=== PATIENT | female | born 1945 | race Caucasian/White ===

== ENCOUNTER → 2018-05-15 17:47 | Outpatient (CLI) | payer MEDICARE, SELFPAY | PROVIDERS: Family Provider Family Medicine; PCP Family Medicine; Visit Provider Obstetrics & Gynecology | DX: R31.9 Hematuria, unspecified (principal) | CPT/HCPCS: 87086; 87088 ==

== ENCOUNTER → 2018-06-18 08:23 | Outpatient (CLI) | payer MEDICARE, SELFPAY ==
--- NOTE | 2018-06-18 08:26 | BI_ITS ---
MAMMOGRAPHY - BILATERAL SCREENING REASON FOR EXAM: Female, 73 years old. Routine annual screening examination. PERTINENT HISTORY: Non-contributory. Left breast pain along its lateral aspect. TECHNIQUE: Digital bilateral breast shekhar (3D mammographic acquisition) in the CC and MLO projections. 2-D mediolateral oblique (MLO) and craniocaudad (CC) views of both breasts were obtained. CAD: Full Field Digital Mammography with Computer Added Detection was performed. COMPARISON: Comparison is made with prior examination dated May 21, 2017 and prior ultrasound of the left breast dated May 24, 2017. FINDINGS: Breast Composition: The breasts are heterogeneously dense, which may obscure small masses. There are multiple well-defined nodular densities in the central and inferior portions of the left breast. These most likely represent cysts. These appear to have increased in size as compared to prior study. Correlation with ultrasound is recommended. Stable scattered bilateral calcifications. A tissue clip marker is once again seen in the upper medial portion of the left breast. No other significant abnormalities are identified. BI/SCREENING MAMM (CAD), BILAT IMPRESSION: Increase in size of the nodular densities in the left breast as described. Correlation with ultrasound is recommended. ASSESSMENT CATEGORY: BIRADS Category 0: Incomplete. Need additional imaging evaluation. A letter regarding these results will be sent to the patient by the facility within 30 days. Approximately 10% of breast cancers are not detected by mammography. A normal mammogram should not delay biopsy of a clinically suspicious abnormality. [id number] Electronically Signed: Ulisses Lewis MD at 10:44 EDT Tel [phone], Service support ,
== END ==
PROVIDERS: Family Provider Family Medicine; PCP Family Medicine; Visit Provider Obstetrics & Gynecology
DX: Z12.31 Encounter for screening mammogram for malignant neoplasm of breast (principal)
CPT/HCPCS: 77063; 77067

== ENCOUNTER → 2018-06-20 14:56 | Outpatient (CLI) | payer MEDICARE, SELFPAY ==
--- NOTE | 2018-06-20 14:59 | US_ITS ---
STUDY: ULTRASOUND BREAST - LEFT REASON FOR EXAM: Female, 73 years old. Abnormal screening mammogram. TECHNIQUE: Axial and longitudinal images of the LEFT breast were performed with a high resolution ultrasound transducer. COMPARISON: Comparison is made with prior mammogram dated June 18, 2018 and prior ultrasound of the left breast dated May 24, 2017. FINDINGS: LEFT Breast: Once again, multiple cysts are seen in the inner quadrant of the left breast. The largest measures 1.6 times by 1.6 cm x 1.4 cm. This has increased in size. This is at the 9:00 position breast for sinus from the nipple. A 1.6 cm x 1.4 cm x 1.4 cm cyst is also seen at the 7:00 position of the breast at 3 cm from the nipple. This has increased in size as well. US/Breast Limited Unilateral IMPRESSION: Increase in size of the breast cysts. Routine mammographic follow-up is recommended. ASSESSMENT CATEGORY: BIRADS Category 2: Benign. A letter regarding these results will be sent to the patient by the facility within 30 days. Electronically Signed: Ulisses Lewis MD at 15:52 EDT Tel [phone], Service support ,
== END ==
PROVIDERS: Family Provider Family Medicine; PCP Family Medicine; Visit Provider Obstetrics & Gynecology
DX: R92.8 Other abnormal and inconclusive findings on diagnostic imaging of breast (principal)
CPT/HCPCS: 76642

== ENCOUNTER → 2018-10-03 15:22 | Outpatient (CLI) | payer MEDICARE, SELFPAY ==
[2018-10-03 17:41] LABS: Absolute Lymphocyte Count 3.22 X10^3/ul (0.83-4.51); Absolute Neutrophil Count 6.6 X10^3/uL (2.0-7.7); Basophil# 0.02 X10^3/uL; Basophil% 0.2 % (0-1); Eosinophil# 0.22 X10^3/uL; Eosinophils% 2.1 % (0-5); Hematocrit 40.2 % (37-47); Hemoglobin 12.9 g/dl (12.0-15.0); Lymphocyte # 3.22 X10^3/ul (4.0); Lymphocyte % 30.2 % (19-41); Mean Corp Hgb Conc 32.1 g/gl (32-36); Mean Corpuscular Volume 84.1 fL (81-99); Mean Platelet Vol. 9.1 fl (6.2-12.0); Monocyte# 0.57 X10^3/uL; Monocyte% 5.3 % (0-10); Neutrophil % 61.9 % (47-70); Platelet Count 251 K/mm3 (150-450); RBC Distribution Width CV 13.4 % (11.6-14.6); RBC Distribution Width SD 40.7 fl (35.1-43.9); Red Blood Count 4.78 M/mm3 (4.2-5.4); White Blood Count 10.7 K/mm3 (4.4-11.0)
[2018-10-03 17:42] LABS: POSITIVE COUNT NO; POSITIVE DIFFERENTIAL NO; POSITIVE MORPHOLOGY NO
[2018-10-03 18:05] LABS: ALB/GLOB Ratio 1.3 RATIO (0.9-2.4); AST(SGOT) 17 U/L (15-37); Alanine Aminotransfer ALT/SGPT 31 U/L (13-56); Albumin, Serum 4.1 g/dL (3.2-5.0); Alkaline Phosphatase 74 U/L (45-117); Anion Gap 10 (5-15); BUN 19 mg/dL (7-18); BUN/Creat Ratio 23.9 RATIO (10-20); Calcium,Total 8.9 mg/dL (8.5-10.1); Chloride 103 mmol/L (98-107); Cholesterol 169 mg/dL (200); EST Glomerular Filtration Rate 75 mL/min (>60); Est Glom Filt Rate - Afr Amer 91 mL/min (>60); Globulin 3.2 g/dL (2.2-4.2); Glucose 93 mg/dL (74-106); High Density Lipoprotein 44 mg/dL; Potassium 4.7 mmol/L (3.5-5.1); Protein, Total 7.3 g/dL (6.4-8.2); Sodium Level 139 mmol/L (136-145); T4 Free Direct 0.76 ng/dL (0.76-1.46); Thyroid Stim Hormone (TSH) 0.34 uIU/mL (0.358-3.74); Triglycerides 196 mg/dL; Very Low Density Lipoprotein 39 mg/dL (5-40)
[2018-10-03 18:35] LABS: Hemoglobin A1c 6.9 % (4.2-6.3)
[2018-10-03 19:11] LABS: Vitamin B12 558 pg/mL (211-911)
[2018-10-09 12:08] LABS: Thyroid Stim Immunoglob <0.10 IU/L (0.00-0.55)
[2018-10-09 14:06] LABS: Anti-Thyroglobulin AB < 1.0 IU/mL (0.0-0.9); Thyroglobulin, Serum Qt. 117.9 ng/mL (1.5-38.5); Thyroid Peroxidase AB < 6 IU/mL (0-34); Vitamin B1, Thiamine 134.7 nmol/L (66.5-200.0)
== END ==
PROVIDERS: Family Provider Family Medicine; PCP Family Medicine; Visit Provider Family Medicine
DX: R79.89 Other specified abnormal findings of blood chemistry (principal); E53.9 Vitamin B deficiency, unspecified; R00.2 Palpitations; R73.02 Impaired glucose tolerance (oral); E78.5 Hyperlipidemia, unspecified
CPT/HCPCS: 36415; 80053; 80061; 82607; 83036; 83735; 84425; 84432; 84439; 84443; 84445; 85025; 86376; 86800

== ENCOUNTER → 2018-10-08 15:47 | Outpatient (CLI) | payer MEDICARE, SELFPAY ==
[2018-06-25 15:05] VITALS: BMI 34.7
[2018-10-08 19:02] LABS: Microalbumin,Random Urine 8.5 mg/L (NO RANGE EST.); Microalbumin:Creatinine Ratio 4.4 mg/g CRE (<30 mg/g CRE)
== END ==
PROVIDERS: Family Provider Family Medicine; PCP Family Medicine; Visit Provider Family Medicine
DX: E11.9 Type 2 diabetes mellitus without complications (principal)
CPT/HCPCS: 82043; 82570

== ENCOUNTER → 2018-11-08 07:39 | Outpatient (CLI) | payer MEDICARE, SELFPAY ==
--- NOTE | 2018-11-08 07:42 | US_ITS ---
STUDY: THYROID ULTRASOUND REASON FOR EXAM: Female, 73 years old. Thyroid nodule. TECHNIQUE: Ultrasound evaluation of the thyroid was performed with real-time and static schroeder-scale imaging. COMPARISON: None. FINDINGS: RIGHT LOBE: The right lobe of the thyroid gland measures 4.8 cm x 2.5 cm x 1.5 cm. There is a homogeneous echotexture. There are 3 hypoechoic solid nodules in the right lobe of the thyroid in the upper and lower poles. The largest measures 1.4 cm x 1.5 cm x 1.5 cm. LEFT LOBE: The left lobe of the thyroid gland is slightly enlarged and measures 5.5 cm x 2.1 cm x 2.7 cm. There is a homogeneous echotexture. There are 3 solid hypoechoic nodules in the left lobe. The largest measures 2.7 cm x 2.7 cm x 2.0 cm. A biopsy is recommended. ISTHMUS: The isthmus measures 5.0 mm. The regional lymph nodes are normal. US/Thyroid IMPRESSION: Bilateral thyroid nodules. Dominant nodule measuring 2.7 cm x 2.7 cm x 2 cm and the left lobe in the lower pole. A biopsy is recommended. Electronically Signed: Ulisses Lewis MD at 9:21 EST , Service support ,
== END ==
PROVIDERS: Family Provider Family Medicine; PCP Family Medicine; Referring Provider Family Medicine; Visit Provider Family Medicine
DX: E04.1 Nontoxic single thyroid nodule (principal)
CPT/HCPCS: 76536

== ENCOUNTER → 2018-12-07 10:45 | Outpatient (CLI) | payer MEDICARE, SELFPAY ==
--- NOTE | 2018-12-07 10:45 | ASPS_PTH ---
PATIENT: BHARATH BEARD LOC: [facility] U#:[id number] AGE/SX: 80/F ROOM: RE12/07/[address]: Dr. Mateo Lamb MD : 1945 BED: DIS: SPEC #: [id number] RECD: 12/09/18 07:13 STATUS: RANJITH MIRANDA #: [id number] DINESH: 12/07/18 10:[address]: Mateo Lamb DEPT: CYTOLOGY RECD BY: Billy Ribera ENTERED: 12/09/18 10:53 SP TYPE: ASPIRATION OTHR DR: Dr. Sheng Escalante MD Tissues: A - Thyroid gland, NOS B - Thyroid gland, NOS Procedures: Special Stain Group II Cytology Other HEADER OPERATION: Thyroid FNA PRE-OP DIAGNOSIS: Thyroid nodules TISSUE SUBMITTED: A. Right thyroid slides x6 - mid thyroid, B. Left thyroid slides x6 - inferior thyroid DIAGNOSIS CYTOLOGY A. Fine needle aspiration, right mid thyroid (smears): Adequate for evaluation. Negative, consistent with benign colloid/follicular nodule. B. Fine needle aspiration, left inferior thyroid (smears): Adequate for evaluation. Negative, consistent with benign colloid/follicular nodule and chronic inflammation. AM:thanh 12/10/18 COMMENT Immediate cytologic evaluation to determine adequacy is not applicable. CYTOLOGY STUDY Slides are reviewed. CYTOLOGY GROSS A. Received are 6 smears labeled with the patient's name and designated per the requisition as right thyroid. Submitted for staining. B. Received are 6 smears labeled with the patient's name and designated per the requisition as left thyroid. Submitted for staining. / CC:cc 12/09/18 TC:5 CPT: 85509 x2
[2018-12-07 11:43] VITALS: BMI 34.7
== END ==
PROVIDERS: Family Provider Family Medicine; PCP Family Medicine; Referring Provider Surgery; Visit Provider Surgery
DX: E04.2 Nontoxic multinodular goiter (principal)
CPT/HCPCS: 88161; 88313

== ENCOUNTER → 2019-02-04 09:56 | Outpatient (CLI) | payer MEDICARE, SELFPAY ==
[2018-12-13 14:51] VITALS: BMI 34.7
[2019-02-04 14:14] LABS: Hemoglobin A1c 5.6 % (4.2-6.3)
[2019-02-04 14:29] LABS: ALB/GLOB Ratio 1.1 RATIO (0.9-2.4); AST(SGOT) 11 U/L (15-37); Alanine Aminotransfer ALT/SGPT 21 U/L (13-56); Albumin, Serum 3.6 g/dL (3.2-5.0); Alkaline Phosphatase 62 U/L (45-117); Anion Gap 9 (5-15); BUN 16 mg/dL (7-18); BUN/Creat Ratio 19.9 RATIO (10-20); Calcium,Total 8.7 mg/dL (8.5-10.1); Chloride 105 mmol/L (98-107); Cholesterol 134 mg/dL (200); Creatinine, Serum 0.81 mg/dL (0.55-1.02); EST Glomerular Filtration Rate 74 mL/min (>60); Est Glom Filt Rate - Afr Amer 90 mL/min (>60); Globulin 3.3 g/dL (2.2-4.2); Glucose 96 mg/dL (74-106); High Density Lipoprotein 45 mg/dL; Potassium 4.2 mmol/L (3.5-5.1); Protein, Total 6.9 g/dL (6.4-8.2); Sodium Level 142 mmol/L (136-145); T4 Free Direct 0.76 ng/dL (0.76-1.46); Thyroid Stim Hormone (TSH) 0.37 uIU/mL (0.358-3.74); Triglycerides 177 mg/dL; Very Low Density Lipoprotein 35 mg/dL (5-40)
== END ==
PROVIDERS: Family Provider Family Medicine; PCP Family Medicine; Visit Provider Family Medicine
DX: E78.5 Hyperlipidemia, unspecified (principal); E11.9 Type 2 diabetes mellitus without complications; E05.90 Thyrotoxicosis, unspecified without thyrotoxic crisis or storm
CPT/HCPCS: 36415; 80053; 80061; 83036; 84439; 84443

== ENCOUNTER → 2019-06-10 13:42 | Outpatient (CLI) | payer MEDICARE, SELFPAY ==
[2019-05-20 14:04] VITALS: BMI 34.7
[2019-06-10 15:26] LABS: Absolute Neutrophil Count 5.2 X10^3/uL (2.0-7.7); Basophil# 0.03 X10^3/uL; Basophil% 0.3 % (0-1); Eosinophil# 0.22 X10^3/uL; Eosinophils% 2.5 % (0-5); Hematocrit 36.8 % (37-47); Lymphocyte % 31.1 % (19-41); Mean Corp Hgb Conc 32.6 g/dL (32-36); Mean Corpuscular Hgb 27.8 pg (27.0-32.0); Mean Corpuscular Volume 85.4 fL (81-99); Mean Platelet Vol. 9.3 fl (6.2-12.0); Monocyte# 0.53 X10^3/uL; Monocyte% 6.1 % (0-10); NRBC Flagged by Analyzer 0 % (0-5); Neutrophil # 5.16 X10^3/uL (2.7-7.7); Neutrophil % 59.7 % (47-70); Platelet Count 289 K/mm3 (150-450); RBC Distribution Width CV 13.2 % (11.6-14.6); RBC Distribution Width SD 40.8 fl (35.1-43.9); Red Blood Count 4.31 M/mm3 (4.2-5.4); White Blood Count 8.7 K/mm3 (4.4-11.0)
[2019-06-10 15:45] LABS: Magnesium 1.8 mg/dL (1.6-2.6)
== END ==
PROVIDERS: Family Provider Family Medicine; PCP Family Medicine; Referring Provider Family Medicine; Visit Provider Family Medicine
DX: R00.2 Palpitations (principal); K21.9 Gastro-esophageal reflux disease without esophagitis
CPT/HCPCS: 36415; 83735; 85025

== ENCOUNTER → 2019-07-17 10:23 | Outpatient (CLI) | payer MEDICARE, SELFPAY ==
[2019-05-20 14:04] VITALS: BMI 34.7
[2019-07-17 13:27] LABS: Vitamin B12 352 pg/mL (211-911)
== END ==
PROVIDERS: Family Provider Family Medicine; PCP Family Medicine; Referring Provider Family Medicine; Visit Provider Family Medicine
DX: R41.3 Other amnesia (principal)
CPT/HCPCS: 36415; 82607; 84443

== ENCOUNTER → 2019-07-31 12:33 | Outpatient (CLI) | payer MEDICARE, SELFPAY ==
[2019-05-20 14:04] VITALS: BMI 34.7
--- NOTE | 2019-07-31 12:35 | BI_ITS ---
MAMMOGRAPHY - BILATERAL SCREENING REASON FOR EXAM: Female, 74 years old. Routine annual screening examination. PERTINENT HISTORY: Non-contributory. Remote left stereotactic breast biopsy. TECHNIQUE: Digital bilateral breast christina (3D mammographic acquisition) in the CC and MLO projections. 2-D mediolateral oblique (MLO) and craniocaudad (CC) views of both breasts were obtained. CAD: Full Field Digital Mammography with Computer Added Detection was performed. COMPARISON: Comparison is made with prior examination dated June 18, 2018 and May 21, 2017. FINDINGS: Breast Composition: The breasts are heterogeneously dense, which may obscure small masses. Once again, small well-defined nodules are seen in the inferior medial aspect of the left breast. The dominant nodule in the inferior central portion of the left breast has decreased slightly in size. It presently measures 1.2 cm. Prior ultrasound of the left breast demonstrated these to be cysts. Stable benign-appearing bilateral axillary lymph nodes. No other significant abnormalities are identified. There has been no significant change since the prior study. BI/SCREEN MAMM (CAD) W/CHRISTINA BILAT IMPRESSION: Stable bilateral screening mammogram. Yearly follow-up mammogram recommended. (A) ASSESSMENT CATEGORY: BIRADS Category 2: Benign. A letter regarding these results will be sent to the patient by the facility within 30 days. Approximately 10% of breast cancers are not detected by mammography. A normal mammogram should not delay biopsy of a clinically suspicious abnormality. [id number] Electronically Signed: Ulisses Lewis, at 13:56 EST , Service support ,
== END ==
PROVIDERS: Family Provider Family Medicine; PCP Family Medicine; Referring Provider Obstetrics & Gynecology; Visit Provider Obstetrics & Gynecology
DX: Z12.31 Encounter for screening mammogram for malignant neoplasm of breast (principal)
CPT/HCPCS: 77063; 77067

== ENCOUNTER → 2019-11-26 12:03 | Outpatient (CLI) | payer MEDICARE, SELFPAY ==
[2019-10-24 14:53] VITALS: BMI 34.7
[2019-11-26 15:54] LABS: Absolute Lymphocyte Count 2.54 X10^3/uL (0.83-4.51); Absolute Neutrophil Count 5.6 X10^3/uL (2.0-7.7); Basophil# 0.02 X10^3/uL; Basophil% 0.2 % (0-1); Eosinophil# 0.17 X10^3/uL; Eosinophils% 1.9 % (0-5); Hematocrit 38.8 % (37-47); Hemoglobin 12.3 g/dL (12.0-15.0); Lymphocyte # 2.54 X10^3/ul (4.0); Lymphocyte % 28.5 % (19-41); Mean Corp Hgb Conc 31.7 g/dL (32-36); Mean Corpuscular Hgb 26.7 pg (27.0-32.0); Mean Corpuscular Volume 84.2 fL (81-99); Mean Platelet Vol. 9.4 fl (6.2-12.0); Monocyte# 0.51 X10^3/uL; Monocyte% 5.7 % (0-10); NRBC Flagged by Analyzer 0 % (0-5); Neutrophil # 5.63 X10^3/uL (2.7-7.7); Neutrophil % 63.4 % (47-70); Platelet Count 283 K/mm3 (150-450); RBC Distribution Width CV 13.4 % (11.6-14.6); RBC Distribution Width SD 41.1 fl (35.1-43.9); Red Blood Count 4.61 M/mm3 (4.2-5.4); White Blood Count 8.9 K/mm3 (4.4-11.0)
[2019-11-26 16:52] LABS: ALB/GLOB Ratio 1.1 RATIO (0.9-2.4); AST(SGOT) 14 U/L (15-37); Alanine Aminotransfer ALT/SGPT 21 U/L (13-56); Albumin, Serum 3.9 g/dL (3.2-5.0); Alkaline Phosphatase 63 U/L (45-117); Anion Gap 7 (5-15); BUN 16 mg/dL (7-18); BUN/Creat Ratio 17.6 RATIO (10-20); Chloride 105 mmol/L (98-107); Cholesterol 145 mg/dL (200); Creatinine, Serum 0.91 mg/dL (0.55-1.02); EST Glomerular Filtration Rate 64 mL/min (>60); Est Glom Filt Rate - Afr Amer 78 mL/min (>60); Globulin 3.7 g/dL (2.2-4.2); Glucose 118 mg/dL (74-106); High Density Lipoprotein 54 mg/dL; Magnesium 1.9 mg/dL (1.6-2.6); Potassium 3.9 mmol/L (3.5-5.1); Protein, Total 7.6 g/dL (6.4-8.2); Sodium Level 139 mmol/L (136-145); T4 Free Direct 0.79 ng/dL (0.76-1.46); Thyroid Stim Hormone (TSH) 0.19 uIU/mL (0.358-3.74); Triglycerides 159 mg/dL; Very Low Density Lipoprotein 32 mg/dL (5-40)
[2019-11-26 16:53] LABS: Hemoglobin A1c 5.8 % (4.2-6.3)
== END ==
PROVIDERS: PCP Family Medicine; Referring Provider Family Medicine; Visit Provider Family Medicine
DX: R00.2 Palpitations (principal); E78.5 Hyperlipidemia, unspecified; E11.9 Type 2 diabetes mellitus without complications; R79.89 Other specified abnormal findings of blood chemistry
CPT/HCPCS: 36415; 80053; 80061; 83036; 83735; 84439; 84443; 85025

== ENCOUNTER → 2019-12-01 10:17 | Outpatient (CLI) | payer MEDICARE, SELFPAY ==
[2019-05-20 14:04] VITALS: BMI 34.7
[2019-10-24 14:53] VITALS: BMI 34.7
--- NOTE | 2019-12-01 10:18 | US_ITS ---
STUDY: THYROID ULTRASOUND REASON FOR EXAM: Female, 74 years old. NODULES TECHNIQUE: Ultrasound evaluation of the thyroid was performed with real-time and static schroeder-scale imaging. COMPARISON: 11/08/2018 FINDINGS: RIGHT LOBE: The right lobe of the thyroid gland measures 5.1 x 1.9 x 2.0 cm. There is a heterogeneous echotexture. Slight increase in the size of the hypoechoic nodule with increased transmission in the anterior aspect of the right lobe from 1.0 cm #1.2 cm in diameter consistent with an enlarging colloid cyst. No change in the 0.7 cm oval hypoechoic nodule anteriorly in the right lobe likely consistent with an adenoma. No change in the adjacent 0.6 cm hypoechoic nodule anteriorly in the right lobe likely consistent with an adenoma. Interval decrease in the size of the dominant solid nodule posteriorly in the right lobe from 1.5 cm diameter 1.3 cm in diameter likely consistent with improving adenoma. LEFT LOBE: The left lobe of the thyroid gland measures 5.5 x 2.4 x 2.6 cm. There is a heterogeneous echotexture. There is no change in a 0.7 cm hypoechoic solid nodule superiorly in the left lobe which contains punctate echogenicities worrisome for microcalcifications. Biopsy is nodule is recommended if never performed. No change in the 2.8 cm hypoechoic solid nodule posteriorly in the left lobe which also should be biopsied if never performed. ISTHMUS: The isthmus measures 6 cm thick. . The regional lymph nodes are normal. US/Thyroid IMPRESSION: 1. Thyroiditis with multiple nodules most of which are unchanged with slight enlargement of the right-sided colloid cyst. 2. No change is 0.7 cm hypoechoic solid nodule superiorly in the left lobe with possible microcalcifications. Biopsy of this nodule is recommended if never performed. 3. No change in 2.8 cm dominant solid nodule in the left lobe. Biopsy of this nodule is recommended if never performed. Electronically Signed: Teodoro Jennings MD at 11:28 EDT Tel , Service support ,
== END ==
PROVIDERS: Family Provider Family Medicine; PCP Family Medicine; Referring Provider Physician Assistant; Visit Provider Physician Assistant
DX: E04.2 Nontoxic multinodular goiter (principal)
CPT/HCPCS: 76536

== ENCOUNTER → 2019-12-10 10:45 | Outpatient (CLI) | payer MEDICARE, SELFPAY ==
[2019-12-09 11:06] VITALS: BMI 31.7
[2019-12-10 12:56] LABS: AST(SGOT) 11 U/L (15-37); Alanine Aminotransfer ALT/SGPT 20 U/L (13-56); Albumin, Serum 3.9 g/dL (3.2-5.0); Alkaline Phosphatase 69 U/L (45-117); Bilirubin, Direct 0.31 mg/dL (0.00-0.30); Cholesterol 164 mg/dL (200); High Density Lipoprotein 49 mg/dL; Protein, Total 7.9 g/dL (6.4-8.2); T4 Total, Thyroxin 7.3 ug/dL (4.8-13.9); Triglycerides 218 mg/dL; Very Low Density Lipoprotein 44 mg/dL (5-40)
== END ==
PROVIDERS: PCP Family Medicine; Referring Provider Family Medicine; Visit Provider Internal Medicine Cardiovascular Disease
DX: E78.5 Hyperlipidemia, unspecified (principal); E03.9 Hypothyroidism, unspecified
CPT/HCPCS: 36415; 80061; 80076; 84436; 84443

== ENCOUNTER → 2019-12-11 11:27 | Outpatient (CLI) | payer MEDICARE, SELFPAY ==
[2019-12-09 11:06] VITALS: BMI 31.7
[2019-12-15 14:07] LABS: Thyroid Stim Immunoglob <0.10 IU/L (0.00-0.55)
[2019-12-15 15:41] LABS: Anti-Thyroglobulin AB < 1.0 IU/mL (0.0-0.9); Thyroglobulin, Serum Qt. 133.3 ng/mL (1.5-38.5); Thyroid Peroxidase AB < 9 IU/mL (0-34)
== END ==
PROVIDERS: PCP Family Medicine; Referring Provider Family Medicine; Visit Provider Family Medicine
DX: R79.89 Other specified abnormal findings of blood chemistry (principal)
CPT/HCPCS: 36415; 84432; 84445; 86376; 86800

== ENCOUNTER → 2019-12-18 12:59 | Outpatient (CLI) | payer MEDICARE, SELFPAY ==
[2019-12-09 11:06] VITALS: BMI 31.7
--- NOTE | 2019-12-18 12:59 | ECHOD_ITS ---
Reason For Study: PVCs Procedure This was a 2D Doppler, Color Flow transthoracic echocardiogram. Exam performed in department. Left Ventricle Moderate concentric left ventricular hypertrophy. The estimated ejection fraction is 65 %. Stage 1 diastolic dysfunction. No regional wall motion abnormalities noted. Right Ventricle Normal size and thickness. Normal systolic function. Atria Normal left atrium. Normal right atrium. Normal atrial septum. Mitral Valve The mitral valve is structurally normal. No prolapse or stenosis seen. Mild (1+) eccentric mitral valve insufficiency. Tricuspid Valve Normal tricuspid valve. Mild (1+) tricuspid valve insufficiency. Right ventricular systolic pressure estimated to be 40 mmHg. Mild pulmonary hypertension. Aortic Valve Normal aortic valve. Trisinus/trileaflet aortic valve. Pulmonic Valve Normal pulmonic valve. Great Vessels Normal aortic root. Normal arch. Normal inferior vena cava. Inferior vena cava collapse with sniff. Pericardium/Pleural No pericardial effusion. MMode/2D Measurements & Calculations LVIDd: 5.1 cm IVSd: 1.4 cm Ao root diam: 2.8 cm LVIDs: 3.2 cm LVPWd: 1.5 cm RVDd: 3.3 cm FS: 37.3 % LAV(MOD-bp): 42.2 ml LVAd ap4: 24.7 cm2 SV(MOD-sp4): 45.2 ml LAV(MOD-bp) Indexed: 22.6 ml/m2 EDV(MOD-sp4): 73.4 ml LAV(MOD-sp2): 54.3 ml EDV(sp4-el): 75.8 ml LAV(MOD-sp4): 30.9 ml LVAs ap4: 14.1 cm2 ESV(MOD-sp4): 28.2 ml ESV(sp4-el): 28.7 ml EF(MOD-sp4): 61.6 % EF(sp4-el): 62.1 % SV(sp4-el): 47.1 ml LA A4 area: 13.8 cm2 LA dimension(2D): 3.3 cm RA A4 area: 13.0 cm2 Doppler Measurements & Calculations MV E max cristofer: 81.6 cm/sec Lat Peak E' Cristofer: 6.1 cm/sec Med Peak E' Cristofer: 6.3 cm/sec MV A max cristofer: 90.9 cm/sec E/E' lat: 13.3 E/E' med: 13.0 MV E/A: 0.90 Ao V2 max: 138.5 cm/sec LV V1 max: 121.7 cm/sec PA V2 max: 98.8 cm/sec Ao max P.7 mmHg LV V1 max P.9 mmHg Ao V2 mean: 99.1 cm/sec Ao mean P.3 mmHg Ao V2 VTI: 32.0 cm TR max cristofer: 294.2 cm/sec TR max P.6 mmHg Interpretation Summary Moderate concentric left ventricular hypertrophy. The estimated ejection fraction is 65 %. Stage 1 diastolic dysfunction. Mild (1+) eccentric mitral valve insufficiency. Mild (1+) tricuspid valve insufficiency. Right ventricular systolic pressure estimated to be 40 mmHg. Mild pulmonary hypertension. There is no comparison study available. Ordering Physician: Abundio Ames Referring Physician: Sheng Escalante Performed By: Becky Godinez, [place], RVT
== END ==
PROVIDERS: PCP Family Medicine; Referring Provider Internal Medicine Cardiovascular Disease; Visit Provider Internal Medicine Cardiovascular Disease
DX: I49.3 Ventricular premature depolarization (principal); I10 Essential (primary) hypertension; E11.9 Type 2 diabetes mellitus without complications; E03.9 Hypothyroidism, unspecified; E78.5 Hyperlipidemia, unspecified
CPT/HCPCS: 93306

== ENCOUNTER → 2020-01-09 12:27 | Outpatient (CLI) | payer MEDICARE, SELFPAY ==
[2019-12-09 11:06] VITALS: BMI 31.7
--- NOTE | 2020-01-09 | ASPS_PTH ---
PATIENT: BHARATH BEARD LOC: [facility] U#:[id number] AGE/SX: 80/F ROOM: RE01/09/[address]: Dr. Mateo Lamb MD : 1945 BED: DIS: SPEC #: [id number] RECD: 01/09/20 12:24 STATUS: RANJITH MIRANDA #: [id number] DINESH: 01/09/20 00:[address]: Mateo Lamb DEPT: CYTOLOGY RECD BY: Julio Shipman ENTERED: 01/12/20 10:04 SP TYPE: ASPIRATION OTHR DR: Dr. Sheng Escalante MD Tissues: A - Thyroid gland, NOS B - Thyroid gland, NOS Procedures: Special Stain Group II Cytology Other HEADER OPERATION: Left thyroid FNA x2 PRE-OP DIAGNOSIS: Multiple thyroid nodules TISSUE SUBMITTED: A - Left superior thyroid slides x8, B - Left inferior thyroid slides x6 DIAGNOSIS CYTOLOGY A. Fine needle aspiration, left superior thyroid (smears): Adequate for evaluation. Consistent with benign follicular nodule. B. Fine needle aspiration, left inferior thyroid (smears): Adequate for evaluation. Consistent with benign follicular nodule with focal reactive changes and minimal chronic inflammation. AM:thanh 01/13/20 COMMENT Reference is made to the patient's previous fine needle aspiration ([id number]) in which findings consistent with benign colloid/follicular nodule were identified. Case has been reviewed in consultation with Dr. Mcleod who concurs with the above diagnosis. IDC:SJ CYTOLOGY STUDY Slides are reviewed. CYTOLOGY GROSS A - Received are eight smears labeled with the patient's name and designated per the requisition as left superior thyroid. Submitted for staining. B - Received are six smears labeled with the patient's name and designated per the requisition as left inferior thyroid. Submitted for staining. / thanh 01/12/20 TC:5 CPT: 31676 x2
== END ==
PROVIDERS: PCP Family Medicine; Referring Provider Surgery; Visit Provider Surgery
DX: E04.2 Nontoxic multinodular goiter (principal)
CPT/HCPCS: 88161; 88313

== ENCOUNTER → 2020-04-09 09:37 | Outpatient (CLI) | payer MEDICARE, SELFPAY ==
[2019-12-09 11:06] VITALS: BMI 31.7
[2020-04-09 12:12] LABS: Absolute Lymphocyte Count 2.69 X10^3/uL (0.83-4.51); Absolute Neutrophil Count 4.4 X10^3/uL (2.0-7.7); Basophil# 0.03 X10^3/uL; Basophil% 0.4 % (0-1); Eosinophil# 0.23 X10^3/uL; Hematocrit 39.8 % (37-47); Hemoglobin 12.7 g/dL (12.0-15.0); Lymphocyte # 2.69 X10^3/ul (4.0); Lymphocyte % 34.7 % (19-41); Mean Corp Hgb Conc 31.9 g/dL (32-36); Mean Corpuscular Hgb 27.7 pg (27.0-32.0); Mean Corpuscular Volume 86.7 fL (81-99); Mean Platelet Vol. 9.6 fl (6.2-12.0); Monocyte# 0.39 X10^3/uL; NRBC Flagged by Analyzer 0 % (0-5); Neutrophil # 4.39 X10^3/uL (2.7-7.7); Neutrophil % 56.6 % (47-70); Platelet Count 282 K/mm3 (150-450); RBC Distribution Width CV 13.2 % (11.6-14.6); RBC Distribution Width SD 41.1 fl (35.1-43.9); Red Blood Count 4.59 M/mm3 (4.2-5.4); White Blood Count 7.8 K/mm3 (4.4-11.0)
[2020-04-09 12:41] LABS: ALB/GLOB Ratio 1.1 RATIO (0.9-2.4); AST(SGOT) 13 U/L (15-37); Alanine Aminotransfer ALT/SGPT 22 U/L (13-56); Albumin, Serum 3.9 g/dL (3.2-5.0); Alkaline Phosphatase 62 U/L (45-117); Anion Gap 6 (5-15); BUN 18 mg/dL (7-18); BUN/Creat Ratio 22.3 RATIO (10-20); Calcium,Total 8.9 mg/dL (8.5-10.1); Chloride 106 mmol/L (98-107); Cholesterol 173 mg/dL (200); Creatinine, Serum 0.81 mg/dL (0.55-1.02); EST Glomerular Filtration Rate 74 mL/min (>60); Est Glom Filt Rate - Afr Amer 89 mL/min (>60); Globulin 3.5 g/dL (2.2-4.2); Glucose 99 mg/dL (74-106); High Density Lipoprotein 44 mg/dL; Magnesium 2.1 mg/dL (1.6-2.6); Potassium 4.2 mmol/L (3.5-5.1); Protein, Total 7.4 g/dL (6.4-8.2); Sodium Level 139 mmol/L (136-145); T4 Free Direct 0.78 ng/dL (0.76-1.46); Thyroid Stim Hormone (TSH) 0.34 uIU/mL (0.358-3.74); Triglycerides 211 mg/dL; Very Low Density Lipoprotein 42 mg/dL (5-40)
[2020-04-09 13:47] LABS: Hemoglobin A1c 5.7 % (3.8-5.6)
[2020-04-09 15:44] LABS: Microalbumin,Random Urine 11.1 mg/L (NO RANGE EST.); Microalbumin:Creatinine Ratio 10.1 mg/g CRE (<30 mg/g CRE)
== END ==
PROVIDERS: PCP Family Medicine; Visit Provider Family Medicine
DX: R79.89 Other specified abnormal findings of blood chemistry (principal); R00.2 Palpitations; E78.5 Hyperlipidemia, unspecified; E11.9 Type 2 diabetes mellitus without complications
CPT/HCPCS: 36415; 80053; 80061; 82043; 82570; 83036; 83735; 84439; 84443; 85025

== ENCOUNTER → 2020-08-02 09:49 | Outpatient (CLI) | payer MEDICARE, SELFPAY ==
[2020-07-21 14:00] VITALS: BMI 32.8
[2020-08-02 12:21] LABS: Absolute Lymphocyte Count 2.69 X10^3/uL (0.83-4.51); Absolute Neutrophil Count 3.8 X10^3/uL (2.0-7.7); Basophil# 0.02 X10^3/uL; Basophil% 0.3 % (0-1); Eosinophil# 0.19 X10^3/uL; Eosinophils% 2.7 % (0-5); Hematocrit 38.7 % (37-47); Hemoglobin 12.4 g/dL (12.0-15.0); Lymphocyte # 2.69 X10^3/ul (4.0); Mean Corpuscular Hgb 27.5 pg (27.0-32.0); Mean Corpuscular Volume 85.8 fL (81-99); Mean Platelet Vol. 9.2 fl (6.2-12.0); Monocyte# 0.38 X10^3/uL; Monocyte% 5.4 % (0-10); NRBC Flagged by Analyzer 0 % (0-5); Neutrophil # 3.78 X10^3/uL (2.7-7.7); Neutrophil % 53.3 % (47-70); Platelet Count 252 K/mm3 (150-450); RBC Distribution Width SD 40.2 fl (35.1-43.9); Red Blood Count 4.51 M/mm3 (4.2-5.4); White Blood Count 7.1 K/mm3 (4.4-11.0)
[2020-08-02 12:42] LABS: AST(SGOT) 12 U/L (15-37); Alanine Aminotransfer ALT/SGPT 18 U/L (13-56); Albumin, Serum 3.6 g/dL (3.2-5.0); Alkaline Phosphatase 70 U/L (45-117); Anion Gap 7 (5-15); BUN 19 mg/dL (7-18); BUN/Creat Ratio 20.6 RATIO (10-20); Calcium,Total 9.1 mg/dL (8.5-10.1); Chloride 107 mmol/L (98-107); Cholesterol 149 mg/dL (200); Creatinine, Serum 0.92 mg/dL (0.55-1.02); EST Glomerular Filtration Rate 63 mL/min (>60); Est Glom Filt Rate - Afr Amer 76 mL/min (>60); Globulin 3.7 g/dL (2.2-4.2); Glucose 98 mg/dL (74-106); High Density Lipoprotein 48 mg/dL; Potassium 4.1 mmol/L (3.5-5.1); Protein, Total 7.3 g/dL (6.4-8.2); Sodium Level 140 mmol/L (136-145); T4 Free Direct 0.82 ng/dL (0.76-1.46); Triglycerides 169 mg/dL; Very Low Density Lipoprotein 34 mg/dL (5-40)
[2020-08-02 12:50] LABS: Hemoglobin A1c 5.7 % (3.8-5.6)
[2020-08-02 14:28] LABS: Microalbumin,Random Urine < 5.0 mg/L (NO RANGE EST.)
== END ==
PROVIDERS: PCP Family Medicine; Referring Provider Family Medicine; Visit Provider Family Medicine
DX: R79.89 Other specified abnormal findings of blood chemistry (principal); K21.9 Gastro-esophageal reflux disease without esophagitis; E78.5 Hyperlipidemia, unspecified; E11.9 Type 2 diabetes mellitus without complications
CPT/HCPCS: 36415; 80053; 80061; 82043; 82570; 83036; 84439; 84443; 85025

== ENCOUNTER → 2020-08-24 12:57 | Outpatient (CLI) | payer MEDICARE, SELFPAY ==
[2020-07-21 14:00] VITALS: BMI 32.8
--- NOTE | 2020-08-24 13:00 | BI_ITS ---
MAMMOGRAPHY - BILATERAL SCREENING REASON FOR EXAM: Female, 75 years old. Routine annual screening examination. PERTINENT HISTORY: Non-contributory. TECHNIQUE: Digital bilateral breast christina (3D mammographic acquisition) in the CC and MLO projections. 2-D mediolateral oblique (MLO) and craniocaudad (CC) views of both breasts were obtained. CAD: Full Field Digital Mammography with Computer Added Detection was performed. COMPARISON: Comparison is made with prior study dated 07/31/2019 and 06/18/2018. FINDINGS: Breast Composition: The breasts are heterogeneously dense, which may obscure small masses. There are no dominant masses or suspicious calcifications. Since prior examination, there has been further decrease in size of the well-defined nodule in the deep inferior central nodule seen in the left breast. The remainder of the examination is unchanged. Stable benign-appearing bilateral axillary lymph nodes. No other significant abnormalities are identified. BI/SCREEN MAMM (CAD) W/CHRISTINA BILAT IMPRESSION: Stable bilateral screening mammogram. Interval decrease in size of the previously seen well-defined nodule in the inferior deep central aspect of the left breast. Yearly follow-up mammogram recommended. (A) ASSESSMENT CATEGORY: BIRADS Category 2: Benign. A letter regarding these results will be sent to the patient by the facility within 30 days. Approximately 10% of breast cancers are not detected by mammography. A normal mammogram should not delay biopsy of a clinically suspicious abnormality. [id number] Electronically Signed: Ulisses Lewis, at 14:17 EST , Service support ,
== END ==
PROVIDERS: PCP Family Medicine; Referring Provider Obstetrics & Gynecology; Visit Provider Obstetrics & Gynecology
DX: Z12.31 Encounter for screening mammogram for malignant neoplasm of breast (principal)
CPT/HCPCS: 77063; 77067

== ENCOUNTER → 2020-09-28 10:57 | Outpatient (CLI) | payer MEDICARE, SELFPAY ==
[2020-07-21 14:00] VITALS: BMI 32.8
--- NOTE | 2020-09-28 11:00 | BD_ITS ---
STUDY: DUAL ENERGY X-RAY ABSORPTIOMETRY / DXA REASON FOR EXAM: Female, 75 years old. 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 COMPARISON: None. FINDINGS: Lumbar Spine (L1-L4): g/cm2 (1.467) / T-score (2.5) / Z-score (4.2) Findings are suggestive of normal bone density with a low fracture risk. Left Femur Total: g/cm2 (1.146) / T-score (1.1) / Z-score (2.8) Left Femoral Neck: g/cm2 (1.072) / T-score (0.2) / Z-score (2.2) Right Femur Total: g/cm2 (1.103) / T-score (0.8) / Z-score (2.5) Right Femoral Neck: g/cm2 (1.043) / T-score (0.0) / Z-score (2.0) BD/Dexa Bone Density Study IMPRESSION: The patient is considered normal as outlined below according to World Aram Organization (WHO) criteria with a low fracture risk. Reference Information: The T-score is the number of standard deviations above or below the standard which is normal for young adults at their peak bone mineral density. The World Health Organization (WHO) interprets the T-scores as follows: Above -1 Normal bone density Between -1 and -2.5 Osteopenia Equal to / or below -2.5 Osteoporosis As a practical clinical guideline, osteopenia may be graded as follows: Mild -1 through -1.5 Moderate -1.6 through -2.0 Severe -2.1 through -2.4 The Z-score is the number of standard deviations above or below age-matched controls. A Z-score of less than -1.5 would be considered abnormal. References: 1. NIH Osteoporosis and Related Bone Diseases www osteo.org 2. International Society for Clinical Densitometry www iscd.org 3. National Osteoporosis Foundation www nof.org Electronically Signed: Ulisses Lewis, at 15:03 EST , Service support ,
== END ==
PROVIDERS: PCP Family Medicine; Referring Provider Family Medicine; Visit Provider Family Medicine
DX: Z78.0 Asymptomatic menopausal state (principal)
CPT/HCPCS: 77080

== ENCOUNTER → 2020-12-13 09:09 | Outpatient (CLI) | payer MEDICARE, SELFPAY ==
[2020-12-06 15:03] VITALS: BMI 35.4
[2020-12-13 10:42] LABS: Hemoglobin A1c 5.7 % (3.8-5.6)
[2020-12-13 11:06] LABS: Microalbumin,Random Urine 6.4 mg/L (NO RANGE EST.); Microalbumin:Creatinine Ratio 6.1 mg/g CRE (<30 mg/g CRE)
[2020-12-13 11:07] LABS: ALB/GLOB Ratio 0.9 RATIO (0.9-2.4); AST(SGOT) 17 U/L (15-37); Alanine Aminotransfer ALT/SGPT 22 U/L (13-56); Albumin, Serum 3.8 g/dL (3.2-5.0); Alkaline Phosphatase 79 U/L (45-117); BUN 18 mg/dL (7-18); BUN/Creat Ratio 22.7 RATIO (10-20); Calcium,Total 8.8 mg/dL (8.5-10.1); Chloride 103 mmol/L (98-107); Cholesterol 246 mg/dL (200); Creatinine, Serum 0.79 mg/dL (0.55-1.02); EST Glomerular Filtration Rate 75 mL/min (>60); Est Glom Filt Rate - Afr Amer 91 mL/min (>60); Globulin 4.1 g/dL (2.2-4.2); Glucose 112 mg/dL (74-106); Magnesium 2.2 mg/dL (1.6-2.6); Potassium 4.1 mmol/L (3.5-5.1); Protein, Total 7.9 g/dL (6.4-8.2); Sodium Level 139 mmol/L (136-145); Triglycerides 213 mg/dL
[2020-12-13 11:08] LABS: Anion Gap 7 (5-15); High Density Lipoprotein 50 mg/dL; T4 Free Direct 0.72 ng/dL (0.76-1.46); Thyroid Stim Hormone (TSH) 0.36 uIU/mL (0.358-3.74); Very Low Density Lipoprotein 43 mg/dL (5-40)
[2020-12-15 20:07] LABS: Thyroid Stim Immunoglob <0.10 IU/L (0.00-0.55)
[2020-12-16 14:14] LABS: Anti-Thyroglobulin AB < 1.0 IU/mL (0.0-0.9); Thyroglobulin, Serum Qt. 148.2 ng/mL (1.5-38.5); Thyroid Peroxidase AB < 9 IU/mL (0-34)
== END ==
PROVIDERS: PCP Family Medicine; Visit Provider Family Medicine
DX: E11.9 Type 2 diabetes mellitus without complications (principal); E78.5 Hyperlipidemia, unspecified; R79.89 Other specified abnormal findings of blood chemistry; R00.2 Palpitations
CPT/HCPCS: 36415; 80053; 80061; 82043; 82570; 83036; 83735; 84432; 84439; 84443; 84445; 86376; 86800

== ENCOUNTER → 2020-12-14 09:55 | Outpatient (CLI) | payer MEDICARE, SELFPAY ==
--- NOTE | 2020-12-14 09:58 | RAD_ITS ---
STUDY: X-RAY - LUMBAR SPINE REASON FOR EXAM: Female, 75 years old. FACET ARTHROPATHY TECHNIQUE: 3 view(s) of the lumbar spine were obtained. COMPARISON: None FINDINGS: Normal lumbar lordosis. There is no substantial scoliosis. There is a normal alignment of the vertebrae. There is multilevel endplate spondylosis of the lumbar vertebrae. There is multi-level degenerative disc disease with multi-level disc space narrowing. There is mild atherosclerotic calcification of the abdominal aorta without a demonstrated aneurysm. RAD/Lumbar Spine 2 or 3 Views IMPRESSION: Degenerative changes of the spine, as detailed above. Electronically Signed: Ulisses Lewis MD at 10:35 EDT , Service support ,
== END ==
PROVIDERS: PCP Family Medicine; Referring Provider Family Medicine; Visit Provider Family Medicine
DX: M47.819 Spondylosis without myelopathy or radiculopathy, site unspecified (principal)
CPT/HCPCS: 72100

== ENCOUNTER → 2020-12-20 13:10 | Outpatient (CLI) | payer MEDICARE, SELFPAY ==
[2020-12-06 15:03] VITALS: BMI 35.4
--- NOTE | 2020-12-20 13:13 | US_ITS ---
STUDY: THYROID ULTRASOUND REASON FOR EXAM: Female, 75 years old. MULTIPLE THYROID NODuLES TECHNIQUE: Ultrasound evaluation of the thyroid was performed with real-time and static schroeder-scale imaging. COMPARISON: Comparison is made with prior examination dated 12/01/2019. FINDINGS: RIGHT LOBE: The right lobe of the thyroid gland measures 4.9 cm x 1.9 cm x 1.8 cm. There is a heterogeneous echotexture. 3 hypoechoic solid nodules are once again seen. The largest is in the posterior aspect of the inferior pole of the right lobe of the thyroid. This measures 1.4 cm x 1.6 cm x 1.4 cm. Increased vascularity is seen. LEFT LOBE: The left lobe of the thyroid gland is slightly enlarged and measures 5.1 cm x 1.9 cm x 2.7 cm. There is a heterogeneous echotexture. Stable 2.8 cm x 3.1 cm x 2.1 cm hypoechoic solid nodule in the posterior aspect of the left lobe. Increased vascularity is seen. Stable 7 mm hypoechoic solid nodule in the superior left lobe. ISTHMUS: The isthmus measures 7 mm. The regional lymph nodes are normal. US/Thyroid IMPRESSION: Stable enlargement of the left lobe of the thyroid with stable bilateral thyroid nodules. Electronically Signed: Ulisses Lewis MD at 11:26 EDT , Service support ,
== END ==
PROVIDERS: PCP Family Medicine; Referring Provider Family Medicine; Visit Provider Family Medicine
DX: E04.2 Nontoxic multinodular goiter (principal)
CPT/HCPCS: 76536

== ENCOUNTER → 2021-03-12 11:13 | Outpatient (CLI) | payer MEDICARE, SELFPAY ==
[2021-01-19 13:28] VITALS: BMI 34.5
[2021-03-12 12:10] LABS: AST(SGOT) 11 U/L (15-37); Alanine Aminotransfer ALT/SGPT 22 U/L (13-56); Albumin, Serum 3.8 g/dL (3.2-5.0); Alkaline Phosphatase 70 U/L (45-117); Anion Gap 5 (5-15); BUN 16 mg/dL (7-18); BUN/Creat Ratio 19.9 RATIO (10-20); CPK Total, Creatine Kinase 103 U/L (26-192); Calcium,Total 8.6 mg/dL (8.5-10.1); Chloride 104 mmol/L (98-107); EST Glomerular Filtration Rate 74 mL/min (>60); Est Glom Filt Rate - Afr Amer 89 mL/min (>60); Ferritin 85 ng/mL (8-252); Globulin 3.7 g/dL (2.2-4.2); Glucose 127 mg/dL (74-106); Magnesium 1.8 mg/dL (1.6-2.6); Protein, Total 7.5 g/dL (6.4-8.2); Sodium Level 140 mmol/L (136-145)
== END ==
PROVIDERS: PCP Family Medicine; Referring Provider Family Medicine; Visit Provider Family Medicine
DX: R25.2 Cramp and spasm (principal)
CPT/HCPCS: 36415; 80053; 82550; 82728; 83735

== ENCOUNTER 2021-04-07 16:00 | Outpatient (RCR) | payer MEDICARE, SELFPAY ==
[2020-12-06 15:03] VITALS: BMI 35.4
--- NOTE | 2021-01-14 14:23 | HP.PTEVAL ---
Patient's Visit Information BHARATH BEARD is a 75 year old F referred to Physical Therapy by Dr. hSeng Escalante MD with a diagnosis of LB OA. Date of Evaluation: 01/14/21 Physical Therapist: Bry Ordonez DPT, OCS, CSCS - Visit Plan Frequency: 2x /Week Duration: 4-6 Weeks Plan: 2x/week for 3-6 weeks starting with aquatic therapy for hip and LE sterngth,stretch quads adn HS, core trength in NS, LB ROM emphasize flexion and ext, posture and body mechanics and progression of HEP - Subjective My back hurts. It has been hurting for long time on and off. Had pain R side of LB and had x ray which showed OA. Pain is posterior hip and LB. Gets some burning in her R leg intermittently. Pain is worse lately for unknown reason. Pain is 8/10 getting up from chair. Some days stays that way. Sometimes walks hunched over. Riding in car can hurt. Sitting in chair is pretty comfortable. Sleep is not interrupted. Activities are interrupted as it saps her of energy to go out and pull weeds. Fell 2x/last year tripping on garden hose and walking on incline with bum ankle. careful of how she walks. Needs railing on steps. Basic aDLs are OK. No reguar exercises or other treamtents from doctor. Ibuprofen sometimes helps. Ice helps. - Pain LBP Pain Intensity (Out of 10): 1 Pain Intensity Range: 0, 8 - Objective Walks with slight B trendelenberg but safe adn I. No antalgia or pain today. Trasnfers with UE I. Steps reciprocally with rail I. LB AROM et max limited and painful R LB, flexion mod limited adn tight centrally, SB min limited. HS adn quad mod tight. LE sensation WNL to gross lgiht touch. reflexes 2/3 patella adna chilles. Strength knees and ankles 4/5, hip abd and ext 3, flexion 3+. No myotomal abnormalities. Weakness in core notable with trasnfers 3/5. - slump and - SLR test, very little active movement of LB unless cued in her posture. - Goals Goal 1:: Get out of chair comfortably without pain or stiffness. Goal Time Frame: 4-6 Weeks Goal 2:: Pt feel pain is 1/10 at worst and 80% better Goal Time Frame: 4-6 Weeks Goal 3:: I anangement of condition with water or home or gym ex. Goal Time Frame: 4-6 Weeks Goal 4:: 5 or less oswestry score. Goal Time Frame: 4-6 Weeks - Rehabilitation Potential Physical Therapy Diagnosis: LB OA Rehabilitation Potential: Good - Anticipated Interventions Patient/Client Instruction: Educate patient on: Condition, Plan of Care For the Purpose of:: To decrease pain, To increase ROM, To improve muscle performance and motor function, To improve gait and locomotor functions Therapeutic Exercise to Include: Strength training, Flexibilty training, In an aquatic setting, Passive ROM, Active ROM, Dynamic Lumbar Stabilization For the Purpose of:: To decrease pain, To increase ROM, To improve muscle performance and motor function, To increase tolerance to activity/condition/position, To improve ability of physical actions for home/community/work/leisure Thank you for the opportunity to evaluate your patient. For Medicare and Medicare HMO plans, please review the plan of care and approve it. It will need to be FAXED BACK to us at [phone] for Medicare purposes. For Medicare only, by signing this I certify the plan of care. Please let me know if there are questions or concerns regarding this plan of care. Physician Signature: Date:
--- NOTE | 2021-02-10 13:26 | HP.PTREVAL ---
Dr. 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 Please see the progress note below for an update on the physical therapy plan of care! Subjective: [facility] Back is doing much better. I can move better. Took a vacation 1000miles and tolerated fairly well. Comfortable sitting in car. Used towel roll. Back pain this week to 9/10 2 days ago waking [employer]. Gone with ibuprofen. Doing pelvic tilts at home. Sleep is OK. Housework in taking care of parents stuff is hard on her. No f/u scheduled with Dr. escalante. Wants to continue in the pool Objective/Function: AROM L/S ext min limited and painful centrally, flexion min limited and stretching HS, gastroc. SB mod limited. Walking well and safe adn withotu pain today. 3 points improved oswestry. Objectively showing improvements consistent with subjective 50%. Appropriate to continue toward goals in the pool with fair prognosis Plan Plan: cotninue pool therapy 2x/week for 3-4 weeks, please progress to I with home ex to mimic pool ex of core strength in NS, HS and HC streetches and LB ROM. Goals Goal 1:: Get out of chair comfortably without pain or stiffness. Goal Time Frame: 4-6 Weeks Goal Progress: Goal Met Goal 2:: Pt feel pain is 1/10 at worst and 80% better Goal Time Frame: 4-6 Weeks Goal Progress: 50% Goal 3:: I anangement of condition with water or home or gym ex. Goal Time Frame: 4-6 Weeks Goal Progress: Progressing Goal 4:: 5 or less oswestry score. Goal Time Frame: 4-6 Weeks Anticipated Interventions Patient/Client Instruction: Educate patient on: Condition, Plan of Care For the Purpose of:: To decrease pain, To increase ROM, To improve muscle performance and motor function, To improve gait and locomotor functions Therapeutic Exercise to Include: Strength training, Flexibilty training, In an aquatic setting, Passive ROM, Active ROM, Dynamic Lumbar Stabilization For the Purpose of:: To decrease pain, To increase ROM, To improve muscle performance and motor function, To increase tolerance to activity/condition/position, To improve ability of physical actions for home/community/work/leisure Please do not hesitate to contact me at [phone] by phone or if you have questions or concerns regarding this new plan of care! Sincerely, Bry Ordonez, DPT, OCS, CSCS
--- NOTE | 2021-03-08 11:49 | HP.PTREVAL ---
Dr. Sheng Escalante MD, It has been my pleasure to treat BHARATH BEARD over the last 14 visits for LB OA. Please see the progress note below for an update on the physical therapy plan of care! Subjective: Has pain in R side buttock like a spear present since lots of sitting Sunday and twisting on Sunday Still bothers her if she moves wrong. Overall sees some improvement, standing better. Can reach stone on car easier. Pain prior to this weekend is up and down. Worse after sitting in chair. Back to doctor 2nd week in March. Doing Home exercises one time /day. Pelvic tilt, stretches for LE. Been weed eating and planting [place] at home. Objective/Function: LB AROM is mod limited in ext with central pain, mod limited B SB with R pain, flexion is min limited. Poor rotation. Overall exiting chair easily and feel like she moves well after she gets up. Exhibits poor posture in passive sitting and makes no motion to change when directed. Overall improving sujectively but minimally objectively. Wants to continue in pool vs on land until vacation in two weeks. Plan Plan: 2x/week for 5 visits to [facility] for restor[facility] care ex until vacation . Pleae progress her core strength adn give her some bugs to do at home to compliment current stretching adn positional ex.No f/u with therapist necessary after 5 visits as she will return to doctor if not doing good at that time OR continue pool ex if satisfied with progress. Fair prognosis. Goals Goal 1:: Get out of chair comfortably without pain or stiffness. Goal Time Frame: 4-6 Weeks Goal Progress: at times Goal 2:: Pt feel pain is 1/10 at worst and 80% better Goal Time Frame: 4-6 Weeks Goal Progress: 50%,a pprop Goal 3:: I anangement of condition with water or home or gym ex. Goal Time Frame: 4-6 Weeks Goal Progress: progressing, approp. Goal 4:: 5 or less oswestry score. Goal Time Frame: 4-6 Weeks Goal Progress: Progressing Anticipated Interventions Patient/Client Instruction: Educate patient on: Condition, Plan of Care For the Purpose of:: To decrease pain, To increase ROM, To improve muscle performance and motor function, To improve gait and locomotor functions Therapeutic Exercise to Include: Strength training, Flexibilty training, In an aquatic setting, Passive ROM, Active ROM, Dynamic Lumbar Stabilization For the Purpose of:: To decrease pain, To increase ROM, To improve muscle performance and motor function, To increase tolerance to activity/condition/position, To improve ability of physical actions for home/community/work/leisure Please do not hesitate to contact me at [phone] by phone or if you have questions or concerns regarding this new plan of care! Sincerely, Bry Ordonez, AYAHT, OCS, CSCS
--- NOTE | 2021-06-09 15:45 | HP.PT.NRP ---
BHARATH BEARD was seen in my office for initial evaluation on 01/14/21. The following Plan of Care was established for this patient: Initial Frequency: 2x /Week Initial Duration: 4-6 Weeks Patient/Client Instruction: Educate patient on: Condition, Plan of Care For the Purpose of:: To decrease pain, To increase ROM, To improve muscle performance and motor function, To improve gait and locomotor functions Therapeutic Exercise to Include: Strength training, Flexibilty training, In an aquatic setting, Passive ROM, Active ROM, Dynamic Lumbar Stabilization For the Purpose of:: To decrease pain, To increase ROM, To improve muscle performance and motor function, To increase tolerance to activity/condition/position, To improve ability of physical actions for home/community/work/leisure This patient was last seen in our office 04/07/21. Pertinent comments regarding their Physical therapy will appear below: Pt seen 19 visits of aquatic therapy adn was at least 50% better. Per our last plan of care, she had 5 visits leading up to her vacation and now will be disoontinued. At this point I will be discontinuing this patient from physical therapy. I would be happy to see this patient again in the future if found appropriate by the physician. Thank you! Bry Ordonez, DPT, OCS, CSCS Balance/Gait/Functional tests - Balance/Special Test Scores Oswestry Low Back Score: 14
== END 2021-04-07 19:00 | disposition home or self-care (01) ==
LOC: PT 16:00
PROVIDERS: PCP Family Medicine; Referring Provider Family Medicine; Visit Provider Family Medicine
DX: M47.9 Spondylosis, unspecified (principal)
CPT/HCPCS: 97110; 97113; 97162

== ENCOUNTER → 2021-04-13 11:33 | Outpatient (CLI) | payer MEDICARE, SELFPAY ==
[2021-01-19 13:28] VITALS: BMI 34.5
[2021-04-13 15:10] LABS: Absolute Neutrophil Count 4.7 X10^3/uL (2.0-7.7); Basophil# 0.02 X10^3/uL; Basophil% 0.3 % (0-1); Eosinophil# 0.18 X10^3/uL; Eosinophils% 2.4 % (0-5); Hematocrit 39.8 % (37-47); Hemoglobin 12.7 g/dL (12.0-15.0); Lymphocyte % 30.1 % (19-41); Mean Corp Hgb Conc 31.9 g/dL (32-36); Mean Corpuscular Hgb 26.6 pg (27.0-32.0); Mean Corpuscular Volume 83.4 fL (81-99); Monocyte# 0.45 X10^3/uL; Monocyte% 5.9 % (0-10); NRBC Flagged by Analyzer 0 % (0-5); Neutrophil # 4.65 X10^3/uL (2.7-7.7); Neutrophil % 60.9 % (47-70); Platelet Count 284 K/mm3 (150-450); RBC Distribution Width CV 12.5 % (11.6-14.6); RBC Distribution Width SD 37.9 fl (35.1-43.9); Red Blood Count 4.77 M/mm3 (4.2-5.4); White Blood Count 7.6 K/mm3 (4.4-11.0)
[2021-04-13 15:39] LABS: Hemoglobin A1c 5.8 % (3.8-5.6)
[2021-04-13 15:43] LABS: Microalbumin,Random Urine < 5.0 mg/L (NO RANGE EST.)
[2021-04-13 15:56] LABS: AST(SGOT) 14 U/L (15-37); Alanine Aminotransfer ALT/SGPT 23 U/L (13-56); Albumin, Serum 3.8 g/dL (3.2-5.0); Alkaline Phosphatase 74 U/L (45-117); Anion Gap 7 (5-15); BUN 14 mg/dL (7-18); BUN/Creat Ratio 18.6 RATIO (10-20); Calcium,Total 9.3 mg/dL (8.5-10.1); Chloride 105 mmol/L (98-107); Cholesterol 148 mg/dL (200); Creatinine, Serum 0.75 mg/dL (0.55-1.02); EST Glomerular Filtration Rate 80 mL/min (>60); Est Glom Filt Rate - Afr Amer 96 mL/min (>60); Globulin 3.8 g/dL (2.2-4.2); Glucose 116 mg/dL (74-106); High Density Lipoprotein 47 mg/dL; Potassium 4.3 mmol/L (3.5-5.1); Protein, Total 7.6 g/dL (6.4-8.2); Sodium Level 139 mmol/L (136-145); Thyroid Stim Hormone (TSH) 0.25 uIU/mL (0.358-3.74); Triglycerides 167 mg/dL; Very Low Density Lipoprotein 33 mg/dL (5-40)
== END ==
PROVIDERS: PCP Family Medicine; Visit Provider Family Medicine
DX: R79.89 Other specified abnormal findings of blood chemistry (principal); E11.9 Type 2 diabetes mellitus without complications; K21.9 Gastro-esophageal reflux disease without esophagitis
CPT/HCPCS: 36415; 80053; 80061; 82043; 82570; 83036; 84439; 84443; 85025

== ENCOUNTER → 2021-05-05 17:42 | Outpatient (CLI) | payer MEDICARE, SELFPAY ==
[2021-01-19 13:28] VITALS: BMI 34.5
[2021-05-05 20:06] LABS: Probe Check PASS; Specimen Processing Control PASS
== END ==
PROVIDERS: PCP Family Medicine; Visit Provider Family Medicine
DX: Z20.822 Contact with and (suspected) exposure to COVID-19 (principal)
CPT/HCPCS: 87635; U0005; U0003

== ENCOUNTER → 2021-06-14 08:16 | Outpatient (CLI) | payer MEDICARE, SELFPAY | PROVIDERS: Visit Provider Family Medicine | DX: U07.1 COVID-19 (principal) | CPT/HCPCS: 87635; U0005; U0003 ==

== ENCOUNTER 2021-06-17 14:46 | Outpatient (CLI) | payer MEDICARE, SELFPAY ==
[2021-06-17 15:05] VITALS: BP 123/60; PULSE 66; RESP 16; TEMP 36.7; O2SAT 95; BMI 34.9
[2021-06-17] MEDS: 0.9% Saline Lock 10 ML Syringe IV (15:12)
[2021-06-17 15:40] VITALS: BP 125/49; PULSE 67; RESP 16; TEMP 36.8; O2SAT 96
[2021-06-17 16:39] VITALS: BP 125/51; PULSE 70; RESP 16; TEMP 36.6; O2SAT 98
== END 2021-06-17 16:40 | disposition home or self-care (01) ==
LOC: ICUOUT 14:46 → MS3 14:47
PROVIDERS: Referring Provider Nurse Practitioner Adult Health; Visit Provider Nurse Practitioner Adult Health
DX: Z23 Encounter for immunization (principal); U07.1 COVID-19
CPT/HCPCS: J7050; M0245; A4216; Q0244

== ENCOUNTER → 2021-08-31 10:57 | Outpatient (CLI) | payer MEDICARE, SELFPAY ==
--- NOTE | 2021-08-31 11:00 | BI_ITS ---
MAMMOGRAPHY - BILATERAL SCREENING REASON FOR EXAM: Female, 76 years old. Routine annual screening examination. PERTINENT HISTORY: Non-contributory. Remote left stereotactic breast biopsy. TECHNIQUE: Digital bilateral breast christina (3D mammographic acquisition) in the CC and MLO projections. 2-D mediolateral oblique (MLO) and craniocaudad (CC) views of both breasts were obtained. CAD: Full Field Digital Mammography with Computer Added Detection was performed. COMPARISON: Comparison is made with prior examination dated 08/24/2020 and 07/31/2000. FINDINGS: Breast Composition: The breasts are heterogeneously dense, which may obscure small masses. There are no dominant masses or suspicious calcifications. Stable small bilateral axillary lymph nodes. Stable 1 cm well-defined nodule in the deep inferior central aspect of the left breast. A tissue clip marker is seen within the well-defined nodule in the anterior upper central aspect of the left breast. No other significant abnormalities are identified. There has been no significant change since the prior study. BI/SCRN MAMM (CAD)W/CHRISTINA BILAT IMPRESSION: Stable bilateral screening mammogram. Yearly follow-up mammogram recommended. (A) ASSESSMENT CATEGORY: BIRADS Category 2: Benign. A letter regarding these results will be sent to the patient by the facility within 30 days. Approximately 10% of breast cancers are not detected by mammography. A normal mammogram should not delay biopsy of a clinically suspicious abnormality. [id number] Electronically Signed: Ulisses Lewis MD at 12:38 EST , Service support ,
== END ==
PROVIDERS: PCP Family Medicine; Referring Provider Obstetrics & Gynecology; Visit Provider Obstetrics & Gynecology
DX: Z12.31 Encounter for screening mammogram for malignant neoplasm of breast (principal)
CPT/HCPCS: 77063; 77067

== ENCOUNTER 2021-09-26 10:00 | Outpatient (CLI) | payer MEDICARE, SELFPAY ==
[2021-09-26 12:21] LABS: Absolute Neutrophil Count 5.3 X10^3/uL (2.0-7.7); Basophil# 0.03 X10^3/uL; Basophil% 0.3 % (0-1); Eosinophil# 0.22 X10^3/uL; Eosinophils% 2.5 % (0-5); Hematocrit 40.2 % (37-47); Hemoglobin 13.2 g/dL (12.0-15.0); Lymphocyte % 31.8 % (19-41); Mean Corp Hgb Conc 32.8 g/dL (32-36); Mean Corpuscular Hgb 26.9 pg (27.0-32.0); Monocyte# 0.44 X10^3/uL; NRBC Flagged by Analyzer 0 % (0-5); Neutrophil # 5.27 X10^3/uL (2.7-7.7); Neutrophil % 59.9 % (47-70); Platelet Count 287 K/mm3 (150-450); RBC Distribution Width CV 13.2 % (11.6-14.6); RBC Distribution Width SD 39.4 fl (35.1-43.9); White Blood Count 8.8 K/mm3 (4.4-11.0)
[2021-09-26 12:37] LABS: ALB/GLOB Ratio 0.9 RATIO (0.9-2.4); AST(SGOT) 14 U/L (15-37); Alanine Aminotransfer ALT/SGPT 22 U/L (13-56); Albumin, Serum 3.6 g/dL (3.2-5.0); Alkaline Phosphatase 68 U/L (45-117); Anion Gap 8 (5-15); BUN 18 mg/dL (7-18); BUN/Creat Ratio 21.5 RATIO (10-20); Calcium,Total 9.2 mg/dL (8.5-10.1); Chloride 104 mmol/L (98-107); Cholesterol 148 mg/dL (200); Creatinine, Serum 0.84 mg/dL (0.55-1.02); EST Glomerular Filtration Rate 70 mL/min (>60); Est Glom Filt Rate - Afr Amer 85 mL/min (>60); Globulin 4.1 g/dL (2.2-4.2); Glucose 110 mg/dL (74-106); High Density Lipoprotein 48 mg/dL; Potassium 4.5 mmol/L (3.5-5.1); Protein, Total 7.7 g/dL (6.4-8.2); Sodium Level 138 mmol/L (136-145); T4 Free Direct 0.75 ng/dL (0.76-1.46); Thyroid Stim Hormone (TSH) 0.38 uIU/mL (0.358-3.74); Triglycerides 228 mg/dL; Very Low Density Lipoprotein 46 mg/dL (5-40)
[2021-09-26 12:42] LABS: Hemoglobin A1c 5.9 % (3.8-5.6)
[2021-09-26 13:19] LABS: Microalbumin,Random Urine 6.1 mg/L (NO RANGE EST.); Microalbumin:Creatinine Ratio 6.3 mg/g CRE (<30 mg/g CRE)
[2021-09-27 17:56] LABS: Thyroid Peroxidase AB < 8 IU/mL (0-34)
[2021-09-28 08:09] LABS: Thyroid Stim Immunoglob <0.10 IU/L (0.00-0.55)
[2021-09-28 10:07] LABS: Thyroglobulin Antibody < 1.0 IU/mL (0.0-0.9)
== END 2021-09-26 23:59 | disposition home or self-care (01) ==
PROVIDERS: PCP Family Medicine; Visit Provider Family Medicine
DX: E11.69 Type 2 diabetes mellitus with other specified complication (principal); R79.89 Other specified abnormal findings of blood chemistry
CPT/HCPCS: 36415; 80053; 80061; 82043; 82570; 83036; 84439; 84443; 84445; 85025; 86376; 86800

== ENCOUNTER 2021-09-27 11:54 | Outpatient (CLI) | payer MEDICARE, SELFPAY ==
[2021-09-27 18:34] LABS: Vitamin B12 360 pg/mL (211-911)
== END 2021-09-27 23:59 | disposition short-term general hospital (02) ==
PROVIDERS: PCP Family Medicine; Referring Provider Family Medicine; Visit Provider Family Medicine
DX: R41.3 Other amnesia (principal)
CPT/HCPCS: 36415; 82607

== ENCOUNTER 2021-11-15 11:03 | Outpatient (CLI) | payer MEDICARE, SELFPAY ==
--- NOTE | 2021-11-15 11:08 | RAD_ITS ---
STUDY: X-RAY - PELVIS AND BILATERAL HIPS REASON FOR EXAM: Female, 76 years old. HIP PAIN TECHNIQUE: AP view of the pelvis.? 2 views of the right hip, and 2 views of the left hip were obtained. COMPARISON: None. FINDINGS: There is a non-specific bowel gas pattern. Normal visualized soft tissue structures. No visualized acute fracture. No avascular necrosis is seen. Normal bilateral iliac wings, sacroiliac joints and visualized sacrum. Normal bilateral superior and inferior pubic rami. Normal pubic symphysis. Normal bilateral ischial tuberosities. Normal visualized right femoral head. Normal right acetabulum. Normal right hip joint. Normal visualized left femoral head. Normal left acetabulum. There is mild articular joint space narrowing of the left hip. RAD/Hips B/L min 2 views w/ Pelvis IMPRESSION: No acute process of the pelvis and bilateral hips. Electronically Signed: John Zamora MD at 20:13 EST ,
== END 2021-11-15 23:59 | disposition home or self-care (01) ==
LOC: MTRAD 11:05
PROVIDERS: PCP Family Medicine; Referring Provider Family Medicine; Visit Provider Family Medicine
DX: M25.552 Pain in left hip (principal); M25.551 Pain in right hip
CPT/HCPCS: 73521

== ENCOUNTER → 2022-04-26 | Outpatient (CLI) | payer MEDICARE, SELFPAY | END | disposition home or self-care (01) | PROVIDERS: PCP Family Medicine; Visit Provider Family Medicine | DX: U07.1 COVID-19 (principal) | CPT/HCPCS: 87635; U0003; U0005 ==

== ENCOUNTER 2022-06-27 06:46 | Day surgery (SDC) | payer MEDICARE, SELFPAY ==
--- NOTE | 2022-06-27 06:50 | HP.PCM_ITS ---
History and Physical Date of Admission: 06/27/22 Visit Reasons:?CSCOPE, DUE EVERY 3 YRS Chief Complaint: 5 year colonoscopy [employer] Required: No Is patient in pain?: No Allergies acetaminophen [From Percocet] Allergy (Mild, Verified 11/08/21 12:42) hivesadhesive tape Allergy (Mild, Verified 11/08/21 12:42) rednessoxycodone [From Percocet] Allergy (Mild, Verified 11/08/21 12:42) hives Medications aspirin 81 mg tablet,delayed release 81 mg PO DAILY 10/24/19 [History Confirmed 11/08/21] ascorbic acid (vitamin C) 500 mg tablet 500 mg PO DAILY 12/09/19 [History Confirmed 11/08/21] calcium carbonate 500 mg calcium (1,250 mg) tablet 500 mg PO DAILY 12/09/19 [History Confirmed 11/08/21] metoprolol succinate 50 mg tablet,extended release 24 hr 50 mg PO DAILY 12/09/19 [History Confirmed 11/08/21] vitamin E (dl, acetate) 180 mg (400 unit) capsule 400 unit PO DAILY 12/09/19 [History Confirmed 11/08/21] coenzyme Q10 200 mg capsule 200 mg PO DAILY 07/21/20 [History Confirmed 06/17/21] ibuprofen 200 mg tablet 200 mg PO Q6H PRN 07/21/20 [History Confirmed 11/08/21] lansoprazole 15 mg capsule,delayed release 15 mg PO Q OTHER DAY? cap 07/21/20 [History Confirmed 11/08/21] mupirocin 2 % topical ointment 1 applic TOPICAL BID PRN 07/21/20 [History Confirmed 11/08/21] triamcinolone acetonide 0.1 % topical cream 1 applic TOPICAL DAILY PRN 07/21/20 [History Confirmed 11/08/21] rosuvastatin 10 mg tablet 10 mg PO DAILY 01/19/21 [History Confirmed 11/08/21] white petrolatum-mineral oil [GenTeal PM] 1 applic EACH EYE DAILY 06/17/21 [History Confirmed 11/08/21] Is last menstrual period known: No Post menopausal: Yes Patient : No PFSH Medical History? Anemia Arthritis Bleeding disorder Bradycardia Cyst of breast, left, diffuse fibrocystic Diabetes mellitus type II, controlled GI problem Hyperlipidemia Hypertension Hypothyroid Hypothyroidism Multinodular thyroid Multiple thyroid nodules Premature ventricular complex Surgical History?(Updated 11/08/21 @ 12:41 by Анна Saez) H/O: hysterectomy History of appendectomy History of breast biopsy (~06/2018) History of colonoscopy (~2016) History of wisdom tooth extraction Status post biopsy of thyroid gland (~11/2018) Family History? Mother?? ,? Age 72, of [place] Myocardial infarction CAD (coronary artery disease) CVA (cerebral vascular accident) Hyperlipidemia HypertensionFather?? ,? Age 94 Heart disease Hyperlipidemia Thyroid disorder Prostate cancerBrother?? ,? of [place] Exposure Diabetes Hypertension Heart disease Hyperlipidemia CVA (cerebral vascular accident) Agent orange exposureBrother?? ,? of AIDS AIDSSister?? ,? in MVA MVA (motor vehicle accident)Son Abdominal aortic aneurysmGrandmother Diabetes Social History? Smoking Status:? Never smoker alcohol intake:? never substance use type:? does not use seatbelt use:? always do you feel safe at home:? Yes additional social history:? -Twin ? HPI HPI HPI: BHARATH BEARD, is a 76 F who presents to the office today for surgical consultation proceeding with surveillance colonoscopy.? She has a personal history of colon polyps.? Previous colonoscopy was 5 years ago.? She takes lansoprazole and has done so for many years.? At the time of her last colonoscopy 2016 we did an upper endoscopy demonstrating H. pylori negative gastritis.? The patient states that if she misses more than a day of the lansoprazole that she gets bloating of the abdomen and belching.? Because of the duration that she has been on the medication Dr Sheng Escalante is make an attempt to wean her off.? The patient states that she has not tried famotidine or Pepcid.? She also has concerns about a pigmented skin lesion right medial apical shoulder ROS General General: Yes fatigue; No weight change, appetite, colon cancer, breast cancer or weakness HEENT HEENT: Yes eye surgery; No difficulty swallowing, eye injury, swollen glands or hoarseness Endo Endocrine: Yes thyroid disease and diabetes mellitus; No thyroid cancer, Hair loss, heat intolerance or cold intolerance Musc Musculoskeletal: Yes back problems and arthritis; No rheumatoid arthritis, gout or joint pain Cardio Cardiovascular: Yes high blood pressure; No murmur, pacemaker, heart disease, atrial fibrillation, heart attack, heart stent, palpitations, shortness of breat with exertion or chest pain Psych Psychiatric: Yes depression; No anxiety or hearing voices Resp Respiratory: No shortness of breath, No sleep apnea, No cough, No COPD, No asthma, No emphysema and No wheezing Gastro Gastrointestinal: No abdominal pain, No nausea or vomiting, No diarrhea, Yes constipation, No blood in stool, No acid reflux, Yes hemorrhoids, No ulcers, No gallbladder problem and No black,tarry stools Avni Hematologic: No blood thinners, No blood disorders, No bleeding, No anemia and No blood clots Neuro Neurologic: No weakness Exam Const General: cooperative, healthy appearing and comfortable Nutritional Appearance: overweight Orientation: alert and awake HENMT Head: normal to inspection Eyes General: appearance normal, both eyes and all related structures Neck Neck: normal visual inspection Chest Other: 4 mm diameter uniform light brown skin lesionRight medial Resp Effort & Inspection: normal respiratory effort Auscultation: clear to auscultation bilaterally Cardio Rate: regular rate Rhythm: regular rhythm GI Palpation: soft Skin General: no rashes or lesions noted Neuro General: patient alert and patient awake Extrem General: no calf tenderness Psych Appearance: grossly normal Assessment and Plan Assessment and Plan (1) Personal history of colonic polyps: ?Status:?Acute ?Plan - Dr. Mateo Lamb MD: I think would be reasonable for the patient to try to further extend her lansoprazole from every other day to beyond that and I have invited her to try famotidine 20 mg twice daily on the days that she is not taking her lansoprazole.? It is of note that the symptoms were trying to avoid are upper abdominal bloating and belching.? She does not truly describe reflux or heartburn symptoms. Regarding the skin lesion right medial upper shoulder this appears to be consistent with seborrheic keratosis.? Does not currently appear to be inflamed.? I did offer the patient consideration for amputation cautery ablation.? She will consider. The patient is due for a colonoscopy based upon her personal history of colon po lyps seemingly detect on an every colonoscopy that she has.? She is aware of technique, benefit, risk, alternatives.? We will schedule and proceed at her discretion. She has previously had Covid-19.? Subsequent to that she has been vaccinated. I appreciate the ongoing opportunity of assisting with her surgical care Copy: Dr Sheng Lamb M.D., F.A.C.S Assessment & Plan Assessment/Plan (1) Personal history of colonic polyps: PLAN: Plan to proceed with a colonoscopy with possible biopsy or polypectomy as indicated. She presents via open access today. She has had an opportunity to ask and have questions answered. She has had a personal history of colon polyps. The patient was initially seen in the office back October 2021. She was scheduled and then she canceled. Apparently there actually were then several rescheduling this which all fell through. She apparently developed Covid-19. She now feels that she is recovered but states that over the past couple weeks she has had a nonproductive cough. She states that she is tested twice and is tested twice negative for COVID. She was able to tolerate her bowel prep. She states that her other presentation remained stable with no acute abdominal complaints. She is agreeable to proceeding with a colonoscopy with possible biopsy or polypectomy using monitored anesthesia care. Mateo Lamb M.D., F.A.C.S.
[2022-06-27 07:18] VITALS: BP 121/55; PULSE 66; RESP 18; TEMP 36.6; O2SAT 99; BMI 31.1
[2022-06-27] MEDS: Lactated Ringers 1,000 ML 15 ML IV (07:24)
--- NOTE | 2022-06-27 08:00 | COLBX_PTH ---
PATIENT: BHARATH BEARD LOC: EN U#:[id number] AGE/SX: 77/F ROOM: RE06/27/[address]: Dr. Mateo Lamb MD : 1945 BED: DIS: 06/27/2022 SPEC #: [id number] RECD: 06/27/22 10:17 STATUS: RANJITH MIRANDA #: [id number] DINESH: 06/27/22 08:[address]: Mateo Lamb DEPT: SURGICAL PATHOLOGY RECD BY: Merari Spann ENTERED: 06/27/22 12:25 SP TYPE: COLON BX OTHR DR: Dr. Sheng Escalante MD Tissues: A - Transverse colon B - Ascending colon C - COLON BIOPSY D - Transverse colon E - Transverse colon F - Sigmoid colon biopsy Procedures: Surgery Specimen Level IV HEADER OPERATION: Colonoscopy (MAC), polypectomy PRE-OP DIAGNOSIS: History of colonic polyps TISSUE SUBMITTED: A ? Mid transverse polyp, B ? Mid ascending polyp biopsy, C ? Hepatic flexure polyp biopsy, D ? Proximal transverse polyp, E - Proximal transverse polyp (x2), F ? Mid sigmoid polyp MICROSCOPIC DIAGNOSIS A. Mid transverse colon polyp, polypectomy: Tubular adenoma. B. Mid ascending colon polyp, biopsy: Tubular adenoma. C. Hepatic flexure polyp, biopsy: Tubular adenoma. D. Proximal transverse colon polyp, polypectomy: Tubular adenoma. E. Proximal transverse colon polyp x2, biopsy: Fragments of tubular adenoma. F. Mid sigmoid polyp, polypectomy: Fragments of tubulovillous adenoma. SJ:thanh 06/28/2022 MICROSCOPIC DESCRIPTION Slides are reviewed. GROSS DESCRIPTION A - Received in fixative is one container labeled with the patient's name and designated mid transverse polyp. The specimen consists of one irregular fragment of light phillips soft tissue that measures 0.5 x 0.4 x 0.1 cm. The specimen is totally submitted in one cassette. B - Received in fixative is one container labeled with the patient's name and designated mid ascending polyp biopsy. The specimen consists of one irregular fragment of light phillips soft tissue that measures 0.3 x 0.3 x 0.1 cm. The specimen is totally submitted in one cassette. C - Received in fixative is one container labeled with the patient's name and designated hepatic flexure polyp biopsy. The specimen consists of one irregular fragment of light phillips soft tissue that measures 0.2 x 0.2 x 0.1 cm. The specimen is totally submitted in one cassette. D - Received in fixative is one container labeled with the patient's name and designated proximal transverse polyp. The specimen consists of a phillips-pink polyp measuring 0.8 x 0.5 x 0.4 cm. The specimen is totally submitted in one cassette. E - Received in fixative is one container labeled with the patient's name and designated proximal transverse polyp x2. The specimen consists of multiple irregular fragments of light phillips soft tissue that in aggregate measure 0.6 x 0.3 x 0.1 cm. The specimen is totally submitted in one cassette. F - Received in fixative is one container labeled with the patient's name and designated mid sigmoid polyp. The specimen consists of two phillips-pink polyps measuring 0.7 x 0.5 x 0.5 cm and 1.5 x 1.5 x 1 cm. Both polyps are bisected. The entire specimen is submitted in one cassette. / SJ:rg 06/27/2022 TC:1 CPT: 69304 x6
[2022-06-27 08:25] LABS: Bedside Glucose 114 mg/dL (74-106)
[2022-06-27 09:21] VITALS: BP 118/48; BP 121/55; PULSE 76; RESP 18; TEMP 36.2; O2SAT 99
--- NOTE | 2022-06-27 09:24 | OP.COLON_ITS ---
Patient Name: Johanne Hunter Procedure Date: 06/27/2022 8:19 AM Date of : 1945 Age: 77 Procedure: Colonoscopy Indications: High risk colon cancer surveillance: Personal history of colonic polyps Providers: Mateo Lamb MD Referring MD: Mateo Lamb MD Medicines: See the Anesthesia note for documentation of the administered medications Patient Profile: Last Colonoscopy: 2016. Complications: No immediate complications. Procedure: Pre-Anesthesia Assessment: - Prior to the procedure, a History and Physical was performed, and patient medications and allergies were reviewed. The patient's tolerance of previous anesthesia was also reviewed. The risks and benefits of the procedure and the sedation options and risks were discussed with the patient. All questions were answered, and informed consent was obtained. Prior Anticoagulants: The patient has taken no previous anticoagulant or antiplatelet agents. ASA Grade Assessment: II - A patient with mild systemic disease. After reviewing the risks and benefits, the patient was deemed in satisfactory condition to undergo the procedure. After I obtained informed consent, the scope was passed under direct vision. Throughout the procedure, the patient's blood pressure, pulse, and oxygen saturations were monitored continuously. The colonoscope was introduced through the anus and advanced to the cecum, identified by appendiceal orifice and ileocecal valve. The colonoscopy was technically difficult and complex due to multiple polyps. The patient tolerated the procedure well. The quality of the bowel preparation was good. Scope In: 8:25:31 AM Scope Withdrawal Time 0 hours 38 minutes 33 seconds Scope Out: 9:13:20 AM Total Procedure Duration Time 0 hours 47 minutes 49 seconds Findings: Hemorrhoids were found on perianal exam. A 6 mm polyp was found in the mid transverse colon. The polyp was sessile. The polyp was removed with a hot snare. Resection and retrieval were complete. A 4 mm polyp was found in the mid ascending colon. The polyp was sessile. The polyp was removed with a cold biopsy forceps. Resection and retrieval were complete. A 3 mm polyp was found in the hepatic flexure. The polyp was sessile. The polyp was removed with a cold biopsy forceps. Resection and retrieval were complete. A 6 mm polyp was found in the proximal transverse colon. The polyp was sessile. The polyp was removed with a hot snare. Resection and retrieval were complete. A 5 mm polyp was found in the proximal transverse colon. The polyp was sessile. The polyp was removed with a hot snare. Resection and retrieval were complete. A 3 mm polyp was found in the proximal transverse colon. The polyp was sessile. The polyp was removed with a cold biopsy forceps. Resection and retrieval were complete. A 20 mm polyp was found in the mid sigmoid colon. The polyp was pedunculated. The polyp was removed with a piecemeal technique using a hot snare. Resection and retrieval were complete. To prevent bleeding post-intervention, two hemostatic clips were successfully placed. There was no bleeding at the end of the procedure. Scattered diverticula were found in the sigmoid colon and descending colon. Impression: - Hemorrhoids found on perianal exam. - One 6 mm polyp in the mid transverse colon, removed with a hot snare. Resected and retrieved. - One 4 mm polyp in the mid ascending colon, removed with a cold biopsy forceps. Resected and retrieved. - One 3 mm polyp at the hepatic flexure, removed with a cold biopsy forceps. Resected and retrieved. - One 6 mm polyp in the proximal transverse colon, removed with a hot snare. Resected and retrieved. - One 5 mm polyp in the proximal transverse colon, removed with a hot snare. Resected and retrieved. - One 3 mm polyp in the proximal transverse colon, removed with a cold biopsy forceps. Resected and retrieved. - One 20 mm polyp in the mid sigmoid colon, removed piecemeal using a hot snare. Resected and retrieved. Clips were placed. - Diverticulosis in the sigmoid colon and in the descending colon. Recommendation: - Discharge patient to home. - Resume previous diet. - Continue present medications. - Repeat colonoscopy in 1 year for surveillance based on pathology results. - Telephone my office for pathology results in 1 week. Procedure Code(s): --- Professional --- 04703, Colonoscopy, flexible; with removal of tumor(s), polyp(s), or other lesion(s) by snare technique 42443, 59, Colonoscopy, flexible; with biopsy, single or multiple Diagnosis Code(s): --- Professional --- Z86.010, Personal history of colonic polyps K64.9, Unspecified hemorrhoids D12.2, Benign neoplasm of ascending colon D12.3, Benign neoplasm of transverse colon (hepatic flexure or splenic flexure) D12.5, Benign neoplasm of sigmoid colon K57.30, Diverticulosis of large intestine without perforation or abscess without bleeding CPT copyright 2017 [employer]. All rights reserved. The codes documented in this report are preliminary and upon monument installer review may be revised to meet current compliance requirements. Mateo Lamb MD 06/27/2022 9:24:22 AM This report has been signed electronically. Number of Addenda: 0 Note Initiated On: 06/27/2022 8:19 AM
--- NOTE | 2022-06-27 09:25 | OP.CCLET_ITS ---
06/27/2022 Sheng Escalante [address] [place] [address] Re : Colonoscopy procedure for Johanne Hunter Dear Dr. Escalante This procedure was performed on Monday, June 27, 2022. My impressions and recommendations are as follows: Impressions : - Hemorrhoids found on perianal exam. - One 6 mm polyp in the mid transverse colon, removed with a hot snare. Resected and retrieved. - One 4 mm polyp in the mid ascending colon, removed with a cold biopsy forceps. Resected and retrieved. - One 3 mm polyp at the hepatic flexure, removed with a cold biopsy forceps. Resected and retrieved. - One 6 mm polyp in the proximal transverse colon, removed with a hot snare. Resected and retrieved. - One 5 mm polyp in the proximal transverse colon, removed with a hot snare. Resected and retrieved. - One 3 mm polyp in the proximal transverse colon, removed with a cold biopsy forceps. Resected and retrieved. - One 20 mm polyp in the mid sigmoid colon, removed piecemeal using a hot snare. Resected and retrieved. Clips were placed. - Diverticulosis in the sigmoid colon and in the descending colon. Recommendations : - Discharge patient to home. - Resume previous diet. - Continue present medications. - Repeat colonoscopy in 1 year for surveillance based on pathology results. - Telephone my office for pathology results in 1 week. My findings are described in the full procedure note, which is enclosed. If I can be of further assistance, please feel free to contact me at Doctor phone number(s): Work: . Sincerely, Mateo Lamb MD 06/27/2022 9:24:22 AM This report has been signed electronically.
[2022-06-27 09:30] VITALS: BP 121/55; BP 127/58; PULSE 72; RESP 18; O2SAT 97
[2022-06-27 09:35] VITALS: BP 121/55; BP 123/60; PULSE 71; RESP 18; O2SAT 98
[2022-06-27 09:40] VITALS: BP 121/55; BP 123/59; PULSE 69; RESP 18; TEMP 36.8; O2SAT 99
[2022-06-27 10:21] VITALS: BP 121/55; BP 124/60; PULSE 65; RESP 16; TEMP 36.7; O2SAT 96
== END 2022-06-27 10:24 | disposition home or self-care (01) ==
LOC: EN 06:46 → AC 06:47
PROVIDERS: PCP Family Medicine; Referring Provider Surgery; Visit Provider Surgery
PROC: 0DJD8ZZ Inspection of Lower Intestinal Tract, Via Natural or Artificial Opening Endoscopic (ICD-10-PCS; CPT 45378; principal; 2022-06-27 07:55)
DX: Z12.11 Encounter for screening for malignant neoplasm of colon (principal); E11.9 Type 2 diabetes mellitus without complications; R14.0 Abdominal distension (gaseous); I25.10 Atherosclerotic heart disease of native coronary artery without angina pectoris; K64.9 Unspecified hemorrhoids; R14.2 Eructation; I10 Essential (primary) hypertension; K57.30 Diverticulosis of large intestine without perforation or abscess without bleeding; E78.5 Hyperlipidemia, unspecified; Z86.010 Personal history of colon polyps; D12.2 Benign neoplasm of ascending colon; D12.5 Benign neoplasm of sigmoid colon; D12.3 Benign neoplasm of transverse colon; Z86.73 Personal history of transient ischemic attack (TIA), and cerebral infarction without residual deficits
CPT/HCPCS: 45385; 45380; 82962; 87426; 88305; C9803; J7120; J2405

== ENCOUNTER → 2022-06-28 | Outpatient (CLI) | payer MEDICARE, SELFPAY ==
[2022-06-28 10:19] LABS: Absolute Lymphocyte Count 2.74 X10^3/uL (0.83-4.51); Absolute Neutrophil Count 4.9 X10^3/uL (2.0-7.7); Basophil# 0.02 X10^3/uL; Basophil% 0.2 % (0-1); Eosinophil# 0.21 X10^3/uL; Eosinophils% 2.5 % (0-5); Hematocrit 39.8 % (37-47); Hemoglobin 12.8 g/dL (12.0-15.0); Lymphocyte # 2.74 X10^3/ul (0.83-4.51); Lymphocyte % 32.7 % (19-41); Mean Corp Hgb Conc 32.2 g/dL (32-36); Mean Corpuscular Hgb 27.1 pg (27.0-32.0); Mean Corpuscular Volume 84.1 fL (81-99); Mean Platelet Vol. 8.7 fl (6.2-12.0); Monocyte# 0.49 X10^3/uL; Monocyte% 5.8 % (0-10); NRBC Flagged by Analyzer 0 % (0-5); Neutrophil % 58.6 % (47-70); Platelet Count 288 K/mm3 (150-450); RBC Distribution Width CV 12.8 % (11.6-14.6); RBC Distribution Width SD 39.4 fl (35.1-43.9); Red Blood Count 4.73 M/mm3 (4.2-5.4); White Blood Count 8.4 K/mm3 (4.4-11.0)
[2022-06-28 10:44] LABS: ALB/GLOB Ratio 0.9 RATIO (0.9-2.4); AST(SGOT) 24 U/L (15-37); Alanine Aminotransfer ALT/SGPT 31 U/L (13-56); Albumin, Serum 3.7 g/dL (3.2-5.0); Alkaline Phosphatase 65 U/L (45-117); Anion Gap 8 (5-15); BUN 12 mg/dL (7-18); BUN/Creat Ratio 13.3 RATIO (10-20); Calcium,Total 9.1 mg/dL (8.5-10.1); Chloride 107 mmol/L (98-107); Cholesterol 103 mg/dL (200); EST Glomerular Filtration Rate 64 mL/min (>60); Est Glom Filt Rate - Afr Amer 78 mL/min (>60); Globulin 3.9 g/dL (2.2-4.2); Glucose 122 mg/dL (74-106); High Density Lipoprotein 45 mg/dL; Potassium 3.9 mmol/L (3.5-5.1); Protein, Total 7.6 g/dL (6.4-8.2); Sodium Level 140 mmol/L (136-145); Thyroid Stim Hormone (TSH) 0.09 uIU/mL (0.358-3.74); Triglycerides 121 mg/dL; Very Low Density Lipoprotein 24 mg/dL (5-40)
[2022-06-28 11:05] LABS: Hemoglobin A1c 5.7 % (3.8-5.6)
== END | disposition home or self-care (01) ==
LOC: MFPLAB 09:22
PROVIDERS: PCP Family Medicine; Referring Provider Family Medicine; Visit Provider Family Medicine
DX: R79.89 Other specified abnormal findings of blood chemistry (principal); E11.9 Type 2 diabetes mellitus without complications
CPT/HCPCS: 36415; 80053; 80061; 83036; 84439; 84443; 85025

== ENCOUNTER → 2022-06-29 | Outpatient (CLI) | payer MEDICARE, SELFPAY ==
[2022-06-29 15:55] LABS: AST(SGOT) 21 U/L (15-37); Alanine Aminotransfer ALT/SGPT 33 U/L (13-56); Albumin, Serum 3.8 g/dL (3.2-5.0); Alkaline Phosphatase 70 U/L (45-117); Bilirubin, Direct 0.23 mg/dL (0.00-0.30); Globulin 3.6 g/dL (2.2-4.2); Protein, Total 7.4 g/dL (6.4-8.2)
== END | disposition home or self-care (01) ==
LOC: MFPLAB 13:40
PROVIDERS: PCP Family Medicine; Referring Provider Family Medicine; Visit Provider Family Medicine
DX: R17 Unspecified jaundice (principal)
CPT/HCPCS: 36415; 80076

== ENCOUNTER → 2022-09-01 | Outpatient (CLI) | payer MEDICARE, SELFPAY ==
--- NOTE | 2022-09-01 14:10 | BI_ITS ---
MAMMOGRAPHY - BILATERAL SCREENING REASON FOR EXAM: Female, 77 years old. Routine annual screening examination. PERTINENT HISTORY: Non-contributory. Remote left stereotactic breast biopsy. TECHNIQUE: Digital bilateral breast christina (3D mammographic acquisition) in the CC and MLO projections. 2-D mediolateral oblique (MLO) and craniocaudad (CC) views of both breasts were obtained. CAD: Full Field Digital Mammography with Computer Added Detection was performed. COMPARISON: Comparison is made with prior study dated 08/31/2021 and 08/24/2020. FINDINGS: Breast Composition: The breasts are heterogeneously dense, which may obscure small masses. There are no dominant masses or suspicious calcifications. Stable 1 cm well-defined nodule in the deep inferior central aspect of the left breast. A tissue clip marker is once again seen in the anterior upper central aspect of the left breast. Stable small benign-appearing bilateral axillary lymph nodes. No other significant abnormalities are identified. There has been no significant change since the prior study. BI/SCRN MAMM (CAD)W/CHRISTINA BILAT IMPRESSION: Stable bilateral screening mammogram. Yearly follow-up mammogram recommended. (A) ASSESSMENT CATEGORY: BIRADS Category 2: Benign. A letter regarding these results will be sent to the patient by the facility within 30 days. Approximately 10% of breast cancers are not detected by mammography. A normal mammogram should not delay biopsy of a clinically suspicious abnormality. [id number] Electronically Signed: Ulisses Lewis MD at 15:10 EST ,
== END | disposition home or self-care (01) ==
LOC: OPBI 14:09
PROVIDERS: PCP Family Medicine; Visit Provider Obstetrics & Gynecology
DX: Z12.31 Encounter for screening mammogram for malignant neoplasm of breast (principal); N63.20 Unspecified lump in the left breast, unspecified quadrant
CPT/HCPCS: 77063; 77067

== ENCOUNTER → 2022-10-30 | Outpatient (CLI) | payer MEDICARE, SELFPAY ==
[2022-10-30 16:01] LABS: Bacteria 0 SEEN /hpf (None Seen); Mucous, Urine 0 SEEN /hpf (<or=2+); Red Blood Cells-Urine 0 SEEN /hpf (0-5); Squamous Epithelial Cells - UA 0 SEEN /hpf (5-10)
[2022-10-30 17:42] LABS: Absolute Lymphocyte Count 2.63 X10^3/uL (0.83-4.51); Absolute Neutrophil Count 4.6 X10^3/uL (2.0-7.7); Basophil# 0.02 X10^3/uL; Basophil% 0.3 % (0-1); Eosinophil# 0.14 X10^3/uL; Eosinophils% 1.8 % (0-5); Hematocrit 39.9 % (37-47); Hemoglobin 12.9 g/dL (12.0-15.0); Lymphocyte # 2.63 X10^3/ul (0.83-4.51); Lymphocyte % 32.9 % (19-41); Mean Corp Hgb Conc 32.3 g/dL (32-36); Mean Corpuscular Hgb 27.3 pg (27.0-32.0); Mean Corpuscular Volume 84.5 fL (81-99); Mean Platelet Vol. 8.8 fl (6.2-12.0); Monocyte# 0.56 X10^3/uL; NRBC Flagged by Analyzer 0 % (0-5); Neutrophil # 4.62 X10^3/uL (2.7-7.7); Neutrophil % 57.7 % (47-70); Platelet Count 243 K/mm3 (150-450); RBC Distribution Width CV 13.1 % (11.6-14.6); Red Blood Count 4.72 M/mm3 (4.2-5.4)
[2022-10-30 18:30] LABS: ALB/GLOB Ratio 1.1 RATIO (0.9-2.4); AST(SGOT) 12 U/L (15-37); Alanine Aminotransfer ALT/SGPT 27 U/L (13-56); Albumin, Serum 3.8 g/dL (3.2-5.0); Alkaline Phosphatase 64 U/L (45-117); Anion Gap 10 (5-15); BUN 29 mg/dL (7-18); Calcium,Total 9.1 mg/dL (8.5-10.1); Chloride 104 mmol/L (98-107); Cholesterol 125 mg/dL (200); EST Glomerular Filtration Rate 57 mL/min (>60); Est Glom Filt Rate - Afr Amer 69 mL/min (>60); Globulin 3.6 g/dL (2.2-4.2); Glucose 89 mg/dL (74-106); Glucose, Dipstick Normal (Normal); High Density Lipoprotein 52 mg/dL; Ketone-Dipstick Negative (Negative); Leukocyte Esterase-Dipstick 25 /ul (Negative); Nitrite-Dipstick Negative (Negative); Occult Blood-Urine Negative /ul (Negative); Potassium 3.8 mmol/L (3.5-5.1); Protein, Total 7.4 g/dL (6.4-8.2); Protein-Dipstick Negative (Negative); Sodium Level 141 mmol/L (136-145); Specific Gravity, Urine 1.025 (1.002-1.030); T4 Free Direct 0.74 ng/dL (0.76-1.46); Thyroid Stim Hormone (TSH) 0.31 uIU/mL (0.358-3.74); Triglycerides 247 mg/dL; Urine Bilirubin Dipstick Negative (Negative); Urine Urobilinogen 1 mg/dl (Normal); Very Low Density Lipoprotein 49 mg/dL (5-40)
[2022-10-30 19:00] LABS: Microalbumin,Random Urine 9.4 mg/L (NO RANGE EST.); Microalbumin:Creatinine Ratio 5.4 mg/g CRE (<30 mg/g CRE)
[2022-10-30 21:44] LABS: Color, Urine Yellow (Yellow); Urine Clarity Clear (Clear)
[2022-10-30 21:47] LABS: White Blood Cells 0-5 SEEN /hpf (0-5)
[2022-11-02 08:09] LABS: Thyroid Peroxidase AB < 9 IU/mL (0-34); Thyroid Stim Immunoglob 0.17 IU/L (0.00-0.55)
[2022-11-02 17:50] LABS: Thyroglobulin Antibody < 1.0 IU/mL (0.0-0.9)
== END | disposition home or self-care (01) ==
LOC: MFPLAB 15:53
PROVIDERS: PCP Family Medicine; Visit Provider Family Medicine
DX: R79.89 Other specified abnormal findings of blood chemistry (principal); E11.69 Type 2 diabetes mellitus with other specified complication; I10 Essential (primary) hypertension
CPT/HCPCS: 36415; 80053; 80061; 81001; 82043; 82570; 83036; 84439; 84443; 84445; 85025; 86376; 86800

== ENCOUNTER → 2023-02-16 | Outpatient (CLI) | payer MEDICARE, SELFPAY ==
[2023-02-16 18:09] LABS: Free T3 2.9 pg/mL (2.18-3.98); T4 Free Direct 0.71 ng/dL (0.76-1.46); Thyroid Stim Hormone (TSH) 0.32 uIU/mL (0.358-3.74)
== END | disposition home or self-care (01) ==
LOC: MFPLAB 12:35
PROVIDERS: PCP Family Medicine; Visit Provider Internal Medicine Endocrinology, Diabetes & Metabolism
DX: E05.20 Thyrotoxicosis with toxic multinodular goiter without thyrotoxic crisis or storm (principal); R00.1 Bradycardia, unspecified
CPT/HCPCS: 36415; 84439; 84443; 84481

== ENCOUNTER → 2023-03-16 | Outpatient (CLI) | payer MEDICARE, SELFPAY ==
[2023-03-16 11:05] LABS: T4 Free Direct 0.67 ng/dL (0.76-1.46); Thyroid Stim Hormone (TSH) 0.37 uIU/mL (0.358-3.74)
== END | disposition home or self-care (01) ==
LOC: MFPLAB 09:36
PROVIDERS: PCP Family Medicine; Visit Provider Internal Medicine Endocrinology, Diabetes & Metabolism
DX: E05.20 Thyrotoxicosis with toxic multinodular goiter without thyrotoxic crisis or storm (principal)
CPT/HCPCS: 36415; 84439; 84443; 84481

== ENCOUNTER → 2023-04-19 | Outpatient (CLI) | payer MEDICARE, SELFPAY ==
[2023-04-19 15:39] LABS: Absolute Lymphocyte Count 2.22 X10^3/uL (0.83-4.51); Absolute Neutrophil Count 4.9 X10^3/uL (2.0-7.7); Basophil# 0.03 X10^3/uL; Basophil% 0.4 % (0-1); Eosinophil# 0.16 X10^3/uL; Hematocrit 39.8 % (37-47); Hemoglobin 13.2 g/dL (12.0-15.0); Lymphocyte # 2.22 X10^3/ul (0.83-4.51); Lymphocyte % 28.4 % (19-41); Mean Corp Hgb Conc 33.2 g/dL (32-36); Mean Corpuscular Hgb 28.1 pg (27.0-32.0); Mean Corpuscular Volume 84.9 fL (81-99); Mean Platelet Vol. 8.7 fl (6.2-12.0); Monocyte# 0.43 X10^3/uL; Monocyte% 5.5 % (0-10); NRBC Flagged by Analyzer 0 % (0-5); Neutrophil # 4.94 X10^3/uL (2.7-7.7); Neutrophil % 63.2 % (47-70); Platelet Count 230 K/mm3 (150-450); RBC Distribution Width CV 13.3 % (11.6-14.6); RBC Distribution Width SD 40.6 fl (35.1-43.9); Red Blood Count 4.69 M/mm3 (4.2-5.4); White Blood Count 7.8 K/mm3 (4.4-11.0)
[2023-04-19 16:35] LABS: Hemoglobin A1c 5.9 % (3.8-5.6)
[2023-04-19 16:40] LABS: Microalbumin,Random Urine 5.3 mg/L (NO RANGE EST.)
[2023-04-19 16:42] LABS: ALB/GLOB Ratio 1.1 RATIO (0.9-2.4); AST(SGOT) 26 U/L (15-37); Alanine Aminotransfer ALT/SGPT 43 U/L (13-56); Albumin, Serum 3.8 g/dL (3.2-5.0); Alkaline Phosphatase 65 U/L (45-117); Anion Gap 6 (5-15); BUN 20 mg/dL (7-18); BUN/Creat Ratio 23.6 RATIO (10-20); Calcium,Total 9.4 mg/dL (8.5-10.1); Chloride 104 mmol/L (98-107); Cholesterol 131 mg/dL (200); Creatinine, Serum 0.85 mg/dL (0.55-1.02); EST Glomerular Filtration Rate 69 mL/min (>60); Est Glom Filt Rate - Afr Amer 83 mL/min (>60); Free T3 2.9 pg/mL (2.18-3.98); Globulin 3.6 g/dL (2.2-4.2); Glucose 125 mg/dL (74-106); High Density Lipoprotein 51 mg/dL; Magnesium 2.2 mg/dL (1.6-2.6); Potassium 4.6 mmol/L (3.5-5.1); Protein, Total 7.4 g/dL (6.4-8.2); Sodium Level 139 mmol/L (136-145); Thyroid Stim Hormone (TSH) 0.59 uIU/mL (0.358-3.74); Triglycerides 279 mg/dL; Very Low Density Lipoprotein 56 mg/dL (5-40)
[2023-04-19 16:57] LABS: Vitamin B12 798 pg/mL (211-911); Vitamin D,25 Hydroxy 19.1 ng/mL
== END | disposition home or self-care (01) ==
LOC: MTLAB 11:19
PROVIDERS: PCP Family Medicine; Visit Provider Family Medicine
DX: I49.3 Ventricular premature depolarization (principal); E11.8 Type 2 diabetes mellitus with unspecified complications; R53.83 Other fatigue; E05.20 Thyrotoxicosis with toxic multinodular goiter without thyrotoxic crisis or storm; E55.9 Vitamin D deficiency, unspecified
CPT/HCPCS: 36415; 80053; 80061; 82043; 82306; 82570; 82607; 83036; 83735; 84439; 84443; 84481; 85025

== ENCOUNTER → 2023-05-25 | Outpatient (CLI) | payer MEDICARE, SELFPAY | END | disposition home or self-care (01) | LOC: MFPLAB 09:40 | PROVIDERS: PCP Family Medicine; Visit Provider Family Medicine | DX: Z00.00 Encounter for general adult medical examination without abnormal findings (principal) ==

== ENCOUNTER 2023-07-18 15:00 | Outpatient (RCR) | payer MEDICARE, SELFPAY ==
--- NOTE | 2023-06-06 12:59 | HP.PTEVAL ---
Patient's Visit Information Visit Information Visit Information: BHARATH BEARD is a 78 year old F referred to Physical Therapy by Dr. Sheng Escalante MD with a diagnosis of Left MCL Sprain. 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 She started icing it from there and taking Ibuprofen. 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 She had issues walking around the fair- with a brace and a cane. She limped through and went to the MD for something else and he told her she sprained her knee and then sent her to us. She felt like yesterday it started to turn the corner to get better. The pain is located along the medial border of the knee-pain would radiate down into the calf when it was really bad. She is having an issue laying in her bed due to the pain. She is sleeping on the couch. She describes the pain as sharp/shooting and dull and achy. She does not have any N/T in the toes. Is not having to use the cane the last two days. She is doing stairs non- recip- she does have stairs at home. She has had issues with this knee before- it went out on her before so she always uses a hand rail on the stairs. She feels that she is back to 60% back to normal today. If she twists it then it may be another story. She has not had any x-rays on the knee. MD thinks its a MCL sprain. When she is walking its more of a stiff pain and she has some burning. PMHx/Meds: see endocrine visit Objective Objective: Posture: FH, RS- can correct but does not maintain Gait: antalgic- decreased stance on the left LE with poor heel/toe pattern- toes turned out to the left Stairs: asc/desc 8 non recip- attempted recip but had pain and required bilateral UE- with significant UE use HR/TR: able with UE A SLS: weight shift but unable to SLS Palpation: tender along medial joint line ROM: 0-110 degrees- pain throughout flexion from 90-110 degrees and felt a catch Strength: Core: fair, Hip/: 4/5 throughout, Knee: Flexion: 20 Extn: 38, Ankle: 5/5 Flex: HS: moderate, Gastroc: moderate Special Tests L Knee Lamont - Meniscus: Positive L Knee Posterior Sag - PCL: Positive Balance/Special Test Scores Lower Extremity Functional Score: 23 Goals Goal 1:: Patient will be I with HEP and progression Goal Time Frame: 4-6 Weeks Goal 2:: Patient will asc/desc 8 with 1 HR Goal Time Frame: 4-6 Weeks Goal 3:: Patient will ambulate >300 feet with normalized gait pattern Goal Time Frame: 4-6 Weeks Goal 4:: Patient will report 80% improvement Goal Time Frame: 4-6 Weeks Rehabilitation Potential Physical Therapy Diagnosis: Patient presents with hypomobility- she has decreased LE and core strength/stabilization, flex and muscular endurance leading to abnormal gait pattern and decreased ability to perform ADL's. Rehabilitation Potential: Good Anticipated Interventions Patient/Client Instruction: Educate patient on: Benefits of Fitness Program Therapeutic Exercise to Include: Strength training, Endurance training, Agility training, Body mechanics, Postural training, Flexibilty training, Gait and locomotor training, Neuromotor development, Passive ROM, Active ROM, Dynamic Lumbar Stabilization and Scapular Strength/Stabilization TENS: Yes Ultrasound (thermal/non thermal): Yes Text: Thank you for the opportunity to evaluate your patient. For Medicare and Medicare HMO plans, please review the plan of care and approve it. It will need to be FAXED BACK to us at [phone] for Medicare purposes. For Medicare only, by signing this I certify the plan of care. Please let me know if there are questions or concerns regarding this plan of care. Physician Signature: Date:
--- NOTE | 2023-07-18 15:51 | HP.PTDCSUM ---
Discharge Summary D/C summary: It has been my pleasure to treat BHARATH BEARD referred by Dr. Sheng Escalante MD, with the diagnosis of Left MCL Sprain for a total of 9 visit(s). Discharge Date: Please see the following information for a summary of their discharge status. Subjective Subjective: The knee is doing great- every once in awhile she is doing great- she was on vacation for 2 weeks and she had no issues with it. She had a small issue with her hamstring last night putting on her socks and its a little sore now Pain Left Knee: Pain Intensity (Out of 10): 0 Overall Improvement % Improvement: 100 Objective Objective/Function: Posture: fair throughout Gait: good throughout Stairs: asc/desc recip- did have a little twinge today in the hamstrings. HR/TR: able with UE A SLS: weight shift but unable to SLS Palpation: tender along medial joint line ROM: 0-115 degrees Strength: Core: fair, Hip: 4+/5 throughout, Knee: Flexion: 31 Extn:58, Ankle: 5/5 Flex: HS: moderate, Gastroc: moderate Goals Goal 1:: Patient will be I with HEP and progression Goal Progress: Goal Met Goal 2:: Patient will asc/desc 8 with 1 HR Goal Progress: Goal Met Goal 3:: Patient will ambulate >300 feet with normalized gait pattern Goal Progress: Goal Met Goal 4:: Patient will report 80% improvement Goal Progress: Goal Met Plan Plan: 07/18/23: Discharge to HEP- encouraged her to call if she has questions or concerns Anticipated Interventions (copied from Eval) Patient/Client Instruction: Educate patient on: Benefits of Fitness Program Therapeutic Exercise to Include: Strength training, Endurance training, Agility training, Body mechanics, Postural training, Flexibilty training, Gait and locomotor training, Neuromotor development, Passive ROM, Active ROM, Dynamic Lumbar Stabilization and Scapular Strength/Stabilization D/C Information d/c sentence: If there are questions or concerns regarding this patient's physical therapy, please feel free to call me at [phone]. Thank you for the referral of this patient. Sincerely, Angelica Sanders, DPT Balance/Gait/Functional tests Balance/Special Test Scores Lower Extremity Functional Score: 62 Improvement % Improvement: 100
== END 2023-07-18 19:00 | disposition home or self-care (01) ==
LOC: PT 15:00
PROVIDERS: PCP Family Medicine; Referring Provider Family Medicine; Visit Provider Family Medicine
DX: S83.421D Sprain of lateral collateral ligament of right knee, subsequent encounter (principal)
CPT/HCPCS: 97110; 97162; 97164

== ENCOUNTER → 2023-07-20 | Outpatient (CLI) | payer MEDICARE, SELFPAY ==
[2023-07-20 12:13] LABS: Absolute Lymphocyte Count 2.16 X10^3/uL (0.83-4.51); Absolute Neutrophil Count 4.4 X10^3/uL (2.0-7.7); Basophil# 0.02 X10^3/uL; Basophil% 0.3 % (0-1); Eosinophil# 0.15 X10^3/uL; Eosinophils% 2.1 % (0-5); Hemoglobin 12.5 g/dL (12.0-15.0); Lymphocyte # 2.16 X10^3/ul (0.83-4.51); Lymphocyte % 30.6 % (19-41); Mean Corp Hgb Conc 32.1 g/dL (32-36); Mean Corpuscular Hgb 27.5 pg (27.0-32.0); Mean Corpuscular Volume 85.9 fL (81-99); Mean Platelet Vol. 8.8 fl (6.2-12.0); Monocyte# 0.29 X10^3/uL; Monocyte% 4.1 % (0-10); NRBC Flagged by Analyzer 0 % (0-5); Neutrophil % 62.5 % (47-70); Platelet Count 244 K/mm3 (150-450); RBC Distribution Width SD 40.4 fl (35.1-43.9); Red Blood Count 4.54 M/mm3 (4.2-5.4); White Blood Count 7.1 K/mm3 (4.4-11.0)
[2023-07-20 13:20] LABS: AST(SGOT) 14 U/L (15-37); Alanine Aminotransfer ALT/SGPT 26 U/L (13-56); Albumin, Serum 3.5 g/dL (3.2-5.0); Alkaline Phosphatase 69 U/L (45-117); Anion Gap 7 (5-15); BUN 20 mg/dL (7-18); BUN/Creat Ratio 24.8 RATIO (10-20); Calcium,Total 8.6 mg/dL (8.5-10.1); Chloride 107 mmol/L (98-107); Creatinine, Serum 0.81 mg/dL (0.55-1.02); EST Glomerular Filtration Rate 73 mL/min (>60); Est Glom Filt Rate - Afr Amer 88 mL/min (>60); Globulin 3.5 g/dL (2.2-4.2); Glucose 154 mg/dL (74-106); Sodium Level 140 mmol/L (136-145); T4 Free Direct 0.77 ng/dL (0.76-1.46)
== END | disposition home or self-care (01) ==
LOC: MFPLAB 11:08
PROVIDERS: PCP Family Medicine; Visit Provider Internal Medicine Endocrinology, Diabetes & Metabolism
DX: E05.20 Thyrotoxicosis with toxic multinodular goiter without thyrotoxic crisis or storm (principal)
CPT/HCPCS: 36415; 80053; 84439; 84443; 84481; 85025

== ENCOUNTER → 2023-09-03 | Outpatient (CLI) | payer MEDICARE, SELFPAY ==
--- NOTE | 2023-09-03 12:03 | BI_ITS ---
MAMMOGRAPHY - BILATERAL SCREENING REASON FOR EXAM: Female, 78 years old. Routine annual screening examination. PERTINENT HISTORY: Non-contributory. Prior left stereotactic breast biopsy. TECHNIQUE: Digital bilateral breast christina (3D mammographic acquisition) in the CC and MLO projections. 2-D mediolateral oblique (MLO) and craniocaudad (CC) views of both breasts were obtained. CAD: Full Field Digital Mammography with Computer Added Detection was performed. COMPARISON: Comparison is made with prior study dated September 01, 2022 and August 31, 2021. FINDINGS: Breast Composition: The breasts are heterogeneously dense, which may obscure small masses. Stable 1 cm well-defined nodule in the deep inferior central aspect of the left breast. A tissue clip marker is once again seen in the anterior upper central aspect of the left breast. Stable bilateral scattered microcalcifications. Stable fat-containing bilateral axillary lymph nodes. No other significant abnormalities are identified. There has been no significant change since the prior study. BI/SCRN MAMM (CAD)W/CHRISTINA BILAT IMPRESSION: Stable bilateral screening mammogram. Yearly follow-up mammogram recommended. (A) ASSESSMENT CATEGORY: BIRADS Category 2: Benign. A letter regarding these results will be sent to the patient by the facility within 30 days. Approximately 10% of breast cancers are not detected by mammography. A normal mammogram should not delay biopsy of a clinically suspicious abnormality. [id number] Electronically Signed: Ulisses Lewis MD at 13:32 EST ,
== END | disposition home or self-care (01) ==
LOC: OPBI 12:02
PROVIDERS: PCP Family Medicine; Referring Provider Obstetrics & Gynecology; Visit Provider Obstetrics & Gynecology
DX: Z12.31 Encounter for screening mammogram for malignant neoplasm of breast (principal)
CPT/HCPCS: 77063; 77067

== ENCOUNTER → 2023-10-09 | Outpatient (CLI) | payer MEDICARE, SELFPAY ==
--- OUTSIDE RECORDS SUMMARY | 2023-10-09 15:26 | XMS RPT_ITS | CCD ---
Author Name Unknown Address [address] [place] [address] Organization [facility] Care Team Providers Care Supervisor Files Name Role Phone Sophia López MD Unavailable [phone] Dayanna Varela Unavailable Unavailable Sophia López MD Unavailable [phone] Dayanna Varela Unavailable Unavailable Dayanna Varela Unavailable Unavailable ZENY CROW Attending Unavailable ZENY CROW Primary Care Unavailable ZENY CROW Attending Unavailable ZENY CROW Primary Care Unavailable ZENY CROW Attending Unavailable ZENY CROW Primary Care Unavailable Allergies Allergy Classification Reported Allergen(s) Allergy Type Date of Onset Reaction(s) Facility (12 sources) acetaminophen / oxyCODONE drug allergy [facility] [place] (12 sources) BAND-AID drug allergy [facility] [place] Medications Completed/Discontinued Medications Medication Drug Class(es) Dates Sig (Normalized) Sig (Original) ascorbic acid 500 mg oral tablet (20 sources) Start: 04-26-2017 take 1 tablet by mouth once daily VITAMIN C 500 MG TABS One tablet by mouth daily ASCORBIC ACID [id number] Dayanna Varela Problems Active Problems Problem Classification Problem Date Documented Date Episodic/Chronic Genitourinary symptoms and ill-defined conditions (20 sources) Incontinence; Translations: [Mixed urinary incontinence] Onset: 04-09-2017 04-09-2017 Chronic Joint disorders and dislocations; trauma-related (12 sources) Derangement of knee; Translations: [Other internal derangements of left knee] Onset: 11-26-2015 12-08-2015 Chronic Osteoarthritis (12 sources) Localized, primary osteoarthritis; Translations: [Unilateral primary osteoarthritis, left knee] Onset: 11-26-2015 12-08-2015 Chronic Unclassified (5 sources) Screening mammography ; Translations: [Encounter for screening mammogram for malignant neoplasm of breast] Onset: 05-15-2017 05-16-2017 Unclassified (3 sources) Gynecologic examination ; Translations: [Encounter for gynecological examination (general) (routine) without abnormal findings] Onset: 07-05-2017 07-05-2017 Past or Other Problems Problem Classification Problem Date Documented Da te Episodic/Chronic Allergic reactions (12 sources) Dermatitis, unspecified; Translations: [Dermatitis, unspecified] Onset: 04-09-2017 Resolved: 04-10-2017 04-09-2017 Episodic Mycoses (11 sources) Mycosis; Translations: [Candidiasis, unspecified] Onset: 04-09-2017 04-12-2017 Episodic Nonmalignant breast conditions (4 sources) Lesion of breast; Translations: [Disorder of breast, unspecified] Onset: 05-23-2017 05-23-2017 Episodic Other connective tissue disease (12 sources) Tendinitis; Translations: [Other enthesopathies, not elsewhere classified] Onset: 01-06-2016 01-06-2016 Episodic Other non-traumatic joint disorders (12 sources) Knee pain; Translations: [Pain in left knee] Onset: 11-26-2015 11-26-2015 Episodic Sprains and strains (12 sources) Strain of left quadriceps muscle, fascia and tendon, initial encounter; Translations: [Strain of left quadriceps muscle, fascia and tendon, initial encounter] Onset: 11-26-2015 12-08-2015 Episodic Urinary tract infections (12 sources) Urinary tract infectious disease; Translations: [Urinary tract infection, site not specified] Onset: 04-09-2017 04-11-2017 Episodic Results Test Name Value Interpretation Reference Range Facil ity Vital Signs Date Time Vital Sign Value Performing Clinician Davidi litanthony 07-05-2017 10:23-0400 BMI (Body Mass Index) 34.79 kg/m2 Sophia López MD [facility] [place] 07-05-2017 10:23-0400 BP Diastolic 79 mm[Hg] Sophia López MD [facility] [place] 07-05-2017 10:23-0400 BP Systolic 145 mm[Hg] Sophia López MD [facility] [place] 07-05-2017 10:23-0400 Height 160.02 cm Sophia López MD [facility] 07-05-2017 10:23-0400 Pulse (Heart Rate) 63 /min Sophia López MD [facility] 07-05-2017 10:23-0400 Weight 89.09 kg Sophia López MD [facility] 04-24-2017 11:16-0400 BMI (Body Mass Index) 34.47 kg/m2 Sophia López MD [facility] 04-24-2017 11:16-0400 Body Temperature 97.5 [degF] Sophia López MD [facility] 04-24-2017 11:16-0400 BP Diastolic 70 mm[Hg] Sophia López MD [facility] 04-24-2017 11:16-0400 BP Systolic 131 mm[Hg] Sophia López MD [facility] 04-24-2017 11:16-0400 Height 160.02 cm Sophia López MD [facility] 04-24-2017 11:16-0400 Pulse (Heart Rate) 64 /min Sophia López MD [facility] 04-24-2017 11:16-0400 Respiratory Rate 16 /min Sophia López MD [facility] 04-24-2017 11:16-0400 Weight 88.27 kg Sophia López MD [facility] 04-09-2017 10:51-0400 BMI (Body Mass Index) 34 kg/m2 Sophia López MD [facility] 04-09-2017 10:51-0400 BP Diastolic 74 mm[Hg] Sophia López MD [facility] 04-09-2017 10:51-0400 BP Systolic 140 mm[Hg] Sophia López MD [facility] 04-09-2017 10:51-0400 Height 161.29 cm Sophia López MD [facility] 04-09-2017 10:51-0400 Pulse (Heart Rate) 67 /min Sophia López MD [facility] 04-09-2017 10:51-0400 Respiratory Rate 18 /min Sophia López MD [facility] 04-09-2017 10:51-0400 Weight 88.45 kg Sophia López MD [facility] 11-26-2015 15:11-0500 BMI (Body Mass Index) 32.43 kg/m2 Sophia López MD [facility] 11-26-2015 15:11-0500 Height 161.29 cm Sophia López MD [facility] 11-26-2015 15:11-0500 Weight 84.37 kg Sophia López MD [facility] Encounters Encounter Date Encounter Type Care Provider Facility Start: 01-21-2019 End: 01-22-2019 Patient encounter procedure ZENY CROW Facility:B Start: 11-29-2018 Patient encounter procedure ZENY [facility] Facility:B Start: 11-29-2018 End: 11-30-2018 [facility] Procedures Date Procedure Procedure Detail Performing Clinician Start: 07-05-2017 End: 07-05-2017 Pelvic/Breast Exam (Medicare Patient) Sophia López MD Work Phone: Start: 04-09-2017 End: 04-09-2017 Dietary management education, guidance, and counseling Sophia López MD Start: 04-09-2017 End: 04-09-2017 Urinalysis Sophia Silva Start: 11-26-2015 End: 12-08-2015 Arthrocentesis aspir&/inj major jt/bursa w/o us Esa Velasquez Work Phone: Start: 11-26-2015 End: 12-08-2015 Drain/inject, joint/bursa Esa Velasquez Work Phone: Plan of Treatment Date Care Activity Detail Author Start: 07-05-2017 End: 07-05-2017 Appointment Appointment [facility] Start: 05-23-2017 End: 05-23-2017 Mammogram, both breasts Mammogram, Diagnostic, both breasts [facility] Start: 05-23-2017 End: 05-23-2017 Us exam, breast(s) US Breast(s) [facility] Start: 05-23-2017 End: 05-23-2017 Mammogram, both breasts Mammogram, Diagnostic, both breasts [facility] Start: 05-23-2017 End: 05-23-2017 Us exam, breast(s) US Breast(s) [facility] Start: 05-15-2017 End: 05-16-2017 Mammogram, screening Mammogram, Screening, both breasts [facility] Start: 05-15-2017 End: 05-16-2017 Mammogram, screening Mammogram, Screening, both breasts [facility] Start: 04-24-2017 End: 04-24-2017 *MISC - Miscellaneous Lab Test #1 *MISC - Miscellaneous Lab Test #1 [facility] Start: 04-24-2017 End: 04-24-2017 Appointment Appointment [facility] Start: 04-24-2017 End: 04-24-2017 *MISC - Miscellaneous Lab Test #1 *MISC - Miscellaneous Lab Test #1 [facility] Start: 04-12-2017 End: 04-12-2017 *CUUID - Urine TRISTA Culture - Identificatn *CUUID - Urine TRISTA Culture - Identificatn [facility] Start: 04-12-2017 End: 04-12-2017 *CUUID - Urine TRISTA Culture - Identificatn *CUUID - Urine TRISTA Culture - Identificatn [facility] Start: 04-09-2017 End: 04-09-2017 Urine culture, bacteria Urine Culture [facility] Start: 04-09-2017 End: 04-09-2017 Urine culture, bacteria Urine Culture [facility] Start: 02-16-2016 End: 02-16-2016 Physical Therapy General [facility], [address] [place] [address], [id number] [facility] Start: 02-16-2016 End: 02-16-2016 Physical Therapy General Physical Therapy General Rehab [facility], [address] [place] [address], [id number] [facility] Start: 01-06-2016 End: 01-06-2016 Mri any jt lower extrem w/o contrast matrl MRI Joint Lower Extremity [facility] Start: 01-06-2016 End: 01-06-2016 Mri jnt of lwr extre w/o dye MRI Joint Lower Extremity [facility] [place] Start: 11-26-2015 End: 11-26-2015 Radiologic exam knee complete 4/more views X-Ray, Knee [facility] [place] Start: 11-26-2015 End: 11-26-2015 X-ray exam, knee, 4 or more X-Ray, Knee [facility] Payers Date Payer Category Payer Private Health Insurance [id number] [id number] 1945 Unknown [id number] 1945 Unknown [id number] 1945 Unknown [id number] Summary Purpose Family History No Family History Records Found Advance Directives No Advanced Directives Records Found Additional Source Comments INFORMATION SOURCE (unrecogn ized section and content) FOR RECORDS PERTAINING TO PATIENTS WHO ARE OR HAVE BEEN ENROLLED IN A CHEMICAL DEPENDENCY/SUBSTANCEABUSE PROGRAM, SOME INFORMATION MAY BE OMITTED. This clinical summary was aggregated from multiple sources. Caution should be exercised in using it in the provision of clinical care. This summary normalizes information from multiple sources, and as a consequence, information in this document may materially change the coding, format and clinical context of patient data. In addition, data may be omitted in some cases. CLINICAL DECISIONS SHOULD BE BASED ON THE PRIMARY CLINICAL RECORDS. [facility]. provides no warranty or guarantee of the accuracy or completeness of information in this document.
[2023-10-09 16:49] LABS: Free T3 2.9 pg/mL (2.18-3.98); Thyroid Stim Hormone (TSH) 0.18 uIU/mL (0.358-3.74)
== END | disposition home or self-care (01) ==
PROVIDERS: PCP Family Medicine; Visit Provider Internal Medicine Endocrinology, Diabetes & Metabolism
DX: E78.5 Hyperlipidemia, unspecified (principal); E11.9 Type 2 diabetes mellitus without complications; E05.20 Thyrotoxicosis with toxic multinodular goiter without thyrotoxic crisis or storm
CPT/HCPCS: 36415; 84439; 84443; 84481

== ENCOUNTER 2023-10-19 07:28 | Day surgery (SDC) | payer MEDICARE, SELFPAY ==
--- OUTSIDE RECORDS SUMMARY | 2023-10-19 07:35 | XMS RPT_ITS | CCD ---
Author Name Unknown Address [address] [place] [address] Organization [facility] Care Team Providers Care Design Engineer Agricultural Equipment Name Role Phone Sophia López MD Unavailable [phone] Dayanna Varela Unavailable Unavailable Sophia López MD Unavailable [phone] Dayanna Varela Unavailable Unavailable Dayanna Varela Unavailable Unavailable ZENY CROW Attending Unavailable ZENY CROW Primary Care Unavailable ZENY CROW Attending Unavailable ZENY CROW Primary Care Unavailable ZENY CROW Attending Unavailable ZENY CROW Primary Care Unavailable Allergies Allergy Classification Reported Allergen(s) Allergy Type Date of Onset Reaction(s) Facility (12 sources) acetaminophen / oxyCODONE drug allergy [facility] (12 sources) BAND-AID drug allergy [facility] Medications Completed/Discontinued Medications Medication Drug Class(es) Dates Sig (Normalized) Sig (Original) ascorbic acid 500 mg oral tablet (20 sources) Start: 04-26-2017 take 1 tablet by mouth once daily VITAMIN C 500 MG TABS One tablet by mouth daily ASCORBIC ACID [id number] Dayanna Varela Problems Active Problems Problem Classification [...] Mass Index) 34.79 kg/m2 Sophia López MD [facility] 07-05-2017 10:23-0400 BP Diastolic 79 mm[Hg] Sophia López MD [facility] 07-05-2017 10:23-0400 BP Systolic 145 mm[Hg] Sophia López MD [facility] 07-05-2017 10:23-0400 Height 160.02 cm Sophia López MD [facility] 07-05-2017 10:23-0400 Pulse (Heart Rate) 63 /min Sophia López MD [facility] 07-05-2017 10:23-0400 Weight 89.09 kg Sophia López MD [facility] 04-24-2017 11:16-0400 BMI (Body Mass Index) 34.47 kg/m2 Sophia López MD [facility] 04-24-2017 11:16-0400 Body Temperature 97.5 [degF] Sophia López MD [facility] 04-24-2017 11:16-0400 BP Diastolic 70 mm[Hg] Sophia López MD [facility] 04-24-2017 11:16-0400 BP Systolic 131 mm[Hg] Sophia López MD [facility] 04-24-2017 11:16-0400 Height 160.02 cm Sophia López MD [facility] 04-24-2017 11:16-0400 Pulse (Heart Rate) 64 /min Sophia López MD [facility] 04-24-2017 11:16-0400 Respiratory Rate 16 /min Sophia López MD [facility] 04-24-2017 11:16-0400 Weight 88.27 kg Sophia López MD [facility] 04-09-2017 10:51-0400 BMI (Body Mass Index) 34 kg/m2 Sophia López MD [facility] 04-09-2017 10:51-0400 BP Diastolic 74 mm[Hg] Sophia López MD [facility] 04-09-2017 10:51-0400 BP Systolic 140 mm[Hg] Sophia López MD [facility] 04-09-2017 10:51-0400 Height 161.29 cm Sophia López MD [facility] 04-09-2017 10:51-0400 Pulse (Heart Rate) 67 /min Sophia López MD [facility] 04-09-2017 10:51-0400 Respiratory Rate 18 /min Sophia López MD [facility] 04-09-2017 10:51-0400 Weight 88.45 kg Sophia López MD [facility] 11-26-2015 15:11-0500 BMI (Body Mass Index) 32.43 kg/m2 Sophia López MD [facility] 11-26-2015 15:11-0500 Height 161.29 cm Sophia López MD [facility] 11-26-2015 15:11-0500 Weight 84.37 kg Sophia López MD [facility] Encounters Encounter Date Encounter Type Care Provider Facility Start: 01-21-2019 End: 01-22-2019 Patient encounter procedure ZENY CROW Facility:B Start: 11-29-2018 Patient encounter procedure ZENY [facility] Facility:B Start: 11-29-2018 End: 11-30-2018 [facility] Procedures Date Procedure Procedure Detail Performing [...] Author Start: 07-05-2017 End: 07-05-2017 Appointment Appointment [facility] Start: 05-23-2017 End: 05-23-2017 Mammogram, both breasts Mammogram, Diagnostic, both breasts [facility] Start: 05-23-2017 End: 05-23-2017 Us exam, breast(s) US Breast(s) [facility] Start: 05-23-2017 End: 05-23-2017 Mammogram, both breasts Mammogram, Diagnostic, both breasts [facility] Start: 05-23-2017 End: 05-23-2017 Us exam, breast(s) US Breast(s) [facility] Start: 05-15-2017 End: 05-16-2017 Mammogram, screening Mammogram, Screening, both breasts [facility] Start: 05-15-2017 End: 05-16-2017 Mammogram, screening Mammogram, Screening, both breasts [facility] Start: 04-24-2017 End: 04-24-2017 *MISC - Miscellaneous Lab Test #1 *MISC - Miscellaneous Lab Test #1 [facility] Start: 04-24-2017 End: 04-24-2017 Appointment Appointment [facility] Start: 04-24-2017 End: 04-24-2017 *MISC - Miscellaneous Lab Test #1 *MISC - Miscellaneous Lab Test #1 [facility] Start: 04-12-2017 End: 04-12-2017 *CUUID - Urine TRISTA Culture - Identificatn *CUUID - Urine TRISTA Culture - Identificatn [facility] Start: 04-12-2017 End: 04-12-2017 *CUUID - Urine TRISTA Culture - Identificatn *CUUID - Urine TRISTA Culture - Identificatn [facility] Start: 04-09-2017 End: 04-09-2017 Urine culture, bacteria Urine Culture [facility] Start: 04-09-2017 End: 04-09-2017 Urine culture, bacteria Urine Culture [facility] Start: 02-16-2016 End: 02-16-2016 Physical Therapy General Physical Therapy [facility], [address] [place] [address], [id number] [facility] Start: 02-16-2016 End: 02-16-2016 Physical Therapy General Physical Therapy General Re[facility], [address] [place] [address], [id number] [facility] Start: 01-06-2016 End: 01-06-2016 Mri any jt lower extrem w/o contrast matrl MRI Joint Lower Extremity [facility] Start: 01-06-2016 End: 01-06-2016 Mri jnt of lwr extre w/o dye MRI Joint Lower Extremity [facility] Start: 11-26-2015 End: 11-26-2015 Radiologic exam knee complete 4/more views X-Ray, Knee [facility] Start: 11-26-2015 End: 11-26-2015 X-ray exam, knee, 4 or more X-Ray, Knee [facility] Payers Date Payer Category Payer Private Health Insurance MEB [id number] 1945 Unknown [id number] [id number] 1945 Unknown [id number] 1945 Unknown [id number] Summary Purpose Family History No Family History [...] BE BASED ON THE PRIMARY CLINICAL RECORDS. [employer] [facility]. provides no warranty or guarantee of the accuracy or completeness of information in this document.
[2023-10-19 07:51] VITALS: BP 144/63; PULSE 58; RESP 16; TEMP 36.5; O2SAT 97; BMI 32.4
[2023-10-19] MEDS: Lactated Ringers 1,000 ML 15 ML IV (08:10)
--- NOTE | 2023-10-19 08:23 | PCM.HP.BLA ---
History and Physical Date of Admission: 10/19/23 Visit Reasons: COLONOSCOPY - RECALL LETTER Chief Complaint: nodular goiter Is patient in pain?: No Allergies oxycodone [From Percocet] Allergy (Mild, Verified 06/26/23 10:02) hivesamoxicillin Allergy (Verified 06/26/23 10:02) Rashadhesive tape Adverse Reaction (Mild, Verified 06/26/23 10:02) redness Medications aspirin 81 mg tablet,delayed release 81 mg PO DAILY 10/24/19 [History Confirmed 06/26/23] ascorbic acid (vitamin C) 500 mg tablet 500 mg PO DAILY 12/09/19 [History Confirmed 06/26/23] calcium carbonate 500 mg calcium (1,250 mg) tablet 500 mg PO DAILY 12/09/19 [History Confirmed 06/26/23] metoprolol succinate 50 mg tablet,extended release 24 hr 50 mg PO DAILY 12/09/19 [History Confirmed 06/26/23] vitamin E (dl, acetate) 180 mg (400 unit) capsule 400 unit PO DAILY 12/09/19 [History Confirmed 06/26/23] coenzyme Q10 200 mg capsule 200 mg PO DAILY 07/21/20 [History Confirmed 06/26/23] mupirocin 2 % topical ointment 1 applic topical BID PRN Wound Care 07/21/20 [History Confirmed 06/26/23] rosuvastatin 10 mg tablet 10 mg PO QHS 01/19/21 [History Confirmed 06/26/23] B-complex with vitamin C 1 cap PO DAILY 01/16/23 [History Confirmed 06/26/23] factor 5 supplement for pain PO 01/16/23 [History Confirmed 06/26/23] propylene glycol 0.6 % eye drops (Systane Balance) 1 drp ophthalmic (eye) BID PRN 01/16/23 [History Confirmed 06/26/23] methimazole 5 mg tablet 2.5 mg (1/2 x 5 mg) PO .4 days per week #36 tabs 06/22/23 [Rx Confirmed 06/26/23] [facility] Medical History (Updated 06/26/23 @ 05:[address] Mateo Lamb MD) Alcohol use Arthritis Bleeding disorder Bradycardia Cardiology follow-up encounter Cyst of breast, left, diffuse fibrocystic Diabetes Diabetes mellitus type II, controlled Dietary restriction Difficulty swallowing Gastric reflux GI problem History of echocardiogram History of irregular heartbeat History of stress test Hyperlipidemia Hypertension Hypothyroid Leg cramps Multinodular thyroid Multiple thyroid nodules Non-smoker Obesity Personal history of colonic polyps PONV (postoperative nausea and vomiting) Premature ventricular complex Shortness of breath on exertion Thyroid disease Toxic multinodular goiter Wears glasses Surgical History H/O: hysterectomy History of appendectomy History of breast biopsy (~06/2018) History of cardiac catheterization History of colonoscopy (~2016) History of D&C History of wisdom tooth extraction Status post biopsy of thyroid gland (~11/2018) Family History Mother , Age 72, of [place] Myocardial infarction CAD (coronary artery disease) CVA (cerebral vascular accident) Hyperlipidemia HypertensionFather , Age 94 Heart disease Hyperlipidemia Thyroid disorder Prostate cancerBrother , of Agent [place] Exposure Diabetes Hypertension Heart disease Hyperlipidemia CVA (cerebral vascular accident) Agent orange exposureBrother , of AIDS AIDSSister , in MVA MVA (motor vehicle accident)Son Abdominal aortic aneurysmGrandmother Diabetes Social History Smoking Status: Never smoker alcohol intake: current details: social substance use type: does not use seatbelt use: always do you feel safe at home: Yes additional social history: -Twin HPI HPI HPI: 78-year-old female. She returns for routine follow-up. June 27, 2022 we will perform a colonoscopy for her. I removed 7 polyps for her. Pathology was consistent with tubular adenomas except for a mid sigmoid polyp had fragments of a tubulovillous adenoma. Follow-up colonoscopy at 1 year was recommended. Has had some progressive constipation problems. She wonders whether it is due to attempts to correct and alter her thyroid medications. In the past she has taken just something mild like Senokot. She has not tried a MiraLAX or similar product. She denies any abdominal pain. No bright red blood per rectum or melena. She did strain a MCL of her knee but that is improving with physical therapy. ROS General General: Yes fatigue; No weight change, appetite, colon cancer, breast cancer or weakness HEENT HEENT: Yes eye surgery; No difficulty swallowing, eye injury, swollen glands or hoarseness Endo Endocrine: Yes thyroid disease and diabetes mellitus; No thyroid cancer, Hair loss, heat intolerance or cold intolerance Musc Musculoskeletal: Yes back problems and arthritis; No rheumatoid arthritis, gout or joint pain Cardio Cardiovascular: Yes high blood pressure; No murmur, pacemaker, heart disease, atrial fibrillation, heart attack, heart stent, palpitations, shortness of breat with exertion or chest pain Psych Psychiatric: Yes depression and anxiety; No hearing voices Resp Respiratory: No shortness of breath, No sleep apnea, No cough, No COPD, No asthma, No emphysema and No wheezing Gastro Gastrointestinal: No abdominal pain, No nausea or vomiting, No diarrhea, Yes constipation, No blood in stool, No acid reflux, Yes hemorrhoids, No ulcers, No gallbladder problem and No black,tarry stools Avni Hematologic: No blood thinners, No blood disorders, No bleeding, No anemia and No blood clots Neuro Neurologic: Yes numbness, Yes tingling and No weakness Exam Const General: cooperative, healthy appearing, comfortable and no acute distress HENMT Head: normal to inspection Eyes General: appearance normal, both eyes and all related structures Neck Neck: normal visual inspection Chest Chest palpation & inspection: normal inspection of the chest Resp Effort & Inspection: normal respiratory effort Auscultation: clear to auscultation bilaterally Cardio Rate: regular rate Rhythm: regular rhythm Musc Cervical Spine: normal cervical lordosis Skin General: no rashes or lesions noted Neuro General: patient alert, patient awake and patient oriented x3 Extrem General: normal to inspection and no calf tenderness Psych Appearance: grossly normal and well ket Assessment and Plan Assessment and Plan (1) Personal history of colonic polyps: Status: Resolved Plan: I recommend the patient a colonoscopy with possible biopsy or polypectomy as indicated. We will have her hold her aspirin just 3 days prior to the procedure. I have discussed with her her symptoms of chronic constipation and recommending MiraLAX or generic product as needed. She has had an opportunity to ask and have questions answered. I appreciate the ongoing option of assisting with her surgical care and we will schedule and proceed at her discretion. Indication is that she has had multiple previous polyps on her colonoscopy a year ago and she had mostly tubular adenomas but one was tubulovillous adenoma. Copy: Dr Sheng Lamb M.D., F.A.C.S I have examined the patient and the H&P has been reviewed. There are no clinical changes since date of exam. Mateo Lamb M.D., F.A.C.S.
[2023-10-19 08:25] LABS: Bedside Glucose 121 mg/dL (74-106)
--- NOTE | 2023-10-19 08:30 | COLBX_PTH ---
PATHOLOGY RESULTS PATIENT: BHARATH BEARD LOC: EN U#:[id number] AGE/SX: 78/F ROOM: RE10/19/[address]: Dr. Mateo Lamb MD : 1945 BED: DIS: 10/19/2023 SPEC #: [id number] RECD: 10/19/23 13:12 STATUS: RANJITH JEAN #: [id number] DINESH: 10/19/23 08:[address]: Mateo Lamb DEPT: SURGICAL PATHOLOGY RECD BY: Merari Spann ENTERED: 10/19/23 13:50 SP TYPE: COLON BX OTHR DR: Dr. Sheng Escalante MD Tissues: Transverse colon Descending colon Sigmoid colon biopsy Rectum, NOS Procedures: Surgery Specimen Level IV HEADER OPERATION: Colonoscopy, biopsy PRE-OP DIAGNOSIS: History of colonic polyps TISSUE SUBMITTED: A - Mid transverse polyps x2 biopsy, B - Descending colon polyp biopsy, C - Proximal sigmoid polyp biopsy, D - Rectum polyp biopsy MICROSCOPIC DIAGNOSIS A. Mid transverse colon polyps x2, biopsy: Tubular adenoma. Hyperplastic polyp. B. Descending colon polyp, biopsy: A fragment of colonic mucosa, no pathologic diagnosis. C. Proximal sigmoid colon polyp, biopsy: Tubular adenoma. D. Rectum polyp, biopsy: Hyperplastic polyp. HARRISON:thanh 10/22/2023 MICROSCOPIC DESCRIPTION Slides are reviewed. GROSS DESCRIPTION A - Received in fixative is one container labeled with the patient's name and designated mid transverse polyps x2. The specimen consists of multiple irregular fragments of light phillips soft tissue that in aggregate measure 0.6 x 0.6 x 0.1 cm. The specimen is totally submitted in one cassette. B - Received in fixative is one container labeled with the patient's name and designated descending colon polyp. The specimen consists of one irregular fragment of light phillips soft tissue that measures 0.2 x 0.2 x 0.1 cm. The specimen is totally submitted in one cassette. C - Received in fixative is one container labeled with the patient's name and designated proximal sigmoid colon polyp biopsy. The specimen consists of two irregular fragments of light phillips soft tissue that in aggregate measure 0.6 x 0.3 x 0.1 cm. The specimen is totally submitted in one cassette. D - Received in fixative is one container labeled with the patient's name and designated rectum polyp. The specimen consists of one irregular fragment of light phillips soft tissue that measures 0.3 x 0.3 x 0.1 cm. The specimen is totally submitted in one cassette. / SJ:thanh 10/19/2023 TC:1 CPT: 07436 x4
[2023-10-19 09:06] VITALS: BP 144/63; BP 92/42; PULSE 66; RESP 16; TEMP 36.2; O2SAT 96
--- NOTE | 2023-10-19 09:08 | OP.COLON_ITS ---
Patient Name: Johanne Hunter Procedure Date: 10/19/2023 8:25 AM Date of : 1945 Age: 78 Procedure: Colonoscopy Indications: High risk colon cancer surveillance: Personal history of colonic polyps Providers: Mateo Lamb MD Referring MD: Brandon Us MD Medicines: See the Anesthesia note for documentation of the administered medications Patient Profile: Last Colonoscopy: June 2022. Complications: No immediate complications. Procedure: Pre-Anesthesia Assessment: - Prior to the procedure, a History and Physical was performed, and patient medications and allergies were reviewed. The patient's tolerance of previous anesthesia was also reviewed. The risks and benefits of the procedure and the sedation options and risks were discussed with the patient. All questions were answered, and informed consent was obtained. Prior Anticoagulants: The patient has taken no anticoagulant or antiplatelet agents. ASA Grade Assessment: II - A patient with mild systemic disease. After reviewing the risks and benefits, the patient was deemed in satisfactory condition to undergo the procedure. After I obtained informed consent, the scope was passed under direct vision. Throughout the procedure, the patient's blood pressure, pulse, and oxygen saturations were monitored continuously. The Colonoscope was introduced through the anus and advanced to the terminal ileum, with identification of the appendiceal orifice and IC valve. The colonoscopy was somewhat difficult due to a tortuous colon. The patient tolerated the procedure well. The quality of the bowel preparation was good. The ileocecal valve and the appendiceal orifice were photographed. Scope In: 8:34:01 AM Scope Withdrawal Time 0 hours 16 minutes 8 seconds Scope Out: 9:00:09 AM Total Procedure Duration Time 0 hours 26 minutes 8 seconds Findings: Hemorrhoids were found on perianal exam. Two sessile polyps were found in the mid transverse colon. The polyps were 3 to 4 mm in size. These polyps were removed with a cold biopsy forceps. Resection and retrieval were complete. A 4 mm polyp was found in the proximal descending colon. The polyp was sessile. The polyp was removed with a cold biopsy forceps. Resection and retrieval were complete. A 3 mm polyp was found in the proximal sigmoid colon. The polyp was sessile. The polyp was removed with a cold biopsy forceps. Resection and retrieval were complete. A 3 mm polyp was found in the rectum. The polyp was sessile. The polyp was removed with a cold biopsy forceps. Resection and retrieval were complete. Multiple diverticula were found in the sigmoid colon and descending colon. The left colon was significantly tortuous. Impression: - Hemorrhoids found on perianal exam. - Two 3 to 4 mm polyps in the mid transverse colon, removed with a cold biopsy forceps. Resected and retrieved. - One 4 mm polyp in the proximal descending colon, removed with a cold biopsy forceps. Resected and retrieved. - One 3 mm polyp in the proximal sigmoid colon, removed with a cold biopsy forceps. Resected and retrieved. - One 3 mm polyp in the rectum, removed with a cold biopsy forceps. Resected and retrieved. - Diverticulosis in the sigmoid colon and in the descending colon. - Tortuous colon. Recommendation: - Discharge patient to home. - Resume previous diet. - Continue present medications. - Repeat colonoscopy in 3 years for surveillance based on pathology results. - Telephone my office for pathology results in 1 week. Procedure Code(s): --- Professional --- 62249, Colonoscopy, flexible; with biopsy, single or multiple Diagnosis Code(s): --- Professional --- Z86.010, Personal history of colonic polyps K64.9, Unspecified hemorrhoids D12.3, Benign neoplasm of transverse colon (hepatic flexure or splenic flexure) D12.4, Benign neoplasm of descending colon D12.5, Benign neoplasm of sigmoid colon D12.8, Benign neoplasm of rectum K57.30, Diverticulosis of large intestine without perforation or abscess without bleeding Q43.8, Other specified congenital malformations of intestine CPT copyright 2021 [employer]. All rights reserved. The codes documented in this report are preliminary and upon advisor consultant review may be revised to meet current compliance requirements. Mateo Lamb MD 10/19/2023 9:07:51 AM This report has been signed electronically. Number of Addenda: 0 Note Initiated On: 10/19/2023 8:25 AM
--- NOTE | 2023-10-19 09:08 | OP.CCLET_ITS ---
10/19/2023 Sheng Escalante [address] [place] [address] Re : Colonoscopy procedure for Johanne Hunter Dear Dr. Escalante This procedure was performed on Thursday, October 19, 2023. My impressions and recommendations are as follows: Impressions : - Hemorrhoids found on perianal exam. - Two 3 to 4 mm polyps in the mid transverse colon, removed with a cold biopsy forceps. Resected and retrieved. - One 4 mm polyp in the proximal descending colon, removed with a cold biopsy forceps. Resected and retrieved. - One 3 mm polyp in the proximal sigmoid colon, removed with a cold biopsy forceps. Resected and retrieved. - One 3 mm polyp in the rectum, removed with a cold biopsy forceps. Resected and retrieved. - Diverticulosis in the sigmoid colon and in the descending colon. - Tortuous colon. Recommendations : - Discharge patient to home. - Resume previous diet. - Continue present medications. - Repeat colonoscopy in 3 years for surveillance based on pathology results. - Telephone my office for pathology results in 1 week. My findings are described in the full procedure note, which is enclosed. If I can be of further assistance, please feel free to contact me at Doctor phone number(s): Work: . Sincerely, Mateo Lamb MD 10/19/2023 9:07:51 AM This report has been signed electronically.
[2023-10-19 09:10] VITALS: BP 144/63; BP 96/45; PULSE 65; RESP 16; O2SAT 97
[2023-10-19 09:15] VITALS: BP 144/63; BP 96/50; PULSE 66; RESP 16; O2SAT 97
[2023-10-19 09:25] VITALS: BP 129/60; BP 144/63; PULSE 69; RESP 16; TEMP 36.1; O2SAT 95
[2023-10-19 09:41] VITALS: BP 144/63
== END 2023-10-19 10:20 | disposition home or self-care (01) ==
LOC: EN 07:29 → AC 07:30
PROVIDERS: PCP Family Medicine; Referring Provider Family Medicine; Visit Provider Surgery
PROC: 0DJD8ZZ Inspection of Lower Intestinal Tract, Via Natural or Artificial Opening Endoscopic (ICD-10-PCS; CPT 45378; principal; 2023-10-19 08:25)
DX: Z12.11 Encounter for screening for malignant neoplasm of colon (principal); E11.9 Type 2 diabetes mellitus without complications; E04.9 Nontoxic goiter, unspecified; Z86.010 Personal history of colon polyps; I10 Essential (primary) hypertension; K57.30 Diverticulosis of large intestine without perforation or abscess without bleeding; E78.5 Hyperlipidemia, unspecified; K64.9 Unspecified hemorrhoids; D12.8 Benign neoplasm of rectum; D12.5 Benign neoplasm of sigmoid colon; D12.4 Benign neoplasm of descending colon; D12.3 Benign neoplasm of transverse colon; Z79.82 Long term (current) use of aspirin; E03.9 Hypothyroidism, unspecified
CPT/HCPCS: 45380; 82962; 88305; J7120; J2405

== ENCOUNTER → 2023-12-04 | Outpatient (CLI) | payer MEDICARE, SELFPAY ==
[2023-12-04 15:37] LABS: Absolute Lymphocyte Count 2.38 X10^3/uL (0.83-4.51); Absolute Neutrophil Count 4.9 X10^3/uL (2.0-7.7); Basophil# 0.04 X10^3/uL; Basophil% 0.5 % (0-1); Eosinophil# 0.22 X10^3/uL; Eosinophils% 2.8 % (0-5); Hematocrit 39.1 % (37-47); Hemoglobin 12.7 g/dL (12.0-15.0); Lymphocyte # 2.38 X10^3/ul (0.83-4.51); Lymphocyte % 29.8 % (19-41); Mean Corp Hgb Conc 32.5 g/dL (32-36); Mean Corpuscular Hgb 27.2 pg (27.0-32.0); Mean Corpuscular Volume 83.7 fL (81-99); Monocyte# 0.42 X10^3/uL; Monocyte% 5.3 % (0-10); NRBC Flagged by Analyzer 0 % (0-5); Neutrophil # 4.91 X10^3/uL (2.7-7.7); Neutrophil % 61.3 % (47-70); Platelet Count 261 K/mm3 (150-450); RBC Distribution Width CV 13.1 % (11.6-14.6); RBC Distribution Width SD 39.8 fl (35.1-43.9); Red Blood Count 4.67 M/mm3 (4.2-5.4)
[2023-12-04 15:59] LABS: Microalbumin,Random Urine 7.7 mg/L (NO RANGE EST.); Microalbumin:Creatinine Ratio 6.9 mg/g CRE (<30 mg/g CRE)
[2023-12-04 19:25] LABS: ALB/GLOB Ratio 1.1 RATIO (0.9-2.4); AST(SGOT) 23 U/L (15-37); Alanine Aminotransfer ALT/SGPT 26 U/L (13-56); Albumin, Serum 3.9 g/dL (3.2-5.0); Alkaline Phosphatase 59 U/L (45-117); Anion Gap 7 (5-15); BUN 20 mg/dL (7-18); BUN/Creat Ratio 21.6 RATIO (10-20); Calcium,Total 9.2 mg/dL (8.5-10.1); Chloride 105 mmol/L (98-107); Cholesterol 126 mg/dL (200); Creatinine, Serum 0.93 mg/dL (0.55-1.02); EST Glomerular Filtration Rate 62 mL/min (>60); Est Glom Filt Rate - Afr Amer 75 mL/min (>60); Globulin 3.4 g/dL (2.2-4.2); Glucose 124 mg/dL (74-106); High Density Lipoprotein 52 mg/dL; Potassium 4.3 mmol/L (3.5-5.1); Protein, Total 7.3 g/dL (6.4-8.2); Sodium Level 138 mmol/L (136-145); Triglycerides 169 mg/dL; Very Low Density Lipoprotein 34 mg/dL (5-40)
[2023-12-04 20:59] LABS: Hemoglobin A1c 5.7 % (3.8-5.6)
== END | disposition home or self-care (01) ==
LOC: MFPLAB 11:47
PROVIDERS: PCP Family Medicine; Visit Provider Family Medicine
DX: E11.8 Type 2 diabetes mellitus with unspecified complications (principal)
CPT/HCPCS: 36415; 80053; 80061; 82043; 82570; 83036; 85025

== ENCOUNTER → 2024-04-03 | Outpatient (CLI) | payer MEDICARE, SELFPAY ==
[2024-04-03 17:48] LABS: Absolute Lymphocyte Count 2.93 X10^3/uL (0.83-4.51); Absolute Neutrophil Count 5.3 X10^3/uL (2.0-7.7); Basophil# 0.04 X10^3/uL; Basophil% 0.4 % (0-1); Eosinophil# 0.19 X10^3/uL; Eosinophils% 2.1 % (0-5); Hematocrit 41.4 % (37-47); Hemoglobin 13.1 g/dL (12.0-15.0); Lymphocyte # 2.93 X10^3/ul (0.83-4.51); Lymphocyte % 32.2 % (19-41); Mean Corp Hgb Conc 31.6 g/dL (32-36); Mean Corpuscular Hgb 26.8 pg (27.0-32.0); Mean Corpuscular Volume 84.8 fL (81-99); Mean Platelet Vol. 9.2 fl (6.2-12.0); Monocyte# 0.56 X10^3/uL; Monocyte% 6.2 % (0-10); NRBC Flagged by Analyzer 0 % (0-5); Neutrophil # 5.34 X10^3/uL (2.7-7.7); Neutrophil % 58.8 % (47-70); Platelet Count 299 K/mm3 (150-450); RBC Distribution Width CV 13.1 % (11.6-14.6); RBC Distribution Width SD 40.3 fl (35.1-43.9); Red Blood Count 4.88 M/mm3 (4.2-5.4); White Blood Count 9.1 K/mm3 (4.4-11.0)
[2024-04-03 17:52] LABS: ALB/GLOB Ratio 1.1 RATIO (0.9-2.4); AST(SGOT) 17 U/L (15-37); Alanine Aminotransfer ALT/SGPT 17 U/L (13-56); Alkaline Phosphatase 70 U/L (45-117); Anion Gap 7 (5-15); BUN 21 mg/dL (7-18); Chloride 102 mmol/L (98-107); Cholesterol 117 mg/dL (200); EST Glomerular Filtration Rate 57 mL/min (>60); Est Glom Filt Rate - Afr Amer 69 mL/min (>60); Globulin 3.8 g/dL (2.2-4.2); Glucose 133 mg/dL (74-106); High Density Lipoprotein 54 mg/dL; Magnesium 2.3 mg/dL (1.6-2.6); Potassium 4.2 mmol/L (3.5-5.1); Protein, Total 7.8 g/dL (6.4-8.2); Sodium Level 136 mmol/L (136-145); Triglycerides 149 mg/dL; Very Low Density Lipoprotein 30 mg/dL (5-40)
[2024-04-03 18:01] LABS: Hemoglobin A1c 5.7 % (3.8-5.6)
== END | disposition home or self-care (01) ==
LOC: MFPLAB 14:28
PROVIDERS: PCP Family Medicine; Visit Provider Family Medicine
DX: E11.69 Type 2 diabetes mellitus with other specified complication (principal); I49.3 Ventricular premature depolarization
CPT/HCPCS: 36415; 80053; 80061; 83036; 83735; 85025

== ENCOUNTER → 2024-04-04 | Outpatient (CLI) | payer MEDICARE, SELFPAY ==
[2024-04-04 19:03] LABS: Microalbumin:Creatinine Ratio 5.6 mg/g CRE (<30 mg/g CRE)
== END | disposition home or self-care (01) ==
LOC: MFPLAB 14:28
PROVIDERS: PCP Family Medicine; Visit Provider Family Medicine
DX: E11.8 Type 2 diabetes mellitus with unspecified complications (principal)
CPT/HCPCS: 82043; 82570

== ENCOUNTER → 2024-04-21 | Outpatient (CLI) | payer MEDICARE, SELFPAY ==
[2024-04-21 17:52] LABS: Anion Gap 5 (5-15); BUN 20 mg/dL (7-18); BUN/Creat Ratio 21.6 RATIO (10-20); Calcium,Total 9.8 mg/dL (8.5-10.1); Chloride 104 mmol/L (98-107); Creatinine, Serum 0.93 mg/dL (0.55-1.02); EST Glomerular Filtration Rate 62 mL/min (>60); Est Glom Filt Rate - Afr Amer 75 mL/min (>60); Glucose 97 mg/dL (74-106); Potassium 4.3 mmol/L (3.5-5.1); Sodium Level 138 mmol/L (136-145)
== END | disposition home or self-care (01) ==
LOC: MFPLAB 14:09
PROVIDERS: PCP Family Medicine; Visit Provider Family Medicine
DX: R94.4 Abnormal results of kidney function studies (principal)
CPT/HCPCS: 36415; 80048

== ENCOUNTER → 2024-05-12 | Outpatient (CLI) | payer MEDICARE, SELFPAY ==
[2024-05-12 18:31] LABS: Free T3 2.7 pg/mL (2.18-3.98); T4 Free Direct 0.71 ng/dL (0.76-1.46); Thyroid Stim Hormone (TSH) 0.242 uIU/mL (0.358-3.740)
== END | disposition home or self-care (01) ==
LOC: MTLAB 16:25
PROVIDERS: PCP Family Medicine; Referring Provider Internal Medicine Endocrinology, Diabetes & Metabolism; Visit Provider Internal Medicine Endocrinology, Diabetes & Metabolism
DX: E05.20 Thyrotoxicosis with toxic multinodular goiter without thyrotoxic crisis or storm (principal); E11.9 Type 2 diabetes mellitus without complications
CPT/HCPCS: 36415; 84439; 84443; 84481

== ENCOUNTER → 2024-09-04 | Outpatient (CLI) | payer MEDICARE, SELFPAY ==
--- NOTE | 2024-09-04 09:14 | BI_ITS ---
MAMMOGRAPHY - BILATERAL SCREENING REASON FOR EXAM: Female, 79 years old. Routine annual screening examination. PERTINENT HISTORY: Non-contributory. Remote left stereotactic breast biopsy and breast aspirations. TECHNIQUE: Digital bilateral breast christina (3D mammographic acquisition) in the CC and MLO projections. 2-D mediolateral oblique (MLO) and craniocaudad (CC) views of both breasts were obtained. CAD: Full Field Digital Mammography with Computer Added Detection was performed. COMPARISON: Comparison is made with prior study September 03, 2023 and September 01, 2022. FINDINGS: Breast Composition: The breasts are heterogeneously dense, which may obscure small masses. Several well-defined nodular densities are seen in the left breast. The largest is in the central medial aspect measuring 1.5 cm x 1.3 cm. Sonographic correlation recommended. Stable bilateral fat containing axillary lymph nodes. No other significant abnormalities are identified. BI/SCRN MAMM (CAD)W/CHRISTINA BILAT IMPRESSION: Nodules in the left breast as described. Correlation with ultrasound recommended. ASSESSMENT CATEGORY: BIRADS Category 0: Incomplete. Need additional imaging evaluation. A letter regarding these results will be sent to the patient by the facility within 30 days. Approximately 10% of breast cancers are not detected by mammography. A normal mammogram should not delay biopsy of a clinically suspicious abnormality. [id number] Electronically Signed: Ulisses Lewis MD at 10:11 EST ,
== END | disposition home or self-care (01) ==
LOC: OPBI 09:14
PROVIDERS: PCP Family Medicine; Referring Provider Obstetrics & Gynecology; Visit Provider Obstetrics & Gynecology
DX: Z12.31 Encounter for screening mammogram for malignant neoplasm of breast (principal)
CPT/HCPCS: 77063; 77067

== ENCOUNTER → 2024-09-11 | Outpatient (CLI) | payer MEDICARE, SELFPAY ==
--- NOTE | 2024-09-11 14:26 | US_ITS ---
STUDY: ULTRASOUND BREAST - LEFT REASON FOR EXAM: Female, 79 years old. Abnormal screening mammogram. TECHNIQUE: Axial and longitudinal images of the LEFT breast were performed with a high resolution ultrasound transducer. # OF IMAGES: 41 COMPARISON: Comparison is made with prior mammogram dated September 04, 2024 and prior sonogram of the left breast dated June 20, 2018. FINDINGS: LEFT Breast: The upper medial portion of the left breast was examined with ultrasound. There is a 1.2 cm x 1.1 cm x 1.2 cm cyst at the 10:00 position breast at 7 cm from nipple. There is also evidence of a 1 cm x 1.1 cm x 0.8 cm cyst at the 10:00 position of the breast at 8 cm from the nipple. US/Breast Limited Unilateral IMPRESSION: The mammographic abnormality corresponds to 2 adjacent small cysts. ASSESSMENT CATEGORY: BIRADS Category 2: Benign. A letter regarding these results will be sent to the patient by the facility within 30 days. Electronically Signed: Ulisses Lewis MD at 13:56 EST ,
== END | disposition home or self-care (01) ==
PROVIDERS: PCP Family Medicine; Referring Provider Obstetrics & Gynecology; Visit Provider Obstetrics & Gynecology
DX: R92.8 Other abnormal and inconclusive findings on diagnostic imaging of breast (principal); N63.20 Unspecified lump in the left breast, unspecified quadrant
CPT/HCPCS: 76642

== ENCOUNTER → 2024-11-10 | Outpatient (CLI) | payer MEDICARE, SELFPAY ==
[2024-11-10 12:50] LABS: Free T3 3.1 pg/mL (2.18-3.98); T4 Free Direct 0.69 ng/dL (0.76-1.46); Thyroid Stim Hormone (TSH) 0.626 uIU/mL (0.358-3.740)
== END | disposition home or self-care (01) ==
LOC: MFPLAB 10:10
PROVIDERS: PCP Family Medicine; Visit Provider Internal Medicine Endocrinology, Diabetes & Metabolism
DX: E05.20 Thyrotoxicosis with toxic multinodular goiter without thyrotoxic crisis or storm (principal)
CPT/HCPCS: 36415; 84439; 84443; 84481

== ENCOUNTER → 2024-12-09 | Outpatient (CLI) | payer MEDICARE, SELFPAY ==
[2024-12-09 18:23] LABS: Absolute Lymphocyte Count 2.59 X10^3/uL (0.83-4.51); Absolute Neutrophil Count 5.4 X10^3/uL (2.0-7.7); Basophil# 0.02 X10^3/uL; Basophil% 0.2 % (0-1); Eosinophil# 0.15 X10^3/uL; Eosinophils% 1.7 % (0-5); Hematocrit 38.6 % (37-47); Hemoglobin 12.7 g/dL (12.0-15.0); Lymphocyte # 2.59 X10^3/ul (0.83-4.51); Lymphocyte % 30.2 % (19-41); Mean Corp Hgb Conc 32.9 g/dL (32-36); Mean Corpuscular Hgb 27.6 pg (27.0-32.0); Mean Corpuscular Volume 83.9 fL (81-99); Monocyte# 0.38 X10^3/uL; Monocyte% 4.4 % (0-10); NRBC Flagged by Analyzer 0 % (0-5); Platelet Count 290 K/mm3 (150-450); RBC Distribution Width CV 12.7 % (11.6-14.6); RBC Distribution Width SD 38.5 fl (35.1-43.9); White Blood Count 8.6 K/mm3 (4.4-11.0)
[2024-12-09 19:14] LABS: ALB/GLOB Ratio 1.5 RATIO (0.9-2.4); AST(SGOT) 19 U/L (<=31); Alanine Aminotransfer ALT/SGPT 14 U/L (<=34); Albumin, Serum 4.3 g/dL (3.4-4.8); Alkaline Phosphatase 66 U/L (35-104); Anion Gap 14 (5-15); BUN 19 mg/dL (4-19); BUN/Creat Ratio 19.7 RATIO (10-20); Bilirubin, Direct 0.48 mg/dL (0.00-0.30); Calcium,Total 9.6 mg/dL (7.6-11.0); Carbon Dioxide 23.3 mmol/L (21.0-32.0); Chloride 101 mmol/L (98-108); Cholesterol 124 mg/dL (<=200); Creatinine, Serum 0.94 mg/dL (0.70-1.20); EST Glomerular Filtration Rate 62 (>60); Glucose 128 mg/dL (70-99); High Density Lipoprotein 51 mg/dL; Low Density Lipoprotein Calc. 38 mg/dL; Potassium 3.9 mmol/L (3.3-5.1); Protein, Total 7.3 g/dL (5.9-8.4); Sodium Level 138 mmol/L (133-145); Total Bilirubin 1.24 mg/dL (0.00-1.30); Triglycerides 174 mg/dL; Very Low Density Lipoprotein 35 mg/dL (5-40); cholesterol:hdl ratio screen 2.41
== END | disposition home or self-care (01) ==
LOC: MFPLAB 14:47
PROVIDERS: PCP Family Medicine; Referring Provider Family Medicine; Visit Provider Family Medicine
DX: E11.69 Type 2 diabetes mellitus with other specified complication (principal); E11.59 Type 2 diabetes mellitus with other circulatory complications; R17 Unspecified jaundice
CPT/HCPCS: 36415; 80053; 80061; 82248; 83036; 85025

== ENCOUNTER → 2025-01-23 | Outpatient (CLI) | payer MEDICARE, SELFPAY ==
--- NOTE | 2025-01-23 09:37 | RAD_ITS ---
PROCEDURE: HIPS B/L MIN 2 VIEWS W/ PELVIS 01/23/2025 REASON FOR EXAM: PAIN TECHNIQUE: AP view of the pelvis and two views of the right and two views of the left hip, 5 total images COMPARISON: 11/15/2021 FINDINGS: No fracture or dislocation. Symmetric appearing SI joints and pubic symphysis appear within limits. The right hip appears within limits. Mild osteoarthrosis left hip again noted, not significantly changed. No osseous lesion identified. Pelvic phleboliths incidentally noted. RAD/Hips B/L min 2 views w/ Pelvis IMPRESSION: Mild left hip osteoarthrosis again noted. Reading Location: [id number]
== END | disposition home or self-care (01) ==
LOC: MTRAD 09:36
PROVIDERS: PCP Family Medicine; Referring Provider Family Medicine; Visit Provider Family Medicine
DX: M25.551 Pain in right hip (principal); M25.552 Pain in left hip
CPT/HCPCS: 73521

== ENCOUNTER → 2025-03-09 | Outpatient (CLI) | payer MEDICARE, SELFPAY ==
--- NOTE | 2025-03-09 14:37 | RAD_ITS ---
PROCEDURE: L/S SPINE W BEND MIN 6 VW 03/09/2025 REASON FOR EXAM: LUMBAR PAIN TECHNIQUE: L/S SPINE W BEND MIN 6 VW COMPARISON: None. 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 No evidence of instability on flexion/extension images. There are diffuse spondylotic changes. Findings are demonstrated to by diffuse disc space narrowing, osteophyte formation and degenerative endplate sclerosis. There is diffuse facet joint arthropathy with secondary bilateral neural foramina narrowing. No fracture or dislocation is seen. No aggressive lytic or blastic bony lesion is noted. RAD/L/S Spine w Bend Min 6 Vw IMPRESSION: Spondylosis. Reading Location: [facility]
== END | disposition home or self-care (01) ==
LOC: MTRAD 14:36
PROVIDERS: PCP Family Medicine; Referring Provider Anesthesiology Pain Medicine; Visit Provider Anesthesiology Pain Medicine
DX: M51.372 Other intervertebral disc degeneration, lumbosacral region with discogenic back pain and lower extremity pain (principal)
CPT/HCPCS: 72114

== ENCOUNTER 2025-03-11 14:30 | Outpatient (RCR) | payer MEDICARE, SELFPAY ==
--- NOTE | 2024-12-03 14:59 | HP.PTEVAL_ITS ---
Patient's Visit Information Visit Information Visit Information: BHARATH BEARD is a 79 year old F referred to Physical Therapy by Dr. Shayne Dia MD with a diagnosis of LBP with Sciatica. Date of Evaluation: 12/03/24 Physical Therapist: Eduardo Orr, PT, ATC Visit Plan Frequency: 2x /Week Duration: 4-6 Weeks Plan: Assess benefit of Prone prop ex's. Prone prop progression, Postural edu, core strengthening ex's, and HEP Subjective Subjective: Pt reports she has had sciatica since last fall. Pt reports she had to sleep on a couch at that time secondary to an ailing . Pt reports this pain has only worsened since that time. Pt notes now she has pain that radiates into her LB and refers around her frontal regions. Pt notes she also has a pain in her R gastroc. Pt reports sitting tends to increase her pain. Pt reports she feels as though she has 2 rocks she is sitting on. Pt reports occasional sleep difficulty at this time when she attempts to roll over. Pt reports walking tends to make her feel weaker. Pt reports prolonged standing has no effect of her. Pt denies having any recent Dx tests. Pt denies any falls in the past. Pt reports she lives in a 2 story house, and has to negotiate the steps daily. 4/10 pain at rest, 9/10 pain at worst. Pain LBP: Pain Intensity (Out of 10): 4 Pain Intensity Range: 9 Objective Objective: Neuro: B LE sensation is WNL to light touch MMT: B LE's are grossly 4/5 throughout when compared bilaterally ROM: Pt is moderately limited in all planes. Repeated movements: Flex in standing increases LBP. Ext is standing decreases LBP. Prone prop progression to elbows had NE. SKTC/DKTC TUG 16 sec Balance/Special Test Scores Oswestry Low Back Score: 18 Goals Goal 1:: Decrease LBP x 50% to aid with sleep Goal Time Frame: 4-6 Weeks Goal 2:: Decrease the frequency and intensity of LE radiculaopthy x 50% to aid the ambulation Goal Time Frame: 4-6 Weeks Goal 3:: Perform Tug test in under 10 sec Goal Time Frame: 4-6 Weeks Goal 4:: I with HEP Goal Time Frame: 4-6 Weeks Rehabilitation Potential Physical Therapy Diagnosis: Pt has LBP, limited L/S ROM, and sciatica at this time secondary to deg changes in the L/S Rehabilitation Potential: Good Anticipated Interventions Patient/Client Instruction: Educate patient on: Condition and Plan of Care For the Purpose of:: To improve self management Therapeutic Exercise to Include: Strength training, Endurance training, Body mechanics, Postural training, Dynamic Lumbar Stabilization and Virgilio Exercises For the Purpose of:: To decrease pain, To increase ROM and To improve muscle performance and motor function Text: Thank you for the opportunity to evaluate your patient. For Medicare and Medicare HMO plans, please review the plan of care and approve it. It will need to be FAXED BACK to us at [phone] for Medicare purposes. For Medicare only, by signing this I certify the plan of care. Please let me know if there are questions or concerns regarding this plan of care. Physician Signature: Date:_
--- NOTE | 2024-12-19 07:47 | HP.OTEVAL ---
Patient's Visit Information Visit Information Visit Information: BHARATH BEARD is a 79 year old F, referred to Occupational Therapy by Dr. Shayne Dia MD, with a diagnosis of Bilateral thumb pain. Date of Evaluation: 12/18/24 Occupational Therapist: Belle Bill, HORACE/Hans, CHT Subjective Subjective: This 79 year old female was seen for OT eval with dx of right and left thumb pain. pt states this has been bothersome for almost a year. pt states sometimes painful while playing piano or after. Also painful after and during crafts. Pt states she would like to know what she can do to decrease pain. ADLs Dressing: Pants Comments: bilateral thumb pain Kitchen: Open jars and Open bottle caps Comments: painful Pain bilateral thumb pain: Current Pain Intensity: 3 Pain Intensity Range: 5 ROM CMC: right 15 left 20 MP: right 30 left 40 IP: right 50 left 50 Palmar Abduction: right 40*left 35* ROM Comments: left thumb noted MP hyper ext with resistive pinch- pt demo with OA deformities on bilateral hands Strength Natural Resources Faculty Member: right 25# left 30# Lateral Pinch: right 10# left 12# Tripod Pinch: right 12# left 12# Sensation Sensation Comments: denies Quick DASH-Disab of Arm,Shoulder& Hand Quick DASH Score: 41.6650 Goals Goal:: pt will demo understanding of thumb stabilization ex by d/c pt will demo a increase in bilateral demand planning manager strength by 10# or greater by d/c Goal:: pt will report no pain greater than 2/10 with use of bilateral hands with ADLs by d/c Goal:: Pt will demo understanding of joint protection and ergonomics when performing BADLs and IADLs by d/c Pt will demo understanding of adaptive Equipment use to decrease stress on joints to allow pt to perform BADSL and IADLS at DOUGLAS level. Goal:: pt will dmeo reduction on quick dash score by 15 points Goal:: Pt will demo understanding of using supportive bracing 80% of workday/ADLS to decrease stress on tendon origin to allow healing and decrease pain by end of 2nd session. 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 pt would benefit from skilled OT services 2x wee for 4 weeks to ed. pt on joint protection gisell. energy conservation gisell., ad. eq. and supportive bracing to decrease pts pain with use of bilateral hands. Today therapist gave pt handouts on joint protection and thumb care. pt demo understanding and agrees to POC. Rehabilitation Potential: Good Anticipated Interventions Anticipated Interventions: A/AAROM/PROM, Triggerpoint Release, Modalities, Orthoses, Joint Protection/Energy Conservation, Ergonomic Education, ADL Training, Education re assistive Equipment, Education re Diagnosis and Home Program Visit Plan Frequency: 1-2x /Week Duration: 4 Weeks TEXT: Thank you for the opportunity to evaluate your patient. For Medicare and Medicare HMO plans, please review the plan of care and approve it. It will need to be FAXED BACK to us at [phone] for Medicare purposes. Please let me know if there are questions or concerns regarding this plan of care. Physician Signature: Date:
--- NOTE | 2025-01-28 17:33 | HP.OTDCSUM ---
Discharge Summary D/C Summary: It has been my pleasure to treat BHARATH BEARD under orders from Dr. Shayne Dia MD, for the diagnosis of Bilateral thumb pain for a total of 8 visit(s). Please see the following information for a summary of their discharge status. Overall Improvement % Improvement: 80 Objective Objective/Function: pt demo understanding of joint protection. During therapy we have discussed a number of ways to increase her IND with ADLs and IADLS with use of ad. eq. and or bracing. Pt doing better. pt states feels 80% improvement and continues to make changes how she is performing daily tasks due to thumb pain. pt agrees to HEP and D/c, Goals Patient Goals: Decrease Pain, Improve Fine Motor Skills, Use Hand/Wrist/Arm Normally Again and Resume Former Household Responsibilities (Cooking,Cleaning,Yard, etc.) Goal:: pt will demo understanding of thumb stabilization ex by d/c ( goal met) pt will demo a increase in bilateral professional skateboarder strength by 10# or greater by d/c ( goal met) Goal:: pt will report no pain greater than 2/10 with use of bilateral hands with ADLs by d/c ( goal met) Goal:: Pt will demo understanding of joint protection and ergonomics when performing BADLs and IADLs by d/c (goal met) Pt will demo understanding of adaptive Equipment use to decrease stress on joints to allow pt to perform BADSL and IADLS at DOUGLAS level. (goal met) Goal:: pt will dmeo reduction on quick dash score by 15 points Goal:: Pt will demo understanding of using supportive bracing 80% of workday/ADLS to decrease stress on tendon origin to allow healing and decrease pain by end of 2nd session. (goal met) Plan Plan: D/c D/C Information d/c sentence: If there are questions or concerns regarding this patient's occupational therapy, please fell free to call me at [phone]. Thank you for the referral of this patient. Sincerely, Belle Bill, OTR/L, CHT
--- NOTE | 2025-05-19 08:41 | HP.PTDCNRP_ITS ---
Patient Information Patient Information: BHARATH BEARD was seen in my office for initial evaluation on 12/03/24. The following Plan of Care was established for this patient: POC Established Initial Frequency: 2x /Week Initial Duration: 4-6 Weeks Anticipated Interventions Patient/Client Instruction: Educate patient on: Condition and Plan of Care For the Purpose of:: To improve self management Therapeutic Exercise to Include: Strength training, Endurance training, Body mechanics, Postural training, Dynamic Lumbar Stabilization and Virgilio Exe rcises For the Purpose of:: To decrease pain, To increase ROM and To improve muscle performance and motor function Last Seen Last Seen: This patient was last seen in our office . Pertinent comments regarding their Physical therapy will appear below: Pt has not returned in greater than 30 days and is discontinued at this time. At this point I will be discontinuing this patient from physical therapy. I would be happy to see this patient again in the future if found appropriate by t he physician. Thank you! Eduardo Orr, PT, ATC Balance/Gait/Functional tests Balance/Special Test Scores Oswestry Low Back Score: 18
== END 2025-03-11 19:00 | disposition home or self-care (01) ==
LOC: PT 14:30
PROVIDERS: PCP Family Medicine; Referring Provider Internal Medicine Endocrinology, Diabetes & Metabolism; Visit Provider Internal Medicine Endocrinology, Diabetes & Metabolism
DX: M54.30 Sciatica, unspecified side (principal); M79.644 Pain in right finger(s); M79.645 Pain in left finger(s)
CPT/HCPCS: 97110; 97140; 97161; 97166; 97530

== ENCOUNTER → 2025-04-06 | Outpatient (CLI) | payer MEDICARE, SELFPAY ==
[2025-04-06 18:09] LABS: Creatinine, Urine (random) 182.00 mg/dL (28.00-217.00); Microalbumin,Random Urine < 12.0 mg/L (<20 mg/L)
--- OUTSIDE RECORDS SUMMARY | 2025-04-06 22:52 | XMS RPT_ITS | CCD ---
Author Organization [facility] Care Team Providers Care Industrial Sales Representative Name Role Phone Sophia López MD Unavailable [phone] Dayanna Varela Unavailable Unavailable Sophia López MD Unavailable [phone] Dayanna Varela Unavailable Unavailable Dayanna Varela Unavailable Unavailable ZENY CROW Attending Unavailable ZENY CROW Primary Care Unavailable ZENY CROW Attending Unavailable ZENY CROW Primary Care Unavailable ZENY CROW Attending Unavailable ZENY CROW Primary Care Unavailable Dr. Zeny Crow Primary Care Provider Zainab, Dr. Mateo Silva Attending Provider Zainab, Dr. Mateo Silva Referring Provider [phone] Sophia López Attending Provider [phone] Dr. Zeny Crow Referring Provider Dr. Zeny Crow Primary Care Provider Zainab, Dr. Mateo Silva Attending Provider [phone] Mateo Lamb Referring Provider Zainab, Dr. Mateo Silva Other Provider Dr. Zeny Crow Primary Care Provider Ceb[place]ad, Dr. Mateo Silva Attending Provider [phone] Zainab, Dr. Mateo Silva Referring Provider [phone] Zainab, Dr. Mateo Silva Other Provider Dr. Zeny Crow Primary Care Provider Dr. Zeny Crow Referring Provider Dr. Shayne Dia Attending Provider Dr. Sophia López Attending Provider Dr. Zeny Crow Primary Care Provider Dr. Zeny Crow Referring Provider SUZAN Ramírez Attending Provider Dr. Shayne Dia Attending Provider SUZAN Ramírez Attending Provider Dr. Mateo Lamb Attending Provider Dr. Zeny Crow Primary Care Provider Dr. Zeny Crow Referring Provider Dr. Mateo Lamb Attending Provider Dr. Shayne Dia Attending Provider Dr. Mateo Lamb Other Provider Dr. Zeny Crow Primary Care Provider Dr. Zeny Crow Referring Provider Dr. Shayne Dia Attending Provider Dr. Mateo Lamb Attending Provider Dr. Mateo Lamb Other Provider Dr. Zeny Crow Primary Care Provider Dr. Zeny Crow Referring Provider SUZAN Ramírez Attending Provider Dr. Shayne Dia Attending Provider Dr. Zeny Crow MD Primary Care Provider [phone] Dr. Sophia López MD Attending Provider [phone] Dr. Sophia López MD Referring Provider [phone] Dr. Shayne Dia MD Attending Provider Boris ROQUE, Dr. Zeny Lee Referring Provider King JUDE, Dr. Bella Referring Provider Boris ROQUE, Dr. Zeny Lee Attending Provider [phone] Boris ROQUE, Dr. Zeny Lee Primary Care Provider Kaur CLINICAL NURSING ASSISTANT-C, Betsey Attending Provider King JUDE, Dr. Bella Referring Provider [phone] Boris ROQUE, Dr. Zeny Lee Primary Care Provider [phone] Boris ROQUE, Dr. Zeny Lee Referring Provider [phone] Garry ROQUE, Dr. James Attending Provider Garry ROQUE, Dr. James Referring Provider King JUDE, Dr. Bella Attending Provider King JUDE, Dr. Bella Referring Provider Boris, Zeny E Primary Care Unavailable Shayne Dia Attending Unavailable Shayne Dia Attending Unavailable Schinанна, Zeny E Referring Unavailable Schinner, Zeny E Primary Care Unavailable Schinner, Zeny E Primary Care Unavailable Schinner, Zeny E Referring Unavailable Betsey Dietrich NP Attending Unavailable Schinанна, Zeny E Primary Care Unavailable Schinner, Zeny E Referring Unavailable Shayne Dia Attending Unavailable Schinанна, Zeny E Primary Care Unavailable Schinner, Zeny E Referring Unavailable Mike Rm Attending Unavailable Schinner, Zeny E Primary Care Unavailable Schinner, Zeny E Referring Unavailable Rachell Dumont Attending Unavailable Schinner, Zeny E Primary Care Unavailable Schinner, Zeny E Referring Unavailable Mike Rm Attending Unavailable Schinner, Zeny E Primary Care Unavailable Schinner, Zeny E Referring Unavailable Sophia López Attending Unavailable Schinner, Zeny E Primary Care Unavailable Schinner, Zeny E Attending Unavailable Schinner, Zeny E Referring Unavailable Schinner, Zeny E Primary Care Unavailable Schinner, Zeny E Referring Unavailable Schinner, Zeny E Attending Unavailable Schinner, Zeny E Primary Care Unavailable Jacob Castañeda Referring Unavailable Jacob Castañeda Attending Unavailable Schinner, Zeny Jesus Attending Unavailable Schinner, Zeny E Primary Care Unavailable Schinner, Zeny E Primary Care Unavailable Sophia López Referring Unavailable Sophia López Attending Unavailable Zeny Crow Primary Care Unavailable Shayne Dia Referring Unavailable Shayne Dia Attending Unavailable Zeny Crow Primary Care Unavailable Sophia López Referring Unavailable Sophia López Attending Unavailable Zeny Crow Referring Unavailable Zeny Crow Attending Unavailable Zeny Crow Primary Care Unavailable Zeny Crow Primary Care Unavailable Shayne Dia Referring Unavailable Shayne Dia Attending Unavailable Allergies Allergy Classification Reported Allergen(s) Allergy Type Date of Onset Reaction(s) Facility (12 sources) acetaminophen / oxyCODONE drug allergy [facility] (12 sources) BAND-AID drug allergy [facility] (1 source) Acetaminophen Drug Allergy 2 [facility] Work Phone: (20 sources) Adhesive Tape; Translations: [adhesive tape] Allergy to substance 2 redness [facility] [place] (19 sources) oxyCODONE Drug Allergy 2 [facility] (18 sources) Amoxicillin Drug Allergy 2 Rash [facility] [place] Comment on above: FACE RASH AND SWELLI NG (3 sources) Doxycycline Drug Allergy 5 Other [facility] [place] Comment on above: not sure (1 source) Amoxicillin Drug Allergy 5 [facility] Repository (1 source) Doxycycline Drug Allergy 5 [facility] Repository (1 source) oxyCODONE Drug Allergy 5 [facility] [place] Repository Medications Current Medications Medication Drug Class(es) Dates Sig (Normalized) Sig (Original) ascorbic acid 500 mg oral tablet (20 sources) Start: 12-09-2019 take 1 tablet by mouth once daily Ascorbic Acid (Vitamin C) 500 mg tablet Active 500 mg PO DAILY December 09, 2019 12:00am Start: 06-25-2018 End: 12-02-2019 take 1 g by mouth once daily Ascorbic Acid (Vitamin C) Discontinued 1 GM PO DAILY June 25, 2018 3:10pm December 02, 2019 10:57am Start: 05-15-2018 End: 12-02-2019 take 1 g by mouth once daily Ascorbic Acid (Vitamin C) 500 mg tablet Discontinued 1 g PO DAILY June 25, 2018 3:10pm December 02, 2019 10:57am Start: 04-26-2017 take 1 tablet by clif th once daily VITAMIN C 500 MG TABS One tablet by mouth daily ASCORBIC ACID [id number] Dayanna Recinos Varela Start: 11-26-2015 VITAMIN C 500 MG CHEW ASCORBIC ACID [id number] Esa Jordan Ron aspirin 81 mg delayed release oral tablet (20 sources) Nonsteroidal Anti-inflammatory Drug Start: 10-24-2019 take 1 tablet by mouth once daily Aspirin 81 mg tablet,delayed release (DR/EC) Active 81 mg PO DAILY October 24, 2019 1:00am Start: 05-15-2018 End: 06-25-2018 take 1 tablet by mouth once daily Aspirin 81 mg tablet,chewable Discontinued 81 mg PO DAILY May 15, 2018 12:00am June 25, 2018 3:10pm Start: 04-26-2017 take 1 tablet by clif th once daily ADULT ASPIRIN EC LOW STRENGTH TBEC One tablet by mouth daily ASPIRIN TBEC [id number] Dayanna Recinos Varela Start: 04-26-2017 take 1 tablet by clif th once daily ADULT ASPIRIN EC LOW STRENGTH TBEC One tablet by mouth daily ASPIRIN TBEC [id number] Dayanna Varela Start: 04-26-2017 take 1 tablet by clif th once daily ADULT ASPIRIN EC LOW STRENGTH TBEC One tablet by mouth daily ASPIRIN TBEC [id number] Dayanna M Varela Start: 11-26-2015 ASPIRIN 81 MG TABS daily ASPIRIN [id number] Esa Ortega Ron Start: 11-26-2015 take 1 tablet by clif th once daily ASPIRIN 81 MG ORAL TABS daily ASPIRIN [id number] Esa Jordan Ron B-Complex With Vitamin C (10 sources) Start: 01-16-2023 take 1 capsule by mouth once daily B-Complex With Vitamin C Active 1 CAP PO DAILY January 15, 2023 11:00pm Start: 01-16-2023 take 1 capsule by mo [place] once daily B-Complex With Vitamin C Active 1 CAP PO DAILY January 16, 2023 12:00am B-Complex With Vitamin C capsule (3 sources) Start: 01-16-2023 B-Complex With Vitamin C capsule Active 1 NMA PO DAILY January 16, 2023 12:00am calcium carbonate 1250 mg oral tablet (20 sources) Start: 12-09-2019 take 1 tablet by mouth once daily Calcium Carbonate 500 mg calcium (1,250 mg) tablet Active 500 mg PO DAILY December 09, 2019 12:00am Start: 05-15-2018 End: 06-25-2018 take 1 tablet by mouth twice daily Calcium Carbonate (Calcium 500) 500 mg calcium (1,250 mg) tablet Discontinued 500 mg PO TWICE A DAY May 15, 2018 12:00am June 25, 2018 3:10pm Start: 11-26-2015 CALCIUM 600 MG TABS CALCIUM [id number] Sophia López MD cholecalciferol 0.025 mg oral capsule (5 sources) Vitamin D Start: 10-17-2023 take 1 capsule by mouth once daily Cholecalciferol (Vitamin D3) (Vitamin D3) 25 mcg (1,000 unit) capsule Active 25 ug PO DAILY October 17, 2023 1:00am levothyroxine sodium 0.025 mg oral capsule (20 sources) l-Thyroxine Start: 12-23-2024 take 1 capsule by mouth once daily Levothyroxine 25 mcg capsule Active 25 ug PO daily December 23, 2024 12:00am Start: 12-02-2019 End: 12-09-2019 take 1 tablet by mouth once daily Levothyroxine 75 mcg tablet Discontinued 75 ug PO DAILY December 02, 2019 12:00am December 09, 2019 11:20am methylPREDNISolone 4 mg oral tablet (6 sources) Corticosteroid Start: 08-12-2024 take 1 tablet by mouth once Methylprednisolone (Medrol (Harish)) 4 mg tablets,dose pack Active 0 PO per package directions August 12, 2024 1:00am PO PER PKG DIR Start: 06-03-2024 End: 06-14-2024 take 1 tablet by mouth once Methylprednisolone (Medrol (Harish)) 4 mg tablets,dose pack Discontinued 0 PO per package directions June 03, 2024 12:00am June 14, 2024 11:19am PO PER PKG DIR 24 hr metoprolol succinate 50 mg extended release oral tablet (20 sources) beta-Adrenergic Yemi Start: 12-09-2019 take 1 tablet by mouth once daily Metoprolol Succinate 50 mg tablet extended release 24 hr Active 50 mg PO DAILY December 09, 2019 12:00am Start: 12-02-2018 End: 12-02-2019 take 1 capsule by mouth once daily Metoprolol Succinate 50 mg capsule,sprinkle,ER 24hr Discontinued 50 mg PO DAILY December 02, 2018 12:00am December 02, 2019 10:58am mineral oil 0.03 mg/mg / petrolatum 0.94 mg/mg ophthalmic ointment (1 source) Start: 06-17-2021 White Petrolatum-Mineral Oil (Genteal Pm) 94-3 % Ointment Active 1 APPLIC EACH EYE DAILY June 17, 2021 3:00pm mupirocin 0.02 mg/mg topical ointment (19 sources) RNA Synthetase Inhibitor Antibacterial Start: 07-21-2020 Mupirocin 2 % ointment Active 1 NMA TOPICAL TWICE A DAY as needed for Wound Care July 21, 2020 12:00am propylene glycol 6 mg/ml ophthalmic solution (13 sources) Start: 01-16-2023 take 0.6 drop(s) into the eye(s) twice daily as needed Propylene Glycol (Systane Balance) 0.6 % drops Active 1 NMA OPHTHALMIC TWICE A DAY as needed for dry eye(s) January 16, 2023 12:00am Start: 01-16-2023 take 0.6 drop(s) int o the eye(s) twice daily Propylene Glycol (Systane Balance) 0.6 % drops Active 1 DRP OPHTHALMIC TWICE A DAY January 16, 2023 12:00am rosuvastatin calcium 10 mg oral tablet (19 sources) HMG-CoA Reductase Inhibitor Start: 01-19-2021 take 1 tablet by mouth at bedtime Rosuvastatin 10 mg tablet Active 10 mg PO AT BEDTIME January 19, 2021 12:00am triamcinolone acetonide 1 mg/ml topical cream (20 sources) Corticosteroid Start: 10-17-2023 Triamcinolone Acetonide 0.1 % cream Active 1 NMA TOPICAL DAILY October 17, 2023 1:00am Start: 07-21-2020 End: 12-12-2021 Triamcinolone Acetonide 0.1 % cream Discontinued 1 NMA TOPICAL DAILY as needed for Wound Care July 21, 2020 12:00am December 12, 2021 10:59am Start: 07-21-2020 End: 12-12-2021 Triamcinolone Acetonide Disc ontinued 1 APPLIC TOPICAL DAILY July 21, 2020 12:00am December 12, 2021 10:59am ubidecarenone 200 mg oral capsule (19 sources) Start: 07-21-2020 take 10 capsules by mouth once daily Coenzyme Q10 200 mg capsule Active 200 mg PO DAILY July 21, 2020 12:00am vitamin e 180 mg oral capsule (20 sources) Start: 12-09-2019 Vitamin E (Dl, Acetate) 400 unit capsule Active 400 U PO DAILY December 09, 2019 12:00am Start: 05-15-2018 End: 12-02-2019 Vitamin E (Dl, Acetate) 400 unit capsule Discontinued 400 U PO DAILY May 15, 2018 12:00am December 02, 2019 10:58am Start: 04-26-2017 take 1 tablet by clif th once daily VITAMIN E BLEND 400 UNIT CAPS One tablet by mouth daily VITAMIN E [id number] Dayanna Recinos Varela Start: 04-26-2017 take 1 tablet by clif th once daily VITAMIN E BLEND 400 UNIT CAPS One tablet by mouth daily VITAMIN E [id number] Dayanna Recinos Varela Completed/Discontinued Medications Medication Drug Class(es) Dates Sig (Normalized) Sig (Original) acetaminophen 325 mg oral capsule (20 sources) Start: 06-25-2018 End: 10-24-2019 take 2 capsules by mouth every six hours as needed Acetaminophen (Tylenol) 325 mg capsule Discontinued 650 mg PO EVERY 6 HOURS as needed June 25, 2018 3:09pm October 24, 2019 3:50pm Start: 05-15-2018 End: 06-25-2018 take 1 capsule by mouth every six hours as needed Acetaminophen (Tylenol) 325 mg capsule Discontinued 325 mg PO EVERY 6 HOURS as needed May 15, 2018 12:00am June 25, 2018 3:13pm amoxicillin 875 mg / clavulanate 125 mg oral tablet (20 sources) Penicillin-class Antibacterial Start: 07-29-2021 End: 08-08-2021 Amoxicillin-Pot Clavulanate (Augmentin) 875-125 mg tablet Discontinued 1 {tbl} PO Q12H 13 07July 29, 2021 12:00am August 07, 2021 1:00am August 08, 2021 1:01am Start: 06-06-2021 End: 06-16-2021 Amoxicillin-Pot Clavulanate (Augmentin) 875-125 mg tablet Discontinued 1 {tbl} PO Q12H 13 07June 06, 2021 12:00am June 15, 2021 12:00am June 16, 2021 12:01am Start: 10-24-2019 End: 11-03-2019 Amoxicillin-Pot Clavulanate (Augmentin) 875-125 mg tablet Discontinued 1 {tbl} PO Q12H 13 07October 24, 2019 1:00am November 02, 2019 1:00am November 03, 2019 1:08am atenolol 25 mg oral tablet (20 sources) beta-Adrenergic Yemi Start: 06-25-2018 End: 12-02-2018 take 1 tablet by mouth twice daily Atenolol 25 mg tablet Discontinued 25 mg PO TWICE A DAY June 25, 2018 3:07pm December 02, 2018 2:34pm Start: 05-15-2018 End: 06-25-2018 take 1 tablet by mouth once daily Atenolol 25 mg tablet Discontinued 25 mg PO DAILY May 15, 2018 12:00am June 25, 2018 3:13pm Start: 11-26-2015 take 1 tablet by clif th twice daily ATENOLOL 25 MG TABS One tablet by mouth twice daily ATENOLOL [id number] Dayanna Grisel Avery benzonatate 200 mg oral capsule (6 sources) Non-narcotic Antitussive Start: 08-12-2024 End: 08-12-2024 take 1 capsule by mouth three times daily as needed for cough Benzonatate 200 mg capsule Discontinued 200 mg PO THREE TIMES A DAY as needed for cough August 12, 2024 1:00am August 12, 2024 2:19pm Start: 06-03-2024 End: 06-14-2024 take 1 capsule by mouth three times daily as needed for cough Benzonatate 200 mg capsule Discontinued 200 mg PO THREE TIMES A DAY as needed for cough June 03, 2024 12:00am June 14, 2024 11:19am calcium (20 sources) Phosphate Binder, Calcium Start: 04-26-2017 take 1 tablet by mouth once daily CALCIUM 750MG One tablet by mouth daily CALCIUM 750MG Dayanna Recinos Varela Start: 04-26-2017 take 1 tablet by clif once daily CALCIUM 750MG One tablet by mouth daily CALCIUM 750MG Dayanna Recinos Varela Start: 11-26-2015 CALCIUM 600 MG TABS CALCIUM [id number] Sophia López MD Start: 11-26-2015 CALCIUM 600 MG TABS CALCIUM [id number] Esa Velasquez Start: 11-26-2015 CALCIUM 600 MG TABS CALCIUM [id number] Sophia López MD Start: 11-26-2015 CALCIUM 600 MG TABS CALCIUM [id number] Esa Velasquez calcium carbonate 600 mg / cholecalciferol 0.01 mg oral tablet (19 sources) Vitamin D Start: 06-25-2018 End: 12-02-2019 Calcium Carbonate-Vit D3-Min 600 mg calcium- 400 unit tablet Discontinued 1 {tbl} PO DAILY June 25, 2018 12:00am December 02, 2019 10:57am cephalexin 500 mg oral tablet (2 sources) Cephalosporin Antibacterial Start: 12-23-2024 End: 12-30-2024 take 1 tablet by mouth twice daily Cephalexin 500 mg tablet Discontinued 500 mg PO TWICE A DAY 14 December 23, 2024 12:00am December 29, 2024 12:00am December 30, 2024 12:10am chondroitin sulfates / glucosamine (12 sources) Start: 11-26-2015 GLUCOSAMINE-CHONDR OITIN PM 500-400 MG TABS GLUCOSAMINE-CHONDR OITIN [id number] Esa Velasquez Start: 11-26-2015 GLUCOSAMINE-CH ONDROITIN PM 500-400 MG TABS GLUCOSAMINE-CHONDROITIN [id number] Esa Velasquez ciprofloxacin 500 mg oral tablet (12 sources) Quinolone Antimicrobial Start: 04-09-2017 End: 04-12-2017 take 1 tablet by mouth twice daily CIPROFLOXACIN HCL 500 MG TABS One tablet by mouth twice daily CIPROFLOXACIN HCL [id number] Sophia López MD citalopram 20 mg oral tablet (20 sources) Serotonin Reuptake Inhibitor Start: 05-15-2018 End: 12-02-2019 take 1 tablet by mouth once daily Citalopram 20 mg tablet Discontinued 20 mg PO DAILY August 13, 2018 11:57am December 02, 2019 10:57am Start: 04-26-2017 take 1 tablet by clif th once daily CELEXA 20 MG TABS One tablet by mouth daily CITALOPRAM HYDROBROMIDE [id number] Dayanna Varela doxycycline hyclate 100 mg oral capsule (10 sources) Tetracycline-class Drug Start: 05-11-2023 End: 05-21-2023 take 1 capsule by mouth twice daily Doxycycline Hyclate 100 mg capsule Discontinued 100 mg PO TWICE A DAY 13 07May 11, 2023 12:00am May 20, 2023 12:00am May 21, 2023 12:03am factor 5 supplement for pain (13 sources) Start: 01-16-2023 End: 05-12-2024 factor 5 supplement for pain Discontinued 2 NMA PO DAILY January 16, 2023 12:00am May 12, 2024 3:12pm Start: 01-16-2023 factor 5 suppl ement for pain Active 2 EACH PO DAILY January 16, 2023 12:00am Start: 01-16-2023 factor 5 suppl ement for pain Active 2 EACH PO DAILY January 15, 2023 11:00pm Start: 01-16-2023 factor 5 suppl ement for pain Active PO January 15, 2023 11:00pm Start: 01-16-2023 factor 5 suppl ement for pain Active PO January 16, 2023 12:00am famotidine 20 mg oral tablet (19 sources) Histamine-2 Receptor Antagonist Start: 12-12-2021 End: 01-16-2023 take 1 tablet by mouth once daily Famotidine (Pepcid) 20 mg tablet Discontinued 20 mg PO DAILY December 12, 2021 12:00am January 16, 2023 9:04am fluconazole 150 mg oral tablet (12 sources) Azole Antifungal Start: 04-09-2017 FLUCONAZOLE 1 50 MG TABS take one now and repeat in 72 hours FLUCONAZOLE [id number] Sophia López MD ibuprofen 200 mg oral tablet (20 sources) Nonsteroidal Anti-inflammatory Drug Start: 07-21-2020 End: 12-12-2021 take 1 tablet by mouth every six hours as needed for fever Ibuprofen 200 mg tablet Discontinued 200 mg PO EVERY 6 HOURS as needed for Fever July 21, 2020 12:00am December 12, 2021 10:59am Start: 05-15-2018 End: 10-24-2019 take 1 tablet by mouth three to four times daily as needed Ibuprofen 200 mg tablet Discontinued 200 mg PO 3 to 4 times per day as needed May 15, 2018 12:00am October 24, 2019 3:50pm Start: 04-26-2017 ADVIL 200 MG T ABS Take one tablet by mouth as needed for pain IBUPROFEN [id number] Dayanna M Varela lansoprazole 15 mg delayed release oral capsule (20 sources) Proton Pump Inhibitor Start: 07-21-2020 End: 12-12-2021 take 1 capsule by mouth every other day Lansoprazole 15 mg capsule,delayed release(DR/EC) Discontinued 15 mg PO every other day July 21, 2020 2:05pm December 12, 2021 10:59am Start: 12-09-2019 End: 07-21-2020 take 1 capsule by mouth once daily Lansoprazole 15 mg capsule,delayed release(DR/EC) Discontinued 15 mg PO DAILY December 09, 2019 12:00am July 21, 2020 2:06pm Start: 06-25-2018 End: 12-02-2019 take 1 capsule by mouth once daily Lansoprazole 30 mg capsule,delayed release(DR/EC) Discontinued 30 mg PO DAILY June 25, 2018 12:00am December 02, 2019 10:57am Start: 11-26-2015 take 1 tablet by clif once daily LANSOPRAZOLE 30 MG CPDR One tablet by mouth daily LANSOPRAZOLE [id number] Dayanna Grisel Avery levoFLOXacin 750 mg oral tablet (3 sources) Quinolone Antimicrobial Start: 06-14-2024 End: 06-19-2024 take 1 tablet by mouth once daily Levofloxacin 750 mg tablet Discontinued 750 mg PO daily 01 26June 14, 2024 12:00am June 18, 2024 12:00am June 19, 2024 12:07am lisinopril 20 mg oral tablet (19 sources) Angiotensin Converting Enzyme Inhibitor Start: 12-02-2019 End: 12-09-2019 take 1 tablet by mouth once daily Lisinopril 20 mg tablet Discontinued 20 mg PO DAILY December 02, 2019 12:00am December 09, 2019 11:21am metFORMIN hydrochloride 500 mg oral tablet (20 sources) Biguanide Start: 12-09-2019 End: 12-06-2020 take 1 tablet by mouth once daily Metformin 500 mg tablet Discontinued 500 mg PO DAILY December 09, 2019 12:00am December 06, 2020 3:03pm Start: 12-02-2018 End: 12-02-2019 take 1 tablet by mouth twice daily Metformin 500 mg tablet Discontinued 500 mg PO TWICE A DAY December 02, 2018 12:00am December 02, 2019 10:58am methIMAzole 5 mg oral tablet (20 sources) Thyroid Hormone Synthesis Inhibitor Start: 02-18-2023 End: 02-24-2025 Methimazole 5 mg tablet Discontinued 2.5 mg PO .4 days per week 36 May 13, 2024 7:30am November 11, 2024 11:34am Start: 02-18-2023 End: 10-09-2023 Methimazole Discontinued 2.5 MG PO .4 days per week 36 March 26, 2023 2:33pm June 22, 2023 3:03pm Start: 01-16-2023 End: 02-18-2023 Methimazole 5 mg tablet Disc ontinued 2.5 mg PO .3 days per week 36 January 16, 2023 12:00am February 18, 2023 9:23pm Start: 01-16-2023 End: 02-18-2023 Methimazole Discontinued 2.5 MG PO .3 days per week 36 January 16, 2023 12:00am February 18, 2023 9:23pm pravastatin sodium 40 mg oral tablet (19 sources) HMG-CoA Reductase Inhibitor Start: 12-02-2019 End: 12-09-2019 take 1 tablet by mouth at bedtime Pravastatin 40 mg tablet Discontinued 40 mg PO AT BEDTIME December 02, 2019 12:00am December 09, 2019 11:22am simvastatin 20 mg oral tablet (20 sources) HMG-CoA Reductase Inhibitor Start: 12-09-2019 End: 12-06-2020 take 1 tablet by mouth once daily Simvastatin 20 mg tablet Discontinued 20 mg PO DAILY December 09, 2019 12:00am December 06, 2020 3:03pm Start: 05-15-2018 End: 12-02-2019 take 1 tablet by mouth once daily in the evening Simvastatin 20 mg tablet Discontinued 20 mg PO EVERY EVENING May 15, 2018 12:00am December 02, 2019 10:58am Start: 11-26-2015 SIMVASTATIN 20 MG TABS daily SIMVASTATIN [id number] Esa Velasquez Vitamin B Complex (Super B-50 Complex) capsule (19 sources) Start: 05-15-2018 End: 06-25-2018 take 1 capsule by mouth once daily Vitamin B Complex (Super B-50 Complex) capsule Discontinued 1 CAP PO DAILY May 15, 2018 12:10pm June 25, 2018 3:10pm Start: 05-15-2018 End: 06-25-2018 Vitamin B Complex (Super B-5 0 Complex) capsule Discontinued 1 NMA PO DAILY May 15, 2018 12:00am June 25, 2018 3:10pm Start: 05-15-2018 End: 06-25-2018 take 1 capsule by mouth once daily Vitamin B Complex (Super B-50 Complex) capsule Discontinued 1 CAP PO DAILY May 14, 2018 11:00pm June 25, 2018 2:10pm Start: 05-15-2018 End: 06-25-2018 take 1 capsule by mouth once daily Vitamin B Complex (Super B-50 Complex) capsule Discontinued 1 CAP PO DAILY May 15, 2018 12:00am June 25, 2018 3:10pm vitamin b6 500 mg oral tablet (20 sources) Start: 06-25-2018 End: 12-02-2018 take 1 tablet by mouth once daily Pyridoxine (Vitamin B6) 500 mg tablet Discontinued 500 mg PO DAILY June 25, 2018 12:00am December 02, 2018 2:34pm Start: 04-26-2017 take 1 tablet by clif once daily B-6 100 MG TABS One tablet by mouth daily PYRIDOXINE HCL [id number] Dayanna Varela Problems Active Problems Problem Classification Problem Date Documented Date Episodic/Chronic Cardiac dysrhythmias (19 sources) Ventricular premature complex; Translations: [Ventricular premature depolarization] 07-21-2020 Chronic Cardiac dysrhythmias (19 sources) Bradycardia; Translations: [Bradycardia, unspecified] 12-02-2019 Episodic Diabetes mellitus with complications (2 sources) Type 2 diabetes mellitus with other circulatory complications; Translations: [Type 2 diabetes mellitus with other specified complication] Onset: 12-18-2024 Chronic Diabetes mellitus without complication (20 sources) Type 2 diabetes mellitus; Translations: [Type 2 diabetes mellitus without complications] Onset: 11-11-2024 12-02-2019 Chronic Disorders of lipid metabolism (19 sources) Hyperlipidemia; Translations: [Hyperlipidemia, unspecified] 07-21-2020 Chronic Essential hypertension (19 sources) Hypertensive disorder; Translations: [Essential (primary) hypertension] 06-23-2022 Chronic Comment on above: PER PT, CONTROLLED O N MEDS Genitourinary symptoms and ill-defined conditions (20 sources) Incontinence; Translations: [Mixed urinary incontinence] Onset: 04-09-2017 04-09-2017 Chronic Joint disorders and dislocations; trauma-related (12 sources) Derangement of knee; Translations: [Other internal derangements of left knee] Onset: 11-26-2015 12-08-2015 Chronic Nonmalignant breast conditions (19 sources) Fibrocystic disease of breast; Translations: [Diffuse cystic mastopathy of left breast] 07-21-2020 Chronic Nonmalignant breast conditions (20 sources) Lesion of breast; Translations: [Increased ] Onset: 05-23-2017 05-23-2017 Episodic Comment on above: s/p gen surgery cons ult, chronic and intermittent and nl mammogram Osteoarthritis (12 sources) Localized, primary osteoarthritis; Translations: [Unilateral primary osteoarthritis, left knee] Onset: 11-26-2015 12-08-2015 Chronic Other and unspecified benign neoplasm (19 sources) History of polyp of colon; Translations: [Personal history of colonic polyps] 11-08-2021 Episodic Other and unspecified benign neoplasm (10 sources) Personal history of colonic polyps; Translations: [Personal history of colonic polyps] Episodic Other connective tissue disease (3 sources) Pain in thumb ; Translations: [Pain in right finger(s)] 11-11-2024 Episodic Other female genital disorders (4 sources) Cyst of vulva; Translations: [Vulvar cyst] 12-23-2024 Episodic Other lower respiratory disease (3 sources) Cough; Translations: [Cough] 06-14-2024 Episodic Other non-traumatic joint disorders (1 source) Pain in right hip; Translations: [Pain in right hip] Onset: 01-28-2025 Episodic Other nutritional; endocrine; and metabolic disorders (13 sources) Obesity; Translations: [Obesity, unspecified] 01-16-2023 Chronic Other nutritional; endocrine; and metabolic disorders (3 sources) Obesity, unspecified; Translations: [Obesity, unspecified] 01-16-2023 Chronic Other upper respiratory disease (18 sources) Congestion of nasal sinus; Translations: [Nasal congestion] 02-19-2022 Episodic Other upper respiratory infections (3 sources) Sinusitis; Translations: [Chronic sinusitis, unspecified] 06-14-2024 Chronic Other upper respiratory infections (20 sources) Acute sinusitis; Translations: [Acute sinusitis, unspecified] 10-24-2019 Episodic Thyroid disorders (20 sources) Multinodular goiter; Translations: [Nontoxic multinodular goiter] Onset: 11-25-2024 07-21-2020 Chronic Unclassified (5 sources) Screening mammography ; Translations: [Encounter for screening mammogram for malignant neoplasm of breast] Onset: 05-15-2017 05-16-2017 Unclassified (3 sources) Gynecologic examination ; Translations: [Encounter for gynecological examination (general) (routine) without abnormal findings] Onset: 07-05-2017 07-05-2017 Unclassified (19 sources) Age AND/OR growth finding; Translations: [65 years of age or older] 06-17-2021 Unclassified (2 sources) M54.30 - Sciatica, unspecified side,M79.644 - Pain in right finger(s),M79.645 - Pain in left finger(s) Unclassified (1 source) Other intervertebral disc degeneration, lumbosacral region with discogenic back pain and lower extremity pain; Translations: [Other intervertebral disc degeneration, lumbosacral region with discogenic back pain and lower extremity pain] Onset: 03-13-2025 Unclassified (1 source) Subacute cough; Translations: [Subacute cough] Onset: 08-12-2024 Viral infection (19 sources) Disease caused by 2019-nCoV; Translations: [COVID-19] 06-17-2021 Episodic Past or Other Problems Problem Classification Problem Date Documented Da te Episodic/Chronic Allergic reactions (12 sources) Dermatitis, unspecified; Translations: [Dermatitis, unspecified] Onset: 04-09-2017 Resolved: 04-10-2017 04-09-2017 Episodic Mycoses (11 sources) Mycosis; Translations: [Candidiasis, unspecified] Onset: 04-09-2017 04-12-2017 Episodic Other connective tissue disease (12 sources) Tendinitis; Translations: [Other enthesopathies, not elsewhere classified] Onset: 01-06-2016 01-06-2016 Episodic Other connective tissue disease (1 source) Pain in right finger(s); Translations: [Pain in right finger(s)] Onset: 11-11-2024 Episodic Other connective tissue disease (1 source) Pain in left finger(s); Translations: [Pain in left finger(s)] Onset: 11-11-2024 Episodic Other non-traumatic joint disorders (12 sources) Knee pain; Translations: [Pain in left knee] Onset: 11-26-2015 11-26-2015 Episodic Other screening for suspected conditions (not mental disorders or infectious disease) (3 sources) Other abnormal and inconclusive findings on diagnostic imaging of breast; Translations: [Encounter for screening mammogram for malignant neoplasm of breast] Onset: 05-13-2024 Episodic Spondylosis; intervertebral disc disorders; other back problems (6 sources) Sciatica; Translations: [Sciatica, unspecified side] Onset: 11-11-2024 11-11-2024 Episodic Sprains and strains (12 sources) Strain of left quadriceps muscle, fascia and tendon, initial encounter; Translations: [Strain of left quadriceps muscle, fascia and tendon, initial encounter] Onset: 11-26-2015 12-08-2015 Episodic Urinary tract infections (12 sources) Urinary tract infectious disease; Translations: [Urinary tract infection, site not specified] Onset: 04-09-2017 04-11-2017 Episodic Results Test Name Value Interpretation Reference Range Facility L/S Spine w Bend Min 6 [facility] 03-09-2025 L/S Spine w Bend Min 6 [facility] [address] [place] [address] L/S Spine w Bend Min 6 Vw MR#: [id number] Acct: [id number] Name: BHARATH BEARD Rep #: [id number] : 1945 F 79 From: Tammy bella MD PCP: Dr. Zeny Crow MD Status: REG CLI Study: L/S Spine w Bend Min 6 Vw Date of Exam: Exam# [id number] Ordering Dr: Jacob Castañeda MD PROCEDURE: L/S SPINE W BEND MIN 6 VW 03/09/2025 REASON FOR EXAM: LUMBAR PAIN TECHNIQUE: L/S SPINE W BEND MIN 6 VW COMPARISON: None. 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 No evidence of instability on flexion/extension images. There are diffuse spondylotic changes. Findings are demonstrated to by diffuse disc space narrowing, osteophyte formation and degenerative endplate sclerosis. There is diffuse facet joint arthropathy with secondary bilateral neural foramina narrowing. No fracture or dislocation is seen. No aggressive lytic or blastic bony lesion is noted. RAD/L/S Spine w Bend Min 6 Vw IMPRESSION: Spondylosis. Reading Location: [place] [address] CC: Dr. Jacob Castañeda MD; Dr. Zeny Crow MD Hemmer Lockstitch: Signed Normal [facility] OT D/C Summaryon 01-28-2025 OT D/C Summary [facility] Occupational Therapy Health[address] [place] [address] / REHABILITATION SERVICES DISCHARGE SUMMARY MR#: [id number] Acct: [id number] Name: BHARATH BEARD Rep #: [id number] : 1945 79 From: Belle Bill OTR/L, T Referring Dr.: Dr. Shayne Dia MD Status: REG RC R Eval Date: Discharge Date: Discharge Summary D/C Summary: It has been my pleasure to treat BHARATH BEARD under orders from Dr. Shayne Dia MD, for the diagnosis of Bilateral thumb pain for a total of 8 visit(s). Please see the following information for a summary of their discharge status. Overall Improvement % Improvement: 80 Objective Objective/Function: pt demo understanding of joint protection. During therapy we have discussed a number of ways to increase her IND with ADLs and IADLS with use of ad. eq. and or bracing. Pt doing better. pt states feels 80% improvement and continues to make changes how she is performing daily tasks due to thumb pain. pt agrees to HEP and D/c, Goals Patient Goals: Decrease Pain, Improve Fine Motor Skills, Use Hand/Wrist/Arm Normally Again and Resume Former Household Responsibilities (Cooking,Cleaning,Yard, etc.) Goal:: pt will demo understanding of thumb stabilization ex by d/c ( goal met) pt will demo a increase in bilateral multifocal lens inspector strength by 10# or greater by d/c ( goal met) Goal:: pt will report no pain greater than 2/10 with use of bilateral hands with ADLs by d/c ( goal met) Goal:: Pt will demo understanding of joint protection and ergonomics when performing BADLs and IADLs by d/c (goal met) Pt will demo understanding of adaptive Equipment use to decrease stress on joints to allow pt to perform BADSL and IADLS at DOUGLAS level. (goal met) Goal:: pt will dmeo reduction on quick dash score by 15 points Goal:: Pt will demo understanding of using supportive bracing 80% of workday/ADLS to decrease stress on tendon origin to allow healing and decrease pain by end of 2nd session. (goal met) Plan Plan: D/c D/C Information d/c sentence: If there are questions or concerns regarding this patient's occupational therapy, please fell free to call me at [phone]. Thank you for the referral of this patient. Sincerely, Belle Bill, MATTR/L, T 01/28/25 [id number] CC: Dr. Zeny Crow MD; Dr. Shayne Dia MD MK Signed Normal [facility] Hips B/L min 2 views w/ Pelv selena 01-23-2025 Hips B/L min 2 views w/ Pelvis [facility] Imaging Services [address] [place] [address] Hips B/L min 2 views w/ Pelvis MR#: [id number] Acct: [id number] Name: BHARATH BEARD Rep #: [id number] : 1945 F 79 From: Mateo Guevara MD PCP: Dr. Zeny Crow MD Status: REG CLI Study: Hips B/L min 2 views w/ Pelvis Date of Exam: 0 01/23/25 Exam# [id number] Ordering Dr: Zeny Crow MD PROCEDURE: HIPS B/L MIN 2 VIEWS W/ PELVIS 01/23/2025 REASON FOR EXAM: PAIN TECHNIQUE: AP view of the pelvis and two views of the right and two views of the left hip, 5 total images COMPARISON: 11/15/2021 FINDINGS: No fracture or dislocation. Symmetric appearing SI joints and pubic symphysis appear within limits. The right hip appears within limits. Mild osteoarthrosis left hip again noted, not significantly changed. No osseous lesion identified. Pelvic phleboliths incidentally noted. RAD/Hips B/L min 2 views w/ Pelvis IMPRESSION: Mild left hip osteoarthrosis again noted. Reading Location: [id number] CC: Dr. Zeny Crow MD Hemmer Lockstitch: Signed Normal [facility] Speech Writer Office Visit Reporton 12-23-2024 Speech Writer Office Visit Report [facility] [address], [address] [place] [address] OFFICE VISIT Date of Service: 12/23/24 MR#: [id number] Acct: [id number] Name: BHARATH BEARD Rep #: [id number] : 1945 Provider: KODY oliveira Age/Sex: 79/F Location: [facility] Status: Signed Intake Vital Signs 11/11/24 10:23 12/23/24 11:44 12/23/24 11:49 Height 5 ft 3 in 5 ft 3 in 5 ft 3 in Weight: 184 lb 6 oz 181 lb 6 oz BMI 32.6 32.1 BP 138/72 H 130/70 H Blood Pressure Location Rt brachial Position Sitting Pulse 63 Pulse Source Monitor Pulse Oximetry (%) 97 Oxygen Delivery Method room air Intake Visit Reasons: painful vaginal cyst Chief Complaint: Painful vaginal cyst Nursing Service Director Required: No Is patient in pain?: No Allergies oxycodone (From Percocet) Allergy (Mild, Verified 12/23/24 11:53) hives amoxicillin Allergy (Verified 12/23/24 11:53) Rash adhesive tape Adverse Reaction (Mild, Verified 12/23/24 11:53) redness doxycycline Adverse Reaction (Verified 12/23/24 11:53) Other Medications ???Medication ???Instructions ???Recorded ???Confirmed ???Type aspirin 81 mg tablet,delayed 81 mg PO DAILY 10/24/19 12/23/24 H istory release ascorbic acid (vitamin C) 500 mg 500 mg PO DAILY 12/09/19 12/23/24 History tablet calcium carbonate 500 mg PO DAILY 12/09/19 12/23/24 History metoprolol succinate 50 mg 50 mg PO DAILY 12/09/19 12/23/24 H istory tablet,extended release 24 hr vitamin E (dl, acetate) 180 mg 400 unit PO DAILY 12/09/19 5 History (400 unit) capsule coenzyme Q10 200 mg capsule 200 mg PO DAILY 07/21/20 12/23/24 History mupirocin 2 % topical ointment 1 applic topical BID PRN Wound Car e 07/21/20 12/23/24 History rosuvastatin 10 mg tablet 10 mg PO QHS 01/19/21 12/23/24 His tory B-complex with vitamin C 1 cap PO DAILY 01/16/23 12/23/24 H istory propylene glycol 0.6 % eye drops 1 drp ophthalmic (eye) BID PRN dry 01/16/23 12/23/24 History (Systane Balance) eye(s) cholecalciferol (vitamin D3) 25 25 mcg PO DAILY 10/17/23 12/23/24 History mcg (1,000 unit) capsule (Vitamin D3) triamcinolone acetonide 0.1 % 1 applic topical DAILY 10/17/23 History topical cream methylprednisolone 4 mg tablets in See Rx Instructions PO PER PKG D IR 08/12/24 12/23/24 Rx a dose pack (Medrol (Harish)) #21 tabs methimazole 5 mg tablet 2.5 mg (1/2 x 5 mg) PO .4 days per 11/11/24 12/23/24 Rx week #24 tabs cephalexin 500 mg tablet 500 mg PO BID 7 days #14 tabs 04/10/1812/23/24 Rx levothyroxine 25 mcg capsule 25 mcg PO QDAY 12/23/24 12/23/24 H istory Is last menstrual period known: No Post menopausal: Yes Patient : No : No PFSH Medical History Bilateral thumb pain Sciatica High cholesterol Obesity Toxic multinodular goiter Wears glasses Alcohol use Thyroid disease Diabetes Dietary restriction Difficulty swallowing Gastric reflux Non-smoker PONV (postoperative nausea and vomiting) Shortness of breath on exertion Leg cramps History of stress test History of echocardiogram Cardiology follow-up encounter History of irregular heartbeat Personal history of colonic polyps Multiple thyroid nodules Premature ventricular complex Diabetes mellitus type II, controlled Hyperlipidemia Bradycardia Multinodular thyroid Cyst of breast, left, diffuse fibrocystic Hypertension GI problem Bleeding disorder Arthritis Hypothyroid Surgical History History of cardiac catheterization History of D C History of colonoscopy ( 2016) Status post biopsy of thyroid gland ( 11/2018) History of wisdom tooth extraction History of breast biopsy ( 06/2018) H/O: hysterectomy History of appendectomy Family History Mother , Age 72, of [place] Myocardial infarction CAD (coronary artery disease) CVA (cerebral vascular accident) Hyperlipidemia Hypertension Father , Age 94 Heart disease Hyperlipidemia Thyroid disorder Prostate cancer Brother , of [place] Exposure Diabetes Hypertension Heart disease Hyperlipidemia CVA (cerebral vascular accident) Agent orange exposure Brother , of AIDS AIDS Sister , in MVA MVA (motor vehicle accident) Son Abdominal aortic aneurysm Grandmother Diabetes Social History Smoking Status: Never smoker alcohol intake: current details: social substance use type: does not use seatbelt use: always do you feel safe at home: Yes additional social history: -Aparna HPI painful vagin (more content not included)... Normal [facility] OT General Evaluationon 11-23 OT General Evaluation [facility] Occupational Therapy Health[address] [place] [address] / REHABILITATION SERVICES INITIAL EVALUATION MR#: [id number] Acct: [id number] Name: BHARATH BEARD Rep #: [id number] : 1945 79 From: Belle VU/SHEMAR Maxwell Referring Dr.: Dr. Shayne Dia MD Status: REG RC R Insurance: [employer] MCR Eval Date: SELF PAY INSURANCE Patient's Visit Information Visit Information Visit Information: BHARATH BEARD is a 79 year old F, referred to Occupational Therapy by Dr. Shayne Dia MD, with a diagnosis of Bilateral thumb pain. Date of Evaluation: 12/18/24 Occupational Therapist: Belle Bill, HORACE/Tad, CHT Subjective Subjective: This 79 year old female was seen for OT eval with dx of right and left thumb pain. pt states this has been bothersome for almost a year. pt states sometimes painful while playing piano or after. Also painful after and during crafts. Pt states she would like to know what she can do to decrease pain. ADLs Dressing: Pants Comments: bilateral thumb pain Kitchen: Open jars and Open bottle caps Comments: painful Pain bilateral thumb pain: Current Pain Intensity: 3 Pain Intensity Range: 5 ROM CMC: right 15 left 20 MP: right 30 left 40 IP: right 50 left 50 Palmar Abduction: right 40*left 35* ROM Comments: left thumb noted MP hyper ext with resistive pinch- pt demo with OA deformities on bilateral hands Strength Bullet Casting Operator: right 25# left 30# Lateral Pinch: right 10# left 12# Tripod Pinch: right 12# left 12# Sensation Sensation Comments: denies Quick DASH-Disab of Arm,Shoulder Hand Quick DASH Score: 41.6650 Goals Goal:: pt will demo understanding of thumb stabilization ex by d/c pt will demo a increase in bilateral multifocal lens inspector strength by 10# or greater by d/c Goal:: pt will report no pain greater than 2/10 with use of bilateral hands with ADLs by d/c Goal:: Pt will demo understanding of joint protection and ergonomics when performing BADLs and IADLs by d/c Pt will demo understanding of adaptive Equipment use to decrease stress on joints to allow pt to perform BADSL and IADLS at DOUGLAS level. Goal:: pt will dmeo reduction on quick dash score by 15 points Goal:: Pt will demo understanding of using supportive bracing 80% of workday/ADLS to decrease stress on tendon origin to allow healing and decrease pain by end of 2nd session. 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 pt would benefit from skilled OT services 2x wee for 4 weeks to ed. pt on joint protection gisell. energy conservation gisell., ad. eq. and supportive bracing to decrease pts pain with use of bilateral hands. Today therapist gave pt handouts on joint protection and thumb care. pt demo understanding and agrees to POC. Rehabilitation Potential: Good Anticipated Interventions Anticipated Interventions: A/AAROM/PROM, Triggerpoint Release, Modalities, Orthoses, Joint Protection/Energy Conservation, Ergonomic Education, ADL Training, Education re assistive Equipment, Education re Diagnosis and Home Program Visit Plan Frequency: 1-2x /Week Duration: 4 Weeks TEXT: Thank you for the opportunity to evaluate your patient. For Medicare and Medicare HMO plans, please review the plan of care and approve it. It will need to be FAXED BACK to us at [phone] for Medicare purposes. Please let me know if there are questions or concerns regarding this plan of care. Physician Signature: Date: 12/19/24 0747 CC: Dr. Zeny Crow MD; Dr. Shayne Dia MD SUSAN Signed For Medicare only, by signing this I certify the plan of care. _ Physicians Signature Date Normal [facility] Absolute lymphocyte countOrd ered By: Zeny Crow on 12-09-2024 Lymphocytes Auto (Unsp spec) [#/Vol] 2.59 10*3/uL 0.83-4.51 [facility] Absolute neutrophil countOrd ered By: Zeny Crow on 12-09-2024 Neutrophils (Bld) [#/Vol] 5.4 10*3/uL 2.0-7.7 [facility] Anion gap in Serum or Plasma Ordered By: Zeny Crow on 12-09-2024 Anion gap [Moles/Vol] 14 mmol/L 5-15 [facility] Automated lymphocyte count a s percentage of total leukocytesOrdered By: Zeny Crow on 12-09-2024 Lymphocytes/100 WBC Auto (Unsp spec) 30.2 % 19- [facility] BUN/creatinine ratioOrdered By: Zeny Crow on 12-09-2024 Urea nitrogen/Creatinine [Mass ratio] 19.7 mg/mg 10- [facility] Basophil percentageOrdered B y: Zeny Crow on 12-09-2024 Basophils/100 WBC (Bld) 0.2 % 0-1 [facility] Bilirubin directOrdered By: Zeny Crow on 12-09-2024 Bilirubin.direct [Mass/Vol] 0.48 mg/dL High 0.00-0.30 [facility] Bilirubin, Directon 12-10-19 Bilirubin.direct [Mass/Vol] 0.48 mg/dL High 0.00-0.30 [facility] Comment on above: Order Comment: Order Date: 12/09/24Order Info: [id number] - BMPOrder Info: [id number] - LIVEROrder Info: [id number] - CMPOrder Info: [id number] - LIPID Performed By: #### L 501.63384, L506.0400, L501.9520 #### [facility] Laboratory [address] [facility] [place], [address] Bilirubin, totalOrdered By: Zeny Crow on 12-09-2024 Bilirubin [Mass/Vol] 1.24 mg/dL 0.00-1.30 [facility] CBC W/Diff, Automatedon 11-22 Absolute Lymph 2.59 X10 3/uL Normal 0.83-4.51 [facility] Comment on above: Order Comment: Order Date: 12/09/24 Order Info: [id number] - CBCD Performed By: #### L 100.0100, L501.9985, L500.4100, L500.4050 #### [facility] Laboratory [address] [place], [address] Absolute Neut 5.4 X10 3/uL Normal 2.0-7.7 [facility] Comment on above: Order Comment: Order Date: 12/09/24 Order Info: [id number] - CBCD Performed By: #### L 100.0100, L501.9985, L500.4100, L500.4050 #### [facility] Laboratory [address] [place], [address] Basophils/100 WBC (Bld) 0.2 % Normal 0-1 [facility] Comment on above: Order Comment: Order Date: 12/09/24 Order Info: [id number]- - CBCD Performed By: #### L 100.0100, L501.9985, L500.4100, L500.4050 #### [facility] Laboratory [address] [place], [address] Eosinophils/100 WBC (Bld) 1.7 % Normal 0-5 [facility] Comment on above: Order Comment: Order Date: 12/09/24 Order Info: [id number]- - CBCD Performed By: #### L 100.0100, L501.9985, L500.4100, L500.4050 #### [facility] Laboratory [address] [place], [address] Erythrocyte distribution width (RBC) [Ratio] 12.7 % Normal 11.6-14.6 [facility] Comment on above: Order Comment: Order Date: 12/09/24 Order Info: [id number] - CBCD Performed By: #### L 100.0100, L501.9985, L500.4100, L500.4050 #### [facility] Laboratory [address] [place], [address] Hematocrit (Bld) [Volume fraction] 38.6 % Normal 37-47 [facility] Comment on above: Order Comment: Order Date: 12/09/24 Order Info: [id number] - CBCD Performed By: #### L 100.0100, L501.9985, L500.4100, L500.4050 #### [facility] Laboratory [address] [place], [address] Hemoglobin (Bld) [Mass/Vol] 12.7 g/dL Normal 12.0-15.0 [facility] Comment on above: Order Comment: Order Date: 12/09/24 Order Info: [id number]- - CBCD Performed By: #### L 100.0100, L501.9985, L500.4100, L500.4050 #### [facility] Laboratory [address] [place], [address] IG% 0.500 Normal 0.0-0.9 [facility] Comment on above: Order Comment: Order Date: 12/09/24 Order Info: [id number]- - CBCD Result Comment: IG% - Immature Granulocytes (promyelocytes, myelocytes and metamyelocytes) > 1% indicates that a LEFT SHIFT is Present. Performed By: #### L 100.0100, L501.9985, L500.4100, L500.4050 #### [facility] Laboratory [address] [place], [address] Lymphocytes/100 WBC (Bld) 30.2 % Normal 19-41 [facility] Comment on above: Order Comment: Order Date: 12/09/24 Order Info: [id number]- - CBCD Performed By: #### L 100.0100, L501.9985, L500.4100, L500.4050 #### [facility] Laboratory [address] [place], [address] MCH (RBC) [Entitic mass] 27.6 pg Normal 27.0-32.0 [facility] Comment on above: Order Comment: Order Date: 12/09/24 Order Info: [id number]- - CBCD Performed By: #### L 100.0100, L501.9985, L500.4100, L500.4050 #### [facility] Laboratory [address] [place], [address] MCHC (RBC) [Mass/Vol] 32.9 g/dL Normal 32-36 [facility] Comment on above: Order Comment: Order Date: 12/09/24 Order Info: [id number] - CBCD Performed By: #### L 100.0100, L501.9985, L500.4100, L500.4050 #### [facility] [address] [place], [address] MCV (RBC) [Entitic vol] 83.9 fL Normal 81-99 [facility] Comment on above: Order Comment: Order Date: 12/09/24 Order Info: [id number] - CBCD Performed By: #### L 100.0100, L501.9985, L500.4100, L500.4050 #### [facility] [address] [place], [address] Monocytes/100 WBC (Bld) 4.4 % Normal 0-10 [facility] Comment on above: Order Comment: Order Date: 12/09/24 Order Info: [id number] - CBCD Performed By: #### L 100.0100, L501.9985, L500.4100, L500.4050 #### [facility] [address] [place], [address] Neutrophils/100 WBC (Bld) 63.0 % Normal 47-70 [facility] Comment on above: Order Comment: Order Date: 12/09/24 Order Info: [id number] - CBCD Performed By: #### L 100.0100, L501.9985, L500.4100, L500.4050 #### [facility] [address] [place], [address] Nucleated RBC (Bld) [#/Vol] 0 10*3/uL Normal 0-5 [facility] Comment on above: Order Comment: Order Date: 12/09/24 Order Info: [id number] - CBCD Performed By: #### L 100.0100, L501.9985, L500.4100, L500.4050 #### [facility] [address] [place], [address] Platelet mean volume (Bld) [Entitic vol] 9.0 fL Normal 6.2-12.0 [facility] Comment on above: Order Comment: Order Date: 12/09/24 Order Info: [id number]- - CBCD Performed By: #### L 100.0100, L501.9985, L500.4100, L500.4050 #### [facility] [address] [place], [address] Platelets (Bld) [#/Vol] 290 10*3/uL Normal 150-450 [facility] Comment on above: Order Comment: Order Date: 12/09/24 Order Info: [id number]- - CBCD Performed By: #### L 100.0100, L501.9985, L500.4100, L500.4050 #### [facility] [address] [place], [address] RBC (Bld) [#/Vol] 4.60 10*6/uL Normal 4.2-5.4 [facility] Comment on above: Order Comment: Order Date: 12/09/24 Order Info: 0184-1 - CBCD Performed By: #### L 100.0100, L501.9985, L500.4100, L500.4050 #### [facility] [address] [place], [address] RDW SD 38.5 fl Normal 35.1-43.9 [facility] Comment on above: Order Comment: Order Date: 12/09/24 Order Info: 0184-1 - CBCD Performed By: #### L 100.0100, L501.9985, L500.4100, L500.4050 #### [facility] [address] [place], [address] WBC (Bld) [#/Vol] 8.6 10*3/uL Normal 4.4-11.0 [facility] Comment on above: Order Comment: Order Date: 12/09/24 Order Info: [id number] - CBCD Performed By: #### L 100.0100, L501.9985, L500.4100, L500.4050 #### [facility] [address] [place], [address] Calculated very low density lipoprotein (VLDL) cholesterol measurementOrdered By: Zeny Crow on 12-09-2024 Calculated very low density lipoprotein (VLDL) cholesterol measurement 35 mg/dL 5-40 [facility] VLDL Cholesterol 35 mg/dL 5-40 [facility] Carbon dioxide, total [Moles /volume] in Central venous bloodOrdered By: Zeny Crow on 12-09-2024 CO2 [Moles/Vol] 23.3 mmol/L 21.0-32.0 [facility] Chloride assayOrdered By: Ivone Crow on 12-09-2024 Chloride [Moles/Vol] 101 mmol/L 98-108 [facility] Comprehensive Metabolic Prof ilon 12-09-2024 Albumin [Mass/Vol] 4.3 g/dL Normal 3.4-4.8 [facility] Comment on above: Order Comment: Order Date: 12/09/24 Order Info: [id number] - BMP Order Info: [id number] - LIVER Order Info: [id number] - CMP Order Info: [id number] - LIPID Performed By: #### L 100.0100, L501.9985, L500.4100, L500.4050 #### [facility] [address] [place], [address] Albumin/Globulin [Mass ratio] 1.5 {ratio} Normal 0.9-2.4 [facility] Comment on above: Order Comment: Order Date: 12/09/24 Order Info: 666-09 - BMP Order Info: 787-09 - LIVER Order Info: [id number] - CMP Order Info: - LIPID Performed By: #### L 100.0100, L501.9985, L500.4100, L500.4050 #### [facility] [address] [place], [address] ALK PHOS 66 U/L Normal 35-104 [facility] Comment on above: Order Comment: Order Date: 12/09/24 Order Info: 666-09 - BMP Order Info: 787-09 - LIVER Order Info: 785-09 - CMP Order Info: - LIPID Performed By: #### L 100.0100, L501.9985, L500.4100, L500.4050 #### [facility] [address] [place], [address] ALT [Catalytic activity/Vol] 14 U/L Normal <=34 [facility] Comment on above: Order Comment: Order Date: 12/09/24 Order Info: 666-09 - BMP Order Info: 787-09 - LIVER Order Info: 785-09 - CMP Order Info: - LIPID Performed By: #### L 100.0100, L501.9985, L500.4100, L500.4050 #### [facility] [address] [place], [address] AST [Catalytic activity/Vol] 19 U/L Normal <=31 [facility] Comment on above: Order Comment: Order Date: 12/09/24 Order Info: 666-09 - BMP Order Info: 787-09 - LIVER Order Info: 785-09 - CMP Order Info: - LIPID Performed By: #### L 100.0100, L501.9985, L500.4100, L500.4050 #### [facility] [address] [place], [address] Bilirubin [Mass/Vol] 1.24 mg/dL Normal 0.00-1.30 [facility] Comment on above: Order Comment: Order Date: 12/09/24 Order Info: 666-09 - BMP Order Info: 787-09 - LIVER Order Info: 785-09 - CMP Order Info: - LIPID Performed By: #### L 100.0100, L501.9985, L500.4100, L500.4050 #### [facility] [address] [place], [address] BUN/CRE 19.7 RATIO Normal 10-20 [facility] Comment on above: Order Comment: Order Date: 12/09/24 Order Info: 666-09 - BMP Order Info: 787-09 - LIVER Order Info: 785-09 - CMP Order Info: - LIPID Performed By: #### L 100.0100, L501.9985, L500.4100, L500.4050 #### [facility] [address] [place], [address] Calcium [Mass/Vol] 9.6 mg/dL Normal 7.6-11.0 [facility] Comment on above: Order Comment: Order Date: 12/09/24 Order Info: 666-09 - BMP Order Info: 787-09 - LIVER Order Info: 785-09 - CMP Order Info: - LIPID Performed By: #### L 100.0100, L501.9985, L500.4100, L500.4050 #### [facility] [address] [place], [address] Chloride [Moles/Vol] 101 mmol/L Normal 98-108 [facility] Comment on above: Order Comment: Order Date: 12/09/24 Order Info: 666-09 - BMP Order Info: 787-09 - LIVER Order Info: 785-09 - CMP Order Info: [id number] - LIPID Performed By: #### L 100.0100, L501.9985, L500.4100, L500.4050 #### [facility] [address] [place], [place], [id number] CO2 [Moles/Vol] 23.3 mmol/L Normal 21.0-32.0 [facility] Comment on above: Order Comment: Order Date: 12/09/24 Order Info: 666-09 - BMP Order Info: 787-09 - LIVER Order Info: 785-09 - CMP Order Info: [id number] - LIPID Performed By: #### L 100.0100, L501.9985, L500.4100, L500.4050 #### [facility] [address] [place], [address] Creatinine [Mass/Vol] 0.94 mg/dL Normal 0.70-1.20 [facility] Comment on above: Order Comment: Order Date: 12/09/24 Order Info: 666-09 - BMP Order Info: 787-09 - LIVER Order Info: 785-09 - CMP Order Info: [id number] - LIPID Performed By: #### L 100.0100, L501.9985, L500.4100, L500.4050 #### [facility] [address] [place], [address] GAP 14 Normal 5-15 [facility] Comment on above: Order Comment: Order Date: 12/09/24 Order Info: 666-09 - BMP Order Info: 787-09 - LIVER Order Info: 785-09 - CMP Order Info: [id number] - LIPID Performed By: #### L 100.0100, L501.9985, L500.4100, L500.4050 #### [facility] [address] [place], [place], [id number] GFR/1.73 sq M.predicted among non-blacks MDRD (S/P/Bld) [Vol rate/Area] 62 mL/min/{1.73_m2} Normal >60 [facility] Comment on above: Order Comment: Order Date: 12/09/24 Order Info: 666-09 - BMP Order Info: 787-09 - LIVER Order Info: 785-09 - CMP Order Info: - LIPID Result Comment: mL/m in/1.73m2 CKD-EPI Creatinine Equation (2020) Performed By: #### L 100.0100, L501.9985, L500.4100, L500.4050 #### [facility] [address] [place], [address] Globulin (S) [Mass/Vol] 3.0 g/dL Normal 2.2-4.2 [facility] Comment on above: Order Comment: Order Date: 12/09/24 Order Info: 666-09 - BMP Order Info: 787-09 - LIVER Order Info: 785-09 - CMP Order Info: - LIPID Performed By: #### L 100.0100, L501.9985, L500.4100, L500.4050 #### [facility] [address] [place], [address] Glucose [Mass/Vol] 128 mg/dL High 70-99 [facility] Comment on above: Order Comment: Order Date: 12/09/24 Order Info: 666-09 - BMP Order Info: 787-09 - LIVER Order Info: 785-09 - CMP Order Info: - LIPID Performed By: #### L 100.0100, L501.9985, L500.4100, L500.4050 #### [facility] [address] [place], [address] Potassium [Moles/Vol] 3.9 mmol/L Normal 3.3-5.1 [facility] Comment on above: Order Comment: Order Date: 12/09/24 Order Info: 666-09 - BMP Order Info: 787-09 - LIVER Order Info: 785-09 - CMP Order Info: - LIPID Performed By: #### L 100.0100, L501.9985, L500.4100, L500.4050 #### [facility] [address] [place], [address] Sodium [Moles/Vol] 138 mmol/L Normal 133-145 [facility] Comment on above: Order Comment: Order Date: 12/09/24 Order Info: 666-09 - BMP Order Info: 787-09 - LIVER Order Info: 785-09 - CMP Order Info: [id number] - LIPID Performed By: #### L 100.0100, L501.9985, L500.4100, L500.4050 #### [facility] [address] [place], [address] T PROT 7.3 g/dL Normal 5.9-8.4 [facility] Comment on above: Order Comment: Order Date: 12/09/24 Order Info: 666-09 - BMP Order Info: 787-09 - LIVER Order Info: 785-09 - CMP Order Info: [id number] - LIPID Performed By: #### L 100.0100, L501.9985, L500.4100, L500.4050 #### [facility] [address] [place], [address] Urea nitrogen [Mass/Vol] 19 mg/dL Normal 4-19 [facility] Comment on above: Order Comment: Order Date: 12/09/24 Order Info: 666-09 - BMP Order Info: 787-09 - LIVER Order Info: 785-09 - CMP Order Info: [id number] - LIPID Performed By: #### L 100.0100, L501.9985, L500.4100, L500.4050 #### [facility] [address] [place], [address] Eosinophil percentageOrdered By: Zeny Crow on 12-09-2024 Eosinophils/100 WBC (Bld) 1.7 % 0-5 [facility] Erythrocyte distribution wid th ratioOrdered By: Zeny Crow on 12-09-2024 Erythrocyte distribution width (RBC) [Ratio] 12.7 % 11.6-14.6 [facility] Erythrocyte distribution wid th standard deviationOrdered By: Zeny Crow on 12-09-2024 Erythrocyte distribution width (RBC) [Entitic vol] 38.5 fL 35.1-43.9 [facility] Erythrocyte distribution width (RBC) [Ratio] 38.5 fl 35.1-43.9 [facility] GFR/1.73 sq M.predicted gabriella g non-blacks MDRD (S/P/Bld) [Vol rate/Area]Ordered By: Zeny Crow on 12-09-2024 Estimated GFR (MDRD) Non-Af Amer 62 >60 [facility] Comment on above: mL/min/1.73m2 CKD-EP I Creatinine Equation (2020) Glomerular filtration rate ( GFR) estimation/1.73 sq m using serum, plasma, or whole bOrdered By: Zeny Crow on 12-09-2024 GFR/1.73 sq M.predicted among non-blacks MDRD (S/P/Bld) [Vol rate/Area] 62 mL/min/{1.73_m2} >60 [facility] Comment on above: mL/min/1.73m2 CKD-EP I Creatinine Equation (2020) Hematocrit Auto (Bld) [Volum e fraction]Ordered By: Zeny Crow on 12-09-2024 Hematocrit (Bld) [Volume fraction] 38.6 % 37-47 [facility] Hemoglobin A1con 12-09-2024 HbA1c (Bld) [Mass fraction] 6.0 % Normal <=5.6 [facility] Comment on above: Order Comment: Order Date: 12/09/24 Order Info: [id number] - A1C Performed By: #### L 100.0100, L501.9985, L500.4100, L500.4050 #### [facility] [address] [place], [place], [id number] Hemoglobin A1c percentageOrd ered By: Zeny Crow on 12-09-2024 HbA1c (Bld) [Mass fraction] 6.0 % >5.7 [facility] Hemoglobin measurementOrdere d By: Zeny Crow on 12-09-2024 Hemoglobin (Bld) [Mass/Vol] 12.7 g/dL 12.0-15.0 [facility] Immature granulocytes/100 WB C Auto (Bld)Ordered By: Zeny Crow on 12-09-2024 Immature granulocytes/100 WBC (Bld) 0.500 % 0.0-0.9 [facility] Comment on above: IG% - Immature Granu locytes (promyelocytes, myelocytes and metamyelocytes) > 1% indicates that a LEFT SHIFT is Present. LDL calc ser/plasOrdered By: Zeny Crow on 12-09-2024 Cholesterol in LDL [Mass/Vol] 38 mg/dL [facility] Comment on above: Qwsrxjhtsu=486-133 m g/dL & Higher Swgx=679 mg/dL or greater LDL Cholesterol, Calculated 38 mg/dL [facility] Comment on above: Rvaklqvezq=993-072 m g/dL & Higher Jmnm=172 mg/dL or greater Laboratory - Chemistry and C hemistry - challengeOrdered By: Zeny Crow on 12-09-2024 AST [Catalytic activity/Vol] 19 U/L <32 [facility] Lipid Profileon 12-09-2024 CHOL:HDL 2.41 Normal [facility] Comment on above: Order Comment: Order Date: 12/09/24Order Info: [id number] - BMPOrder Info: [id number] - LIVEROrder Info: [id number] - CMPOrder Info: [id number] - LIPID Performed By: #### L 501.46241, L506.0400, L501.9520 #### [facility] [address] [place], [place], [address] Cholesterol [Mass/Vol] 124 mg/dL Normal <=200 [facility] Comment on above: Order Comment: Order Date: 12/09/24Order Info: [id number] - BMPOrder Info: [id number] - LIVEROrder Info: [id number] - CMPOrder Info: [id number] - LIPID Result Comment: Chol esterol level, Desirable <200 mg/dL Borderline high cholesterol 200-239 mg/dL High cholesterol >=240 mg/dL Recommendations of the NCEP Adult Treatment Panel for the following risk-cutoff thresholds for the [place] population. Performed By: #### L 501.56747, L506.0400, L501.9520 #### [facility] [address] [place], [address] Cholesterol in HDL [Mass/Vol] 51 mg/dL Normal [facility] Comment on above: Order Comment: Order Date: 12/09/24Order Info: 666-09 - BMPOrder Info: 787-09 - LIVEROrder Info: 785-09 - CMPOrder Info: [id number] - LIPID Result Comment: Mary onal Cholesterol Education Program (NCEP) guidelines: <40 mg/dL: Low HDL-cholesterol (major risk factor for CHD) >= 60 mg/dL: High HDL-cholesterol (negative risk factor for CHD) HDL-cholesterol is affected by a number of factors, e.g. smoking, exercise, hormones, sex and age. Performed By: #### L 501.85171, L506.0400, L501.9520 #### [facility] [address] [place], [address] Cholesterol in LDL [Mass/Vol] 38 mg/dL Normal [facility] Comment on above: Order Comment: Order Date: 12/09/24Order Info: 666-09 - BMPOrder Info: 787-09 - LIVEROrder Info: 785-09 - CMPOrder Info: [id number] - LIPID Result Comment: Bord klceyw=364-588 mg/dL Higher Xxzr=035 mg/dL or greater Performed By: #### L 501.28980, L506.0400, L501.9520 #### [facility] [address] [place], [address] Cholesterol in VLDL [Mass/Vol] 35 mg/dL Normal 5-40 [facility] Comment on above: Order Comment: Order Date: 12/09/24Order Info: 666-09 - BMPOrder Info: [id number] - LIVEROrder Info: [id number] - CMPOrder Info: [id number] - LIPID Performed By: #### L 501.78593, L506.0400, L501.9520 #### [facility] [address] [place], [address] Triglyceride [Mass/Vol] 174 mg/dL Normal [facility] Comment on above: Order Comment: Order Date: 12/09/24Order Info: [id number] - BMPOrder Info: [id number] - LIVEROrder Info: [id number] - CMPOrder Info: [id number] - LIPID Result Comment: The drugs N-Acetylcysteine and Metamizole may falsely depress this assay. Normal range: <150 mg/dL Borderline High: 150-199 mg/dL High: 200-499 mg/dL Very High: >500 mg/dL Performed By: #### L 501.80422, L506.0400, L501.9520 #### [facility] [address] [place], [address] Lymphocytes Auto (Unsp spec) [#/Vol]Ordered By: Zeny Crow on 12-09-2024 Lymphocytes (Bld) [#/Vol] 2.59 10*3/uL 0.83-4.51 [facility] Lymphocytes/100 WBC Auto (Un sp spec)Ordered By: Zeny Crow on 12-09-2024 Lymphocytes/100 WBC (Bld) 30.2 % 19-41 [facility] MCV (mean corpuscular volume ) determinationOrdered By: Zeny Crow on 12-09-2024 MCV (RBC) [Entitic vol] 83.9 fL 81-99 [facility] Mean corpuscular hemoglobin (MCH) determinationOrdered By: Zeny Crow on 12-09-2024 MCH (RBC) [Entitic mass] 27.6 pg 27.0-32.0 [facility] Mean corpuscular hemoglobin concentration (MCHC) determinationOrdered By: Zeny Crow on 12-09-2024 MCHC (RBC) [Mass/Vol] 32.9 g/dL 32-36 [facility] Mean platelet volume determi nationOrdered By: Zeny Crow on 12-09-2024 Platelet mean volume (Bld) [Entitic vol] 9.0 fL 6.2-12.0 [facility] Monocyte percentageOrdered B y: Zeny Crow on 12-09-2024 Monocytes/100 WBC (Bld) 4.4 % 0-10 [facility] Neutrophil percentageOrdered By: Zeny Crow on 12-09-2024 Neutrophils/100 WBC (Bld) 63.0 % 47-70 [facility] Nucleated red blood cell per centageOrdered By: Zeny Crwo on 12-09-2024 Nucleated RBC/100 WBC (Bld) [Ratio] 0 % 0-5 [facility] Platelet countOrdered By: Ivone Crow on 12-09-2024 Platelets (Bld) [#/Vol] 290 10*3/uL 150-450 [facility] Potassium (Unsp spec) [Mass/ Vol]Ordered By: Zeny Crow on 12-09-2024 Potassium [Moles/Vol] 3.9 mmol/L 3.3-5.1 [facility] Potassium measurement (mass/ volume)Ordered By: Zeny Crow on 12-09-2024 Potassium (Unsp spec) [Mass/Vol] 3.9 mmol/L 3.3-5.1 [facility] RBC Auto (Bld) [#/Vol]Ordere d By: Zeny Crow on 12-09-2024 RBC (Bld) [#/Vol] 4.60 10*6/uL 4.2-5.4 [facility] Screening total cholesterol/ high density lipoprotein (HDL) cholesterol ratioOrdered By: Zeny Crow on 12-09-2024 Cholesterol.total/Cho lesterol in HDL [Mass ratio] 2.41 {ratio} [facility] Serum creatinine measurement (mass/volume)Ordered By: Zeny Crow on 12-09-2024 Creatinine [Mass/Vol] 0.94 mg/dL 0.70-1.20 [facility] Serum globulin measurementOr dered By: Zeny Crow on 12-09-2024 Globulin (S) [Mass/Vol] 3.0 g/dL 2.2-4.2 [facility] Serum glucose measurement (m ass/volume)Ordered By: Zeny Crow on 12-09-2024 Glucose [Mass/Vol] 128 mg/dL High 70-99 [facility] Serum or plasma alanine abebe otransferase (ALT) measurementOrdered By: Zeny Crow on 12-09-2024 ALT [Catalytic activity/Vol] 14 U/L <35 [facility] Serum or plasma albumin hellen urement (mass/volume)Ordered By: Zeny Crow on 12-09-2024 Albumin [Mass/Vol] 4.3 g/dL 3.4-4.8 [facility] Serum or plasma albumin/glob ulin mass ratioOrdered By: Zeny Crow on 12-09-2024 Albumin/Globulin [Mass ratio] 1.5 {ratio} 0.9-2.4 [facility] Serum or plasma alkaline puma sphatase measurementOrdered By: Zeny Crow on 12-09-2024 ALP [Catalytic activity/Vol] 66 U/L 35-104 [facility] Serum or plasma calcium hellen urement (mass/volume)Ordered By: Zeny Crow on 12-09-2024 Calcium [Mass/Vol] 9.6 mg/dL 7.6-11.0 [facility] Serum or plasma cholesterol in HDL measurement (mass/volume)Ordered By: Zeny Crow on 12-09-2024 Cholesterol in HDL [Mass/Vol] 51 mg/dL >40 [facility] Comment on above: National Cholesterol Education Program (NCEP) guidelines:<40 mg/dL: Low HDL-cholesterol (major risk factor for CHD)>= 60 mg/dL: High HDL-cholesterol (negative risk factor for CHD)HDL-cholesterol is affected by a number of factors, e.g. smoking, exercise, hormones, sex and age. Serum or plasma cholesterol measurement (mass/volume)Ordered By: Zeny Crow on 12-09-2024 Cholesterol [Mass/Vol] 124 mg/dL <201 [facility] Comment on above: Cholesterol level, D esirable <200 mg/dLBorderline high cholesterol 200-239 mg/dLHigh cholesterol >=240 mg/dLRecommendations of the NCEP Adult Treatment Panel for the following risk-cutoff thresholds for the [place] population. Serum or plasma urea nitroge n measurement (mass/volume)Ordered By: Zeny Crow on 12-09-2024 Urea nitrogen [Mass/Vol] 19 mg/dL 4-19 [facility] Sodium levelOrdered By: Zeny Crow on 12-09-2024 Sodium [Moles/Vol] 138 mmol/L 133-145 [facility] Total proteinOrdered By: Hunter Crow on 12-09-2024 Protein [Mass/Vol] 7.3 g/dL 5.9-8.4 [facility] Triglycerides measurementOrd ered By: Zeny Nashанна on 12-09-2024 Triglyceride [Mass/Vol] 174 mg/dL <199 [facility] Comment on above: The drugs N-Acetylcy steine and Metamizole may falsely depress this assay. Normal range: <150 mg/dLBorderline High: 150-199 mg/dLHigh: 200-499 mg/dLVery High: >500 mg/dL White blood cell (WBC) count Ordered By: Zeny Yovanyjanie on 12-09-2024 WBC (Bld) [#/Vol] 8.6 10*3/uL 4.4-11.0 [facility] Inital Evaluation (1) - PTon 12-03-2024 Inital Evaluation (1) - PT [facility] Physical Therapy [facility] [address] [place] [address]. [address] [place] [address] / REHABILITATION SERVICES INITIAL EVALUATION MR#: [id number] Acct: [id number] Name: BHARATH BEARD Rep #: [id number] : 1945 79 From: Eduardo Orr PT, ATC Referring Dr.: Dr. Shayne Dia MD Status: REG RC R Insurance: [facility] SELF PAY INSURANCE Patient's Visit Information Visit Information Visit Information: BHARATH BEARD is a 79 year old F referred to Physical Therapy by Dr. Shayne Dia MD with a diagnosis of LBP with Sciatica. Date of Evaluation: 12/03/24 Physical Therapist: Eduardo Orr, PT, ATC Visit Plan Frequency: 2x /Week Duration: 4-6 Weeks Plan: Assess benefit of Prone prop ex's. Prone prop progression, Postural edu, core strengthening ex's, and HEP Subjective Subjective: Pt reports she has had sciatica since last fall. Pt reports she had to sleep on a couch at that time secondary to an ailing . Pt reports this pain has only worsened since that time. Pt notes now she has pain that radiates into her LB and refers around her frontal regions. Pt notes she also has a pain in her R gastroc. Pt reports sitting tends to increase her pain. Pt reports she feels as though she has 2 rocks she is sitting on. Pt reports occasional sleep difficulty at this time when she attempts to roll over. Pt reports walking tends to make her feel weaker. Pt reports prolonged standing has no effect of her. Pt denies having any recent Dx tests. Pt denies any falls in the past. Pt reports she lives in a 2 story house, and has to negotiate the steps daily. 4/10 pain at rest, 9/10 pain at worst. Pain LBP: Pain Intensity (Out of 10): 4 Pain Intensity Range: 9 Objective Objective: Neuro: B LE sensation is WNL to light touch MMT: B LE's are grossly 4/5 throughout when compared bilaterally ROM: Pt is moderately limited in all planes. Repeated movements: Flex in standing increases LBP. Ext is standing decreases LBP. Prone prop progression to elbows had NE. SKTC/DKTC TUG 16 sec Balance/Special Test Scores Oswestry Low Back Score: 18 Goals Goal 1:: Decrease LBP x 50% to aid with sleep Goal Time Frame: 4-6 Weeks Goal 2:: Decrease the frequency and intensity of LE radiculaopthy x 50% to aid the ambulation Goal Time Frame: 4-6 Weeks Goal 3:: Perform Tug test in under 10 sec Goal Time Frame: 4-6 Weeks Goal 4:: I with HEP Goal Time Frame: 4-6 Weeks Rehabilitation Potential Physical Therapy Diagnosis: Pt has LBP, limited L/S ROM, and sciatica at this time secondary to deg changes in the L/S Rehabilitation Potential: Good Anticipated Interventions Patient/Client Instruction: Educate patient on: Condition and Plan of Care For the Purpose of:: To improve self management Therapeutic Exercise to Include: Strength training, Endurance training, Body mechanics, Postural training, Dynamic Lumbar Stabilization and Virgilio Exercises For the Purpose of:: To decrease pain, To increase ROM and To improve muscle performance and motor function Text: Thank you for the opportunity to evaluate your patient. For Medicare and Medicare HMO plans, please review the plan of care and approve it. It will need to be FAXED BACK to us at [phone] for Medicare purposes. For Medicare only, by signing this I certify the plan of care. Please let me know if there are questions or concerns regarding this plan of care. Physician Signature: Date: 12/03/24 1459 CC: Dr. Zeny Crow MD; Dr. Shayne Dia MD [facility] Signed Normal [facility] Endocrinology Visit Reporton 11-11-2024 Endocrinology Visit Report [facility] [address] [place] [address] OFFICE VISIT Date of Service: 11/11/24 MR#: [id number] Acct: [id number] Name: BHARATH BEARD Rep #: [id number] : 1945 Provider: Grisel Hernandez Age/Sex: 79/F Location: [facility] Status: Signed Intake Vital Signs 05/12/24 15:14 11/11/24 10:23 Height 5 ft 3 in 5 ft 3 in Weight: 184 lb 6 oz BMI 32.6 BP 138/72 H Blood Pressure Location Rt brachial Position Sitting Pulse 63 Pulse Source Monitor Pulse Oximetry (%) 97 Oxygen Delivery Method room air Intake Visit Reasons: 6 M FU Chief Complaint: dry cough, headache, sinus pressure Is patient in pain?: No Allergies oxycodone (From Percocet) Allergy (Mild, Verified 11/11/24 10:28) hives amoxicillin Allergy (Verified 11/11/24 10:28) Rash adhesive tape Adverse Reaction (Mild, Verified 11/11/24 10:28) redness doxycycline Adverse Reaction (Verified 11/11/24 10:28) Other Medications ???Medication ???Instructions ???Recorded ???Confirmed ???Type aspirin 81 mg tablet,delayed 81 mg PO DAILY 10/24/19 11/11/24 H istory release ascorbic acid (vitamin C) 500 mg 500 mg PO DAILY 12/09/19 11/11/24 History tablet calcium carbonate 500 mg PO DAILY 12/09/19 11/11/24 History metoprolol succinate 50 mg 50 mg PO DAILY 12/09/19 11/11/24 H istory tablet,extended release 24 hr vitamin E (dl, acetate) 180 mg 400 unit PO DAILY 12/09/19 5 History (400 unit) capsule coenzyme Q10 200 mg capsule 200 mg PO DAILY 07/21/20 11/11/24 History mupirocin 2 % topical ointment 1 applic topical BID PRN Wound Car e 07/21/20 11/11/24 History rosuvastatin 10 mg tablet 10 mg PO QHS 01/19/21 11/11/24 His tory B-complex with vitamin C 1 cap PO DAILY 01/16/23 11/11/24 H istory propylene glycol 0.6 % eye drops 1 drp ophthalmic (eye) BID PRN dry 01/16/23 11/11/24 History (Systane Balance) eye(s) cholecalciferol (vitamin D3) 25 25 mcg PO DAILY 10/17/23 11/11/24 History mcg (1,000 unit) capsule (Vitamin D3) triamcinolone acetonide 0.1 % 1 applic topical DAILY 10/17/23 History topical cream methylprednisolone 4 mg tablets in See Rx Instructions PO PER PKG D IR 08/12/24 11/11/24 Rx a dose pack (Medrol (Harish)) #21 tabs methimazole 5 mg tablet 2.5 mg (1/2 x 5 mg) PO .4 days per 11/11/24 11/11/24 Rx week #24 tabs Have you fallen in the past year?: No PFSH Medical History Bilateral thumb pain Sciatica High cholesterol Obesity Toxic multinodular goiter Wears glasses Alcohol use Thyroid disease Diabetes Dietary restriction Difficulty swallowing Gastric reflux Non-smoker PONV (postoperative nausea and vomiting) Shortness of breath on exertion Leg cramps History of stress test History of echocardiogram Cardiology follow-up encounter History of irregular heartbeat Personal history of colonic polyps Multiple thyroid nodules Premature ventricular complex Diabetes mellitus type II, controlled Hyperlipidemia Bradycardia Multinodular thyroid Cyst of breast, left, diffuse fibrocystic Hypertension GI problem Bleeding disorder Arthritis Hypothyroid Surgical History History of cardiac catheterization History of D C History of colonoscopy ( 2016) Status post biopsy of thyroid gland ( 11/2018) History of wisdom tooth extraction History of breast biopsy ( 06/2018) H/O: hysterectomy History of appendectomy Family History Mother , Age 72, of [place] Myocardial infarction CAD (coronary artery disease) CVA (cerebral vascular accident) Hyperlipidemia Hypertension Father , Age 94 Heart disease Hyperlipidemia Thyroid disorder Prostate cancer Brother , of [place] Exposure Diabetes Hypertension Heart disease Hyperlipidemia CVA (cerebral vascular accident) Agent orange exposure Brother , of AIDS AIDS Sister , in MVA MVA (motor vehicle accident) Son Abdominal aortic aneurysm Grandmother Diabetes Social History Smoking Status: Never smoker alcohol intake: current details: social substance use type: does not use seatbelt use: always do you feel safe at home: Yes additional social history: -Aparna HPI HPI Chief Complaint: dry cough, headache, sinus pressure Details: BHARATH BEARD, is a 79 F who presents to the office today for follow up. She has toxic MNG. Recent labs are normal. She is feeling well. She has diet controlled type 2 diabetes. A1C today is 6.1% She is testi (more content not included)... Normal [facility] Direct serum free thyroxine (FT4) measurementOrdered By: Shayne Dia on 11-10-2024 Free T4 [Mass/Vol] 0.69 ng/dL Low 0.76-1.46 [facility] Free T3on 11-10-2024 Free T3 [Mass/Vol] 3.1 pg/mL Normal 2.18-3.98 [facility] Comment on above: Performed By: #### L 501.9520, L506.0400, L501.50409 #### [facility] Laboratory [address] [place], [place], [address] Free [id number] By: Shayne Dia on 11-10-2024 Free T3 [Mass/Vol] 3.1 pg/mL 2.18-3.98 [facility] Free Triiodothyronine (T3) pg/dL 3.1 pg/mL 2.18-3.98 [facility] Serum or plasma thyroid stim ulating hormone (TSH) measurement (units/volume)Ordered By: Shayne Dia on 11-10-2024 TSH Qn 0.626 uIU/mL 0.358-3.74 0 [facility] T4 Free Directon 11-10-2024 T4 FREE DIRECT 0.69 ng/dL Low 0.76-1.46 [facility] Comment on above: Performed By: #### L 501.9520, L506.0400, L501.85203 #### [facility] Laboratory [address] [place], [address] TSH QnOrdered By: Shayne Dia on 11-10-2024 Thyroid Stimulating Hormone (TSH) 0.626 uIU/mL 0.358-3.74 0 [facility] Thyroid Stim Hormone (TSH)on 11-10-2024 TSH 0.626 uIU/mL Normal 0.358-3.74 0 [facility] Comment on above: Performed By: #### L 501.9520, L506.0400, L501.99880 #### [facility] Laboratory [address] [place], [address] Breast Limited Unilateralon 09-11-2024 Breast Limited Unilateral [facility] Imaging Services [address] [place] [address] Breast Limited Unilateral MR#: [id number] Acct: [id number] Name: BHARATH BEARD Rep #: [id number] : 1945 F 79 From: Ulisses figueroa MD PCP: Dr. Zeny Crow MD Status: [facility] Study: Breast Limited Unilateral Date of Exam: Exam# [id number] Ordering Dr: Sophia López [id number] STUDY: ULTRASOUND BREAST - LEFT REASON FOR EXAM: Female, 79 years old. Abnormal screening mammogram. TECHNIQUE: Axial and longitudinal images of the LEFT breast were performed with a high resolution ultrasound transducer. # OF IMAGES: 41 COMPARISON: Comparison is made with prior mammogram dated September 04, 2024 and prior sonogram of the left breast dated June 20, 2018. FINDINGS: LEFT Breast: The upper medial portion of the left breast was examined with ultrasound. There is a 1.2 cm x 1.1 cm x 1.2 cm cyst at the 10:00 position breast at 7 cm from nipple. There is also evidence of a 1 cm x 1.1 cm x 0.8 cm cyst at the 10:00 position of the breast at 8 cm from the nipple. US/Breast Limited Unilateral IMPRESSION: The mammographic abnormality corresponds to 2 adjacent small cysts. ASSESSMENT CATEGORY: BIRADS Category 2: Benign. A letter regarding these results will be sent to the patient by the facility within 30 days. Electronically Signed: Ulisses Lewis MD at 13:56 EST Reading Location ID and State: [facility] / [place] , Service support , CC: Dr. Zeny Crow MD; Dr. Sophia López MD [employer]ch: Signed Normal [facility] SCRN MAMM (CAD)W/CHIRSTINA BILATo n 09-04-2024 SCRN MAMM (CAD)W/CHRISTINA BILAT [facility] Imaging Services [address] [facility] [place], [place] [address] SCRN MAMM (CAD)W/CHRISTINA BILAT MR#: [id number] Acct: [id number] Name: BHARATH BEARD Rep #: [id number] : 1945 F 79 From: Ulisses figueroa MD PCP: Dr. Zeny Crow MD Status: REG CLI Study: SCRN MAMM (CAD)W/CHRISTINA BILAT Date of Exam: 08/24 11/17 Exam# [id number] Ordering Dr: Sophia López [id number] MAMMOGRAPHY - BILATERAL SCREENING REASON FOR EXAM: Female, 79 years old. Routine annual screening examination. PERTINENT HISTORY: Non-contributory. Remote left stereotactic breast biopsy and breast aspirations. TECHNIQUE: Digital bilateral breast christina (3D mammographic acquisition) in the CC and MLO projections. 2-D mediolateral oblique (MLO) and craniocaudad (CC) views of both breasts were obtained. CAD: Full Field Digital Mammography with Computer Added Detection was performed. COMPARISON: Comparison is made with prior study September 03, 2023 and September 01, 2022. FINDINGS: Breast Composition: The breasts are heterogeneously dense, which may obscure small masses. Several well-defined nodular densities are seen in the left breast. The largest is in the central medial aspect measuring 1.5 cm x 1.3 cm. Sonographic correlation recommended. Stable bilateral fat containing axillary lymph nodes. No other significant abnormalities are identified. BI/SCRN MAMM (CAD)W/CHRISTINA BILAT IMPRESSION: Nodules in the left breast as described. Correlation with ultrasound recommended. ASSESSMENT CATEGORY: BIRADS Category 0: Incomplete. Need additional imaging evaluation. A letter regarding these results will be sent to the patient by the facility within 30 days. Approximately 10% of breast cancers are not detected by mammography. A normal mammogram should not delay biopsy of a clinically suspicious abnormality. [id number] Electronically Signed: Ulisses Lewis MD at 10:11 EST , CC: Dr. eZny Crow MD; Dr. Sophia López MD [employer] [employer]: Signed Normal [facility] Urgent Care Visit Reporton 1 10-12-2023 Urgent Care Visit Report [facility] [address], [address] [place] [address] OFFICE VISIT Date of Service: 08/12/24 MR#: [id number] Acct: [id number] Name: BHARATH BEARD Rep #: [id number] : 1945 Provider: SUZAN Romero Age/Sex: 79/F Location[place] [facility] Status: Signed Intake Vital Signs 06/03/24 12:35 08/12/24 12:45 08/12/24 12:56 Height 5 ft 3 in 5 ft 3 in Weight: 182 lb BMI 32.2 BP 128/86 H 124/68 H Blood Pressure Location Lt brachial Lt brachial Position Sitting Sitting Respiration 16 14 Pulse 68 65 Pulse Source Monitor Monitor Temp 98.6 F 98.8 F Temp Source Temporal Temporal Pulse Oximetry (%) 98 97 Oxygen Delivery Method room air room air Intake Visit Reasons: COUGH/BOOTHE/SINUS PRESSURE Accompanied by: Self Is patient in pain?: No Allergies oxycodone (From Percocet) Allergy (Mild, Verified 08/12/24 12:45) hives amoxicillin Allergy (Verified 08/12/24 12:45) Rash adhesive tape Adverse Reaction (Mild, Verified 08/12/24 12:45) redness doxycycline Adverse Reaction (Verified 08/12/24 12:45) Other Medications ???Medication ???Instructions ???Recorded ???Confirmed ???Type aspirin 81 mg tablet,delayed 81 mg PO DAILY 10/24/19 08/12/24 History release ascorbic acid (vitamin C) 500 mg 500 mg PO DAILY 12/09/19 08/12/24 History tablet calcium carbonate 500 mg PO DAILY 12/09/19 08/12/24 History metoprolol succinate 50 mg 50 mg PO DAILY 12/09/19 08/12/24 History tablet,extended release 24 hr vitamin E (dl, acetate) 180 mg 400 unit PO DAILY 12/09/19 08/12/24 History (400 unit) capsule coenzyme Q10 200 mg capsule 200 mg PO DAILY 07/21/20 08/12/24 History mupirocin 2 % topical ointment 1 applic topical BID PRN Wound Care 07/21/20 08/12/24 History rosuvastatin 10 mg tablet 10 mg PO QHS 01/19/21 08/12/24 History B-complex with vitamin C 1 cap PO DAILY 01/16/23 08/12/24 History propylene glycol 0.6 % eye drops 1 drp ophthalmic (eye) BID PRN dry 01/16/23 08/12/24 History (Systane Balance) eye(s) cholecalciferol (vitamin D3) 25 25 mcg PO DAILY 10/17/23 08/12/24 History mcg (1,000 unit) capsule (Vitamin D3) triamcinolone acetonide 0.1 % 1 applic topical DAILY 10/17/23 08/12/24 History topical cream methimazole 5 mg tablet 2.5 mg (1/2 x 5 mg) PO .4 days per 05/13/24 08/12/24 Rx week #36 tabs methylprednisolone 4 mg tablets in See Rx Instructions PO PER PKG DIR 08/12/24 08/12/24 Rx a dose pack (Medrol (Harish)) #21 tabs Have you fallen in the past year?: No PFSH Medical History High cholesterol Obesity Toxic multinodular goiter Wears glasses Alcohol use Thyroid disease Diabetes Dietary restriction Difficulty swallowing Gastric reflux Non-smoker PONV (postoperative nausea and vomiting) Shortness of breath on exertion Leg cramps History of stress test History of echocardiogram Cardiology follow-up encounter History of irregular heartbeat Personal history of colonic polyps Multiple thyroid nodules Premature ventricular complex Diabetes mellitus type II, controlled Hyperlipidemia Bradycardia Multinodular thyroid Cyst of breast, left, diffuse fibrocystic Hypertension GI problem Bleeding disorder Arthritis Hypothyroid Surgical History History of cardiac catheterization History of D C History of colonoscopy ( 2016) Status post biopsy of thyroid gland ( 11/2018) History of wisdom tooth extraction History of breast biopsy ( 06/2018) H/O: hysterectomy History of appendectomy Family History Mother , Age 72, of [place] Myocardial infarction CAD (coronary artery disease) CVA (cerebral vascular accident) Hyperlipidemia Hypertension Father , Age 94 Heart disease Hyperlipidemia Thyroid disorder Prostate cancer Brother , of [place] Exposure Diabetes Hypertension Heart disease Hyperlipidemia CVA (cerebral vascular accident) Agent orange exposure Brother , of AIDS AIDS Sister , in MVA MVA (motor vehicle accident) Son Abdominal aortic aneurysm Grandmother Diabetes Social History Smoking Status: Never smoker alcohol intake: current details: social substance use type: does not use seatbelt use: always do you feel safe at home: Yes additional social history: -Aparna [facility] HPI Details: BHARATH BEARD, is a 79 F who presents to the office today for initial evaluation in the [facility] for approximately 48-hour history of persistent sinus congestion, cough, fatigue. Patient notes no complaints of chest pain or shortness of (more content not included)... Normal [facility] Urgent Care Visit Reporton 0 06-14-2024 Urgent Care Visit Report [facility] [address], [address] [place] [address] OFFICE VISIT Date of Service: 06/14/24 MR#: [id number] Acct: [id number] Name: BHARATH BEARD Rep #: [id number] : 1945 Provider: KODY Dumont Age/Sex: 79/F Location: [facility] Status: Signed Intake Vital Signs 06/03/24 12:35 06/14/24 11:18 Height 5 ft 3 in Weight: 182 lb BMI 32.2 BP 128/86 H 124/60 H Blood Pressure Location Lt brachial Lt brachial Position Sitting Sitting Respiration 16 16 Pulse 68 63 Pulse Source Monitor NIBP Temp 98.6 F 98.6 F Temp Source Temporal Temporal Pulse Oximetry (%) 98 98 Oxygen Delivery Method room air room air Intake Visit Reasons: SINUS PRESSURE/EXPOSED TO COVID Chief Complaint: face pain, drainage, cough Nursing Service Director Required: No Is patient in pain?: Yes Allergies oxycodone (From Percocet) Allergy (Mild, Verified 06/14/24 11:43) hives amoxicillin Allergy (Verified 06/14/24 11:43) Rash adhesive tape Adverse Reaction (Mild, Verified 06/14/24 11:43) redness doxycycline Adverse Reaction (Verified 06/14/24 11:43) Other Medications ???Medication ???Instructions ???Recorded ???Confirmed ???Type aspirin 81 mg tablet,delayed 81 mg PO DAILY 10/24/19 06/14/24 History release ascorbic acid (vitamin C) 500 mg 500 mg PO DAILY 12/09/19 06/14/24 History tablet calcium carbonate 500 mg PO DAILY 12/09/19 06/14/24 History metoprolol succinate 50 mg 50 mg PO DAILY 12/09/19 06/14/24 History tablet,extended release 24 hr vitamin E (dl, acetate) 180 mg 400 unit PO DAILY 12/09/19 06/14/24 History (400 unit) capsule coenzyme Q10 200 mg capsule 200 mg PO DAILY 07/21/20 06/14/24 History mupirocin 2 % topical ointment 1 applic topical BID PRN Wound Care 07/21/20 06/14/24 History rosuvastatin 10 mg tablet 10 mg PO QHS 01/19/21 06/14/24 History B-complex with vitamin C 1 cap PO DAILY 01/16/23 06/14/24 History propylene glycol 0.6 % eye drops 1 drp ophthalmic (eye) BID PRN dry 01/16/23 06/14/24 History (Systane Balance) eye(s) cholecalciferol (vitamin D3) 25 25 mcg PO DAILY 10/17/23 06/14/24 History mcg (1,000 unit) capsule (Vitamin D3) triamcinolone acetonide 0.1 % 1 applic topical DAILY 10/17/23 06/14/24 History topical cream methimazole 5 mg tablet 2.5 mg (1/2 x 5 mg) PO .4 days per 05/13/24 06/14/24 Rx week #36 tabs levofloxacin 750 mg tablet 750 mg PO QDAY 5 days #5 tabs 06/14/24 06/14/24 Rx Is last menstrual period known: No Post menopausal: Yes Patient : No Have you fallen in the past year?: No Nurse's Note: face pain, drainage, cough x 2 weeks without resolve. finished cough suppressant and steroids, s/s continue [facility] Medical History High cholesterol Obesity Toxic multinodular goiter Wears glasses Alcohol use Thyroid disease Diabetes Dietary restriction Difficulty swallowing Gastric reflux Non-smoker PONV (postoperative nausea and vomiting) Shortness of breath on exertion Leg cramps History of stress test History of echocardiogram Cardiology follow-up encounter History of irregular heartbeat Personal history of colonic polyps Multiple thyroid nodules Premature ventricular complex Diabetes mellitus type II, controlled Hyperlipidemia Bradycardia Multinodular thyroid Cyst of breast, left, diffuse fibrocystic Hypertension GI problem Bleeding disorder Arthritis Hypothyroid Surgical History History of cardiac catheterization History of D C History of colonoscopy ( 2016) Status post biopsy of thyroid gland ( 11/2018) History of wisdom tooth extraction History of breast biopsy ( 06/2018) H/O: hysterectomy History of appendectomy Family History Mother , Age 72, of [place] Myocardial infarction CAD (coronary artery disease) CVA (cerebral vascular accident) Hyperlipidemia Hypertension Father , Age 94 Heart disease Hyperlipidemia Thyroid disorder Prostate cancer Brother , of [place] Exposure Diabetes Hypertension Heart disease Hyperlipidemia CVA (cerebral vascular accident) Agent orange exposure Brother , of AIDS AIDS Sister , in MVA MVA (motor vehicle accident) Son Abdominal aortic aneurysm Grandmother Diabetes Social History Smoking Status: Never smoker alcohol intake: current details: social substance use type: does not use seatbelt use: always do you feel safe at home: Yes additional social history: -Aparna HPI HPI Chief Complaint: face pain, drainage, cough Details: J (more content not included)... Normal [facility] Urgent Care Visit Reporton 0 06-03-2024 Urgent Care Visit Report [facility] [address], [address] [place] [address] OFFICE VISIT Date of Service: 06/03/24 MR#: [id number] Acct: [id number] Name: BHARATH BEARD Rep #: [id number] : 1945 Provider: SUZAN Romero Age/Sex: 79/F Location: [facility] Status: Signed Intake Vital Signs 05/19/24 14:50 06/03/24 12:35 Height 5 ft 3 in 5 ft 3 in Weight: 182 lb BMI 32.2 BP 128/86 H Blood Pressure Location Lt brachial Position Sitting Respiration 16 Pulse 68 Pulse Source Monitor Temp 98.6 F Temp Source Temporal Pulse Oximetry (%) 98 Oxygen Delivery Method room air Intake Visit Reasons: SINUS PRESSURE/CONGESTION/BOOTHE Chief Complaint: SINUS PRESSURE Nursing Service Director Required: No Accompanied by: Is patient in pain?: No Allergies oxycodone (From Percocet) Allergy (Mild, Verified 06/03/24 12:36) hives amoxicillin Allergy (Verified 06/03/24 12:36) Rash adhesive tape Adverse Reaction (Mild, Verified 06/03/24 12:36) redness Medications ???Medication ???Instructions ???Recorded ???Confirmed ???Type aspirin 81 mg tablet,delayed 81 mg PO DAILY 10/24/19 06/03/24 History release ascorbic acid (vitamin C) 500 mg 500 mg PO DAILY 12/09/19 06/03/24 History tablet calcium carbonate 500 mg PO DAILY 12/09/19 06/03/24 History metoprolol succinate 50 mg 50 mg PO DAILY 12/09/19 06/03/24 History tablet,extended release 24 hr vitamin E (dl, acetate) 180 mg 400 unit PO DAILY 12/09/19 06/03/24 History (400 unit) capsule coenzyme Q10 200 mg capsule 200 mg PO DAILY 07/21/20 06/03/24 History mupirocin 2 % topical ointment 1 applic topical BID PRN Wound Care 07/21/20 06/03/24 History rosuvastatin 10 mg tablet 10 mg PO QHS 01/19/21 06/03/24 History B-complex with vitamin C 1 cap PO DAILY 01/16/23 06/03/24 History propylene glycol 0.6 % eye drops 1 drp ophthalmic (eye) BID PRN dry 01/16/23 06/03/24 History (Systane Balance) eye(s) cholecalciferol (vitamin D3) 25 25 mcg PO DAILY 10/17/23 06/03/24 History mcg (1,000 unit) capsule (Vitamin D3) triamcinolone acetonide 0.1 % 1 applic topical DAILY 10/17/23 06/03/24 History topical cream methimazole 5 mg tablet 2.5 mg (1/2 x 5 mg) PO .4 days per 05/13/24 06/03/24 Rx week #36 tabs benzonatate 200 mg capsule 200 mg PO TID PRN cough #20 caps 06/03/24 06/03/24 Rx methylprednisolone 4 mg tablets in See Rx Instructions PO PER PKG DIR 06/03/24 06/03/24 Rx a dose pack (Medrol (Harish)) #21 tabs Have you fallen in the past year?: No PFSH Medical History High cholesterol Obesity Toxic multinodular goiter Wears glasses Alcohol use Thyroid disease Diabetes Dietary restriction Difficulty swallowing Gastric reflux Non-smoker PONV (postoperative nausea and vomiting) Shortness of breath on exertion Leg cramps History of stress test History of echocardiogram Cardiology follow-up encounter History of irregular heartbeat Personal history of colonic polyps Multiple thyroid nodules Premature ventricular complex Diabetes mellitus type II, controlled Hyperlipidemia Bradycardia Multinodular thyroid Cyst of breast, left, diffuse fibrocystic Hypertension GI problem Bleeding disorder Arthritis Hypothyroid Surgical History History of cardiac catheterization History of D C History of colonoscopy ( 2016) Status post biopsy of thyroid gland ( 11/2018) History of wisdom tooth extraction History of breast biopsy ( 06/2018) H/O: hysterectomy History of appendectomy Family History Mother , Age 72, of [place] Myocardial infarction CAD (coronary artery disease) CVA (cerebral vascular accident) Hyperlipidemia Hypertension Father , Age 94 Heart disease Hyperlipidemia Thyroid disorder Prostate cancer Brother , of [place] Exposure Diabetes Hypertension Heart disease Hyperlipidemia CVA (cerebral vascular accident) Agent orange exposure Brother , of AIDS AIDS Sister , in MVA MVA (motor vehicle accident) Son Abdominal aortic aneurysm Grandmother Diabetes Social History Smoking Status: Never smoker alcohol intake: current details: social substance use type: does not use seatbelt use: always do you feel safe at home: Yes additional social history: -Aparna HPI HPI Chief Complaint: SINUS PRESSURE Details: BHARATH BEARD, is a 79 F who presents to the office today for initial evaluation in the [facility] for less than 24-hour history of sinus pressure/ congestion, cough, BOOTHE. Patient notes no complaints (more content not included)... Normal [facility] Speech Writer Office Visit Reporton 05-19-2024 Speech Writer Office Visit Report [facility] [address], [address] [place] [address] OFFICE VISIT Date of Service: 05/19/24 MR#: [id number] Acct: [id number] Name: BHARATH BEARD Rep #: [id number] 2 : 1945 Provider: Dr. 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 Required: No Is patient in pain?: Yes (right hip/ankle/knee -chronic) Allergies oxycodone (From Percocet) Allergy (Mild, Verified 05/19/24 14:43) hives amoxicillin Allergy (Verified 05/19/24 14:43) Rash adhesive tape Adverse Reaction (Mild, Verified 05/19/24 14:43) redness Medications ???Medication ???Instructions ???Recorded ???Confirmed ???Type aspirin 81 mg tablet,delayed 81 mg PO DAILY 10/24/19 05/19/24 History release ascorbic acid (vitamin C) 500 mg 500 mg PO DAILY 12/09/19 05/19/24 History tablet calcium carbonate 500 mg PO DAILY 12/09/19 05/19/24 History metoprolol succinate 50 mg 50 mg PO DAILY 12/09/19 05/19/24 History tablet,extended release 24 hr vitamin E (dl, acetate) 180 mg 400 unit PO DAILY 12/09/19 05/19/24 History (400 unit) capsule coenzyme Q10 200 mg capsule 200 mg PO DAILY 07/21/20 05/19/24 History mupirocin 2 % topical ointment 1 applic topical BID PRN Wound Care 07/21/20 05/19/24 History rosuvastatin 10 mg tablet 10 mg PO QHS 01/19/21 05/19/24 History B-complex with vitamin C 1 cap PO DAILY 01/16/23 05/19/24 History propylene glycol 0.6 % eye drops 1 drp ophthalmic (eye) BID PRN dry 01/16/23 05/19/24 History (Systane Balance) eye(s) cholecalciferol (vitamin D3) 25 25 mcg PO DAILY 10/17/23 05/19/24 History mcg (1,000 unit) capsule (Vitamin D3) triamcinolone acetonide 0.1 % 1 applic topical DAILY 10/17/23 05/19/24 History topical cream methimazole 5 mg tablet 2.5 mg (1/2 x 5 mg) PO .4 days per 05/13/24 05/19/24 Rx week #36 tabs Is last menstrual period known: No Post menopausal: Yes Patient : No : No PFSH Medical History High cholesterol Obesity Toxic multinodular goiter Wears glasses Alcohol use Thyroid disease Diabetes Dietary restriction Difficulty swallowing Gastric reflux Non-smoker PONV (postoperative nausea and vomiting) Shortness of breath on exertion Leg cramps History of stress test History of echocardiogram Cardiology follow-up encounter History of irregular heartbeat Personal history of colonic polyps Multiple thyroid nodules Premature ventricular complex Diabetes mellitus type II, controlled Hyperlipidemia Bradycardia Multinodular thyroid Cyst of breast, left, diffuse fibrocystic Hypertension GI problem Bleeding disorder Arthritis Hypothyroid Surgical History History of cardiac catheterization History of D C History of colonoscopy ( 2016) Status post biopsy of thyroid gland ( 11/2018) History of wisdom tooth extraction History of breast biopsy ( 06/2018) H/O: hysterectomy History of appendectomy Family History Mother , Age 72, of [place] Myocardial infarction CAD (coronary artery disease) CVA (cerebral vascular accident) Hyperlipidemia Hypertension Father , Age 94 Heart disease Hyperlipidemia Thyroid disorder Prostate cancer Brother , of [place] Exposure Diabetes Hypertension Heart disease Hyperlipidemia CVA (cerebral vascular accident) Agent orange exposure Brother , of AIDS AIDS Sister , in MVA MVA (motor vehicle accident) Son Abdominal aortic aneurysm Grandmother Diabetes Social History Smoking Status: Never smoker alcohol intake: current details: social substance use type: does not use seatbelt use: always do you feel safe at home: Yes additional social history: -Aparna [facility] Encounter for routine gynecological examination Details: BHARATH BEARD is a 77 year old who presents for annual exam. Last PAP: hyst History of abnormal PAP: no severe Last mammogram: nl History of abnormal mammogram: no Colon cancer screening: up to date 2023 Other preventative health care screenings: PCP ROS Const Constitutional: Reports as per HPI; Denies fatigue, increased appetite, poor appetite, weight gain or weight loss Cardio Card: Denies chest pain Resp Resp: Denies cough or dyspnea GI GI: Reports as per HPI; D (more content not included)... Normal [facility] Endocrinology Visit Reporton 05-12-2024 Endocrinology Visit Report [facility] [address] [place] [address] OFFICE VISIT Date of Service: 05/12/24 MR#: [id number] Acct: [id number] Name: BHARATH BEARD Rep #: [id number] 2 : 1945 Provider: Grisel Hernandez Age/Sex: 78/F Location[place] [facility] [place] Status: Signed Intake Vital Signs 10/09/23 13:03 10/19/23 07:51 05/12/24 15:14 Height 5 ft 3 in 5 ft 3 in 5 ft 3 in Weight: 183 lb BMI 32.4 BP 131/73 H Blood Pressure Location Lt brachial Position Sitting Respiration 16 Pulse 67 Pulse Source Monitor Temp 97.0 F L Temp Source Temporal Pulse Oximetry (%) 97 Oxygen Delivery Method room air Intake Visit Reasons: 6 M FU, RS 02/25 Chief Complaint: thyroid/diabetes Accompanied by: Self Is patient in pain?: Yes (Right side neck stiffness) Pain scale (1-10): 4 Allergies oxycodone (From Percocet) Allergy (Mild, Verified 05/12/24 15:11) hives amoxicillin Allergy (Verified 05/12/24 15:11) Rash adhesive tape Adverse Reaction (Mild, Verified 05/12/24 15:11) redness Medications ???Medication ???Instructions ???Recorded ???Confirmed ???Type aspirin 81 mg tablet,delayed 81 mg PO DAILY 10/24/19 05/12/24 History release ascorbic acid (vitamin C) 500 mg 500 mg PO DAILY 12/09/19 05/12/24 History tablet calcium carbonate 500 mg PO DAILY 12/09/19 05/12/24 History metoprolol succinate 50 mg 50 mg PO DAILY 12/09/19 05/12/24 History tablet,extended release 24 hr vitamin E (dl, acetate) 180 mg 400 unit PO DAILY 12/09/19 05/12/24 History (400 unit) capsule coenzyme Q10 200 mg capsule 200 mg PO DAILY 07/21/20 10/17/23 History mupirocin 2 % topical ointment 1 applic topical BID PRN Wound Care 07/21/20 05/12/24 History rosuvastatin 10 mg tablet 10 mg PO QHS 01/19/21 05/12/24 History B-complex with vitamin C 1 cap PO DAILY 01/16/23 05/12/24 History propylene glycol 0.6 % eye drops 1 drp ophthalmic (eye) BID PRN dry 01/16/23 05/12/24 History (Systane Balance) eye(s) cholecalciferol (vitamin D3) 25 25 mcg PO DAILY 10/17/23 05/12/24 History mcg (1,000 unit) capsule (Vitamin D3) triamcinolone acetonide 0.1 % 1 applic topical DAILY 10/17/23 05/12/24 History topical cream methimazole 5 mg tablet 2.5 mg (1/2 x 5 mg) PO .4 days per 05/13/24 Rx week #36 tabs Have you fallen in the past year?: No PFSH Medical History High cholesterol Obesity Toxic multinodular goiter Wears glasses Alcohol use Thyroid disease Diabetes Dietary restriction Difficulty swallowing Gastric reflux Non-smoker PONV (postoperative nausea and vomiting) Shortness of breath on exertion Leg cramps History of stress test History of echocardiogram Cardiology follow-up encounter History of irregular heartbeat Personal history of colonic polyps Multiple thyroid nodules Premature ventricular complex Diabetes mellitus type II, controlled Hyperlipidemia Bradycardia Multinodular thyroid Cyst of breast, left, diffuse fibrocystic Hypertension GI problem Bleeding disorder Arthritis Hypothyroid Surgical History History of cardiac catheterization History of D C History of colonoscopy ( 2016) Status post biopsy of thyroid gland ( 11/2018) History of wisdom tooth extraction History of breast biopsy ( 06/2018) H/O: hysterectomy History of appendectomy Family History Mother , Age 72, of [place] Myocardial infarction CAD (coronary artery disease) CVA (cerebral vascular accident) Hyperlipidemia Hypertension Father , Age 94 Heart disease Hyperlipidemia Thyroid disorder Prostate cancer Brother , of [place] Exposure Diabetes Hypertension Heart disease Hyperlipidemia CVA (cerebral vascular accident) Agent orange exposure Brother , of AIDS AIDS Sister , in MVA MVA (motor vehicle accident) Son Abdominal aortic aneurysm Grandmother Diabetes Social History (Updated 05/12/24 @ 15:13 by Carleen Miramontes) Smoking Status: Never smoker alcohol intake: current details: social substance use type: does not use seatbelt use: always do you feel safe at home: Yes additional social history: -Aparna [facility] HPI Chief Complaint: thyroid/diabetes Details: BHARATH BEARD, is a 78 F who presents to the office today for follow up. She has hyperthyroidism treated with methimazole. Labs done today are normal. She would like to continue methimazole. She has diet treated type 2 diabetes. A1C is 5.7% She has lost 8 more pounds. She is pleased. ROS Const Constitutional: No anorexia, excessive sweating, mal (more content not included)... Normal [facility] Free T3on 05-12-2024 Free T3 [Mass/Vol] 2.7 pg/mL Normal 2.18-3.98 [facility] Comment on above: Performed By: #### L [id number], L506.0400, L501.9520 #### [facility] Laboratory [address] [place], [address] T4 Free Directon 05-12-2024 T4 FREE DIRECT 0.71 ng/dL Low 0.76-1.46 [facility] Comment on above: Performed By: #### L [id number], L506.0400, [id number] #### [facility] Laboratory [address] [place], [address] Thyroid Stim Hormone (TSH)on 05-12-2024 TSH 0.242 uIU/mL Low 0.358-3.74 0 [facility] Comment on above: Performed By: #### L [id number], L506.0400, [id number] #### [facility] Laboratory [address] [place], [address] Basic Metabolic Profile (BMP )on 04-21-2024 BUN/CRE 21.6 RATIO High 10-20 [facility] Comment on above: Order Comment: Order Date: 04/04/24 Order Info: 0667- - BMP Performed By: #### L [id number] #### [facility] Laboratory [address] [place], [address] CA,Total 9.8 mg/dL Normal 8.5-10.1 [facility] Comment on above: Order Comment: Order Date: 04/04/24 Order Info: 0667- - BMP Performed By: #### L [id number] #### [facility] Laboratory [address] [place], [address] Chloride [Moles/Vol] 104 mmol/L Normal 98-107 [facility] Comment on above: Order Comment: Order Date: 04/04/24 Order Info: 0667- - BMP Performed By: #### L [id number] #### [facility] Laboratory [address] [place], [place], [address] CO2 [Moles/Vol] 29.0 mmol/L Normal 21.0-32.0 [facility] Comment on above: Order Comment: Order Date: 04/04/24 Order Info: 666-09 - BMP Performed By: #### L [id number] #### [facility] Laboratory [address] [place], [place], [id number] Creatinine [Mass/Vol] 0.93 mg/dL Normal 0.55-1.02 [facility] Comment on above: Order Comment: Order Date: 04/04/24 Order Info: 666-09 - [facility] Result Comment: The validity of the calculated GFR GFRAA in patients over 70 years has not been determined. Clinical correlation is essential. Performed By: #### L [id number] #### [facility] Laboratory [address] [place], [place], [address] EST GFR - AA 75 mL/min Normal >60 [facility] Comment on above: Order Comment: Order Date: 04/04/24 Order Info: 666-09 - [facility] Result Comment: Afri can Micronesian GFR Calc Performed By: #### L [id number] #### [facility] Laboratory [address], [address] GAP 5 Normal 5-15 [facility] Comment on above: Order Comment: Order Date: 04/04/24 Order Info: 666-09 - BMP Performed By: #### L [id number] #### [facility] Laboratory [address] [place], [place], [address] GFR/1.73 sq M.predicted among non-blacks MDRD (S/P/Bld) [Vol rate/Area] 62 mL/min/{1.73_m2} Normal >60 [facility] Comment on above: Order Comment: Order Date: 04/04/24 Order Info: 06- - BMP Result Comment: Non- GFR Calc Performed By: #### L [id number] #### [facility] Laboratory [address] [place], [address] Glucose [Mass/Vol] 97 mg/dL Normal 74-106 [facility] Comment on above: Order Comment: Order Date: 04/04/24 Order Info: 666-09 - BMP Performed By: #### L [id number] #### [facility] Laboratory [address] [place], [address] Potassium [Moles/Vol] 4.3 mmol/L Normal 3.5-5.1 [facility] Comment on above: Order Comment: Order Date: 04/04/24 Order Info: 666-09 - BMP Performed By: #### L [id number] #### [facility] Laboratory [address] [place], [address] Sodium [Moles/Vol] 138 mmol/L Normal 136-145 [facility] Comment on above: Order Comment: Order Date: 04/04/24 Order Info: 666-09 - BMP Performed By: #### L [id number] #### [facility] Laboratory [address] [place], [address] Urea nitrogen [Mass/Vol] 20 mg/dL High 7-18 [facility] Comment on above: Order Comment: Order Date: 04/04/24 Order Info: 666-09 - BMP Performed By: #### L [id number] #### [facility] Laboratory [address] [place], [address] Absolute lymphocyte countOrd ered By: Zeny Crow on 12-04-2023 Lymphocytes Auto (Unsp spec) [#/Vol] 2.38 10*3/uL 0.83-4.51 [facility] Automated lymphocyte count a s percentage of total leukocytesOrdered By: Zeny Crow on 12-04-2023 Lymphocytes/100 WBC Auto (Unsp spec) 29.8 % 19-41 [facility] Basophil percentageOrdered B y: Zeny Crow on 12-04-2023 Basophils/100 WBC (Bld) 0.5 % 0-1 [place] [facility] Bilirubin [Mass/Vol] 2.00 mg/dL 0.20-1.00 [facility] Comment on above: For patients on eltr ombopag therapy, use of Dimension [place] TBIL is not recommended. Chloride [Moles/Vol] 105 mmol/L 98-107 [facility] Cholesterol [Mass/Vol] 126 mg/dL <200 [facility] Comment on above: <200 mg/dL Desirable 200-240 mg/dL Borderline >240 mg/dL High Risk Eosinophils/100 WBC (Bld) 2.8 % 0-5 [facility] Glucose [Mass/Vol] 124 mg/dL 74-106 [facility] Comment on above: Fasting Glucose resu lt from 100 to 125 mg/dL suggests IMPAIRED HOMEOSTASIS per A.D.A. criteria. Hemoglobin (Bld) [Mass/Vol] 12.7 g/dL 12.0-15.0 [facility] Monocytes/100 WBC (Bld) 5.3 % 0-10 [facility] Neutrophils (Bld) [#/Vol] 4.9 10*3/uL 2.0-7.7 [facility] Neutrophils/100 WBC (Bld) 61.3 % 47-70 [facility] Potassium [Moles/Vol] 4.3 mmol/L 3.5-5.1 [facility] Protein [Mass/Vol] 7.3 g/dL 6.4-8.2 [facility] Sodium [Moles/Vol] 138 mmol/L 136-145 [facility] Triglyceride [Mass/Vol] 169 mg/dL <199 [facility] Comment on above: The drugs N-Acetylcy steine and Metamizole may falsely depress this assay.Serum Triglycerides Reference Interval Normal <150 mg/dL Borderline high 150 - 199 mg/dL High 200 - 499 mg/dL Very High > or = 500 mg/dL WBC (Bld) [#/Vol] 8.0 10*3/uL 4.4-11.0 [facility] Determination of erythrocyte mean corpuscular volume (MCV)Ordered By: Zeny Crow on 12-04-2023 MCV (RBC) [Entitic vol] 83.7 fL 81-99 [facility] Erythrocyte distribution wid th ratioOrdered By: Zeny Crow on 12-04-2023 Erythrocyte distribution width (RBC) [Ratio] 13.1 % 11.6-14.6 [facility] Erythrocyte distribution wid th standard deviationOrdered By: Zeny Crow on 12-04-2023 Erythrocyte distribution width (RBC) [Entitic vol] 39.8 fL 35.1-43.9 [facility] Hematocrit Auto (Bld) [Volum e fraction]Ordered By: Zeny Crow on 12-04-2023 Hematocrit (Bld) [Volume fraction] 39.1 % 37-47 [facility] Immature granulocytes/100 WB C Auto (Bld)Ordered By: Zeny Crow on 12-04-2023 Immature granulocytes/100 WBC (Bld) 0.300 % 0.0-0.9 [facility] Comment on above: IG% - Immature Granu locytes (promyelocytes, myelocytes and metamyelocytes) > 1% indicates that a LEFT SHIFT is Present. Laboratory - Chemistry and C hemistry - challengeOrdered By: Zeny Crow on 12-04-2023 Albumin/Globulin [Mass ratio] 1.1 {ratio} 0.9-2.4 [facility] ALP [Catalytic activity/Vol] 59 U/L 45-117 [facility] ALT [Catalytic activity/Vol] 26 U/L 13-56 [facility] Cholesterol in HDL [Mass/Vol] 52 mg/dL >40 [facility] Comment on above: The drugs N-Acetylcy steine and Metamizole may falsely depress this assay. Reference Range HDL <40 mg/dL Low HDL Cholesterol HDL >or= 60 mg/dL High HDL Cholesterol Cholesterol in LDL [Mass/Vol] 40 mg/dL 0-130 [facility] CO2 [Moles/Vol] 26.0 mmol/L 21.0-32.0 [facility] Globulin (S) [Mass/Vol] 3.4 g/dL 2.2-4.2 [facility] Urea nitrogen/Creatinine [Mass ratio] 21.6 mg/mg 10-20 [facility] Laboratory - Hematology and Cell countsOrdered By: Zeny Crow on 12-04-2023 MCH (RBC) [Entitic mass] 27.2 pg 27.0-32.0 [facility] MCHC (RBC) [Mass/Vol] 32.5 g/dL 32-36 [facility] Nucleated RBC/100 WBC (Bld) [Ratio] 0 % 0-5 [facility] Platelet mean volume (Bld) [Entitic vol] 9.0 fL 6.2-12.0 [facility] Platelets (Bld) [#/Vol] 261 10*3/uL 150-450 [facility] No Panel InformationOrdered By: Zeny Crow on 12-04-2023 Estimated GFR (MDRD) Amer 75 mL/min >60 [facility] Comment on above: GFR Calc Estimated GFR (MDRD) Non-Af Amer 62 mL/min >60 [facility] Comment on above: Non- GFR Calc Urine Microalbumin/Creatini ne Ratio 6.9 mg/g CRE <30 [facility] VLDL Cholesterol 34 mg/dL 5-40 [facility] RBC Auto (Bld) [#/Vol]Ordere d By: Zeny Crow on 12-04-2023 RBC (Bld) [#/Vol] 4.67 10*6/uL 4.2-5.4 [facility] Serum or plasma calcium hellen urement (mass/volume)Ordered By: Zeny Crow on 12-04-2023 Calcium [Mass/Vol] 9.2 mg/dL 8.5-10.1 [facility] Serum or plasma creatinine m easurement (mass/volume)Ordered By: Zeny Crow on 12-04-2023 Creatinine [Mass/Vol] 0.93 mg/dL 0.55-1.02 [facility] Comment on above: The validity of the calculated GFR & GFRAA in patients over 70 years has not been determined. Clinical correlation is essential. Serum or plasma urea nitroge n measurement (mass/volume)Ordered By: Zeny Crow on 12-04-2023 Urea nitrogen [Mass/Vol] 20 mg/dL 7-18 [facility] Thin prep Papanicolaou smear with manual screeningOrdered By: Zeny Crow on 12-04-2023 Thin prep Papanicolaou smear with manual screening 3.9 g/dL 3.2-5.0 [facility] [place] Thin prep Papanicolaou smear with manual screening 23 U/L 15-37 [facility] [place] Thin prep Papanicolaou smear with manual screening 7 5-15 [facility] [place] Thin prep Papanicolaou smear with manual screening 7.7 mg/L NO RANGE EST. [facility] Urine creatinine measurement (mass/volume)Ordered By: Zeny Crow on 12-04-2023 Creatinine (U) [Mass/Vol] 111.00 mg/dL NO RANGE EST. [facility] Whole blood hemoglobin A1c/t otal hemoglobin ratio (mass fraction)Ordered By: Zeny Crow on 12-04-2023 HbA1c (Bld) [Mass fraction] 5.7 % 3.8-5.6 [facility] [place] Comment on above: Normal < 5.7 % Predi abetic 5.7 - 6.4 % Diabetic >or= 6.5 % Please note range changes. Thin prep Papanicolaou smear with manual screeningOrdered By: Mateo Lamb on 10-19-2023 Thin prep Papanicolaou smear with manual screening 121 mg/dL 74-106 [facility] [place] Comment on above: MANAGEMENT OF PATIEN T CARE PER NURSING PROTOCOL Laboratory - Hematology and Cell countson 10-09-2023 HbA1c (Bld) [Mass fraction] 6.6 % 4.2-6.3 [facility] No Panel InformationOrdered By: Shayne Dia on 10-09-2023 Free Triiodothyronine (T3) pg/dL 2.9 pg/mL 2.18-3.98 [facility] [place] Serum or plasma thyroid stim ulating hormone (TSH) measurement (units/volume)Ordered By: Shayne Dia on 10-09-2023 TSH Qn 0.18 uIU/mL 0.358-3.74 [facility] [place] Thin prep Papanicolaou smear with manual screeningOrdered By: Shayne Dia on 10-09-2023 Thin prep Papanicolaou smear with manual screening 0.80 ng/dL 0.76-1.46 [facility] [place] Absolute lymphocyte countOrd ered By: Shayne Dia on 07-20-2023 Lymphocytes Auto (Unsp spec) [#/Vol] 2.16 10*3/uL 0.83-4.51 [facility] [place] Basophil percentageOrdered B y: Shayne Dia on 07-20-2023 Basophils/100 WBC (Bld) 0.3 % 0-1 [facility] [place] Bilirubin [Mass/Vol] 1.50 mg/dL 0.20-1.00 [facility] Comment on above: For patients on eltr ombopag therapy, use of Dimension [place] TBIL is not recommended. Chloride [Moles/Vol] 107 mmol/L 98-107 [facility] Eosinophils/100 WBC (Bld) 2.1 % 0-5 [facility] [place] Glucose [Mass/Vol] 154 mg/dL 74-106 [facility] Comment on above: Fasting Glucose resu lt greater than or equal to 126 mg/dL suggests DIABETES MELLITUS per A.D.A. criteria. Neutrophils (Bld) [#/Vol] 4.4 10*3/uL 2.0-7.7 [facility] [place] Neutrophils/100 WBC (Bld) 62.5 % 47-70 [facility] [place] Potassium [Moles/Vol] 4.0 mmol/L 3.5-5.1 [facility] Protein [Mass/Vol] 7.0 g/dL 6.4-8.2 [facility] Sodium [Moles/Vol] 140 mmol/L 136-145 [facility] WBC (Bld) [#/Vol] 7.1 10*3/uL 4.4-11.0 [facility] Blood erythrocytes count (nu mber/volume)Ordered By: Shayne Dia on 07-20-2023 RBC (Bld) [#/Vol] 4.54 10*6/uL 4.2-5.4 [facility] Blood hemoglobin measurement (mass/volume)Ordered By: Shayne Dia on 07-20-2023 Hemoglobin (Bld) [Mass/Vol] 12.5 g/dL 12.0-15.0 [facility] [place] Blood lymphocytes/100 leukoc ytesOrdered By: Shayne Dia on 07-20-2023 Lymphocytes/100 WBC (Bld) 30.6 % 19-41 [facility] [place] Blood monocytes/100 leukocyt esOrdered By: Shayne Dia on 07-20-2023 Monocytes/100 WBC (Bld) 4.1 % 0-10 [facility] [place] Blood platelet mean volumeOr dered By: Shayne Dia on 07-20-2023 Platelet mean volume (Bld) [Entitic vol] 8.8 fL 6.2-12.0 [facility] [place] Determination of erythrocyte mean corpuscular volume (MCV)Ordered By: Shayne Dia on 07-20-2023 MCV (RBC) [Entitic vol] 85.9 fL 81-99 [facility] [place] Hematocrit Auto (Bld) [Volum e fraction]Ordered By: Shayne Dia on 07-20-2023 Hematocrit (Bld) [Volume fraction] 39.0 % 37-47 [facility] [place] Laboratory - Chemistry and C hemistry - challengeOrdered By: Shayne Dia on 07-20-2023 ALP [Catalytic activity/Vol] 69 U/L 45-117 [facility] [place] ALT [Catalytic activity/Vol] 26 U/L 13-56 [facility] [place] CO2 [Moles/Vol] 26.0 mmol/L 21.0-32.0 [facility] Free T4 [Mass/Vol] 0.77 ng/dL 0.76-1.46 [facility] Globulin (S) [Mass/Vol] 3.5 g/dL 2.2-4.2 [facility] [place] Urea nitrogen/Creatinine [Mass ratio] 24.8 mg/mg 10-20 [facility] [place] Laboratory - Hematology and Cell countsOrdered By: Shayne Dia on 07-20-2023 Erythrocyte distribution width (RBC) [Entitic vol] 40.4 fL 35.1-43.9 [facility] [place] Erythrocyte distribution width (RBC) [Ratio] 13.0 % 11.6-14.6 [facility] [place] Immature granulocytes/100 WBC (Bld) 0.400 % 0.0-0.9 [facility] [place] Comment on above: IG% - Immature Granu locytes (promyelocytes, myelocytes and metamyelocytes) > 1% indicates that a LEFT SHIFT is Present. MCH (RBC) [Entitic mass] 27.5 pg 27.0-32.0 [facility] [place] Nucleated RBC/100 WBC (Bld) [Ratio] 0 % 0-5 [facility] [place] MCHC Auto (RBC) [Mass/Vol]Or dered By: Shayne Dia on 07-20-2023 MCHC (RBC) [Mass/Vol] 32.1 g/dL 32-36 [facility] No Panel InformationOrdered By: Shayne Dia on 07-20-2023 Estimated GFR (MDRD) Amer 88 mL/min >60 [facility] [place] Comment on above: GFR Calc Estimated GFR (MDRD) Non-Af Amer 73 mL/min >60 [facility] [place] Comment on above: Non- GFR Calc Free Triiodothyronine (T3) pg/dL 3.0 pg/mL 2.18-3.98 [facility] [place] Thyroid Stimulating Hormone (TSH) 0.30 uIU/mL 0.358-3.74 [facility] [place] Platelets bldOrdered By: Jarett Dia on 07-20-2023 Platelets (Bld) [#/Vol] 244 10*3/uL 150-450 [facility] [place] Serum or plasma albumin hellen urement (mass/volume)Ordered By: Shayne Dia on 07-20-2023 Albumin [Mass/Vol] 3.5 g/dL 3.2-5.0 [facility] Serum or plasma albumin/glob ulin mass ratioOrdered By: Shayne Dia on 07-20-2023 Albumin/Globulin [Mass ratio] 1.0 {ratio} 0.9-2.4 [facility] [place] Serum or plasma calcium hellen urement (mass/volume)Ordered By: Shayne Dia on 07-20-2023 Calcium [Mass/Vol] 8.6 mg/dL 8.5-10.1 [facility] Serum or plasma creatinine m easurement (mass/volume)Ordered By: Shayne Dia on 07-20-2023 Creatinine [Mass/Vol] 0.81 mg/dL 0.55-1.02 [facility] Comment on above: The validity of the calculated GFR & GFRAA in patients over 70 years has not been determined. Clinical correlation is essential. Serum or plasma urea nitroge n measurement (mass/volume)Ordered By: Shayne Dia on 07-20-2023 Urea nitrogen [Mass/Vol] 20 mg/dL 7-18 [facility] [place] Thin prep Papanicolaou smear with manual screeningOrdered By: Shayne Dia on 07-20-2023 Thin prep Papanicolaou smear with manual screening 14 U/L 15-37 [facility] [place] Thin prep Papanicolaou smear with manual screening 7 5-15 [facility] [place] Absolute lymphocyte countOrd ered By: Zeny Crow on 04-19-2023 Lymphocytes Auto (Unsp spec) [#/Vol] 2.22 10*3/uL 0.83-4.51 [facility] [place] Basophil percentageOrdered B y: Zeny Crow on 04-19-2023 Basophils/100 WBC (Bld) 0.4 % 0-1 [facility] Bilirubin [Mass/Vol] 1.50 mg/dL 0.20-1.00 [facility] Comment on above: For patients on eltr ombopag therapy, use of Dim[place] TBIL is not recommended. Chloride [Moles/Vol] 104 mmol/L 98-107 [facility] Cholesterol [Mass/Vol] 131 mg/dL <200 [facility] [place] Comment on above: <200 mg/dL Desirable 200-240 mg/dL Borderline >240 mg/dL High Risk Eosinophils/100 WBC (Bld) 2.0 % 0-5 [facility] [place] Glucose [Mass/Vol] 125 mg/dL 74-106 [facility] Comment on above: Fasting Glucose resu lt from 100 to 125 mg/dL suggests IMPAIRED HOMEOSTASIS per A.D.A. criteria. Neutrophils (Bld) [#/Vol] 4.9 10*3/uL 2.0-7.7 [facility] Neutrophils/100 WBC (Bld) 63.2 % 47-70 [facility] [place] Potassium [Moles/Vol] 4.6 mmol/L 3.5-5.1 [facility] Protein [Mass/Vol] 7.4 g/dL 6.4-8.2 [facility] Sodium [Moles/Vol] 139 mmol/L 136-145 [facility] Triglyceride [Mass/Vol] 279 mg/dL <199 [facility] [place] Comment on above: The drugs N-Acetylcy steine and Metamizole may falsely depress this assay.Serum Triglycerides Reference Interval Normal <150 mg/dL Borderline high 150 - 199 mg/dL High 200 - 499 mg/dL Very High > or = 500 mg/dL WBC (Bld) [#/Vol] 7.8 10*3/uL 4.4-11.0 [facility] Blood erythrocytes count (nu mber/volume)Ordered By: Zeny Crow on 04-19-2023 RBC (Bld) [#/Vol] 4.69 10*6/uL 4.2-5.4 [facility] Blood hemoglobin measurement (mass/volume)Ordered By: Zeny Crow on 04-19-2023 Hemoglobin (Bld) [Mass/Vol] 13.2 g/dL 12.0-15.0 [facility] [place] Blood lymphocytes/100 leukoc ytesOrdered By: Zeny Crow on 04-19-2023 Lymphocytes/100 WBC (Bld) 28.4 % 19-41 [facility] [place] Blood monocytes/100 leukocyt esOrdered By: Zeny Crow on 04-19-2023 Monocytes/100 WBC (Bld) 5.5 % 0-10 [facility] [place] Blood platelet mean volumeOr dered By: Zeny Crow on 04-19-2023 Platelet mean volume (Bld) [Entitic vol] 8.7 fL 6.2-12.0 [facility] [place] Determination of erythrocyte mean corpuscular volume (MCV)Ordered By: Zeny Crow on 04-19-2023 MCV (RBC) [Entitic vol] 84.9 fL 81-99 [facility] [place] Hematocrit Auto (Bld) [Volum e fraction]Ordered By: Zeny Crow on 04-19-2023 Hematocrit (Bld) [Volume fraction] 39.8 % 37-47 [facility] [place] Laboratory - Chemistry and C hemistry - challengeOrdered By: Zeny Crow on 04-19-2023 ALP [Catalytic activity/Vol] 65 U/L 45-117 [facility] [place] ALT [Catalytic activity/Vol] 43 U/L 13-56 [facility] CO2 [Moles/Vol] 29.0 mmol/L 21.0-32.0 [facility] [place] Cobalamin (Vitamin B12) [Mass/Vol] 798 pg/mL 211-911 [facility] Free T4 [Mass/Vol] 0.70 ng/dL 0.76-1.46 [facility] Globulin (S) [Mass/Vol] 3.6 g/dL 2.2-4.2 [facility] Magnesium [Mass/Vol] 2.2 mg/dL 1.6-2.6 [facility] Urea nitrogen/Creatinine [Mass ratio] 23.6 mg/mg 10-20 [facility] [place] Laboratory - Hematology and Cell countsOrdered By: Zeny Crow on 04-19-2023 Erythrocyte distribution width (RBC) [Entitic vol] 40.6 fL 35.1-43.9 [facility] [place] Erythrocyte distribution width (RBC) [Ratio] 13.3 % 11.6-14.6 [facility] [place] Immature granulocytes/100 WBC (Bld) 0.500 % 0.0-0.9 [facility] [place] Comment on above: IG% - Immature Granu locytes (promyelocytes, myelocytes and metamyelocytes) > 1% indicates that a LEFT SHIFT is Present. MCH (RBC) [Entitic mass] 28.1 pg 27.0-32.0 [facility] Nucleated RBC/100 WBC (Bld) [Ratio] 0 % 0-5 [facility] [place] MCHC Auto (RBC) [Mass/Vol]Or dered By: Zeny Crow on 04-19-2023 MCHC (RBC) [Mass/Vol] 33.2 g/dL 32-36 [facility] No Panel InformationOrdered By: Zeny Crow on 04-19-2023 Estimated GFR (MDRD) Amer 83 mL/min >60 [facility] [place] Comment on above: GFR Calc Estimated GFR (MDRD) Non-Af Amer 69 mL/min >60 [facility] [place] Comment on above: Non- GFR Calc Free Triiodothyronine (T3) pg/dL 2.9 pg/mL 2.18-3.98 [facility] [place] Thyroid Stimulating Hormone (TSH) 0.59 uIU/mL 0.358-3.74 [facility] Urine Microalbumin/Creatini ne Ratio 10.0 mg/g CRE <30 [facility] Vitamin D 25-Hydroxy 19.1 ng/mL [facility] Comment on above: Vitamin D 25(OH) Sta tus Range Deficiency <20 ng/mL (50nmol/L) Insufficiency 20 - 30 ng/mL (50 - 75 nmol/L) Sufficiency 30 - 100 ng/mL (75 - 250 nmol/L) Toxicity >100 ng/mL (>250 nmol/L) Platelets bldOrdered By: Hunter Crow on 04-19-2023 Platelets (Bld) [#/Vol] 230 10*3/uL 150-450 [facility] [place] Serum or plasma albumin hellen urement (mass/volume)Ordered By: Zeny Crow on 04-19-2023 Albumin [Mass/Vol] 3.8 g/dL 3.2-5.0 [facility] Serum or plasma albumin/glob ulin mass ratioOrdered By: Zeny Crow on 04-19-2023 Albumin/Globulin [Mass ratio] 1.1 {ratio} 0.9-2.4 [facility] [place] Serum or plasma calcium hellen urement (mass/volume)Ordered By: Zeny Crow on 04-19-2023 Calcium [Mass/Vol] 9.4 mg/dL 8.5-10.1 [facility] Serum or plasma cholesterol in HDL measurement (mass/volume)Ordered By: Zeny Crow on 04-19-2023 Cholesterol in HDL [Mass/Vol] 51 mg/dL >40 [facility] [place] Comment on above: The drugs N-Acetylcy steine and Metamizole may falsely depress this assay. Reference Range HDL <40 mg/dL Low HDL Cholesterol HDL >or= 60 mg/dL High HDL Cholesterol Serum or plasma cholesterol in VLDL measurement (mass/volume)Ordered By: Zeny Crow on 04-19-2023 Cholesterol in VLDL [Mass/Vol] 56 mg/dL 5-40 [facility] [place] Serum or plasma creatinine m easurement (mass/volume)Ordered By: Zeny Crow on 04-19-2023 Creatinine [Mass/Vol] 0.85 mg/dL 0.55-1.02 [facility] Comment on above: The validity of the calculated GFR & GFRAA in patients over 70 years has not been determined. Clinical correlation is essential. Serum or plasma low density lipoprotein (LDL) cholesterol measurement (mass/volume)Ordered By: Zeny Crow on 04-19-2023 Cholesterol in LDL [Mass/Vol] 24 mg/dL 0-130 [facility] [place] Serum or plasma urea nitroge n measurement (mass/volume)Ordered By: Zeny Crow on 04-19-2023 Urea nitrogen [Mass/Vol] 20 mg/dL 7-18 [facility] [place] Thin prep Papanicolaou smear with manual screeningOrdered By: Zeny Crow on 04-19-2023 Thin prep Papanicolaou smear with manual screening 26 U/L 15-37 [facility] [place] Thin prep Papanicolaou smear with manual screening 6 5-15 [facility] Thin prep Papanicolaou smear with manual screening 5.3 mg/L NO RANGE EST. [facility] Urine creatinine measurement (mass/volume)Ordered By: Zeny Crow on 04-19-2023 Creatinine (U) [Mass/Vol] 52.80 mg/dL NO RANGE EST. [facility] Whole blood hemoglobin A1c/t otal hemoglobin ratio (mass fraction)Ordered By: Zeny Crow on 04-19-2023 HbA1c (Bld) [Mass fraction] 5.9 % 3.8-5.6 [facility] [place] Comment on above: Normal < 5.7 % Predi abetic 5.7 - 6.4 % Diabetic >or= 6.5 % Please note range changes. Laboratory - Chemistry and C hemistry - challengeOrdered By: Dr. Dia on 03-16-2023 Free T4 [Mass/Vol] 0.67 ng/dL 0.76-1.46 [facility] No Panel InformationOrdered By: Dr. Dia on 03-16-2023 Free Triiodothyronine (T3) pg/dL 3.0 pg/mL 2.18-3.98 [facility] [place] Thyroid Stimulating Hormone (TSH) 0.37 uIU/mL 0.358-3.74 [facility] [place] Laboratory - Chemistry and C hemistry - challengeOrdered By: Dr. Dia on 02-16-2023 Free T4 [Mass/Vol] 0.71 ng/dL 0.76-1.46 [facility] No Panel InformationOrdered By: Dr. Dia on 02-16-2023 Free Triiodothyronine (T3) pg/dL 2.9 pg/mL 2.18-3.98 [facility] [place] Thyroid Stimulating Hormone (TSH) 0.32 uIU/mL 0.358-3.74 [facility] [place] Absolute lymphocyte countOrd ered By: Dr. Crow on 10-30-2022 Lymphocytes Auto (Unsp spec) [#/Vol] 2.63 10*3/uL 0.83-4.51 [facility] [place] Basophil percentageOrdered B y: Dr. Crow on 10-30-2022 Basophil percentage 0-5 SEEN /hpf 0-5 [facility] Basophils/100 WBC (Bld) 0.3 % 0-1 [facility] Bilirubin [Mass/Vol] 1.50 mg/dL 0.20-1.00 [facility] Comment on above: For patients on eltr ombopag therapy, use of Dim[place] TBIL is not recommended. Chloride [Moles/Vol] 104 mmol/L 98-107 [facility] Cholesterol [Mass/Vol] 125 mg/dL <200 [facility] Comment on above: <200 mg/dL Desirable 200-240 mg/dL Borderline >240 mg/dL High Risk Eosinophils/100 WBC (Bld) 1.8 % 0-5 [facility] Glucose [Mass/Vol] 89 mg/dL 74-106 [facility] Neutrophils (Bld) [#/Vol] 4.6 10*3/uL 2.0-7.7 [facility] Neutrophils/100 WBC (Bld) 57.7 % 47-70 [facility] Potassium [Moles/Vol] 3.8 mmol/L 3.5-5.1 [facility] Protein [Mass/Vol] 7.4 g/dL 6.4-8.2 [facility] Sodium [Moles/Vol] 141 mmol/L 136-145 [facility] Triglyceride [Mass/Vol] 247 mg/dL <199 [facility] [place] Comment on above: The drugs N-Acetylcy steine and Metamizole may falsely depress this assay.Serum Triglycerides Reference Interval Normal <150 mg/dL Borderline high 150 - 199 mg/dL High 200 - 499 mg/dL Very High > or = 500 mg/dL WBC (Bld) [#/Vol] 8.0 10*3/uL 4.4-11.0 [facility] Bilirubin Test strip Ql (U)O rdered By: Dr. Crow on 10-30-2022 Bilirubin Ql (U) Negative Negative [facility] [place] Blood erythrocytes count (nu mber/volume)Ordered By: Dr. Crow on 10-30-2022 RBC (Bld) [#/Vol] 4.72 10*6/uL 4.2-5.4 [facility] Blood hemoglobin measurement (mass/volume)Ordered By: Dr. Crow on 10-30-2022 Hemoglobin (Bld) [Mass/Vol] 12.9 g/dL 12.0-15.0 [facility] [place] Blood lymphocytes/100 leukoc ytesOrdered By: Dr. Crow on 10-30-2022 Lymphocytes/100 WBC (Bld) 32.9 % 19-41 [facility] [place] Blood monocytes/100 leukocyt esOrdered By: Dr. Crow on 10-30-2022 Monocytes/100 WBC (Bld) 7.0 % 0-10 [facility] Blood platelet mean volumeOr dered By: Dr. Crow on 10-30-2022 Platelet mean volume (Bld) [Entitic vol] 8.8 fL 6.2-12.0 [facility] [place] Determination of erythrocyte mean corpuscular volume (MCV)Ordered By: Dr. Crow on 10-30-2022 MCV (RBC) [Entitic vol] 84.5 fL 81-99 [facility] [place] Hematocrit Auto (Bld) [Volum e fraction]Ordered By: Dr. Crow on 10-30-2022 Hematocrit (Bld) [Volume fraction] 39.9 % 37-47 [facility] Ketones Test strip Ql (U)Ord ered By: Dr. Crow on 10-30-2022 Ketones Ql (U) Negative Negative [facility] Laboratory - Chemistry and C hemistry - challengeOrdered By: Dr. Crow on 10-30-2022 ALP [Catalytic activity/Vol] 64 U/L 45-117 [facility] ALT [Catalytic activity/Vol] 27 U/L 13-56 [facility] CO2 [Moles/Vol] 27.0 mmol/L 21.0-32.0 [facility] Free T4 [Mass/Vol] 0.74 ng/dL 0.76-1.46 [facility] Globulin (S) [Mass/Vol] 3.6 g/dL 2.2-4.2 [facility] Urea nitrogen/Creatinine [Mass ratio] 29.0 mg/mg 10-20 [facility] Laboratory - Hematology and Cell countsOrdered By: Dr. Crow on 10-30-2022 Erythrocyte distribution width (RBC) [Entitic vol] 40.0 fL 35.1-43.9 [facility] Erythrocyte distribution width (RBC) [Ratio] 13.1 % 11.6-14.6 [facility] Immature granulocytes/100 WBC (Bld) 0.300 % 0.0-0.9 [facility] [place] Comment on above: IG% - Immature Granu locytes (promyelocytes, myelocytes and metamyelocytes) > 1% indicates that a LEFT SHIFT is Present. MCH (RBC) [Entitic mass] 27.3 pg 27.0-32.0 [facility] Nucleated RBC/100 WBC (Bld) [Ratio] 0 % 0-5 [facility] MCHC Auto (RBC) [Mass/Vol]Or dered By: Dr. Crow on 10-30-2022 MCHC (RBC) [Mass/Vol] 32.3 g/dL 32-36 [facility] Mucus LM Ql (Urine sed)Order ed By: Dr. Crow on 10-30-2022 Mucus Ql (Urine sed) 0 SEEN /hpf [facility] Nitrite Test strip Ql (U)Ord ered By: Dr. Crow on 10-30-2022 Nitrite Ql (U) Negative Negative [facility] No Panel InformationOrdered By: Dr. Crow on 10-30-2022 Estimated GFR (MDRD) Amer 69 mL/min >60 [facility] [place] Comment on above: GFR Calc Estimated GFR (MDRD) Non-Af Amer 57 mL/min >60 [facility] [place] Comment on above: Non- GFR Calc Thyroglobulin Antibody < 1.0 IU/mL 0.0-0.9 [facility] [place] Comment on above: Thyroglobulin Antibo dy measured by Nikkie CoulterMethodologyPerformed at: [facility] - [facility] [address] [id number] Director: Pamela Menchaca MD, Phone: [phone] at: - [facility] [address] [id number] Director: Rod Ballesteros PhD, Phone: [phone] Thyroid Stimulating Hormone (TSH) 0.31 uIU/mL 0.358-3.74 [facility] [facility] [place] Urine Microalbumin/Creatini ne Ratio 5.4 mg/g CRE <30 [facility] [place] Platelets bldOrdered By: Dr. Crow on 10-30-2022 Platelets (Bld) [#/Vol] 243 10*3/uL 150-450 [facility] [place] Protein Test strip Ql (U)Ord ered By: Dr. Crow on 10-30-2022 Protein Ql (U) Negative Negative [facility] [place] Serum or plasma albumin hellen urement (mass/volume)Ordered By: Dr. Crow on 10-30-2022 Albumin [Mass/Vol] 3.8 g/dL 3.2-5.0 [facility] Serum or plasma albumin/glob ulin mass ratioOrdered By: Dr. Crow on 10-30-2022 Albumin/Globulin [Mass ratio] 1.1 {ratio} 0.9-2.4 [facility] [place] Serum or plasma calcium hellen urement (mass/volume)Ordered By: Dr. Crow on 10-30-2022 Calcium [Mass/Vol] 9.1 mg/dL 8.5-10.1 [facility] Serum or plasma cholesterol in HDL measurement (mass/volume)Ordered By: Dr. Crow on 10-30-2022 Cholesterol in HDL [Mass/Vol] 52 mg/dL >40 [facility] [place] Comment on above: The drugs N-Acetylcy steine and Metamizole may falsely depress this assay. Reference Range HDL <40 mg/dL Low HDL Cholesterol HDL >or= 60 mg/dL High HDL Cholesterol Serum or plasma cholesterol in VLDL measurement (mass/volume)Ordered By: Dr. Crow on 10-30-2022 Cholesterol in VLDL [Mass/Vol] 49 mg/dL 5-40 [facility] [place] Serum or plasma creatinine m easurement (mass/volume)Ordered By: Dr. Crow on 10-30-2022 Creatinine [Mass/Vol] 1.00 mg/dL 0.55-1.02 [facility] Comment on above: The validity of the calculated GFR & GFRAA in patients over 70 years has not been determined. Clinical correlation is essential. Serum or plasma low density lipoprotein (LDL) cholesterol measurement (mass/volume)Ordered By: Dr. Crow on 10-30-2022 Cholesterol in LDL [Mass/Vol] 24 mg/dL 0-130 [facility] [place] Serum or plasma thyroperoxid ase antibody assay (units/volume)Ordered By: Dr. Crow on 10-30-2022 TPO Ab Qn [IU]/mL 0-34 [facility] [place] Serum or plasma urea nitroge n measurement (mass/volume)Ordered By: Dr. Crow on 10-30-2022 Urea nitrogen [Mass/Vol] 29 mg/dL 7-18 [facility] [place] Squamous epithelial cells de tection in urine sediment by light microscopyOrdered By: Dr. Crow on 10-30-2022 Epithelial cells.squamous LM Ql (Urine sed) 0 SEEN /hpf 5-10 [facility] [place] Thin prep Papanicolaou smear with manual screeningOrdered By: Dr. Crow on 10-30-2022 Thin prep Papanicolaou smear with manual screening 12 U/L 15-37 [facility] [place] Thin prep Papanicolaou smear with manual screening 10 5-15 [facility] [place] Thin prep Papanicolaou smear with manual screening 9.4 mg/L NO RANGE EST. [facility] [place] Thyroid stimulating immunogl obulins detectionOrdered By: Dr. Crow on 10-30-2022 Thyroid stimulating immunoglobulins Ql (S) 0.17 IU/L 0.00-0.55 [facility] [place] Urine blood detectionOrdered By: Dr. Crow on 10-30-2022 RBC Ql (U) Negative Negative [facility] [place] RBC Ql (U) 0 SEEN /hpf 0-5 [facility] [place] Urine clarityOrdered By: Dr. Crow on 10-30-2022 Clarity (U) Clear Clear [facility] [place] Urine color determinationOrd ered By: Dr. Crow on 10-30-2022 Color (U) Yellow Yellow [facility] [place] Urine creatinine measurement (mass/volume)Ordered By: Dr. Crow on 10-30-2022 Creatinine (U) [Mass/Vol] 174.00 mg/dL NO RANGE EST. [facility] [place] Urine glucose detectionOrder ed By: Dr. Crow on 10-30-2022 Glucose Ql (U) Normal mg/dl Normal [facility] [place] Urine leukocyte esterase det ection by dipstickOrdered By: Dr. Crow on 10-30-2022 Leukocyte esterase Test strip Ql (U) 25 /ul Negative [facility] [place] Urine pHOrdered By: Dr. Vinod shea on 10-30-2022 pH (U) 6.0 [pH] 5.0 - 8.0 [facility] [place] Urine sediment bacteria coun t by microscopy (number/high power field)Ordered By: Dr. Crow on 10-30-2022 Bacteria LM.HPF (Urine sed) [#/Area] 0 /[HPF] None Seen [facility] [place] Urine specific gravity measu rementOrdered By: Dr. Crow on 10-30-2022 Specific gravity (U) [Rel density] 1.025 1.002-1.03 0 [facility] [place] Urobilinogen Auto test strip Ql (U)Ordered By: Dr. Crow on 10-30-2022 Urobilinogen Ql (U) 1 mg/dl Normal [facility] Whole blood hemoglobin A1c/t otal hemoglobin ratio (mass fraction)Ordered By: Dr. Crow on 10-30-2022 HbA1c (Bld) [Mass fraction] 6.0 % 3.8-5.6 [facility] [place] Comment on above: Normal < 5.7 % Predi abetic 5.7 - 6.4 % Diabetic >or= 6.5 % Please note range changes. Basophil percentageon 2021 Bilirubin [Mass/Vol] 1.20 mg/dL 0.20-1.00 [facility] Work Phone: Comment on above: For patients on eltr ombopag therapy, use of [place] TBIL is not recommended. Protein [Mass/Vol] 7.4 g/dL 6.4-8.2 [facility] Work Phone: Direct bilirubinon 2 Bilirubin.direct [Mass/Vol] 0.23 mg/dL 0.00-0.30 [facility] [place] Work Phone: Laboratory - Chemistry and C hemistry - challengeon 06-29-2022 ALP [Catalytic activity/Vol] 70 U/L 45-117 [facility] [place] Work Phone: ALT [Catalytic activity/Vol] 33 U/L 13-56 [facility] [place] Work Phone: Globulin (S) [Mass/Vol] 3.6 g/dL 2.2-4.2 [facility] [place] Work Phone: Serum or plasma albumin hellen urement (mass/volume)on 06-29-2022 Albumin [Mass/Vol] 3.8 g/dL 3.2-5.0 [facility] Work Phone: Thin prep Papanicolaou smear with manual screeningon 06-29-2022 Thin prep Papanicolaou smear with manual screening 21 U/L 15-37 [facility] [place] Work Phone: Absolute lymphocyte counton 06-28-2022 Lymphocytes Auto (Unsp spec) [#/Vol] 2.74 10*3/uL 0.83-4.51 [facility] [place] Work Phone: Basophil percentageon 2021 Basophils/100 WBC (Bld) 0.2 % 0-1 [facility] [place] Work Phone: Bilirubin [Mass/Vol] 1.80 mg/dL 0.20-1.00 [facility] Work Phone: Comment on above: For patients on eltr ombopag therapy, use of [place] TBIL is not recommended. Chloride [Moles/Vol] 107 mmol/L 98-107 [facility] Work Phone: Cholesterol [Mass/Vol] 103 mg/dL <200 [facility] [place] Work Phone: Comment on above: <200 mg/dL Desirable 200-240 mg/dL Borderline >240 mg/dL High Risk Eosinophils/100 WBC (Bld) 2.5 % 0-5 [facility] [place] Work Phone: Glucose [Mass/Vol] 122 mg/dL 74-106 [facility] Work Phone: Comment on above: Fasting Glucose resu lt from 100 to 125 mg/dL suggests IMPAIRED HOMEOSTASIS per A.D.A. criteria. Neutrophils (Bld) [#/Vol] 4.9 10*3/uL 2.0-7.7 [facility] [place] Work Phone: Neutrophils/100 WBC (Bld) 58.6 % 47-70 [facility] [place] Work Phone: Potassium [Moles/Vol] 3.9 mmol/L 3.5-5.1 [facility] Work Phone: [phone] Protein [Mass/Vol] 7.6 g/dL 6.4-8.2 [facility] Work Phone: [phone] Sodium [Moles/Vol] 140 mmol/L 136-145 [facility] Work Phone: [phone] Triglyceride [Mass/Vol] 121 mg/dL <199 [facility] [place] Work Phone: [phone] Comment on above: The drugs N-Acetylcy steine and Metamizole may falsely depress this assay.Serum Triglycerides Reference Interval Normal <150 mg/dL Borderline high 150 - 199 mg/dL High 200 - 499 mg/dL Very High > or = 500 mg/dL WBC (Bld) [#/Vol] 8.4 10*3/uL 4.4-11.0 [facility] Work Phone: [phone] Blood erythrocytes count (nu mber/volume)on 06-28-2022 RBC (Bld) [#/Vol] 4.73 10*6/uL 4.2-5.4 [facility] Work Phone: [phone] Blood hemoglobin measurement (mass/volume)on 06-28-2022 Hemoglobin (Bld) [Mass/Vol] 12.8 g/dL 12.0-15.0 [facility] [place] Work Phone: [phone] Blood lymphocytes/100 leukoc yteson 06-28-2022 Lymphocytes/100 WBC (Bld) 32.7 % 19-41 [facility] [place] Work Phone: [phone] Blood monocytes/100 leukocyt eson 06-28-2022 Monocytes/100 WBC (Bld) 5.8 % 0-10 [facility] [place] Work Phone: [phone] Blood platelet mean volumeon 06-28-2022 Platelet mean volume (Bld) [Entitic vol] 8.7 fL 6.2-12.0 [facility] [place] Work Phone: [phone] Determination of erythrocyte mean corpuscular volume (MCV)on 06-28-2022 MCV (RBC) [Entitic vol] 84.1 fL 81-99 [facility] [place] Work Phone: [phone] Hematocrit Auto (Bld) [Volum e fraction]on 06-28-2022 Hematocrit (Bld) [Volume fraction] 39.8 % 37-47 [facility] [place] Work Phone: [phone] Laboratory - Chemistry and C hemistry - challengeon 06-28-2022 ALP [Catalytic activity/Vol] 65 U/L 45-117 [facility] [place] Work Phone: [phone] ALT [Catalytic activity/Vol] 31 U/L 13-56 [facility] [place] Work Phone: [phone] CO2 [Moles/Vol] 25.0 mmol/L 21.0-32.0 [facility] [place] Work Phone: [phone] Free T4 [Mass/Vol] 1.10 ng/dL 0.76-1.46 [facility] Work Phone: [phone] Globulin (S) [Mass/Vol] 3.9 g/dL 2.2-4.2 [facility] [place] Work Phone: [phone] Urea nitrogen/Creatinine [Mass ratio] 13.3 mg/mg 10-20 [facility] [place] Work Phone: [phone] Laboratory - Hematology and Cell countson 06-28-2022 Erythrocyte distribution width (RBC) [Entitic vol] 39.4 fL 35.1-43.9 [facility] [place] Work Phone: [phone] Erythrocyte distribution width (RBC) [Ratio] 12.8 % 11.6-14.6 [facility] [place] Work Phone: [phone] Immature granulocytes/100 WBC (Bld) 0.200 % 0.0-0.9 [facility] [place] Work Phone: [phone] Comment on above: IG% - Immature Granu locytes (promyelocytes, myelocytes and metamyelocytes) > 1% indicates that a LEFT SHIFT is Present. MCH (RBC) [Entitic mass] 27.1 pg 27.0-32.0 [facility] [place] Work Phone: Nucleated RBC/100 WBC (Bld) [Ratio] 0 % 0-5 [facility] [place] Work Phone: [phone] MCHC Auto (RBC) [Mass/Vol]on 06-28-2022 MCHC (RBC) [Mass/Vol] 32.2 g/dL 32-36 [facility] Work Phone: No Panel Informationon 06-28 Estimated GFR (MDRD) Amer 78 mL/min >60 [facility] [place] Work Phone: Comment on above: GFR Calc Estimated GFR (MDRD) Non-Af Amer 64 mL/min >60 [facility] [place] Work Phone: Comment on above: Non- GFR Calc Thyroid Stimulating Hormone (TSH) 0.09 uIU/mL 0.358-3.74 [facility] [place] Work Phone: [phone] Platelets bldon 06-28-2022 Platelets (Bld) [#/Vol] 288 10*3/uL 150-450 [facility] [place] Work Phone: [phone] Serum or plasma albumin hellen urement (mass/volume)on 06-28-2022 Albumin [Mass/Vol] 3.7 g/dL 3.2-5.0 [facility] Work Phone: [phone] Serum or plasma albumin/glob ulin mass ratioon 06-28-2022 Albumin/Globulin [Mass ratio] 0.9 {ratio} 0.9-2.4 [facility] [place] Work Phone: [phone] Serum or plasma calcium hellen urement (mass/volume)on 06-28-2022 Calcium [Mass/Vol] 9.1 mg/dL 8.5-10.1 [facility] Work Phone: [phone] Serum or plasma cholesterol in HDL measurement (mass/volume)on 06-28-2022 Cholesterol in HDL [Mass/Vol] 45 mg/dL >40 [facility] [place] Work Phone: [phone] Comment on above: The drugs N-Acetylcy steine and Metamizole may falsely depress this assay. Reference Range HDL <40 mg/dL Low HDL Cholesterol HDL >or= 60 mg/dL High HDL Cholesterol Serum or plasma cholesterol in VLDL measurement (mass/volume)on 06-28-2022 Cholesterol in VLDL [Mass/Vol] 24 mg/dL 5-40 [facility] [place] Work Phone: Serum or plasma creatinine m easurement (mass/volume)on 06-28-2022 Creatinine [Mass/Vol] 0.90 mg/dL 0.55-1.02 [facility] Work Phone: Comment on above: The validity of the calculated GFR & GFRAA in patients over 70 years has not been determined. Clinical correlation is essential. Serum or plasma low density lipoprotein (LDL) cholesterol measurement (mass/volume)on 06-28-2022 Cholesterol in LDL [Mass/Vol] 34 mg/dL 0-130 [facility] [place] Work Phone: Serum or plasma urea nitroge n measurement (mass/volume)on 06-28-2022 Urea nitrogen [Mass/Vol] 12 mg/dL 7-18 [facility] [place] Work Phone: Thin prep Papanicolaou smear with manual screeningon 06-28-2022 Thin prep Papanicolaou smear with manual screening 24 U/L 15-37 [facility] [place] Work Phone: Thin prep Papanicolaou smear with manual screening 8 5-15 [facility] [place] Work Phone: Whole blood hemoglobin A1c/t otal hemoglobin ratio (mass fraction)on 06-28-2022 HbA1c (Bld) [Mass fraction] 5.7 % 3.8-5.6 [facility] [place] Work Phone: Comment on above: Normal < 5.7 % Predi abetic 5.7 - 6.4 % Diabetic >or= 6.5 % Please note range changes. Glucose Glucometer (BldC) [M ass/Vol]on 06-27-2022 Glucose [Mass/Vol] 114 mg/dL 74-106 [facility] Work Phone: Comment on above: MANAGEMENT OF PATIEN T CARE PER NURSING PROTOCOL Laboratory - Microbiology an d Antimicrobial susceptibilityon 04-26-2022 SARS-CoV-2 (COVID-19) RNA TOAN+probe Ql (Unsp spec) Detected Not Detect [facility] [place] Work Phone: Comment on above: Normal Reference Ran ge: Not DetectedMethod:(RT-PCR) real-time reverse transcriptase PCRLuminex ZACK Instrument*The Food and Drug Administration (FDA) has issued an Emergency Use Authorization (EAU) for the ZACK SARS-CoV-2 Assay for the rapid detection of the virus that causes COVID-19. This test has been validated, but the FDAs independent review of this validation is pending.*Negative results do not preclude infection and should not be used as the sole basis for treatment or patient management. Optimum specimen types and timing for peak viral levels during infections caused by SARS-CoV-2 have not been determined. Collection of multiple specimens from the same patient may be necessary to detect the virus. The possibility of a false negative result should be considered if the patient has clinical presentation or has had recent exposure. Laboratory - Chemistry and C hemistry - challengeon 09-27-2021 Cobalamin (Vitamin B12) [Mass/Vol] 360 pg/mL 211-911 [facility] [place] Work Phone: [phone] Absolute lymphocyte counton 09-26-2021 Lymphocytes Auto (Unsp spec) [#/Vol] 2.80 10*3/uL 0.83-4.51 [facility] [place] Work Phone: Basophil percentageon 2021 Basophils/100 WBC (Bld) 0.3 % 0-1 [facility] [place] Work Phone: [phone] Bilirubin [Mass/Vol] 1.20 mg/dL 0.20-1.00 [facility] Work Phone: [phone] Comment on above: For patients on eltr ombopag therapy, use of [place] TBIL is not recommended. Chloride [Moles/Vol] 104 mmol/L 98-107 [facility] Work Phone: [phone] Cholesterol [Mass/Vol] 148 mg/dL <200 [facility] [place] Work Phone: [phone] Comment on above: <200 mg/dL Desirable 200-240 mg/dL Borderline >240 mg/dL High Risk Eosinophils/100 WBC (Bld) 2.5 % 0-5 [facility] [place] Work Phone: [phone] Glucose [Mass/Vol] 110 mg/dL 74-106 [facility] Work Phone: Comment on above: Fasting Glucose resu lt from 100 to 125 mg/dL suggests IMPAIRED HOMEOSTASIS per A.D.A. criteria.Please note revised GLUCOSE reference range effective 2017. Neutrophils (Bld) [#/Vol] 5.3 10*3/uL 2.0-7.7 [facility] [place] Work Phone: Neutrophils/100 WBC (Bld) 59.9 % 47-70 [facility] [place] Work Phone: Potassium [Moles/Vol] 4.5 mmol/L 3.5-5.1 [facility] Work Phone: Protein [Mass/Vol] 7.7 g/dL 6.4-8.2 [facility] Work Phone: Sodium [Moles/Vol] 138 mmol/L 136-145 [facility] Work Phone: Triglyceride [Mass/Vol] 228 mg/dL [facility] [place] Work Phone: Comment on above: The drugs N-Acetylcy steine and Metamizole may falsely depress this assay.Serum Triglycerides Reference Interval Normal <150 mg/dL Borderline high 150 - 199 mg/dL High 200 - 499 mg/dL Very High > or = 500 mg/dL WBC (Bld) [#/Vol] 8.8 10*3/uL 4.4-11.0 [facility] Work Phone: Blood erythrocytes count (nu mber/volume)on 09-26-2021 RBC (Bld) [#/Vol] 4.90 10*6/uL 4.2-5.4 [facility] Work Phone: Blood hemoglobin measurement (mass/volume)on 09-26-2021 Hemoglobin (Bld) [Mass/Vol] 13.2 g/dL 12.0-15.0 [facility] [place] Work Phone: Blood lymphocytes/100 leukoc yteson 09-26-2021 Lymphocytes/100 WBC (Bld) 31.8 % 19-41 [facility] [place] Work Phone: Blood monocytes/100 leukocyt eson 09-26-2021 Monocytes/100 WBC (Bld) 5.0 % 0-10 [facility] [place] Work Phone: [phone] Blood platelet mean volumeon 09-26-2021 Platelet mean volume (Bld) [Entitic vol] 9.0 fL 6.2-12.0 [facility] [place] Work Phone: [phone] Determination of erythrocyte mean corpuscular volume (MCV)on 09-26-2021 MCV (RBC) [Entitic vol] 82.0 fL 81-99 [facility] [place] Work Phone: [phone] Hematocrit Auto (Bld) [Volum e fraction]on 09-26-2021 Hematocrit (Bld) [Volume fraction] 40.2 % 37-47 [facility] [place] Work Phone: Laboratory - Chemistry and C hemistry - challengeon 09-26-2021 ALP [Catalytic activity/Vol] 68 U/L 45-117 [facility] [place] Work Phone: [phone] ALT [Catalytic activity/Vol] 22 U/L 13-56 [facility] [place] Work Phone: [phone] CO2 [Moles/Vol] 26.0 mmol/L 21.0-32.0 [facility] [place] Work Phone: [phone] Free T4 [Mass/Vol] 0.75 ng/dL 0.76-1.46 [facility] Work Phone: [phone] Globulin (S) [Mass/Vol] 4.1 g/dL 2.2-4.2 [facility] [place] Work Phone: [phone] Urea nitrogen/Creatinine [Mass ratio] 21.5 mg/mg 10-20 [facility] [place] Work Phone: [phone] Laboratory - Hematology and Cell countson 09-26-2021 Erythrocyte distribution width (RBC) [Entitic vol] 39.4 fL 35.1-43.9 [facility] [place] Work Phone: [phone] Erythrocyte distribution width (RBC) [Ratio] 13.2 % 11.6-14.6 [facility] [place] Work Phone: [phone] Immature granulocytes/100 WBC (Bld) 0.500 % 0.0-0.9 [facility] [place] Work Phone: [phone] Comment on above: IG% - Immature Granu locytes (promyelocytes, myelocytes and metamyelocytes) > 1% indicates that a LEFT SHIFT is Present. MCH (RBC) [Entitic mass] 26.9 pg 27.0-32.0 [facility] [place] Work Phone: [phone] Nucleated RBC/100 WBC (Bld) [Ratio] 0 % 0-5 [facility] [place] Work Phone: [phone] MCHC Auto (RBC) [Mass/Vol]on 09-26-2021 MCHC (RBC) [Mass/Vol] 32.8 g/dL 32-36 [facility] Work Phone: No Panel Informationon 09-26 Estimated GFR (MDRD) Amer 85 mL/min >60 [facility] [place] Work Phone: [phone] Comment on above: GFR Calc Estimated GFR (MDRD) Non-Af Amer 70 mL/min >60 [facility] [place] Work Phone: [phone] Comment on above: Non- GFR Calc Thyroglobulin Antibody < 1.0 IU/mL [facility] [place] Work Phone: Comment on above: Thyroglobulin Antibo dy measured by Nikkie CoulterMethodologyPerformed at: [facility] - [facility] [address] [id number] Director: Pamela Menchaca MD, Phone: [phone] at: - [facility] [address] [id number] Director: Rod Ballesteros PhD, Phone: [phone] Thyroid Stimulating Hormone (TSH) 0.38 uIU/mL 0.358-3.74 [facility] [place] Work Phone: Urine Microalbumin/Creatini ne Ratio 6.3 mg/g CRE <30 [facility] [place] Work Phone: Platelets bldon 09-26-2021 Platelets (Bld) [#/Vol] 287 10*3/uL 150-450 [facility] [place] Work Phone: Serum or plasma albumin hellen urement (mass/volume)on 09-26-2021 Albumin [Mass/Vol] 3.6 g/dL 3.2-5.0 [facility] Work Phone: Serum or plasma albumin/glob ulin mass ratioon 09-26-2021 Albumin/Globulin [Mass ratio] 0.9 {ratio} 0.9-2.4 [facility] [place] Work Phone: Serum or plasma calcium hellen urement (mass/volume)on 09-26-2021 Calcium [Mass/Vol] 9.2 mg/dL 8.5-10.1 [facility] Work Phone: Serum or plasma cholesterol in HDL measurement (mass/volume)on 09-26-2021 Cholesterol in HDL [Mass/Vol] 48 mg/dL [facility] [place] Work Phone: Comment on above: The drugs N-Acetylcy steine and Metamizole may falsely depress this assay. Reference Range HDL <40 mg/dL Low HDL Cholesterol HDL >or= 60 mg/dL High HDL Cholesterol Serum or plasma cholesterol in VLDL measurement (mass/volume)on 09-26-2021 Cholesterol in VLDL [Mass/Vol] 46 mg/dL 5-40 [facility] [place] Work Phone: Serum or plasma creatinine m easurement (mass/volume)on 09-26-2021 Creatinine [Mass/Vol] 0.84 mg/dL 0.55-1.02 [facility] Work Phone: Comment on above: The validity of the calculated GFR & GFRAA in patients over 70 years has not been determined. Clinical correlation is essential. Serum or plasma low density lipoprotein (LDL) cholesterol measurement (mass/volume)on 09-26-2021 Cholesterol in LDL [Mass/Vol] 54 mg/dL 0-130 [facility] [place] Work Phone: Serum or plasma thyroperoxid ase antibody assay (units/volume)on 09-26-2021 TPO Ab Qn [IU]/mL [facility] [facility] [place] Work Phone: Comment on above: Performed at: [facility] [address] [id number] Director: Rod Ballesteros PhD, Phone: [phone] Serum or plasma urea nitroge n measurement (mass/volume)on 09-26-2021 Urea nitrogen [Mass/Vol] 18 mg/dL 7-18 [facility] [place] Work Phone: Thin prep Papanicolaou smear with manual screeningon 09-26-2021 Thin prep Papanicolaou smear with manual screening 14 U/L 15-37 [facility] [place] Work Phone: Thin prep Papanicolaou smear with manual screening 8 5-15 [facility] [place] Work Phone: Thin prep Papanicolaou smear with manual screening 6.1 mg/L NO RANGE EST. [facility] [place] Work Phone: Thyroid stimulating immunogl obulins detectionon 09-26-2021 Thyroid stimulating immunoglobulins Ql (S) <0.10 IU/L [facility] [place] Work Phone: Urine creatinine measurement (mass/volume)on 09-26-2021 Creatinine (U) [Mass/Vol] 96.80 mg/dL NO RANGE EST. [facility] [place] Work Phone: Whole blood hemoglobin A1c/t otal hemoglobin ratio (mass fraction)on 09-26-2021 HbA1c (Bld) [Mass fraction] 5.9 % 3.8-5.6 [facility] [place] Work Phone: Comment on above: Normal < 5.7 % Predi abetic 5.7 - 6.4 % Diabetic >or= 6.5 % Please note range changes. Office Visit: est annualon 1 Dietary management education, guidance, and counseling (procedure) yes Invalid Interpretation Code [facility] Documentation of current medications (procedure) Done Invalid Interpretation Code [facility] Fall risk assessment No Invalid Interpretation Code [facility] Tobacco smoking status NHIS Never Invalid Interpretation Code [facility] Tobacco use CPHS Never smoker Invalid Interpretation Code [facility] Microbiology: Culture, Urine on 04-28-2017 CUUR Urine CultureCulture exhibits no growth. Invalid Interpretation Code [facility] GE use only - for LinkLogic import when terms are not otherwise specified Urine CultureCulture exhibits no growth. Invalid Interpretation Code [facility] Office Visit: est annualon 0 04-24-2017 Breast Mammogram screening Abnormal Left Invalid Interpretation Code [facility] Office Visit: straight line cathon 04-24-2017 Fall risk assessment No Invalid Interpretation Code [facility] Tobacco smoking status NHIS Never Invalid Interpretation Code [facility] Tobacco smoking status NHIS Never smoker [facility] Tobacco use CPHS Never smoker Invalid Interpretation Code [facility] Microbiology: Culture, Urine on 04-11-2017 [facility]UR Vancomycin $ [facility].5 [facility] GE use only - for LinkLogic import when terms are not otherwise specified Vancomycin $ 0.5 S Invalid Interpretation Code [facility] Office Visit: Incontinenceon 04-09-2017 Albumin Ql (U) Negative [facility] Bilirubin Ql (U) Negative Invalid Interpretation Code [facility] blood in urine (hemoglobin) by dipstick Negative Invalid Interpretation Code [facility] Dietary management education, guidance, and counseling (procedure) yes Invalid Interpretation Code [facility] Documentation of current medications (procedure) Done Invalid Interpretation Code [facility] Fall risk assessment No Invalid Interpretation Code [facility] Glucose Test strip mass conc (U) Negative [facility] Ketones mass conc (U) Negative Blo [facility] Nitrite Ql (U) Negative [facility] pH (U) 6.0 [pH] [facility] Protein mass conc Done [facility] specific gravity, urine 1.000 Invalid Interpretation Code [facility] Tobacco smoking status NHIS Never Invalid Interpretation Code [facility] Tobacco use CPHS Never smoker Invalid Interpretation Code [facility] Urine, appearance clear Invalid Interpretation Code [facility] Urine, bilirubin presence Negative Invalid Interpretation Code [facility] Urine, color yellow Invalid Interpretation Code [facility] Urine, glucose presence Negative Invalid Interpretation Code [facility] Urine, ketones presence Negative Invalid Interpretation Code [facility] Urine, leukocyte esterase presence trace Invalid Interpretation Code [facility] Urine, nitrite presence Negative Invalid Interpretation Code [facility] Urine, pH 6.0 [pH] Invalid Interpretation Code [facility] Urine, protein Negative Invalid Interpretation Code [facility] Urine, urobilinogen presence Negative Invalid Interpretation Code [facility] Office Visiton 03-15-2016 Documentation of current medications (procedure) Done Invalid Interpretation Code [facility] Tobacco use CPHS Never smoker Invalid Interpretation Code [facility] COVID-19 virus antigen assay SARS-CoV-2 (COVID-19) Ag IA.rapid Ql (Resp) [facility] [place] Work Phone: Vital Signs Date Time Vital Sign Value Performing Clinician Faci lity 12-23-2024 11:49-0400 Body height 160.[address] Zeny Crow MD Work Phone: [facility] [place] 12-23-2024 11:44-0400 Body mass index (BMI) [Ratio] 32.1 kg/m2 Dr. Zeny Crow MD Work Phone: [facility] [place] 12-23-2024 11:44-0400 Body weight 82.[address] Zeny Crow MD Work Phone: [facility] [place] 12-23-2024 11:44-0400 Diastolic blood pressure 70 mm[Hg] Dr. Zeny Crow MD Work Phone: [facility] [place] 12-23-2024 11:44-0400 Systolic blood pressure 130 mm[Hg] Dr. Zeny Crow MD Work Phone: [facility] [place] 11-11-2024 10:23-0500 Body height 160.[address] Zeny Crow MD Work Phone: [facility] [place] 11-11-2024 10:23-0500 Body mass index (BMI) [Ratio] 32.6 kg/m2 Dr. Zeny Crow MD Work Phone: [facility] [place] 11-11-2024 10:23-0500 Body weight 83.[address] Zeny Crow MD Work Phone: 4(857)586-310019 [place] [address] 11-11-2024 10:23-0500 Diastolic blood pressure 72 mm[Hg] Dr. Zeny Crow MD Work Phone: 3(096)384-424419 [place] [address] 11-11-2024 10:23-0500 Heart rate 63 /min Dr. Zeny Crow MD Work Phone: 4(201)960-546219 [place] [address] 11-11-2024 10:23-0500 SaO2% (BldA) [Mass fraction] 97 % Dr. Zeny Crow MD Work Phone: 0(961)527-902119 [place] [address] 11-11-2024 10:23-0500 Systolic blood pressure 138 mm[Hg] Dr. Zeny Crow MD Work Phone: 6(309)[phone] [place] [address] 10-19-2023 09:25-0500 Body temperature 97 [degF] Dr. Zeny Crow Work Phone: 9(262)530-935119 [place] [address] 10-19-2023 09:25-0500 Diastolic blood pressure 60 mm[Hg] Dr. Zeny Crow Work Phone: 3(206)730-790019 [place] [address] 10-19-2023 09:25-0500 Heart rate 69 /min Dr. Zeny Crow Work Phone: 7(016)512-615819 [place] [address] 10-19-2023 09:25-0500 Respiratory rate 16 /min Dr. Zeny Crow Work Phone: 9(459)993-071419 [place] [address] 10-19-2023 09:25-0500 SaO2% (BldA) [Mass fraction] 95 % Dr. Zeny Crow Work Phone: [facility] [place] 10-19-2023 09:25-0500 Systolic blood pressure 129 mm[Hg] Dr. Zeny Crow Work Phone: 1(265)674-837682 [address] 10-19-2023 07:51-0500 Body height 160.[address] Zeny Crow Work Phone: 9(256)342-630419 [place] [address] 10-19-2023 07:51-0500 Body mass index (BMI) [Ratio] 32.4 kg/m2 Dr. Zeny Crow Work Phone: 1(459)137-781719 [place] [address] 10-19-2023 07:51-0500 Body weight [address] Zeny Crow Work Phone: [facility] [place] 10-09-2023 13:03-0500 Body height 160.[address] Zeny Crow Work Phone: [facility] [place] 10-09-2023 13:03-0500 Body mass index (BMI) [Ratio] 34 kg/m2 Dr. Zeny Crow Work Phone: [facility] [place] 10-09-2023 13:03-0500 Body temperature 98.6 [degF] Dr. Zeny Crow Work Phone: 3(254)181-856019 [place] [address] 10-09-2023 13:03-0500 Body weight 87.[address] Zeny Crow Work Phone: 6(726)936-601319 [place] [address] 10-09-2023 13:03-0500 Diastolic blood pressure 78 mm[Hg] Dr. Zeny Crow Work Phone: [facility] [place] 10-09-2023 13:03-0500 Heart rate 70 /min Dr. Zeny Crow Work Phone: 5(123)598-004019 [place] [address] 10-09-2023 13:03-0500 Respiratory rate 16 /min Dr. Zeny Crow Work Phone: [facility] [place] 10-09-2023 13:03-0500 SaO2% (BldA) [Mass fraction] 97 % Dr. Zeny Crow Work Phone: [facility] [place] 10-09-2023 13:03-0500 Systolic blood pressure 138 mm[Hg] Dr. Zeny Crow Work Phone: [facility] [place] 06-26-2023 10:00-0400 Body height 160.[address] Zeny Crow Work Phone: [facility] [place] 06-26-2023 10:00-0400 Body mass index (BMI) [Ratio] 33.5 kg/m2 Dr. Zeny Crow Work Phone: [facility] [place] 06-26-2023 10:00-0400 Body temperature 96 [degF] Dr. Zeny Crow Work Phone: [facility] [place] 06-26-2023 10:00-0400 Body weight 85.[address] Zeny Crow Work Phone: [facility] [place] 06-26-2023 10:00-0400 Diastolic blood pressure 75 mm[Hg] Dr. Zeny Crow Work Phone: [facility] [place] 06-26-2023 10:00-0400 Heart rate 67 /min Dr. Zeny Crow Work Phone: [facility] [place] 06-26-2023 10:00-0400 Respiratory rate 17 /min Dr. Zeny Crow Work Phone: [facility] [place] 06-26-2023 10:00-0400 SaO2% (BldA) [Mass fraction] 99 % Dr. Zeny Crow Work Phone: [facility] [place] 06-26-2023 10:00-0400 Systolic blood pressure 147 mm[Hg] Dr. Zeny Crow Work Phone: [facility] [place] 05-29-2023 10:25-0400 Body height 160.[address] Zeny Crow Work Phone: [facility] [place] 05-29-2023 10:25-0400 Body mass index (BMI) [Ratio] 33.8 kg/m2 Dr. Zeny Crow Work Phone: [facility] [place] 05-29-2023 10:25-0400 Body temperature 98 [degF] Dr. Zeny Crow Work Phone: [facility] [place] 05-29-2023 10:25-0400 Body weight 86.[address] Zeny Crow Work Phone: [facility] [place] 05-29-2023 10:25-0400 Diastolic blood pressure 76 mm[Hg] Dr. Zeny Crow Work Phone: [facility] [place] 05-29-2023 10:25-0400 Heart rate 78 /min Dr. Zeny Crow Work Phone: [facility] [place] 05-29-2023 10:25-0400 Respiratory rate 18 /min Dr. Zeny Crow Work Phone: [facility] [place] 05-29-2023 10:25-0400 SaO2% (BldA) [Mass fraction] 97 % Dr. Zeny Crow Work Phone: [facility] [place] 05-29-2023 10:25-0400 Systolic blood pressure 144 mm[Hg] Dr. Zeny Crow Work Phone: [facility] [place] 05-11-2023 10:49-0400 Body temperature 98.6 [degF] Dr. Zeny Crow Work Phone: [facility] [place] 05-11-2023 10:49-0400 Diastolic blood pressure 76 mm[Hg] Dr. Zeny Crow Work Phone: [facility] [place] 05-11-2023 10:49-0400 Heart rate 67 /min Dr. Zeny Crow Work Phone: [facility] [place] 05-11-2023 10:49-0400 Respiratory rate 18 /min Dr. Zeny Crow Work Phone: [facility] [place] 05-11-2023 10:49-0400 SaO2% (BldA) [Mass fraction] 98 % Dr. Zeny Crow Work Phone: [facility] [place] 05-11-2023 10:49-0400 Systolic blood pressure 164 mm[Hg] Dr. Zeny Crow Work Phone: [facility] [place] 01-30-2023 09:13-0400 Body height 160.[address] Zeny Crow Work Phone: [facility] [place] 01-30-2023 09:10-0400 Body mass index (BMI) [Ratio] 33 kg/m2 Dr. Zeny Crow Work Phone: [facility] [place] 01-30-2023 09:10-0400 Body weight 87.[address] Zeny Crow Work Phone: [facility] [place] 01-30-2023 09:10-0400 Diastolic blood pressure 80 mm[Hg] Dr. Zeny Crow Work Phone: [facility] [place] 01-30-2023 09:10-0400 Systolic blood pressure 149 mm[Hg] Dr. Zeny Crow Work Phone: [facility] [place] 01-16-2023 09:03-0400 Body mass index (BMI) [Ratio] 34.2 kg/m2 Dr. Zeny Crow Work Phone: [facility] [place] 01-16-2023 09:03-0400 Body temperature 98 [degF] Dr. Zeny Crow Work Phone: [facility] [place] 01-16-2023 09:03-0400 Body weight 87.[address] Zeny Crow Work Phone: [facility] [place] 01-16-2023 09:03-0400 Diastolic blood pressure 76 mm[Hg] Dr. Zeny Crow Work Phone: [facility] [place] 01-16-2023 09:03-0400 Heart rate 70 /min Dr. Zeny Crow Work Phone: [facility] [place] 01-16-2023 09:03-0400 Respiratory rate 18 /min Dr. Zeny Crow Work Phone: [facility] [place] 01-16-2023 09:03-0400 SaO2% (BldA) [Mass fraction] 97 % Dr. Zeny Crow Work Phone: [facility] [place] 01-16-2023 09:03-0400 Systolic blood pressure 138 mm[Hg] Dr. Zeny Crow Work Phone: [facility] [place] 06-27-2022 10:21-0400 Body temperature 98 [degF] Dr. Zeny Crow Work Phone: [facility] [place] Work Phone: 06-27-2022 10:21-0400 Diastolic blood pressure 60 mm[Hg] Dr. Zeny Crow Work Phone: [facility] [place] Work Phone: 06-27-2022 10:21-0400 Heart rate 65 /min Dr. Zeny Crow Work Phone: [facility] [place] Work Phone: 06-27-2022 10:21-0400 Respiratory rate 16 /min Dr. Zeny Crow Work Phone: [facility] [place] Work Phone: 06-27-2022 10:21-0400 SaO2% (BldA) [Mass fraction] 96 % Dr. Zeny Crow Work Phone: [facility] [place] Work Phone: 06-27-2022 10:21-0400 Systolic blood pressure 124 mm[Hg] Dr. Zeny Crow Work Phone: [facility] [place] Work Phone: 06-27-2022 07:18-0400 Body height 160.[address] Zeny Crow Work Phone: [facility] [place] Work Phone: 06-27-2022 07:18-0400 Body mass index (BMI) [Ratio] 31.1 kg/m2 Dr. Zeny Crow Work Phone: [facility] [place] Work Phone: 06-27-2022 07:18-0400 Body weight 79.[address] Zeny Crow Work Phone: [facility] [place] Work Phone: 12-12-2021 10:58-0400 Body height 160.[address] Zeny Crow Work Phone: [facility] [place] Work Phone: 12-12-2021 10:58-0400 Body mass index (BMI) [Ratio] 32.9 kg/m2 Dr. Zeny Crow Work Phone: [facility] [place] Work Phone: 12-12-2021 10:58-0400 Body weight 84.[address] Zeny Crow Work Phone: [facility] [place] Work Phone: 12-12-2021 10:58-0400 Diastolic blood pressure 80 mm[Hg] Dr. Zeny Crow Work Phone: [facility] [place] Work Phone: 12-12-2021 10:58-0400 Systolic blood pressure 130 mm[Hg] Dr. Zeny Crow Work Phone: [facility] [place] Work Phone: 11-08-2021 11:41-0500 Body mass index (BMI) [Ratio] 33 kg/m2 Dr. Zeny Crow Work Phone: [facility] [place] Work Phone: 11-08-2021 11:41-0500 Body temperature 98.2 [degF] Dr. Zeny Crow Work Phone: [facility] [place] Work Phone: 11-08-2021 11:41-0500 Body weight 84.[address] Zeny Crow Work Phone: [facility] [place] Work Phone: 11-08-2021 11:41-0500 Diastolic blood pressure 75 mm[Hg] Dr. Zeny Crow Work Phone: [facility] [place] Work Phone: 11-08-2021 11:41-0500 Heart rate 64 /min Dr. Zeny Crow Work Phone: [facility] [place] Work Phone: 11-08-2021 11:41-0500 Respiratory rate 18 /min Dr. Zeny Crow Work Phone: [facility] [place] Work Phone: 11-08-2021 11:41-0500 SaO2% (BldA) [Mass fraction] 97 % Dr. Zeny Crow Work Phone: [facility] [place] Work Phone: 11-08-2021 11:41-0500 Systolic blood pressure 122 mm[Hg] Dr. Zeny Crow Work Phone: [facility] [place] Work Phone: 07-21-2020 14:00-0400 Body mass index (BMI) [Ratio] 32.8 kg/m2 Dr. Zeny Crow Work Phone: [facility] [place] Work Phone: 07-05-2017 10:23-0400 BMI (Body Mass Index) 34.79 kg/m2 Sophia López MD [facility] 07-05-2017 10:23-0400 BP Diastolic 79 mm[Hg] Sophia López MD [facility] 07-05-2017 10:23-0400 BP Systolic 145 mm[Hg] Sophia López MD [facility] 07-05-2017 10:23-0400 Height 160.02 cm Sophia López MD [facility] 07-05-2017 10:23-0400 Pulse (Heart Rate) 63 /min Sophia López MD [facility] 07-05-2017 10:23-0400 Weight 89.09 kg Sophia López MD [facility] 04-24-2017 11:16-0400 BMI (Body Mass Index) 34.47 kg/m2 Sophia López MD [facility] 04-24-2017 11:16-0400 Body Temperature 97.5 [degF] Sophia López MD [facility] 04-24-2017 11:16-0400 BP Diastolic 70 mm[Hg] Sophia López MD [facility] 04-24-2017 11:16-0400 BP Systolic 131 mm[Hg] Sophia López MD [facility] 04-24-2017 11:16-0400 Height 160.02 cm Sophia López MD [facility] 04-24-2017 11:16-0400 Pulse (Heart Rate) 64 /min Sophia López MD [facility] 04-24-2017 11:16-0400 Respiratory Rate 16 /min Sophia López MD [facility] 04-24-2017 11:16-0400 Weight 88.27 kg Sophia López MD [facility] 04-09-2017 10:51-0400 BMI (Body Mass Index) 34 kg/m2 Sophia López MD [facility] 04-09-2017 10:51-0400 BP Diastolic 74 mm[Hg] Sophia López MD [facility] 04-09-2017 10:51-0400 BP Systolic 140 mm[Hg] Sophia López MD [facility] 04-09-2017 10:51-0400 Height 161.29 cm Sophia López MD [facility] 04-09-2017 10:51-0400 Pulse (Heart Rate) 67 /min Sophia López MD [facility] 04-09-2017 10:51-0400 Respiratory Rate 18 /min Sophia López MD [facility] 04-09-2017 10:51-0400 Weight 88.45 kg Sophia López MD [facility] 11-26-2015 15:11-0500 BMI (Body Mass Index) 32.43 kg/m2 Sophia López MD [facility] 11-26-2015 15:11-0500 Height 161.29 cm Sophia López MD [facility] 11-26-2015 15:11-0500 Weight 84.37 kg Sophia López MD [facility] Encounters Encounter Date Encounter Type Care Provider Facility Start: 03-31-2025 ambulatory Zeny Crow Facilit y:[facility] [place] Start: 03-11-2025 ambulatory Zeny Crow Facilit y:[facility] [place] Start: 03-11-[address] Shayne Silva -Physical Therapy Work Phone: Start: 03-09-2025 End: 03-09-[address] Zeny Crow MD Work Phone: [facility] [place] Work Phone: Start: 03-09-2025 End: 03-09-[address] Jacob Castañeda MD -Radiology [place] Work Phone: Start: 03-09-2025 End: 03-09-2025 ambulatory Zeny Crow Facility:[facility] [place] Start: 01-27-[address] Shayne Silva -Occupational Therapy Work Phone: Start: 01-23-2025 End: 01-23-[address] Zeny Crow MD Work Phone: [facility] [place] Work Phone: Start: 01-23-2025 End: 01-23-[address] Zeny Crow MD -Radiology, [place] Work Phone: Start: 01-23-2025 End: 01-23-2025 ambulatory Zeny Crow Facility:[facility] [place] Start: 12-23-2024 End: 12-23-2024 Patient encounter procedure Betsey GATES -[facility] Work Phone: Start: 12-23-2024 End: 12-23-2024 ambulatory Zeny Crow Facility[facility] Start: 12-09-2024 End: 12-09-[address] Zeny Crow MD Work Phone: [facility] [place] Work Phone: Start: 12-09-2024 End: 12-09-[address] [facility] Start: 12-09-2024 End: 12-09-2024 ambulatory Zeny Crow Facility:[facility] [place] Start: 12-03-[address] [facility] Work Phone: Start: 11-11-2024 End: 11-11-[address] Shayne Dia MD -[facility] Work Phone: Start: 11-11-2024 End: 02-18-2025 ambulatory Shayne Dia Facility:[facility] Start: 11-10-2024 End: 11-10-[address] [facility] Start: 11-10-2024 End: 11-10-2024 ambulatory Zeny Crow Facility:[facility] [place] Start: 09-11-2024 End: 09-11-[address] Sophia López MD [facility] Work Phone: Start: 09-11-2024 End: 09-11-2024 ambulatory Zeny Crow Facility:[facility] [place] Start: 09-04-2024 End: 09-04-[address] Sophia López MD -Outpatient [facility] Work Phone: Start: 09-04-2024 End: 09-04-2024 ambulatory Zeny Crow Facility:[facility] [place] Start: 08-12-2024 End: 08-12-2024 ambulatory Zeny Crow Facility:[facility] Start: 06-14-2024 End: 06-14-2024 ambulatory Zeny Crow Facility:[facility] Start: 06-03-2024 End: 06-03-2024 ambulatory Zeny Crow Facility:[facility] Start: 05-19-2024 End: 05-19-2024 ambulatory Zeny Crow Facility:[facility] Start: 05-12-2024 End: 05-12-2024 ambulatory Zeny Crow Facility:[facility] Start: 05-12-2024 End: 05-12-2024 ambulatory [facility] Crow [facility] [facility] [place] Start: 04-21-2024 End: 04-21-2024 ambulatory Zeny Crow Facility:[facility] [place] Start: 12-04-2023 End: 12-04-[address] Zeny Crow Work Phone: [facility] [place] Work Phone: Start: 12-04-2023 End: 12-04-[address] Zeny Crow Work Phone: [facility] [place] Start: 10-19-2023 Non-patient / Non-visit Dr. Zeny Crow Work Phone: [facility] Start: 10-19-2023 End: 10-19-2023 Admission to same day surgery center Dr. Zeny Crow Work Phone: [facility] [place]-Endoscopy Work Phone: Start: 10-19-2023 End: 10-19-[address] Zeny Crow Work Phone: [facility] [place] Work Phone: Start: 10-09-2023 End: 10-09-[address] Zeny Crow Work Phone: [facility] [place] Work Phone: Start: 10-09-2023 End: 10-09-[address] Zeny Crow Work Phone: [facility] Work Phone: Start: 09-03-2023 End: 09-03-[address] Zeny Crow Work Phone: [facility] [place] Work Phone: Start: 09-03-2023 End: 09-03-[address] Zeny Crow Work Phone: [facility] [place]-Outpatient Breast Imaging Work Phone: Start: 07-20-2023 End: 07-20-[address] Zeny Crow Work Phone: [facility] [place] Work Phone: Start: 07-20-2023 End: 07-20-[address] Zeny Crow Work Phone: [facility] [place] Start: 07-18-2023 End: 07-18-[address] Zeny Crow Work Phone: [facility] [place] Work Phone: Start: 07-18-2023 End: 07-18-[address] [facility] Start: 06-26-2023 End: 06-26-[address] Zeny Crow Work Phone: [facility] Work Phone: Start: 05-29-2023 End: 05-29-[address] Zeny Crow Work Phone: [facility] Work Phone: Start: 05-25-2023 End: 05-25-[address] Zeny Crow Work Phone: [facility] [place] Work Phone: Start: 05-25-2023 End: 05-25-[address] Zeny Crow Work Phone: [facility] Start: 05-11-2023 End: 05-11-[address] Zeny Crow Work Phone: [facility] Work Phone: Start: 04-19-2023 End: 04-19-[address] Zeny Crow Work Phone: [facility] [place] Work Phone: Start: 04-19-2023 End: 04-19-[address] Zeny Crow Work Phone: [facility] Work Phone: Start: 03-16-2023 End: 03-16-[address] Zeny Crow Work Phone: [facility] [place] Work Phone: Start: 03-16-2023 End: 03-16-[address] Zeny Crow Work Phone: [facility] Start: 02-16-2023 End: 02-16-[address] Zeny Crow Work Phone: [facility] [place] Work Phone: Start: 02-16-2023 End: 02-16-[address] Zeny Crow Work Phone: [facility] Start: 01-30-2023 End: 01-30-[address] Zeny Crow Work Phone: [facility] Start: 01-16-2023 End: 01-16-[address] Zeny Crow Work Phone: [facility] Start: 10-30-2022 End: 10-30-2022 ambulatory [facility] [place] Work Phone: Start: 10-30-2022 End: 10-30-2022 Patient encounter procedure [facility] Start: 09-01-2022 End: 09-01-[address] Zeny Crow Work Phone: [facility] [place] Work Phone: Start: 09-01-2022 End: 09-01-[address] Zeny Crow Work Phone: [facility] [place]-Outpatient Breast Imaging Start: 06-29-2022 End: 06-29-[address] Zeny Crow Work Phone: [facility] [place] Work Phone: Start: 06-29-2022 End: 06-29-[address] Zeny Crow Work Phone: [facility] Start: 06-28-2022 End: 06-28-[address] Zeny Crow Work Phone: [facility] [place] Work Phone: Start: 06-28-2022 End: 06-28-[address] Zeny Crow Work Phone: [facility] Start: 06-27-2022 Non-patient / Non-visit Dr. Zeny Crow Work Phone: [facility] Start: 06-27-2022 End: 06-27-2022 Admission to same day surgery center Dr. Zeny Crow Work Phone: [facility] [place]-Endoscopy Start: 06-27-2022 End: 06-27-[address] Zeny Corw Work Phone: [facility] [place] Work Phone: Start: 04-26-2022 End: 04-26-[address] [facility] Start: 12-12-2021 End: 12-12-[address] Zeny Crow Work Phone: [facility] Start: 11-17-2021 End: 11-17-[address] Zen[facility] Crow [facility] Phone[facility] Start: 11-15-2021 End: 11-15-[address] Zeny Crow Work Phone: [facility] [place] Start: 11-08-2021 End: 11-08-[address] Zeny Crow Work Phone: [facility] Start: 09-27-2021 End: 09-27-[address] Zeny Crow Work Phone: [facility] Start: 09-26-2021 End: 09-26-[address] Zeny Crow Work Phone: [facility] [place] Start: 08-31-[address] Zeny Crow Work Phone: [facility] [place]-Outpatient Breast Imaging Start: 01-21-2019 End: 01-22-2019 Patient encounter procedure ZENY CROW Facility:[facility] Start: 11-29-2018 Patient encounter procedure ZENY CROW Facility:[facility] Start: 11-29-2018 End: 11-30-2018 Patient encounter procedure ZENY CROW Facility:[facility] Procedures Date Procedure Procedure Detail Performing Clinician Start: 03-09-2025 Complete x-ray serie s of lumbar spine with bending views Dr. Zeny Crow MD Work Phone: Start: 01-23-2025 Plain x-ray of pelvi s and lower extremity Dr. Zeny Crow MD Work Phone: Start: 09-11-[address] Zeny Crow MD Work Phone: Start: 09-04-2024 Screening mammography Shira Crow MD Work Phone: Start: 10-19-[address] Zeny leo Work Phone: Start: 09-03-2023 Screening mammography Shira Crow Work Phone: Start: 09-01-2022 Screening mammography Shira Crow Work Phone: Start: 06-27-[address] Zeny leo Work Phone: Start: 11-15-2021 Plain x-ray of pelvi s and lower extremity Dr. Zeny Crow Work Phone: Start: 08-31-2021 Screening mammography Shira Crow Work Phone: Start: 07-05-2017 End: 07-05-2017 Pelvic/Breast Exam (Medicare Patient) Sophia López MD Work Phone: Start: 04-09-2017 End: 04-09-2017 Dietary management education, guidance, and counseling Sophia López MD Start: 04-09-2017 End: 04-09-2017 Urinalysis Sophia Silva Start: 11-26-2015 End: 12-08-2015 Arthrocentesis aspir&/inj major jt/bursa w/o us Esa Ortega Ron Work Phone: Start: 11-26-2015 End: 12-08-2015 Drain/inject, joint/bursa Esa Velasquez Work Phone: Viral antigen assay Dr. Zeny Crow Work Phone: Plan of Treatment Date Care Activity Detail Author Start: 11-11-2024 Patient referral [facility] [place] Work Phone: Start: 10-19-2023 Colonoscopy w/biopsy single/multiple COLONOSCOPY AND BIOPSY [facility] [place] Start: 10-19-2023 Patient discharge [facility] [place] Start: 06-27-2022 Colonoscopy w/biopsy single/multiple COLONOSCOPY AND BIOPSY [facility] [place] Work Phone: Start: 06-27-2022 Colsc flx w/rmvl of tumor polyp lesion snare tq COLONOSCOPY W/LESION REMOVAL [facility] [place] Work Phone: Start: 06-27-2022 Patient discharge [facility] [place] Work Phone: Start: 07-05-2017 End: 07-05-2017 Appointment Appointment [facility] Start: 05-23-2017 End: 05-23-2017 Mammogram, both breasts Mammogram, Diagnostic, both breasts [facility] Start: 05-23-2017 End: 05-23-2017 Us exam, breast(s) US Breast(s) [facility] Start: 05-23-2017 End: 05-23-2017 Mammogram, both breasts Mammogram, Diagnostic, both breasts [facility] Start: 05-23-2017 End: 05-23-2017 Us exam, breast(s) US Breast(s) [facility] Start: 05-15-2017 End: 05-16-2017 Mammogram, screening Mammogram, Screening, both breasts [facility] Start: 05-15-2017 End: 05-16-2017 Mammogram, screening Mammogram, Screening, both breasts [facility] Start: 04-24-2017 End: 04-24-2017 *MISC - Miscellaneous Lab Test #1 *MISC - Miscellaneous Lab Test #1 [facility] Start: 04-24-2017 End: 04-24-2017 Appointment Appointment [facility] Start: 04-24-2017 End: 04-24-2017 *MISC - Miscellaneous Lab Test #1 *MISC - Miscellaneous Lab Test #1 [facility] Start: 04-12-2017 End: 04-12-2017 *CUUID - Urine TRISTA Culture - Identificatn *CUUID - Urine TRISTA Culture - Identificatn [facility] Start: 04-12-2017 End: 04-12-2017 *CUUID - Urine TRISTA Culture - Identificatn *CUUID - Urine TRISTA Culture - Identificatn [facility] Start: 04-09-2017 End: 04-09-2017 Urine culture, bacteria Urine Culture [facility] Start: 04-09-2017 End: 04-09-2017 Urine culture, bacteria Urine Culture [facility] Start: 02-16-2016 End: 02-16-2016 Physical Therapy General [facility], [address] [place] [address], [id number] [facility] Start: 02-16-2016 End: 02-16-2016 Physical Therapy General Physical Therapy [facility], [address] [place] [address], [id number] [facility] Start: 01-06-2016 End: 01-06-2016 Mri any jt lower extrem w/o contrast matrl MRI Joint Lower Extremity [facility] Start: 01-06-2016 End: 01-06-2016 Mri jnt of lwr extre w/o dye MRI Joint Lower Extremity [facility] Start: 11-26-2015 End: 11-26-2015 Radiologic exam knee complete 4/more views X-Ray, Knee [facility] Start: 11-26-2015 End: 11-26-2015 X-ray exam, knee, 4 or more X-Ray, Knee [facility] Patient referral [facility] Work Phone: T4 free measurement [facility] [place] Thyroid stimulating hormone measurement [facility] [place] Triiodothyronine, fr ee measurement [facility] [place] Payers Date Payer Category Payer Self-pay [id number] 2018 Private Health Insurance [facility] [id number] 2016 Private Health Insurance 101 [id number] 1945 Unknown [id number] 2.16.8 [id number] 1945 Unknown [id number] 2.16.8 [id number] 1945 Unknown [id number] 2.16.8 [id number] Medicare [id number] Unknown [id number] 2.16.8 [id number] Unknown [id number] 2.16.8 40.1.429984.3.579.2.462 Unknown [id number] 2.16.8 40.1.697575.3.579.2.462 Unknown [id number] 2.16.8 40.1.675863.3.579.2.462 Unknown [id number] 2.16.8 40.1.700974.3.579.2.462 Unknown [id number] 2.16.8 40.1.731609.3.579.2.462 Unknown [id number] 2.16.8 40.1.196384.3.579.2.462 Unknown [id number] 2.16.8 40.1.403872.3.579.2.462 Unknown [id number] 2.16.8 40.1.810672.3.579.2.462 Unknown [id number] 2.16.8 40.1.728711.3.579.2.462 Unknown [id number] 2.16.8 40.1.788815.3.579.2.462 Unknown [id number] 2.16.8 40.1.326196.3.579.2.462 Unknown [id number] 2.16.8 40.1.316622.3.579.2.462 Unknown [id number] 2.16.8 40.1.733960.3.579.2.462 Unknown [id number] 2.16.8 40.1.721358.3.579.2.462 Unknown [id number] 2.16.8 [id number] Unknown [id number] 2.16.8 [id number] Social History Date Type Detail Facility Start: 12-12-2021 End: 06-26-2023 Tobacco smoking status ARIS Unknown if ever smoked [facility] [place] Start: 1945 Sex Assigned At Female [facility] Start: 05-12-2024 Tobacco smoking stat [facility] Never smoked tobacco (finding) [facility] [place] Start: 12-18-2024 Sex Female (finding) [facility] Medical Equipment Procedure Code Equipment Code Equipment Origin al Text Equipment Identifier Dates Colonoscopy RESOLUTION 360 C LIP 235 CM FDA Start: 06-27-2022 Colonoscopy Ligation clip, metallic [id number] FDA Start: 06-27-2022 Colonoscopy RESOLUTION 360 C LIP 235 CM FDA Start: 06-27-2022 Colonoscopy RESOLUTION 360 C LIP 235 CM FDA Start: 06-27-2022 Colonoscopy RESOLUTION 360 C LIP 235 CM FDA Start: 06-27-2022 Colonoscopy RESOLUTION 360 C LIP 235 CM FDA Start: 06-27-2022 Colonoscopy RESOLUTION 360 C LIP 235 CM FDA Start: 06-27-2022 Colonoscopy RESOLUTION 360 C LIP 235 CM FDA Start: 06-27-2022 Colonoscopy RESOLUTION 360 C LIP 235 CM FDA Start: 06-27-2022 Colonoscopy RESOLUTION 360 C LIP 235 CM FDA Start: 06-27-2022 Colonoscopy RESOLUTION 360 C LIP 235 CM FDA Start: 06-27-2022 Colonoscopy RESOLUTION 360 C LIP 235 CM FDA Start: 06-27-2022 Colonoscopy RESOLUTION 360 C LIP 235 CM FDA Start: 06-27-2022 Colonoscopy RESOLUTION 360 C LIP 235 CM FDA Start: 06-27-2022 Colonoscopy RESOLUTION 360 C LIP 235 CM FDA Start: 06-27-2022 Colonoscopy RESOLUTION 360 C LIP 235 CM FDA Start: 06-27-2022 Colonoscopy RESOLUTION 360 C LIP 235 CM FDA Start: 06-27-2022 Colonoscopy RESOLUTION 360 C LIP 235 CM FDA Start: 06-27-2022 Goals Date Patient Goal Desired Activity /State Mental Status Date Assessment Result Facility 10-19-2023 Cognitive function Level Of Consciousness Sedated [facility] [place] Work Phone: 10-19-2023 Cognitive function Voice/Name [facility] Work Phone: 06-27-2022 Cognitive function Level Of Consciousness Sedated [facility] [place] Work Phone: Clinical Notes 07-18-2023 to 03-10-2025 Note Date & Type Note Facility 03-10-2025 Radiology Diagnostic study note [facility] Imaging Services [address], [place] [address] L/S Spine w Bend Min 6 Vw MR#: [id number] Acct: [id number] Name: BHARATH BEARD Rep #: [id number] : 1945 F 79 From: Kirill Valerio MD PCP: Dr. Zeny Crow MD Status: RE G CLI Study:L/S Spine w Bend Min 6 Vw Date of Exam: 03/09/25 Exam# [id number] Ordering Dr: Jacob Castañeda MD PROCEDURE: L/S SPINE W BEND MIN 6 VW 03/09/2025 REASON FOR EXAM: LUMBAR PAIN TECHNIQUE: L/S SPINE W BEND MIN 6 VW COMPARISON: None. 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 No evidence of instability on flexion/extension images. There are diffuse spondylotic changes. Findings are demonstrated to by diffuse disc space narrowing, osteophyte formation and degenerative endplate sclerosis. There is diffuse facet joint arthropathy with secondary bilateral neural foramina narrowing. No fracture or dislocation is seen. No aggressive lytic or blastic bony lesion is noted. RAD/L/S Spine w Bend Min 6 Vw IMPRESSION: Spondylosis. Reading Location: [place] [address] CC: Dr. Jacob Castañeda MD; Dr. Zeny Crow MD ~ [employer] Lock[employer]ch: Signed [facility] [place] 01-24-2025 Radiology Diagnostic study note [facility] Imaging Services [address] [place] [id number] Hips B/L min 2 views w/ Pelvis MR#: [id number] Acct: [id number] Name: BHARATH BEARD Rep #: [id number] : 1945 F 79 From: Michael Guevara MD PCP: Dr. Zeny Crow MD Status: RE G CLI Study:Hips B/L min 2 views w/ Pelvis Date of Exam: 01/23/25 Exam# [id number] Ordering Dr: Zeny Crow MD PROCEDURE: HIPS B/L MIN 2 VIEWS W/ PELVIS 01/23/2025 REASON FOR EXAM: PAIN TECHNIQUE: AP view of the pelvis and two views of the right and two views of the left hip, 5 total images COMPARISON: 11/15/2021 FINDINGS: No fracture or dislocation. Symmetric appearing SI joints and pubic symphysis appear within limits. The right hip appears within limits. Mild osteoarthrosis left hip again noted, not significantly changed. No osseous lesion identified. Pelvic phleboliths incidentally noted. RAD/Hips B/L min 2 views w/ Pelvis IMPRESSION: Mild left hip osteoarthrosis again noted. Reading Location: [facility] CC: Dr. Zeny Crow MD ~ [place] [employer]ch: Signed [facility] [place] 12-23-2024 Evaluation note Diagnosis Onset Date Resolution Inclusion cyst of vulva acute December 23, 2024 11:37am [facility] [place] Work Phone: 1(550) 630-200302-18-2025 Evaluation note* Diagnosis Onset Date Resolution Status Admit Date Sciatica acute November 11, 2024 10:24am Diabetes mellitus type II, controlled chronic November 11, 2 025 10:24am Toxic multinodular goiter chronic November 11, 2024 10:24am [facility] [place] Work Phone: 1(151) 668-318502-18-2025 Evaluation note* Diagnosis Onset Date Resolution Status Admit Date Sciatica acute November 11, 2024 10:24am Diabetes mellitus type II, controlled chronic November 11, 2 025 10:24am Toxic multinodular goiter chronic November 11, 2024 10:24am Inclusion cyst of vulva acute A pril 2024 11:37am [facility] [place] Work Phone: 1(990) 840-216901-26-2024 Procedure [facility] 10-19-2023 Procedure [facility]10-25-2023 Discharge summary Author Angelica Sanders [facility] [place] July 18, 2023 3:51pm Note Date/Time July 18, 2023 3 :51pm [facility] [place] Physical Therapy [facility] [address] [place] [address] [address] [place] [address] / REHABILITATION SERVICES DISCHARGE SUMMARY MR#: [id number] Acct: [id number] Name: BHARATH BEARD Rep #: [id number] : 1945 78 From: Angelica Bravo Referring Dr.: Dr. Zeny Crow MD Status: REG RCR Insurance: [employer] [facility] SELF PAY INSURANCE Discharge Summary D/C summary: It has been my pleasure to treat BHARATH BEARD referred by Dr. Zeny Crow MD, with the diagnosis of Left MCL Sprain for a total of 9 visit(s). Discharge Date: Please see the following information for a summary of their discharge status. Subjective Subjective: The knee is doing great- every once in awhile she is doing great- she was on vacation for 2 weeks and she had no issues with it. She had a small issue with her hamstring last night putting on her socks and its a little sore now Pain Left Knee: Pain Intensity (Out of 10): 0 Overall Improvement % Improvement: 100 Objective Objective/Function: Posture: fair throughout Gait: good throughout Stairs: asc/desc recip- did have a little twinge today in the hamstrings. HR/TR: able with UE A SLS: weight shift but unable to SLS Palpation: tender along medial joint line ROM: 0-115 degrees Strength: Core: fair, Hip: 4+/5 throughout, Knee: Flexion: 31 Extn:58, Ankle: 5/5 Flex: HS: moderate, Gastroc: moderate Goals Goal 1:: Patient will be I with HEP and progression Goal Progress: Goal Met Goal 2:: Patient will asc/desc 8 with 1 HR Goal Progress: Goal Met Goal 3:: Patient will ambulate >300 feet with normalized gait pattern Goal Progress: Goal Met Goal 4:: Patient will report 80% improvement Goal Progress: Goal Met Plan Plan: 07/18/23: Discharge to I HEP- encouraged her to call if she has questions or concerns Anticipated Interventions (copied from Eval) Patient/Client Instruction: Educate patient on: Benefits of Fitness Program Therapeutic Exercise to Include: Strength training, Endurance training, Agility training, Body mechanics, Postural training, Flexibilty training, Gait and locomotor training, Neuromotor development, Passive ROM, Active ROM, Dynamic Lumbar Stabilization and Scapular Strength/Stabilization D/C Information d/c sentence: If there are questions or concerns regarding this patient's physical therapy, please feel free to call me at [phone]. Thank you for the referral of thispatient. Sincerely, AYAH EscobarT Balance/Gait/Functional tests Balance/Special Test Scores Lower Extremity Functional Score: 62 Improvement % Improvement: 100 <Electronically signed by Angelica Sanders DPT> 07/18/23 [id number] CC: Dr. Zeny Crow MD ~ ELR Signed [facility] [place] Work Phone: Evaluation note* Diagnosis Onset Date Resolution Status Personal history of colonic polyps acute Galactorrhea acute [facility] [place] Work Phone: Evaluation note* Diagnosis Onset Date Resolution Status Personal history of colonic polyps acute [facility] [place] Work Phone: Evaluation noteNo assessment information available [facility] [place] Work Phone: evaluation note* Diagnosis Onset Date Resolution Status Obesity acute Toxic multinodular goiter ac [place] Diabetes mellitus type II, controlled chronic Encounter for routine gynecological examination noneactive [facility] [place] Work Phone: Evaluation note* Diagnosis Onset Date Resolution Status Sinusitis, acute acute Diabetes mellitus type II, controlled chronic Toxic multinodular goiter [facility] Work Phone: Evaluation note* Diagnosis Onset Date Resolution Status Sinusitis, acute acute Diabetes mellitus type II, controlled chronic Toxic multinodular goiter [facility] Personal history of colonic polyps resolved [facility] [place] Work Phone: Evaluation note* Diagnosis Onset Date Resolution Status Personal history of colonic polyps resolved Diabetes mellitus type II, controlled chronic Toxic multinodular goiter [facility] Work Phone: Evaluation note* Diagnosis Onset Date Resolution Status Diabetes mellitus type II, controlled chronic Toxic multinodular goiter [facility] Work Phone: History and physical note Author Mateo Lamb [facility] October 19, 2023 8:24am Note Date/Time October 19, 2023 8 :24am [facility] Medical Records Department [address] [place] [id number] History & Physical Exam 10/19/23 0823 MR#: [id number] Acct: [id number] Name: BHARATH BEARD Rep #:[id number] : 1945 78 From: Mateo Lamb MD PCP: Dr. Zeny Crow MD Status[place] [facility] Location: [place] [address] History and Physical Date of Admission: 10/19/23 Visit Reasons: COLONOSCOPY - RECALL LETTER Chief Complaint: nodular goiter Is patient in pain?: No Allergies oxycodone [From Percocet] Allergy (Mild, Verified 06/26/23 10:02) hivesamoxicillin Allergy (Verified 06/26/23 10:02) Rashadhesive tape Adverse Reaction (Mild, Verified 06/26/23 10:02) redness Medications aspirin 81 mg tablet,delayed release 81 mg PO DAILY 10/24/19 [History Confirmed 06/26/23] ascorbic acid (vitamin C) 500 mg tablet 500 mg PO DAILY 12/09/19 [History Confirmed 06/26/23] calcium carbonate 500 mg calcium (1,250 mg) tablet 500 mg PO DAILY 12/09/19 [History Confirmed 06/26/23] metoprolol succinate 50 mg tablet,extended release 24 hr 50 mg PO DAILY 12/09/19[History Confirmed 06/26/23] vitamin E (dl, acetate) 180 mg (400 unit) capsule 400 unit PO DAILY 12/09/19 [History Confirmed 06/26/23] coenzyme Q10 200 mg capsule 200 mg PO DAILY 07/21/20 [History Confirmed 06/26/23] mupirocin 2 % topical ointment 1 applic topical BID PRN Wound Care 07/21/20 [History Confirmed 06/26/23] rosuvastatin 10 mg tablet 10 mg PO QHS 01/19/21 [History Confirmed 06/26/23] B-complex with vitamin C 1 cap PO DAILY 01/16/23 [History Confirmed 06/26/23] factor 5 supplement for pain PO 01/16/23 [History Confirmed 06/26/23] propylene glycol 0.6 % eye drops (Systane Balance) 1 drp ophthalmic (eye) BID PRN 01/16/23 [History Confirmed 06/26/23] methimazole 5 mg tablet 2.5 mg (1/2 x 5 mg) PO .4 days per week #36 tabs 06/22/23 [Rx Confirmed 06/26/23] [facility] Medical History (Updated 06/26/23 @ 05:[address] Mateo Lamb MD) Alcohol use Arthritis Bleeding disorder Bradycardia Cardiology follow-up encounter Cyst of breast, left, diffuse fibrocystic Diabetes Diabetes mellitus type II, controlled Dietary restriction Difficulty swallowing Gastric reflux GI problem History of echocardiogram History of irregular heartbeat History of stress test Hyperlipidemia Hypertension Hypothyroid Leg cramps Multinodular thyroid Multiple thyroid nodules Non-smoker Obesity Personal history of colonic polyps PONV (postoperative nausea and vomiting) Premature ventricular complex Shortness of breath on exertion Thyroid disease Toxic multinodular goiter Wears glasses Surgical History H/O: hysterectomy History of appendectomy History of breast biopsy (~06/2018) History of cardiac catheterization History of colonoscopy (~2016) History of D&C History of wisdom tooth extraction Status post biopsy of thyroid gland (~11/2018) Family History Mother , Age 72, of [place] Myocardial infarction CAD (coronary artery disease) CVA (cerebral vascular accident) Hyperlipidemia HypertensionFather , Age 94 Heart disease Hyperlipidemia Thyroid disorder Prostate cancerBrother , of Agent [place] Exposure Diabetes Hypertension Heart disease Hyperlipidemia CVA (cerebral vascular accident) Agent orange exposureBrother , of AIDS AIDSSister , in MVA MVA (motor vehicle accident)Son Abdominal aortic aneurysmGrandmother Diabetes Social History Smoking Status: Never smoker alcohol intake: current details: social substance use type: does not use seatbelt use: always do you feel safe at home: Yes additional social history: -Aparna HPI HPI HPI: 78-year-old female. She returns for routine follow-up. June 27, 2022 we willperform a colonoscopy for her. I removed 7 polyps for her. Pathology was consistent with tubular adenomas except for a mid sigmoid polyp had fragments ofa tubulovillous adenoma. Follow-up colonoscopy at 1 year was recommended. Has had some progressive constipation problems. She wonders whether it is due to attempts to correct and alter her thyroid medications. In the past she has taken just something mild like Senokot. She has not tried a MiraLAX or similar product. She denies any abdominal pain. No bright red blood per rectum or melena. She did strain a MCL of her knee but that is improving with physical therapy. ROS General General: Yes fatigue; No weight change, appetite, colon cancer, breast cancer or weakness HEENT HEENT: Yes eye surgery; No difficulty swallowing, eye injury, swollen glands or hoarseness Endo Endocrine: Yes thyroid disease and diabetes mellitus; No thyroid cancer, Hair loss, heat intolerance or cold intolerance Musc Musculoskeletal: Yes back problems and arthritis; No rheumatoid arthritis, gout or joint pain Cardio Cardiovascular: Yes high blood pressure; No murmur, pacemaker, heart disease, atrial fibrillation, heart attack, heart stent, palpitations, shortness of breat with exertion or chest pain Psych Psychiatric: Yes depression and anxiety; No hearing voices Resp Respiratory: No shortness of breath, No sleep apnea, No cough, No COPD, No asthma, No emphysema and No wheezing Gastro Gastrointestinal: No abdominal pain, No nausea or vomiting, No diarrhea, Yes constipation, No blood in stool, No acid reflux, Yes hemorrhoids, No ulcers, No gallbladder problem and No black,tarry stools Avni Hematologic: No blood thinners, No blood disorders, No bleeding, No anemia and No blood clots Neuro Neurologic: Yes numbness, Yes tingling and No weakness Exam Const General: cooperative, healthy appearing, comfortable and no acute distress HENOH Head: normal to inspection Eyes General: appearance normal, both eyes and all related structures Neck Neck: normal visual inspection Chest Chest palpation & inspection: normal inspection of the chest Resp Effort & Inspection: normal respiratory effort Auscultation: clear to auscultation bilaterally Cardio Rate: regular rate Rhythm: regular rhythm Musc Cervical Spine: normal cervical lordosis Skin General: no rashes or lesions noted Neuro General: patient alert, patient awake and patient oriented x3 Extrem General: normal to inspection and no calf tenderness Psych Appearance: grossly normal and well ket Assessment and Plan Assessment and Plan (1) Personal history of colonic polyps: Status: Resolved Plan: I recommend the patient a colonoscopy with possible biopsy or polypectomy as indicated. We will have her hold her aspirin just 3 days prior to the procedure. I have discussed with her her symptoms of chronic constipation and recommending MiraLAX or generic product as needed. She has had an opportunity to ask and have questions answered. I appreciate the ongoing option of assisting with her surgical care and we will schedule and proceed at her discretion. Indication is that she has had multiple previous polyps on her colonoscopy a year ago and she had mostly tubular adenomas but one was tubulovillous adenoma. Copy: Dr Zeny Lamb M.D., F.A.C.S I have examined the patient and the H&P has been reviewed. There are no clinicalchanges since date of exam. Mateo Lamb M.D., F.A.C.S. 10/19/23 0824 <Electronically signed by Mateo Lamb MD> Cosigner Signature (if applicable): CC: Dr. Zeny Crow MD; Dr. Mateo Lamb MD~ Signed [facility] [place] Work Phone: Reason for referral (narrative)No reason for referral information availableWGreen Cross Hospital Work Phone: Summary Purpose Family History No Family History Records Found Relationship Condition Age at Onset Recorded Date/T enrike mother Myocardial infarction Unknown Coronary artery disease Unknown Cerebrovascular accident (CVA) Unknown Hyperlipidemia Unknown Hypertension Unknown father Cardiac disease Unknown Disorder of thyroid Unknown Malignant neoplasm of prostate Unknown brother Diabetes mellitus Unknown Cardiac disease Unknown Exposure to Agent [place] Unknown brother Acquired immunodeficiency syndrome Unknow n sister Motor vehicle accident Unknown son Abdominal aortic aneurysm (AAA) Unknown grandmother Diabetes mellitus Unknown Advance Directives No Advanced Directives Records Found Advance Directive Response Recorded Date/ Time Name of Medical Power of Junior Designer ZENAIDA APARNA BEARD June 23, 2022 3:48pm Living Will Yes June 23, 2022 3:48pm Power of Junior Designer Yes May 3:48pm Advance Directive Response Recorded Date/ Time Name of Medical Power of Junior Designer ZENAIDA APARNA BEARD June 23, 2022 2:48pm Living Will Yes June 23, 2022 2:48pm Power of Junior Designer Yes May 2:48pm Advance Directive Response Recorded Date/ Time Living Will Yes June 23, 2022 2:48pm Power of Junior Designer Yes May 2:48pm Advance Directive Response Recorded Date/ Time Living Will Yes June 23, 2022 3:48pm Power of Junior Designer Yes May 3:48pm Advance Directive Response Recorded Date/ Time Name of Medical Power of Junior Designer October 17, 2023 3:52pm Living Will Yes October 17 3:52pm Power of Junior Designer Yes October 17, 2023 3:52pm Advance Directive Response Recorded Date/ Time Name of Medical Power of Junior Designer October 17, 2023 4:52pm Living Will Yes October 17 4:52pm Power of Junior Designer Yes October 17, 2023 4:52pm Advance Directive Response Recorded Date/ Time Living Will Yes October 17 4:52pm Do you have a Healthcare Power of Junior Designer? 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) Reason for Visit Obesity Toxic multinodular goiter Diabetes mellitus type II, controlled Encounter for routine gynecological examination Chief Complaint Thyroid, 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) E ORDER Reason for Visit Obesity Toxic multinodular goiter Diabetes mellitus type II, controlled Encounter for routine gynecological examination Chief Complaint E ORDER CONGESTION 4 M FU Reason for Visit Sinusitis, acute Diabetes mellitus type II, controlled Toxic multinodular goiter Chief Complaint E ORDER CONGESTION 4 M FU COLONOSCOPY - RECALL LETTER L MCL SPRAIN RX HERE Reason for Visit Sinusitis, acute Diabetes mellitus type II, controlled Toxic multinodular goiter Personal history of colonic polyps Chief Complaint COLONOSCOPY - RECALL LETTER L MCL SPRAIN RX HERE SCREENING 4 M FU Reason for Visit Personal history of colonic polyps Diabetes mellitus type II, controlled Toxic multinodular goiter Chief Complaint SCREENING 4 M FU Reason for Visit Diabetes mellitus ty pe II, controlled Toxic multinodular goiter Chief Complaint CONGESTION 4 M FU COLONOSCOPY - RECALL LETTER L MCL SPRAIN RX HERE SCREENING Reason for Visit Sinusitis, acute Diabetes mellitus type II, controlled Toxic multinodular goiter Personal history of colonic polyps Chief Complaint Admit Date SCREENING September 04, 2024 9:13am ABNORMAL BI September 11, 2024 2:26pm 6 M FU November 11, 2024 10:24am SCIATICA,RX HERE December 03, 2024 1:3 8pm Reason for Visit Admit Date Sciatica November 11, 2024 10:24am Diabetes mellitus type II, controlled Fe bruary 2024 10:24am Toxic multinodular goiter November 11, 2024 10:24am Chief Complaint Admit Date 6 M FU November 11, 2024 10:24am painful vaginal cyst December 23, 2024 11: 37am RAD HIP UNI PELVIS 2-3 VIEWS January 23 9:34am SCIATICA,RX HERE January 27, 2025 1:30pm Reason for Visit Admit Date Sciatica November 11, 2024 10:24am Diabetes mellitus type II, controlled Fe bruary 2024 10:24am Toxic multinodular goiter November 11, 2024 10:24am Inclusion cyst of vulva December 23, 2024 11:37am Chief Complaint Admit Date painful vaginal cyst December 23, 2024 11: 37am RAD HIP UNI PELVIS 2-3 VIEWS January 23 9:34am LUMBAR PAIN March 09, 2025 2:35 pm SCIATICA,RX HERE March 11, 2025 2:30 pm Reason for Visit Admit Date Inclusion cyst of vulva December 23, 2024 11:37am Additional Source Comments INFORMATION SOURCE (unrecogn ized section and content) DATE CREATED AUTHOR 01/27/2019 [facility] ([place]) DATE CREATED AUTHOR AUTHOR'S ORGANIZ ATION 04/05/2025 [facility] Goals (unrecognized section and content) Goals may be documented in a n alternate sectionGoals may be documented in an alternate sectionGoals may be documented in an alternate sectionGoals may be documented in an alternate sectionGoals may be documented in an alternate sectionGoals may be documented in an alternate sectionGoals may be documented in an alternate sectionGoals may be documented in an alternate sectionGoals may be documented in an alternate sectionGoals may be documented in an alternate sectionGoals may be documented in an alternate sectionGoals may be documented in an alternate sectionGoals may be documented in an alternate section Care Teams (unrecognized sec tion and content) Team Status: Active Member Role Status Dates Dr. Zeny Crow MD Family Provider Active Dr. Zeny Crow MD Primary Care Provider Active Team Status: Inactive Member Role Status Dates Dr. Zeny Crow MD Primary Care Provider Active Dr. Sophia López MD Attending Provider Active Team Status: Inactive Member Role Status Dates Dr. Zeny Crow MD Primary Care Provider, Attend ing Provider Active Team Status: Inactive Member Role Status Dates Dr. Zeny Crow MD Primary Care Provider, Referr ing Provider Active Dr. Sophia López MD Attending Provider Active Team Status: Inactive Member Role Status Dates Dr. Zeny Crow MD Primary Care Provider, Referr ing Provider Active Dr. Shayne Dia MD Attending Provider Active Team Status: Inactive Member Role Status Dates Dr. Zeny Crow MD Primary Care Provider Active Dr. Shayne Dia MD Attending Provider Active Team Status: Inactive Member Role Status Dates Dr. Zeny Crow MD Primary Care Provider, Referr ing Provider Active SUZAN Curry Attending Provider Active Team Status: Inactive Member Role Status Dates Dr. Zeny Crow MD Primary Care Provider, Attend ing Provider Active Dr. Shayne Dia MD Other Provider Active Team Status: Inactive Member Role Status Dates Dr. Zeny Crow MD Primary Care Provider, Referr ing Provider Active Dr. Mateo Lamb MD Attending Provider Active Team Status: Inactive Member Role Status Dates Dr. Zeny Crow MD Primary Care Pr ovider, Attending Provider, Referring Provider Active Team Status: Inactive Member Role Status Dates Dr. Zeny Crow MD Primary Care Provider Active Dr. Sophia López MD Attending Provider, Referr ing Provider Active Team Status: Active Member Role Status Dates Dr. Zeny Crow MD Primary Care Provider, Referr ing Provider Active Dr. Mateo Lamb MD Attending Provider, Other Prov ider Active Team Status: Active Member Role Status Dates Dr. Zeny Crow MD Primary Care Provider Active Team Status: Inactive Member Role Status Dates Dr. Zeny Crow MD Primary Care Provider Active Start: September 04, 2024 End: September 04, 2024 Dr. Sophia López MD Attending Provider Active Start: September 04, 2024 End: September 04, 2024 Dr. Sophia López MD Referring Provider Active Start: September 04, 2024 End: September 04, 2024 Team Status: Inactive Member Role Status Dates Dr. Zeny Crow MD Primary Care Provider Active Start: September 11, 2024 End: September 11, 2024 Dr. Sophia López MD Attending Provider Active Start: September 11, 2024 End: September 11, 2024 Dr. Sophia López MD Referring Provider Active Start: September 11, 2024 End: September 11, 2024 Team Status: Inactive Member Role Status Dates Dr. Zeny Crow MD Primary Care Provider Active Start: November 10, 2024 End: November 10, 2024 Dr. Shayne Dia MD Attending Provider Active Sta rt: November 10, 2024 End: November 10, 2024 Team Status: Inactive Member Role Status Dates Dr. Zeny Crow MD Primary Care Provider Active Start: November 11, 2024 End: November 11, 2024 Dr. Zeny Crow MD Referring Provider Active Start: November 11, 2024 End: November 11, 2024 Dr. Shayne Dia MD Attending Provider Active Sta rt: November 11, 2024 End: November 11, 2024 Team Status: Active Member Role Status Dates Dr. Zeny Crow MD Primary Care Provider Active Start: December 03, 2024 Dr. Shayne Dia MD Attending Provider Active Sta rt: December 03, 2024 Dr. Shayne Dia MD Referring Provider Active Sta rt: December 03, 2024 Team Status: Inactive Member Role Status Dates Dr. Zeny Crow MD Primary Care Provider Active Start: December 09, 2024 End: December 09, 2024 Dr. Zeny Crow MD Attending Provider Active Start: December 09, 2024 End: December 09, 2024 Dr. Zeny Crow MD Referring Provider Active Start: December 09, 2024 End: December 09, 2024 Team Status: Inactive Member Role Status Dates Dr. Zeny Crow MD Primary Care Provider Active Start: December 23, 2024 End: December 23, 2024 Dr. Zeny Crow MD Referring Provider Active Start: December 23, 2024 End: December 23, 2024 Betsey Dietrich CLINICAL NURSING ASSISTANT, CLINICAL NURSING ASSISTANT-C Attending Provider Active Start: December 23, 2024 End: December 23, 2024 Team Status: Inactive Member Role Status Dates Dr. Zeny Crow MD Primary Care Provider Active Start: January 23, 2025 End: January 23, 2025 Dr. Zeny Crow MD Attending Provider Active Start: January 23, 2025 End: January 23, 2025 Dr. Zeny Crow MD Referring Provider Active Start: January 23, 2025 End: January 23, 2025 Team Status: Active Member Role Status Dates Dr. Zeny Crow MD Primary Care Provider Active Start: January 27, 2025 Dr. Shayne Dia MD Attending Provider Active Sta rt: January 27, 2025 Dr. Shayne Dia MD Referring Provider Active Sta rt: January 27, 2025 Team Status: Inactive Member Role Status Dates Dr. Zeny Crow MD Primary Care Provider Active Start: March 09, 2025 End: March 09, 2025 Dr. Jacob Castañeda MD Attending Provider Active Start: March 09, 2025 End: March 09, 2025 Dr. Jacob Castañeda MD Referring Provider Active Start: March 09, 2025 End: March 09, 2025 Team Status: Active Member Role Status Dates Dr. Zeny Crow MD Primary Care Provider Active Start: March 11, 2025 Dr. Shayne Dia MD Attending Provider Active Sta rt: March 11, 2025 Dr. Shayne Dia MD Referring Provider Active Sta rt: March 11, 2025 FOR RECORDS PERTAINING TO PATIENTS WHO ARE [...] BE BASED ON THE PRIMARY CLINICAL RECORDS. [facility] [employer] provides no warranty or guarantee of the accuracy or completeness of information in this document.
== END | disposition home or self-care (01) ==
LOC: LABSPEC 14:58
PROVIDERS: PCP Family Medicine; Referring Provider Family Medicine; Visit Provider Family Medicine
DX: E11.59 Type 2 diabetes mellitus with other circulatory complications (principal)
CPT/HCPCS: 82043; 82570

== ENCOUNTER → 2025-04-09 | Outpatient (CLI) | payer MEDICARE, SELFPAY ==
[2025-04-09 15:28] LABS: Mucous, Urine 0 SEEN /hpf (<or=2+)
[2025-04-09 18:14] LABS: Hematocrit 38.2 % (37-47); Hemoglobin 12.7 g/dL (12.0-15.0); Immature Granulocytes Count 0.030 X10^3/uL (0.0-0.0); Mean Corp Hgb Conc 33.2 g/dL (32-36); Mean Corpuscular Volume 83.4 fL (81-99); Mean Platelet Vol. 9.1 fl (6.2-12.0); NRBC Flagged by Analyzer 0 % (0-5); Platelet Count 293 K/mm3 (150-450); RBC Distribution Width CV 13.2 % (11.6-14.6); RBC Distribution Width SD 40.2 fl (35.1-43.9); Red Blood Count 4.58 M/mm3 (4.2-5.4); White Blood Count 8.8 K/mm3 (4.4-11.0)
[2025-04-09 18:21] LABS: Glucose, Dipstick Normal (Normal); Ketone-Dipstick Negative (Negative); Leukocyte Esterase-Dipstick 100 /ul (Negative); Nitrite-Dipstick Negative (Negative); Occult Blood-Urine Negative /ul (Negative); Protein-Dipstick Negative (Negative); Specific Gravity, Urine 1.025 (1.002-1.030); Urine Bilirubin Dipstick Negative (Negative)
[2025-04-09 18:53] LABS: Color, Urine Other (Yellow)
[2025-04-09 18:53] LABS: AST(SGOT) 18 U/L (<=31); Alanine Aminotransfer ALT/SGPT 11 U/L (<=34); Albumin, Serum 4.3 g/dL (3.4-4.8); Alkaline Phosphatase 65 U/L (35-104); Anion Gap 13 (5-15); BUN 23 mg/dL (4-19); BUN/Creat Ratio 26.7 RATIO (10-20); Calcium,Total 9.7 mg/dL (7.6-11.0); Carbon Dioxide 24.3 mmol/L (21.0-32.0); Chloride 102 mmol/L (98-108); Cholesterol 132 mg/dL (<=200); Globulin 3.0 g/dL (2.2-4.2); Glucose 106 mg/dL (70-99); Low Density Lipoprotein Calc. 46 mg/dL; Magnesium 2.0 mg/dL (1.5-2.2); Potassium 4.1 mmol/L (3.3-5.1); Triglycerides 184 mg/dL; Very Low Density Lipoprotein 37 mg/dL (5-40); cholesterol:hdl ratio screen 2.66
[2025-04-09 19:01] LABS: Red Blood Cells-Urine 0-5 SEEN /hpf (0-5); Squamous Epithelial Cells - UA 0-5 SEEN /hpf (5-10)
== END | disposition home or self-care (01) ==
LOC: MFPLAB 14:40
PROVIDERS: PCP Family Medicine; Referring Provider Family Medicine; Visit Provider Family Medicine
DX: E11.59 Type 2 diabetes mellitus with other circulatory complications (principal); E11.69 Type 2 diabetes mellitus with other specified complication
CPT/HCPCS: 36415; 80053; 80061; 81001; 83036; 83735; 85025

== ENCOUNTER → 2025-07-14 | Outpatient (CLI) | payer MEDICARE, SELFPAY ==
[2025-07-14 14:48] LABS: Free T3 3.3 pg/mL (2.18-3.98)
== END | disposition home or self-care (01) ==
LOC: PAVLAB 13:31
PROVIDERS: PCP Family Medicine; Referring Provider Internal Medicine Endocrinology, Diabetes & Metabolism; Visit Provider Internal Medicine Endocrinology, Diabetes & Metabolism
DX: E05.20 Thyrotoxicosis with toxic multinodular goiter without thyrotoxic crisis or storm (principal)
CPT/HCPCS: 84439; 84443; 84481

== ENCOUNTER → 2025-09-03 | Outpatient (CLI) | payer MEDICARE, SELFPAY ==
[2025-09-03 18:35] LABS: Anion Gap 11 (5-15); BUN 19 mg/dL (4-19); BUN/Creat Ratio 20.3 RATIO (10-20); Calcium,Total 9.5 mg/dL (7.6-11.0); Carbon Dioxide 27.8 mmol/L (21.0-32.0); Chloride 103 mmol/L (98-108); Free T3 3.6 pg/mL (2.18-3.98); Glucose 101 mg/dL (70-99); Potassium 4.4 mmol/L (3.3-5.1)
== END | disposition home or self-care (01) ==
LOC: MTLAB 14:44
PROVIDERS: Internal Medicine Endocrinology, Diabetes & Metabolism; PCP Family Medicine; Referring Provider Anesthesiology Pain Medicine; Visit Provider Anesthesiology Pain Medicine
DX: E05.20 Thyrotoxicosis with toxic multinodular goiter without thyrotoxic crisis or storm (principal); Z79.1 Long term (current) use of non-steroidal anti-inflammatories (NSAID)
CPT/HCPCS: 36415; 80048; 84439; 84443; 84481